=== PATIENT | male | born 1955 | race Caucasian/White ===

== ENCOUNTER 2023-01-14 19:51 | Emergency (ER) | payer MEDICARE, SELFPAY ==
[2023-01-14 19:55] VITALS: BP 140/93; PULSE 105; RESP 20; TEMP 36.7; O2SAT 98; BMI 25.8
--- NOTE | 2023-01-14 20:01 | ED.BACK1 ---
HPI - Back Pain/Injury General Chief Complaint: Back Pain/Injury Stated Complaint: BACK PAIN Time Seen by Provider: 01/14/23 19:56 Source: patient Mode of arrival: walk-in Limitations: no limitations History of Present Illness HPI Narrative: past history of kidney stones. None for 6 years. Presents complaining of pain since last week and decrease urine output. No fever, nausea, vomiting or dysuria/hematuria Pertinent past history: Reports kidney stones Related Data Allergies Allergy/AdvReac Type Severity Reaction Status Date / Time codeine Allergy Severe Verified 01/14/23 19:58 Penicillins Allergy Severe Verified 01/14/23 19:58 Review of Systems ROS Status of ROS 10 or more systems reviewed and unremarkable except as noted in history and below Exam Constitutional Vital Signs, click to edit/add: Last Vital Signs Temp 98.1 F 01/14/23 19:55 Pulse 89 01/14/23 21:41 Resp 16 01/14/23 21:41 BP 144/92 H 01/14/23 21:41 Pulse Ox 94 L 01/14/23 21:41 O2 Del Method Room Air 01/14/23 21:41 Common normals: no apparent distress, average body habitus, oriented x3, no limitations and healthy appearing Eye Common normals: EOMs intact bilaterally and conjunctivae normal Respiratory Common normals: normal respiratory effort, no retractions and no use of accessory muscles Cardio Common normals: regular rate, regular rhythm, S1 normal heart sound and S2 normal heart sound GI Common normals: Normal to inspection, nondistended, normoactive bowel sounds present, soft to palpation and non-tender Back & Pelvis Common normals: no CVA tenderness Extremity Common normals: normal to inspection and full ROM Neuro Common normals: oriented x3, CN's II-XII intact bilaterally, moves all extremities, no focal motor deficits and no sensory deficits noted Psych Appearance: grossly normal Course Vital Signs Vital signs: Vital Signs Temperature 98.1 F 01/14/23 19:55 Pulse Rate 105 H 01/14/23 19:55 Respiratory Rate 20 01/14/23 19:55 Blood Pressure 140/93 H 01/14/23 19:55 Pulse Oximetry 98 01/14/23 19:55 Oxygen Delivery Method Room Air 01/14/23 19:55 Temperature 98.1 F 01/14/23 19:55 Pulse Rate 89 01/14/23 21:41 Respiratory Rate 16 01/14/23 21:41 Blood Pressure 144/92 H 01/14/23 21:41 Pulse Oximetry 94 L 01/14/23 21:41 Oxygen Delivery Method Room Air 01/14/23 21:41 MDM - Back Pain/Injury MDM Narrative Medical decision making narrative: patient presents complaining of pain across her lower back. past history of kidney stone. Found on CT to have 6mm stone at the right UVJ. No hydronephrosis. UA neg for infection. Pain control adequate while in the department. Discharged home Advised to drink plenty of fluids and to followup with his Urologist next week Lab Data Labs: Lab Results 01/14/23 01/14/23 01/14/23 Range/Units 20:08 21:10 22:14 WBC 7.5 (4.0-11.0) 10^3/uL RBC 5.01 (4.70-6.10) 10^6/uL Hgb 15.7 (14.0-18.0) g/dL Hct 46.0 (42.0-54.0) % MCV 91.8 (80.0-94.0) fL MCH 31.3 (25.9-34.0) pg MCHC 34.1 (29.9-35.2) g/dL RDW 13.0 (11.0-15.0) % Plt Count 183 (150-450) 10^3/uL MPV 9.2 L (9.5-13.5) fL Neut % (Auto) 86.4 H (43.0-75.0) % Lymph % (Auto) 7.0 L (20.5-60.0) % Love % (Auto) 6.0 (1.7-12.0) % Eos % (Auto) 0.0 L (0.9-7.0) % Baso % (Auto) 0.3 (0.2-2.0) % Neut # (Auto) 6.5 (1.4-6.5) 10^3/uL Lymph # (Auto) 0.5 L (1.2-3.8) 10^3/uL Love # (Auto) 0.5 (0.3-0.8) 10^3/uL Eos # (Auto) 0.0 (0.0-0.7) 10^3/uL Baso # (Auto) 0.0 (0.0-0.1) 10^3/uL Abs Immat Gran (auto) 0.02 (0.00-0.03) 10^3/uL Imm/Tot Granulo (auto) 0.3 (0.0-0.5) % Sodium 137 (136-145) mmol/L Potassium 3.9 (3.5-5.1) mmol/L Chloride 102 (98-107) mmol/L Carbon Dioxide 25.9 (21.0-32.0) mmol/L Anion Gap 13.0 BUN 16.0 (7.0-18.0) mg/dL Creatinine 1.24 (0.70-1.30) mg/dL Est GFR ( Amer) >60 (>=60) Est GFR (Non-Af Amer) 58 L (>=60) BUN/Creatinine Ratio 12.9 Glucose 142 H (74-106) mg/dL Lactate 2.4 H* 0.9 (0.4-2.0) mmol/L Calcium 9.5 (8.5-10.1) mg/dL Urine Color Lt. yellow (YELLOW) Urine Clarity Clear (CLEAR) Urine pH 6.0 (5.0-9.0) Ur Specific [place] 1.010 (1.005-1.025) Urine Protein Negative (NEG/TRACE) mg/dL Urine Glucose (UA) Negative (NEGATIVE) mg/dL Urine Ketones Negative (NEGATIVE) mg/dL Urine Occult Blood Small A (NEGATIVE) Urine Nitrite Negative (NEGATIVE) Urine Bilirubin Negative (NEGATIVE) Urine Urobilinogen 0.2 (0.2-1.0) EU/dL Ur Leukocyte Esterase Negative (NEGATIVE) Urine RBC 0-2 (0-2) #/HPF Urine WBC 0-2 A (NONE SEEN) #/HPF Ur Squamous Epith Cells None seen (NONE/RARE) #/LPF Urine Crystals None seen (None Seen) #/HPF Urine Bacteria None seen (NONE SEEN) #/HPF Urine Casts None seen (NONE SEEN) #/LPF Urine Mucus None seen (NONE SEEN) Ur Culture Indicated? No Imaging Data CT scan - abdomen: Radiologist's impression: of 2 Current View [email or web address] [place] [id number] Patient Name: SEPIDEH BENITES MRN: [id number] date: 1955 Sex: M Assigned Patient Location: ER Current Patient Location: ER Accession/Order Number: [id number] Exam Date: 01/14/2023 20:16 Report Date: 01/14/2023 21:08 At the request of: TAWNYA IRBY Procedure: CT abdomen pelvis wo con EXAM: CT abdomen pelvis wo con TECHNIQUE: Axial CT images were obtained of the abdomen and pelvis without intravenous contrast. Sagittal and coronal reformatted images were also obtained. Dose reduction techniques were achieved by using automated exposure control and/or adjustment of mA and/or kV according to patient size and/or use of iterative reconstruction technique. HISTORY: kidney stone COMPARISON: 05/31/2018 FINDINGS: Lower chest: The lower lungs are clear. Liver: The liver is homogeneous with normal contours and normal size. Gallbladder: The gallbladder is unremarkable. There is no intra or extrahepatic biliary dilatation. Pancreas: The pancreas is homogeneous without evidence for mass lesion or inflammation. Spleen: The spleen is unremarkable without evidence for mass lesion. Adrenal glands: The adrenal glands are unremarkable Kidneys and bladder: Small cyst upper pole right kidney. Small nonobstructing stones of both kidneys measuring up to 3 mm on the right and 4 mm on the left. The ureters demonstrate normal caliber. 6 mm stone near or within the right ureterovesical junction. GI Tract: Stomach is unremarkable. Visualized small bowel is unremarkable without evidence for obstruction or active inflammation. The appendix is unremarkable.Severe diverticulosis of the distal colon. Reproductive: The prostate gland is enlarged. Lymph nodes: No retroperitoneal or abdominal lymphadenopathy. Vascular: The aorta is not dilated. Peritoneum: No free intraperitoneal air or fluid. No acute inflammation. Abdominal wall: Chronic depression deformity of the L2 vertebral body. Severe degenerative disc disease at L3-L4 and L4-L5. Multiple old healed rib fractures. IMPRESSION: 6 mm stone of the urinary bladder, near or within the right ureterovesical junction. No evidence for right-sided hydroureter or hydronephrosis. Additional small nonobstructing stones of the kidneys. Electronically authenticated by: GENNA DAVIES Date: 01/14/2023 21:08 Discharge Plan Discharge Chief Complaint: Back Pain/Injury Clinical Impression: Renal colic Instructions: Renal Colic (ED) Additional Instructions: follow up with your Urologist next week or with Urologist Dr Foley Referrals: Tino Rice MD [Primary Care Provider] - 1 week
[2023-01-14 20:15] LABS: Basophils Percent Auto 0.3 % (0.2-2.0); Hemoglobin 15.7 g/dL (14.0-18.0); Immature Granulocytes Abs Auto 0.02 10^3/uL (0.00-0.03); Immature Granulocytes Pct Auto 0.3 % (0.0-0.5); Lymphocytes Absolute Auto 0.5 10^3/uL (1.2-3.8); Mean Corpuscular HGB Conc 34.1 g/dL (29.9-35.2); Mean Corpuscular Hemoglobin 31.3 pg (25.9-34.0); Mean Corpuscular Volume 91.8 fL (80.0-94.0); Mean Platelet Volume 9.2 fL (9.5-13.5); Monocytes Absolute Auto 0.5 10^3/uL (0.3-0.8); Neutrophils Absolute Auto 6.5 10^3/uL (1.4-6.5); Neutrophils Percent Auto 86.4 % (43.0-75.0); Platelet Count 183 10^3/uL (150-450); Red Blood Count 5.01 10^6/uL (4.70-6.10); White Blood Count 7.5 10^3/uL (4.0-11.0)
[2023-01-14 20:25] LABS: BUN Creatinine Ratio 12.9; Calcium 9.5 mg/dL (8.5-10.1); Carbon Dioxide 25.9 mmol/L (21.0-32.0); Chloride 102 mmol/L (98-107); Estimated GFR (African America >60 (>=60); Estimated GFR (Non-African Ame 58 (>=60); Glucose 142 mg/dL (74-106); Potassium 3.9 mmol/L (3.5-5.1); Sodium 137 mmol/L (136-145)
[2023-01-14] MEDS: 0.9 % SODIUM CHLORIDE 1,000 ML 999 ML IV ×2 (20:28→21:07)
[2023-01-14 20:37] LABS: Lactate/Lactic Acid 2.4 mmol/L (0.4-2.0)
[2023-01-14] MEDS: KETOROLAC TROMETHAMINE 30 MG/ML VIAL IM (20:54)
[2023-01-14 21:20] LABS: Bilirubin Urine NEGATIVE (NEGATIVE); Blood Urine SMALL (NEGATIVE); Clarity Urine CLEAR (CLEAR); Color Urine LT. YELLOW (YELLOW); Glucose Urine UA NEGATIVE (NEGATIVE); Ketones Urine NEGATIVE (NEGATIVE); Leukocyte Esterase Urine NEGATIVE (NEGATIVE); Nitrite Urine NEGATIVE (NEGATIVE); Protein Urine NEGATIVE (NEG/TRACE); Urobilinogen Urine 0.2 EU/dL (0.2-1.0)
[2023-01-14 21:21] LABS: Urine Microscopic Indicated YES
[2023-01-14 21:28] LABS: Bacteria Urine NONE SEEN #/HPF (NONE SEEN); Cast Seen? NONE SEEN #/LPF (NONE SEEN); Crystals Seen? None Seen #/HPF (None Seen); Mucus Urine NONE SEEN (NONE SEEN); RBC Urine 0-2 #/HPF (0-2); Squamous Epithelial Cell Urine NONE SEEN #/LPF (NONE/RARE); Urine Culture Indicated NO; WBC Urine 0-2 #/HPF (NONE SEEN)
[2023-01-14] MEDS: FENTANYL CITRATE/PF 100 MCG/2 ML VIAL IV (21:34)
[2023-01-14] MEDS: ORPHENADRINE 60 MG/ 2 ML VIAL IV (21:35)
[2023-01-14 21:41] VITALS: BP 144/92; PULSE 89; RESP 16; O2SAT 94
[2023-01-14 22:36] LABS: Lactate/Lactic Acid 0.9 mmol/L (0.4-2.0)
== END 2023-01-14 23:17 | disposition home or self-care (01) ==
PROVIDERS: Emergency Provider Internal Medicine; PCP Family Medicine
DX: N23 Unspecified renal colic (principal); Z87.442 Personal history of urinary calculi
CPT/HCPCS: 36415; 74176; 80048; 81001; 83605; 85025; 96372; 96374; 96375; 99285

== ENCOUNTER 2023-12-11 09:28 | Outpatient (OUT) | payer MEDICARE, SELFPAY ==
--- NOTE | 2023-12-11 09:47 | XR_ITS ---
The [address] [address] Patient Name: SEPIDEH BENITES MRN: [id number] date: 1955 Sex: M Assigned Patient Location: LAB Current Patient Location: Accession/Order Number: [id number] Exam Date: 12/11/2023 09:53 Report Date: 12/12/2023 06:28 At the request of: KARLENE CROOK Procedure: XR hip RT 2V w/ pelvis PROCEDURE: XR hip RT 2V w/ pelvis HISTORY: Right Hip Pain M25.551 COMPARISON: None. FINDINGS: BONES:Slight narrowing of the hip joint spaces bilaterally. No significant periarticular osteophytes. 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 No fracture or dislocation. SOFT TISSUES:No visible soft tissue swelling. EFFUSION:None visible. OTHER: Negative. XR/XR hip RT 2V w/ pelvis IMPRESSION: 1. No acute bone abnormality. 2. Mild degenerative joint disease. 3. 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 Electronically authenticated by: MARIA M BALLESTEROS Date: 12/12/2023 06:28
[2023-12-11 10:20] LABS: Estimated Average Glucose 105 mg/dL; Glycohemoglobin A1C 5.3 % (4.5-6.2)
[2023-12-11 10:29] LABS: Basophils Percent Auto 0.7 % (0.2-2.0); Eosinophils Absolute Auto 0.1 10^3/uL (0.0-0.7); Eosinophils Percent Auto 1.3 % (0.9-7.0); Hematocrit 46.9 % (42.0-54.0); Hemoglobin 15.6 g/dL (14.0-18.0); Immature Granulocytes Abs Auto 0.01 10^3/uL (0.00-0.03); Immature Granulocytes Pct Auto 0.2 % (0.0-0.5); Lymphocytes Absolute Auto 1.2 10^3/uL (1.2-3.8); Lymphocytes Percent Auto 19.2 % (20.5-60.0); Mean Corpuscular HGB Conc 33.3 g/dL (29.9-35.2); Mean Corpuscular Hemoglobin 31.5 pg (25.9-34.0); Mean Corpuscular Volume 94.6 fL (80.0-94.0); Monocytes Absolute Auto 0.5 10^3/uL (0.3-0.8); Monocytes Percent Auto 7.7 % (1.7-12.0); Neutrophils Absolute Auto 4.3 10^3/uL (1.4-6.5); Neutrophils Percent Auto 70.9 % (43.0-75.0); Platelet Count 203 10^3/uL (150-450); Red Blood Count 4.96 10^6/uL (4.70-6.10); Red Cell Distribution Width 12.5 % (11.0-15.0)
[2023-12-11 10:40] LABS: Free T4 0.91 ng/dL (0.76-1.46)
[2023-12-11 10:45] LABS: Prostate Specific Antigen Scrn 1.37 ng/mL (<=4.00)
[2023-12-11 11:06] LABS: Alanine Aminotransferase 29 U/L (16-63); Albumin Globulin Ratio 1.2; Albumin Level 3.7 g/dL (3.4-5.0); Alkaline Phosphatase 94 U/L (46-116); Anion Gap 12.8; Aspartate Amino Transferase 15 U/L (15-37); BUN Creatinine Ratio 17.4; Bilirubin Total 0.7 mg/dL (0.2-1.0); Calcium 9.1 mg/dL (8.5-10.1); Carbon Dioxide 29.4 mmol/L (21.0-32.0); Chloride 103 mmol/L (98-107); Chol HDL Ratio 3.8; Cholesterol 150 mg/dL (<=200); Estimated GFR (African America >60 (>=60); Estimated GFR (Non-African Ame >60 (>=60); Globulin 3.2 g/dL; Glucose 105 mg/dL (74-106); HDL Cholesterol 40 mg/dL (40-60); LDL Cholesterol Calculated 89.6 mg/dL; Potassium 4.2 mmol/L (3.5-5.1); Sodium 141 mmol/L (136-145); Thyroid Stimulating Hormone 1.466 uIU/mL (0.358-3.740); Total Protein 6.9 g/dL (6.4-8.2); Triglycerides 102 mg/dL (<=150); VLDL CHOLESTEROL 20.4 mg/dL
== END 2023-12-11 09:29 | disposition home or self-care (01) ==
LOC: LAB 09:31
PROVIDERS: PCP Family Medicine; Visit Provider Family Medicine
DX: R07.9 Chest pain, unspecified (principal); R53.83 Other fatigue; R06.00 Dyspnea, unspecified; I10 Essential (primary) hypertension; Z12.5 Encounter for screening for malignant neoplasm of prostate; E03.9 Hypothyroidism, unspecified; E78.5 Hyperlipidemia, unspecified; R73.09 Other abnormal glucose; M25.551 Pain in right hip
CPT/HCPCS: 36415; 73502; 80053; 80061; 83036; 84439; 84443; 85025; G0103

== ENCOUNTER 2024-01-09 07:41 | Outpatient (OUT) | payer MEDICARE, SELFPAY ==
--- NOTE | 2024-01-09 08:00 | NM_ITS ---
Patient Name: SEPIDEH BENITES MR#: [id number] : 1955 Exam Date: 01/09/2024 Ordering Doctor: DR KARLENE CROOK . RADIOLOGY REPORT PROCEDURE: NM TAYA PERF SPECT REST STR COMPARISON: None. INDICATIONS: CHEST PAIN, DYSPNEA TECHNIQUE: Exam Description: Stress/Rest one day protocol gated SPECT Rest Imagin.3 mCi Tc-99m Cardiolite IV on 01/09/2024 Stress Imaging 30.7 mCi Tc-99m Cardiolite IV on 01/09/2024 Exercise Protocol: 0.4 mg Lexiscan given IV Heart Rate (bpm): Rest: 68 Max: 100 PMHR: 66 Blood Pressure: Rest: 126/82 Max: 144/80 Symptoms: Rest and peak stress ECG findings were pending and the exercise portion of the study was pending per attending physician Dr. Albert . For more details please see separate cardiac stress test report. FINDINGS: QUALITY OF STUDY: Excellent. PERFUSION DEFECT: None. LOCATION: N/A SIZE: N/A. SEVERITY: N/A. TYPE: N/A. WALL MOTION: Normal. LV SIZE: Normal. 99 mL. TID / TCD: None; 0.9 LVEF: Normal. Calculated EF 59%. SUMMARY: Myocardial perfusion imaging study is NORMAL. CONCLUSION: 1. Normal nuclear medicine myocardial perfusion scan. Dictated by: Elton Cote M.D. on 01/11/2024 at 11:45 Approved by: Elton Cote M.D. on 01/11/2024 at 11:57
--- NOTE | 2024-01-09 10:38 | PC.NURSE ---
Nursing Note Cardiac Stress Test Reviewed: Medication, allergies and patient history reviewed. Stress Test: [ ] Patient tolerated stress test well. [x ] Patient unable to tolerate walking on treadmill. Switched to Lexiscan stress test. [ x] No chest pain noted per patient [ ] Chest pain that resolved prior to leaving stress lab. [ ] No dyspnea noted. [ x] Dyspnea that resolved prior to leaving stress lab. [x ] Patient left stress lab asymptomatic and hemodynamically stable. [ ] Patient taken to the Emergency Room due to non-resolving symptoms following stress test. [ ] Patient achieved target heart rate. [ ] Patient unable to achieve target heart rate. [ ] Aminophylline administered as reversal agent to Lexiscan (Regadenoson). [ ] Nitro administered. Nursing Comments:Pt attempted TM stress test but after roughly 46 seconds was unable to walk anymore due to hip discomfort. 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 Pt was switched to Lexiscan and tolerated this well. Pt did have some SOB initially after Dahiana was injected but this resolved within 1 minute of rest. Pt was taken to cafeteria via wheelchair for breakfast prior to second set of images.
[2024-01-09] MEDS: REGADENOSON 0.4 MG/5 ML SYRINGE IV (10:46)
--- NOTE | 2024-01-09 15:32 | PM.STRESS ---
Stress Test Stress Test Allergies Allergy/AdvReac Type Severity Reaction Status Date / Time codeine Allergy Severe Verified 01/14/23 19:58 Penicillins Allergy Severe Verified 01/14/23 19:58 Requesting physician: Tino Rice Procedure: Lexiscan Cardiolite stress test General Information: Reason for Stress Test: Chest pain Cardiac History and Risk Factors: Patient chews tobacco. Resting 12 - Lead Electrocardiogram: Normal sinus rhythm at a rate of 68. Flattened T-waves in aVL. Normal axis. Stress Test: Protocol: Victorino protocol was initiated, but due to inability to ambulate after 46 seconds, the exercise component was unable to achieve target heart rate and therefore canceled.? Testing was changed to Lexiscan protocol, with injection of 0.4mg Lexiscan IV push followed by Cardiolite. Blood pressure: Initial: 126/82 , Maximum: 144/80 Rate & rhythm: Patient remained in sinus rhythm during the exercise and recovery portions of the study.? The maximum heart rate was 100, which was 66% of the maximum predicted heart rate. ST-segments & T-waves: There were no T-wave changes and no ST-segment changes when compared to the baseline EKG. Patient response/symptoms: There were no symptoms similar to the chief complaint. Interpretation: Normal Lexiscan stress test without electrocardiographical evidence of ischemia. Patient was asymptomatic regarding chief complaint. Cardiolite imaging interpretation will be reported separately. Clinical correlation required.
== END 2024-01-09 07:42 | disposition home or self-care (01) ==
LOC: NM 07:42
PROVIDERS: PCP Family Medicine; Visit Provider Family Medicine
DX: R07.9 Chest pain, unspecified (principal); R06.00 Dyspnea, unspecified; M25.551 Pain in right hip
CPT/HCPCS: 78452; 93017; A9500; J2785

== ENCOUNTER 2024-09-28 16:14 | Emergency (ER) | payer MEDICARE, SELFPAY ==
[2024-09-28] VITALS (30 sets, daily range): BP systolic 106–152; BP diastolic 69–104; PULSE 84–120; O2SAT 92–99; BMI 28.2
--- OUTSIDE RECORDS SUMMARY | 2024-09-28 16:20 | XMS_ITS | CCD ---
Author Organization [facility] Care Team Providers Care Digital Art Director Name Role Phone Karlene Rice Primary Care Provider [phone] KARLENE RICE Attending Unavailable KARLENE RICE Admitting Unavailable KARLENE RICE Attending Unavailable KARLENE RICE Admitting Unavailable KARLENE RICE Primary Care Unavailable KARLENE RICE Consulting Unavailable IVY BRITT V Consulting Unavailable Brenda ELECTRONIC PARTS SALESPERSON - SENIOR PROJECT MANAGER, Pura Primary Care Provider Felicia Maria MD Primary Care Provider Felicia Maria Primary Care Provider Felicia Maria Primary Care Provider Karlene Rice Primary Care Physician [phone] Karlene Rice MD Primary Care Provider [phone] Fermin VAUGHAN Attending Unavailable Fermin VAUGHAN Attending Unavailable Fermin VAUGHAN Attending Unavailable Felicia Maria MD Primary Care Provider FELICIA MARIA Primary Care Unavailable PORTIA HURD Referring Unavailable PORTIA HURD Attending Unavailable PORTIA HURD Referring Unavailable PORTIA HURD Attending Unavailable FELICIA MARIA Primary Care Unavailable HILLARY WILSON Referring Unavailable KARLENE RICE Primary Care Unavailable JUDITH WOO Referring Unavailable KARLENE RICE Primary Care Unavailable KARLENE RICE Primary Care Unavailable ROYCE NIX Attending Unavailable Allergies Allergy Classification Reported Allergen(s) Allergy Type Date of Onset Reaction(s) Facility (11 sources) Penicillins; Translations: [penicillins] Propensity to adverse reactions to drug 5 Hives, Swelling, Weal (disorder) [place] (11 sources) Seasonal allergy Propensity to adverse reactions to substance 5 Itching [place], [place] (4 sources) Codeine; Translations: [codeine] Drug Allergy 6 [facility] (2 sources) Penicillin Drug Allergy [facility] (3 sources) Primidone; Translations: [PRIMIDONE] Drug Allergy 0 [facility] (20 sources) Codeine; Translations: [codeine] Drug Allergy 6 Hives, GI Upset, Nausea (finding) [facility] Work Phone: (15 sources) Penicillins Drug Allergy 5 Hives, Swelling [facility] (17 sources) Primidone; Translations: [primidone] Drug Allergy 0 Unknown, Weal (disorder), Hives [facility] Work Phone: (11 sources) Seasonal allergy; Translations: [SEASONAL ALLERGIES] Allergy to substance 5 Other: See Comments [facility] (1 source) Primidone; Translations: [Mysoline] Drug Allergy [facility] Medications Current Medications Medication Drug Class(es) Dates Sig (Normalized) Sig (Original) b complex vitamins capsule (3 sources) take 1 capsule by mouth once daily b complex vitamins capsule Take 1 capsule by mouth daily 0 Active bacitracin 0.5 unt/mg topical ointment (1 source) Start: 02-28-2024 apply 1 dose topically once daily Topical, DAILY, First dose on Mon02/28/24 at 1130, Apply to left thumb . cetirizine HCl/pseudoephedrine (ALLERGY D-12 ORAL) (9 sources) cetirizine HCl/pseudoephedrin e (ALLERGY D-12 ORAL) Take by mouth. Active cetirizine HCl/p seudoephedrine (ALLERGY D-12 ORAL) Take by mouth. 0 Active Comment on above: Take by mouth. cholecalciferol, vitamin D3, (VITAMIN D3 ORAL) (9 sources) take 25 ug by mouth three times daily cholecalciferol, vitamin D3, (VITAMIN D3 ORAL) Take 25 mcg by mouth three times daily. Active take 25 ug by mouth three times daily cholecalciferol, vitamin D3, (VITAMIN D3 ORAL) Take 25 mcg by mouth three times daily. 0 Active Comment on above: Take 25 mcg by mouth three times daily. diclofenac sodium 75 mg delayed release oral tablet (2 sources) Nonsteroidal Anti-inflammatory Drug take 1 tablet by mouth twice daily diclofenac (VOLTAREN) 75 MG EC tablet Take 1 tablet by mouth 2 times daily Active docusate sodium 100 mg oral capsule (13 sources) Start: 01-05-20 take 1 capsule by mouth once daily as needed for constipation Colace 100 mg Cap 100 mg = 1 cap(s), Oral, Daily, PRN for constipation, Refills(s) 0 Start Date: 01/04/23 Status: Ordered take 1 capsule by mouth twice da lj docusate sodium (COLACE) 100 MG capsule Take 1 capsule by mouth 2 times daily Active docusate sodium (STOOL SOFTENER ORAL) Take by mouth. Active docusate sodium (STOOL SOFTENER ORAL) Take by mouth. 0 Active Comment on above: Take by mouth. 2 ml fentaNYL 0.05 mg/ml injection (2 sources) Opioid Agonist Start: 02-11-2021 fentaNYL (SUBLIMAZE) injection 25 mcg ferrous sulfate 325 mg oral tablet (2 sources) take 1 tablet by mouth once daily ferrous sulfate (IRON 325) 325 (65 Fe) MG tablet Take 1 tablet by mouth Every Day Active Folic Acid (9 sources) take 1000 ug by mouth once daily FOLIC ACID ORAL Take 1,000 mcg by mouth once daily. Active take 1000 ug by mouth once daily FOLIC ACID ORAL Take 1,000 mcg by mouth once daily. 0 Active Comment on above: Take 1,000 mcg by [facility] once daily. lisinopril 40 mg oral tablet (3 sources) Angiotensin Converting Enzyme Inhibitor take 1 tablet by mouth once daily lisinopril (PRINIVIL;ZESTRIL) 40 MG tablet Take 40 mg by mouth daily 0 Active loratadine 10 mg oral tablet (6 sources) Start: 01-04-2023 take 1 tablet by mouth once daily loratadine 10 mg Tab 10 mg = 1 tab(s), Oral, Daily, Refills(s) 0 Start Date: 01/04/23 Status: Ordered take 1 tablet by mouth once hazel y loratadine (CLARITIN) 10 MG tablet Take 10 mg by mouth daily 0 Active Magnesium (2 sources) take 1 tablet by mouth once daily magnesium 200 MG TABS tablet Take 1 tablet by mouth daily Active magnesium oxide 400 mg oral tablet (9 sources) magnesium oxide 400 mg magnesium tab Take by mouth twice daily. Active Comment on above: Take by mouth twice daily. Multiple Vitamins-Minerals (MULTIVITAMIN ADULTS 50+ PO) (5 sources) Multiple Vitamins-Minerals (MULTIVITAMIN ADULTS 50+ PO) Take by mouth Active Multiple Vitamin s-Minerals (MULTIVITAMIN ADULTS 50+ PO) Take by mouth 0 Active Multivitamin preparation (2 sources) Start: 01-04-2023 take 1 tablet by mouth once daily multivitamin 1 tab(s), Oral, Daily, Refill(s) 0 Start Date: 01/04/23 Status: Ordered Xakpgewofplfq-Qaswirrq-S utein (MULTIVITAMIN 50 PLUS) tab (5 sources) Multivitamins-Mi nerals- Lutein (MULTIVITAMIN 50 PLUS) tab Take 1 tablet by mouth once daily. Active Multivitamins-Mi nerals-Lutein (MULTIVITAMIN 50 PLUS) tab Take 1 tablet by mouth once daily. 0 Active Comment on above: Take 1 tablet by shayla th once daily. Naproxen (9 sources) Nonsteroidal Anti-inflammatory Drug Naproxen Sodium (DARRELL VE PO) Take by mouth daily Active Naproxen Sodium (ALEVE PO) Take by mouth daily 0 Active take 1 tablet by shayla th twice daily as needed for pain naproxen sodium (ALEVE) 220 MG tablet Ta ke 220 mg by mouth 2 times daily as needed for Pain 0 Active ondansetron 4 mg oral tablet (1 source) Serotonin-3 Receptor Antagonist Start: 02-11-2021 take 1 tablet by mouth every eight hours as needed for nausea ondansetron (ZOFRAN) 4 MG tablet Take 1 tablet by mouth every 8 hours as needed for Nausea or Vomiting 15 tablet 0 02/11/2021 Active sulfamethoxazole 800 mg / trimethoprim 160 mg oral tablet (1 source) Dihydrofolate Reductase Inhibitor Antibacterial, Sulfonamide Antimicrobial Start: 02-28-2024 End: 03-09-2024 take 1 tablet by mouth twice daily sulfamethoxazole -trimethoprim (BACTRIM DS) 800-160 MG per tablet Take 1 tablet by mouth 2 times daily for 10 days 20 tablet 02/28/2024 03/09/2024 Active tamsulosin hydrochloride 0.4 mg oral capsule (14 sources) alpha-Adrenergic Martha Start: 08-05-2024 take 1 capsule by mouth once daily in the evening tamsulosin (FLOMAX) 0.4 MG capsule Indications: BPH with obstruction/lowe r urinary tract symptoms , Nocturia Take 1 capsule by mouth every evening 90 capsule 3 08/05/2024 Active Start: 06-07-2022 take 0.4 mg by mouth once hazel y tamsulosin (FLOMAX) 0.4 mg Take 0.4 mg by mouth once daily. 06/07/2022 Active Comment on above: Take 0.4 mg by mouth once daily. tiZANidine 4 mg oral tablet (3 sources) Central alpha-2 Adrenergic Agonist Start: 0 take 1 tablet by mouth every eight hours as needed for pain tiZANidine (ZANAFLEX) 4 MG tablet Take 1 tablet by mouth every 8 hours as needed (Shoulder pain) 15 tablet 0 01/31/2020 Active traMADol hydrochloride 50 mg oral tablet (2 sources) Opioid Agonist Start: 1 End: 1 traMADol (ULTRAM) 50 MG tablet Indications: Acute postoperative pain Take 1 tablet by mouth every 8 hours as needed for Pain for up to 3 days. Intended supply: 3 days. Take lowest dose possible to manage pain 10 tablet 0 02/11/2021 02/14/2021 Active Vitamin B Complex oral tablet (2 sources) Start: 3 take 1 tablet by mouth once daily Vitamin B Complex oral tablet 1 tab(s), Oral, Daily, Refill(s) 0 Start Date: 01/04/23 Status: Ordered vitamin b12 0.5 mg oral tablet (11 sources) Vitamin B12 take 1 tablet by mouth once daily vitamin B-12 (CYANOCOBALAMIN) 500 MCG tablet Take 1 tablet by mouth daily Active take 1 tablet by mouth once hazel y cyanocobalamin (VITAMIN B-12) 1,000 mcg tab Take 1,000 mcg by mouth once daily. Active Comment on above: Take 1,000 mcg by [facility] once daily. Completed/Discontinued Medications Medication Drug Class(es) Dates Sig (Normalized) Sig (Original) acetaminophen 500 mg oral tablet (8 sources) Start: 04-16-2021 End: 12-13-2021 take 2 tablets by mouth every six hours as needed acetaminophen (TYLENOL EXTRA STRENGTH) 500 mg tablet Take 2 tablets by mouth every 6 hours as needed for pain. 30 tablet 0 04/16/2021 12/13/2021 Discontinued Start: 02-11-2021 End: 02-11-2021 acetaminophen (TYLENOL) tabl et 650 mg Start: 01-31-2020 acetaminophen (TYLENOL) tablet 1,000 mg Start: 01-31-2020 take 2 tablets by mo ut every eight hours as needed for pain acetaminophen (TYLENOL) 325 MG tablet Take 2 tablets by mouth every 8 hours as needed for Pain 30 tablet 0 01/31/2020 Active Comment on above: Take 2 tablets by mo arh every 6 hours as needed for pain. calcium chloride 0.0014 meq/ml / potassium chloride 0.004 meq/ml / sodium chloride 0.103 meq/ml / sodium lactate 0.028 meq/ml injectable solution (1 source) Start: 02-12-20 End: 02-12-20 lactated ringers infusion 50 ml clindamycin 18 mg/ml injection (1 source) Lincosamide Antibacterial Start: 02-12-20 End: 02-12-20 clindamycin (CLEOCIN) 900 mg in dextrose 5 % 50 mL IVPB gabapentin 300 mg oral capsule (1 source) Anti-epileptic Agent Start: 02-12-20 End: 02-12-20 gabapentin (NEURONTIN) capsule 300 mg iohexol (OMNIPAQUE 240) injection 10 mL (1 source) Start: 02-13-20 End: 02-13-20 iohexol (OMNIPAQUE 240) injection 10 mL iopamidol (ISOVUE-370) 76 % injection 18 mL (1 source) Start: 01-13-20 End: 01-13-20 iopamidol (ISOVUE-370) 76 % injection 18 mL ketorolac tromethamine 10 mg oral tablet (1 source) Nonsteroidal Anti-inflammatory Drug, Cyclooxygenase Inhibitor Start: 01-16-20 End: 02-02-20 take 1 tablet by mouth four times daily as needed ketorolac (TORADOL) 10 MG tablet TAKE 1 TABLET BY MOUTH FOUR TIMES DAILY NEEDED 0 01/15/2023 02/01/2023 Discontinued (LIST CLEANUP) 10 ml lidocaine hydrochloride 10 mg/ml injection (2 sources) Antiarrhythmic, Amide Local Anesthetic Start: 02-28-20 End: 10-09-20 24 5 mL, IntraDERmal, ONCE, 1 dose, On 02/28/24 at 1130 Start: 01-31-2020 End: 02-10-2020 lidocaine (LIDODERM) 5 % Maxime ce 1 patch onto the skin daily for 10 days 12 hours on, 12 hours off. 10 patch 0 01/31/2020 02/10/2020 Active methylPREDNISolone 125 mg injection (1 source) Corticosteroid Start: 02-01-2023 End: 02-01-2023 methylPREDNISolone sodium (PF) (SOLU-MEDROL PF) injection 125 mg 12 hr orphenadrine citrate 100 mg extended release oral tablet (2 sources) Muscle Relaxant Start: 01-15-2023 End: 02-01-2023 take 1 tablet by mouth twice daily as needed orphenadrine (NORFLEX) 100 MG extended release tablet Take 1 tablet by mouth 2 times daily as needed 0 01/15/2023 02/01/2023 Discontinued (LIST CLEANUP) Start: 01-31-2020 End: 01-31-2020 orphenadrine (NORFLEX) injec tion 60 mg Problems Active Problems Problem Classification Problem Date Documented Date Episodic/Chronic Calculus of urinary tract (17 sources) History of calculus of kidney; Translations: [Ureteric stone] Onset: 3 01-04-2023 Episodic Diverticulosis and diverticulitis (13 sources) Diverticulitis; Translations: [Diverticulitis of intestine, part unspecified, without perforation or abscess without bleeding] Onset: 9 06-07-2018 Chronic Essential hypertension (3 sources) Hypertensive disorder 01-04-2023 Chronic Hyperplasia of prostate (18 sources) Benign prostatic hyperplasia; Translations: [Benign prostatic hyperplasia without lower urinary tract symptoms] Onset: 5 06-10-2015 Chronic Neoplasms of unspecified nature or uncertain behavior (2 sources) Neoplasm of uncertain behavior of skin; Translations: [Neoplasm of uncertain behavior of skin] Onset: 3 Episodic Nonspecific chest pain (4 sources) Other chest pain; Translations: [OTHER CHEST PAIN] Onset: 0 Episodic Osteoarthritis (10 sources) Arthritis; Translations: [Unspecified osteoarthritis, unspecified site] Onset: 6 01-19-2016 Chronic Other and ill-defined cerebrovascular disease (13 sources) Intracranial aneurysm; Translations: [Cerebral aneurysm, nonruptured] Onset: 5 01-29-2015 Chronic Other and unspecified benign neoplasm (2 sources) Melanocytic nevus; Translations: [Melanocytic nevi, unspecified] Onset: 3 Episodic Other connective tissue disease (1 source) Disorder of rotator cuff; Translations: [Rotator cuff dysfunction, left] Episodic Other fractures (1 source) Fracture of one rib, right side, initial encounter for closed fracture; Translations: [FX 1 RIB RT SIDE INITIAL CLOS FX] Onset: 0 Episodic Other hereditary and degenerative nervous system conditions (20 sources) Essential tremor; Translations: [Essential tremor] Onset: 5 06-10-2015 Chronic Other hereditary and degenerative nervous system conditions (1 source) Essential tremor; Translations: [Essential tremor] Onset: 6 Chronic Other nervous system disorders (1 source) Acute postoperative pain; Translations: [Other acute postprocedural pain] Episodic Other nutritional; endocrine; and metabolic disorders (3 sources) Overweight 01-11-2023 Episodic Other nutritional; endocrine; and metabolic disorders (3 sources) Overweight in adulthood with body mass index of 25 or more but less than 30 01-11-2023 Episodic Other skin disorders (3 sources) Epidermoid cyst; Translations: [Epidermal cyst] Onset: 3 Episodic Other skin disorders (1 source) Hyperpigmentation of skin; Translations: [Other melanin hyperpigmentation] Onset: 3 Episodic Other skin disorders (1 source) Epidermoid cyst of skin 02-07-2023 Episodic Other skin disorders (1 source) Lentigo simplex 02-07-2023 Episodic Other upper respiratory disease (3 sources) Seasonal allergic rhinitis 01-04-2023 Chronic Poisoning by nonmedicinal substances (1 source) Bee sting; Translations: [Toxic effect of venom of bees, accidental (unintentional), initial encounter] 02-01-2023 Episodic Residual codes; unclassified (13 sources) Obstructive sleep apnea syndrome; Translations: [Obstructive sleep apnea (adult) (pediatric)] Onset: 1 04-12-2021 Chronic Residual codes; unclassified (1 source) Pain; Translations: [Pain] Episodic Past or Other Problems Problem Classification Problem Date Documented Da te Episodic/Chronic Abdominal hernia (19 sources) Right inguinal hernia ; Translations: [Unilateral inguinal hernia, without obstruction or gangrene, not specified as recurrent] Onset: 02-11-2021 Episodic Genitourinary symptoms and ill-defined conditions (5 sources) Nocturia; Translations: [Nocturia] Onset: 04-08-2022 04-08-2022 Episodic Open wounds of extremities (2 sources) Puncture wound of thumb of left hand; Translations: [Puncture wound without foreign body of left thumb without damage to nail, initial encounter] Onset: 02-28-2024 02-28-2024 Episodic Other injuries and conditions due to external causes (10 sources) Heat exhaustion; Translations: [Heat exhaustion, unspecified, initial encounter] Onset: 07-09-2018 07-09-2018 Episodic Screening and history of mental health and substance abuse codes (13 sources) Ex-tobacco user; Translations: [Personal history of nicotine dependence] Onset: 04-12-2021 04-12-2021 Episodic Sprains and strains (1 source) Strain of rotator cuff capsule; Translations: [Strain of tendon of left rotator cuff, initial encounter] Episodic Superficial injury; contusion (2 sources) Superficial foreign body of left thumb, initial encounter; Translations: [Superficial foreign body (splinter) of finger(s), without major open wound and without mention of infection] Onset: 02-28-2024 02-28-2024 Episodic Unclassified (8 sources) Onset: 04-29-2022 Resolved: 08-17-2022 04-29-2022 Results Test Name Value Interpretation Reference Range Facility XR ABDOMEN (KUB) (SINGLE AP VIEW)on 08-07-2024 XR ABDOMEN (KUB) (SINGLE AP VIEW) EXAMINATION: ONE SUPINE XRAY VIEW(S) OF THE ABDOMEN 08/05/2024 11:02 am COMPARISON: 08/03/2023. HISTORY: ORDERING SYSTEM PROVIDED HISTORY: Kidney stones FINDINGS: The bowel gas pattern is nonspecific and nonobstructive. No abnormally dilated loops of bowel are seen. There are punctate calcifications involving the left kidney measuring up 2 mm and not significantly changed. IMPRESSION: 1. Nonobstructive bowel gas pattern. 2. Punctate left renal calculi. Interpreted by: Jagdish Miles MD Signed by: Jagdish Miles MD 08/07/24 Final result Normal [facility] XR Abdomen Single viewon 1. Nonobstructive bowel gas pattern. 2. Punctate left renal calculi. [facility] EXAMINATION: ONE SUPINE XRAY VIEW(S) OF THE ABDOMEN 08/05/2024 11:02 am COMPARISON: 08/03/2023. HISTORY: ORDERING SYSTEM PROVIDED HISTORY: Kidney stones FINDINGS: The bowel gas pattern is nonspecific and nonobstructive. No abnormally dilated loops of bowel are seen. There are punctate calcifications involving the left kidney measuring up 2 mm and not significantly changed. [facility] Jagdish Miles MD - 08/07/2024 EXAMINATION: ONE SUPINE XRAY VIEW(S) OF THE ABDOMEN 08/05/2024 11:02 am COMPARISON: 08/03/2023. HISTORY: ORDERING SYSTEM PROVIDED HISTORY: Kidney stones FINDINGS: The bowel gas pattern is nonspecific and nonobstructive. No abnormally dilated loops of bowel are seen. There are punctate calcifications involving the left kidney measuring up 2 mm and not significantly changed. IMPRESSION: 1. Nonobstructive bowel gas pattern. 2. Punctate left renal calculi. [facility] XR Abdomen Single viewOrdere d By: Jagdish Miles on 08-07-2024 [facility]: XR Abdomen Single viewon Radiology Study observation (narrative) [facility] CNOV Office Visit (NRMDN) SEPIDEH CASEY ([id number]) 1955 M Date Time Provider Department 06/04/24 1:00 PM PORTIA HURD NRMDN During your visit today, we recorded the following information about you: Pulse Blood pressure Weight Height 87/minute 145/74 96.1 kg 1.803 m Portia Hurd, ELECTRONIC PARTS SALESPERSON.SENIOR PROJECT MANAGER 06/04/2024 1:47 PM Signed [facility] - FOLLOW UP EVALUATION Felicia Maria MD, [address] [place] [address] [place] [id number] Dear Felicia Maria MD, MD: I had the pleasure of seeing Mr. Casey for follow-up today. As you know he is a 69 year old right-handed male with a history of Essential tremor since 1974. He had bilateral VIM DBS placed in 2014 with bilateral Medtronic RC IPGs. His right IPG was replaced 04/11 with a Medtronic RC.His left chest RC was laced 12/10/2018. Subjective Previous Plan-11/28/2023 Visit: No changes to DBS today, DBS check completed and within normal limits. Follow-up in 6 months Interested in clinical research? Not currently Interval History: He has remained stable overall. He still has trouble with writing but otherwise does okay. Movement Disorders Medications Schedule - as of the start of the visit: Medications Questionnaires: In addition, the following activities of daily living that may be affected by tremors were evaluated: Speaking: Not affected Feeding: Not affected Bringing Liquids to Mouth: Not affected Hygiene: Not affected Dressing: Not affected Writing: Affected (moderate) Working: Affected (mild) Number of falls in the Last Month: 0 Mood/Behavior Depression: PHQ-9 Score: 6 usually representing mild (5-9) depression. Anxiety: JANNETH-7 Total Score: 5 usually representing mild (5-9) anxiety. Finally, the following table shows the patient's overall global physical and mental health using the PROMIS scale: PROMIS-10 Flowsheet Row Office Visit from 06/04/2024 in Neurology Office Visit from 11/28/2023 in Neurology Global Physical Health T Score 50.8 47.7 Global Mental Health T Score 50.8 53.3 0-10 Standard Pain Scale 4 1 *PROMIS-10 scoring scale: mean = 50, over 50 is above average, under 50 is below average ALLERGIES Allergen Reactions Codeine GI Upset Penicillins Hives, Swelling Seasonal Allergies Other: See Comments Sneezing, congestion, itchy, watery eyes, migraine headaches Primidone Unknown Current Outpatient Medications Medication Sig Multivitamins-Minerals -Lutein (MULTIVITAMIN 50 PLUS) tab Take 1 tablet by mouth once daily. tamsulosin (FLOMAX) 0.4 mg Take 0.4 mg by mouth once daily. magnesium oxide 400 mg magnesium tab Take by mouth twice daily. cyanocobalamin (VITAMIN B-12) 1,000 mcg tab Take 1,000 mcg by mouth once daily. FOLIC ACID ORAL Take 1,000 mcg by mouth once daily. cholecalciferol, vitamin D3, (VITAMIN D3 ORAL) Take 25 mcg by mouth three times daily. cetirizine HCl/pseudoephedrine (ALLERGY D-12 ORAL) Take by mouth. docusate sodium (STOOL SOFTENER ORAL) Take by mouth. No current facility-administered medications for this visit. Objective Vital Signs: BP 145/74 (BP Site: Left Arm, BP Position: Sitting, BP Cuff Size: Regular Adult) Pulse 87 Ht 180.3 cm (5' 11 ) Wt 96.1 kg (211 lb 13.8 oz) SpO2 98% BMI 29.55 kg/m? Orthostatic Vitals: None for this encounter No LMP for male patient. Body mass index is 29.55 kg/m?. General Physical Examination: He is alone. General: Awake, alert, interactive, no acute distress, good nutritional status, normal development, well-kept Movement Disorders Scales Performed: Hlqu-Gkanwq-Bhvkw Tremor Scale Medication OFF/ON Time of Assessment Time of Last Medication Last Medication Taken DBS_Right ON DBS_Left ON Face Tremor At Rest: 0 - None. Tongue Tremor At Rest: 0 - None. Posture Holdin - None. Voice Tremor Action and Intention: 0 - None. Head Tremor At Rest: 0 - None. Posture Holdin - None. RUE Tremor At Rest: 0 - None. Posture Holdin - None. Action and Intention: 1 - Slight. May be intermittent. LUE Tremor At Rest: 0 - None. Posture Holdin - None. Action and Intention: 1 - Slight. May be intermittent. Trunk Tremor At Rest: 0 - None. Posture Holdin - None. RLE Tremor At Rest: 0 - None. Posture Holdin - None. Action and Intention: 0 - None. LLE Tremor At Rest: 0 - None. Posture Holdin - None Action and Intention: 0 - None. Tremor Exam Subscore: 2 Handwriting 2 - Moderately abnormal. Legible, but with considerable tremor. Drawing Drawing A - Right 1 - Slightly tremulous. May cross lines occasionally. Drawing A - Left 1 - Slightly tremulous. May cross lines occasionally. Drawing B - Right 1 - Slightly tremulous. May cross lines occasionally. Drawing B - Left 1 - Slightly tremulous. May cross lines occasionally. Drawing C- Right 1 - Slightly tremulous. May (more content not included)... Normal [facility] XR FINGER LEFT (MIN 2 VIEWS) on 02-28-2024 XR FINGER LEFT (MIN 2 VIEWS) EXAMINATION: THREE XRAY VIEWS OF THE LEFT 1st FINGERS 02/28/2024 12:06 pm COMPARISON: 02/28/2024, 11:24 a.m. HISTORY: ORDERING SYSTEM PROVIDED HISTORY: nail removal TECHNOLOGIST PROVIDED HISTORY: Post nail removal nail removal Specify which digit to image->First (Thumb/Great Toe) FINDINGS: Previously noted nail has been removed from the thumb. There is no evidence of any bony injury or fractures. IMPRESSION: Interval removal of nail from the thumb. No evidence of bony injury. Interpreted by: Chavo Winters MD Signed by: Chavo Winters MD 02/28/24 Final result Normal [facility] [place] XR Finger - left 2 Viewson 1 Interval removal of nail from the thumb. No evidence of bony injury. [facility]SOL[facility] EXAMINATION: THREE XRAY VIEWS OF THE LEFT 1st FINGERS 02/28/2024 12:06 pm COMPARISON: 02/28/2024, 11:24 a.m. HISTORY: ORDERING SYSTEM PROVIDED HISTORY: nail removal TECHNOLOGIST PROVIDED HISTORY: Post nail removal nail removal Specify which digit to image->First (Thumb/Great Toe) FINDINGS: Previously noted nail has been removed from the thumb. There is no evidence of any bony injury or fractures. [facility] Chavo Winters MD - 02/28/2024 EXAMINATION: THREE XRAY VIEWS OF THE LEFT 1st FINGERS 02/28/2024 12:06 pm COMPARISON: 02/28/2024, 11:24 a.m. HISTORY: ORDERING SYSTEM PROVIDED HISTORY: nail removal TECHNOLOGIST PROVIDED HISTORY: Post nail removal nail removal Specify which digit to image->First (Thumb/Great Toe) FINDINGS: Previously noted nail has been removed from the thumb. There is no evidence of any bony injury or fractures. IMPRESSION: Interval removal of nail from the thumb. No evidence of bony injury. [facility] Radiology Study observation (narrative) [facility] XR Finger - left 2 ViewsOrde red By: Chavo Winters on 02-28-2024 [facility] [employer] [facility] [employer] Work Phone: XR HAND LEFT (MIN 3 VIEWS)on 02-28-2024 XR HAND LEFT (MIN 3 VIEWS) EXAMINATION: THREE XRAY VIEWS OF THE LEFT HAND 02/28/2024 11:29 am COMPARISON: None. HISTORY: ORDERING SYSTEM PROVIDED HISTORY: pain TECHNOLOGIST PROVIDED HISTORY: pain FINDINGS: There is a nail through the 1st digit overlapping the distal aspect of the proximal phalanx. The remaining osseous structures are unremarkable. There is diffuse degenerative joint disease. There is soft tissue swelling. IMPRESSION: Nail through the 1st digit overlapping the distal aspect of the 1st proximal phalanx. Interpreted by: Judith Duval MD Signed by: Judith Duval MD 02/28/24 Final result Normal [facility] [place] XR Hand - left 3 Viewson Nail through the 1st digit overlapping the distal aspect of the 1st proximal phalanx. [facility] RIS CONSOLID[facility] EXAMINATION: THREE XRAY VIEWS OF THE LEFT HAND 02/28/2024 11:29 am COMPARISON: None. HISTORY: ORDERING SYSTEM PROVIDED HISTORY: pain TECHNOLOGIST PROVIDED HISTORY: pain FINDINGS: There is a nail through the 1st digit overlapping the distal aspect of the proximal phalanx. The remaining osseous structures are unremarkable. There is diffuse degenerative joint disease. There is soft tissue swelling. [facility] Judith Duval MD - 02/28/2024 EXAMINATION: THREE XRAY VIEWS OF THE LEFT HAND 02/28/2024 11:29 am COMPARISON: None. HISTORY: ORDERING SYSTEM PROVIDED HISTORY: pain TECHNOLOGIST PROVIDED HISTORY: pain FINDINGS: There is a nail through the 1st digit overlapping the distal aspect of the proximal phalanx. The remaining osseous structures are unremarkable. There is diffuse degenerative joint disease. There is soft tissue swelling. IMPRESSION: Nail through the 1st digit overlapping the distal aspect of the 1st proximal phalanx. [facility] Radiology Study observation (narrative) [facility] XR Hand - left 3 ViewsOrdere d By: Judith Duval on 02-28-2024 [facility] Work Phone: MARSHALLOVon 11-28-2023 CNOV Office Visit (NRMDN) SEPIDEH CASEY ([id number]) 1955 M Date Time Provider Department 11/28/23 1:00 PM PORTIA HURD NRMDN During your visit today, we recorded the following information about you: Pulse Blood pressure Weight Height 72/minute 109/60 93.1 kg 1.803 m Portia Hurd, [employer] SALESPERSON.[facility] 12/01/2023 11:45 AM Signed [facility] - FOLLOW UP EVALUATION Felicia Maria MD, [address] [place] [address] [facility] [id number] Dear Felicia Maria MD, MD: I had the pleasure of seeing Mr. Casey for follow-up today. As you know he is a 68 year old right-handed male with a history of Essential tremor since 1974. He had bilateral VIM DBS placed in 2014 with bilateral Medtronic RC IPGs. His right IPG was replaced 04/11 with a Medtronic RC.His left chest RC was laced 12/10/2018. He is seen alone. Subjective Previous Plan-05/23/2023 Visit: No changes to DBS today Follow up in six months for device check Interested in clinical research? Not currently Interval History: His tremors are the same. He charges his batteries every day. Questionnaires: In addition, the following activities of daily living that may be affected by tremors were evaluated: Speaking: Not affected Feeding: Affected (mild) Bringing Liquids to Mouth: Not affected Hygiene: Not affected Dressing: Not affected Writing: Affected (moderate) Working: Affected (mild) Number of falls in the Last Month: none Mood/Behavior Depression: PHQ-9 Score: 10 usually representing moderate (10-14) depression. Anxiety: JANNETH-7 Total Score: 6 usually representing mild (5-9) anxiety. Finally, the following table shows the patient's overall global physical and mental health using the PROMIS scale: PROMIS-10 Flowsheet Row Office Visit from 11/28/2023 in Neurology Office Visit from 05/23/2023 in Neurology Global Physical Health T Score 47.7 47.7 Global Mental Health T Score 53.3 43.5 0-10 Standard Pain Scale 1 2 *PROMIS-10 scoring scale: mean = 50, over 50 is above average, under 50 is below average ALLERGIES Allergen Reactions Codeine GI Upset Penicillins Hives, Swelling Seasonal Allergies Other: See Comments Sneezing, congestion, itchy, watery eyes, migraine headaches Primidone Unknown Current Outpatient Medications Medication Sig Multivitamins-Minerals -Lutein (MULTIVITAMIN 50 PLUS) tab Take 1 tablet by mouth once daily. tamsulosin (FLOMAX) 0.4 mg Take 0.4 mg by mouth once daily. magnesium oxide 400 mg magnesium tab Take by mouth twice daily. cyanocobalamin (VITAMIN B-12) 1,000 mcg tab Take 1,000 mcg by mouth once daily. cholecalciferol, vitamin D3, (VITAMIN D3 ORAL) Take 25 mcg by mouth three times daily. cetirizine HCl/pseudoephedrine (ALLERGY D-12 ORAL) Take by mouth. docusate sodium (STOOL SOFTENER ORAL) Take by mouth. FOLIC ACID ORAL Take 1,000 mcg by mouth once daily. (Patient not taking: Reported on 05/18/2023) No current facility-administered medications for this visit. Objective Vital Signs: BP 109/60 (BP Site: Left Arm, BP Position: Sitting, BP Cuff Size: Regular Adult) Pulse 72 Ht 180.3 cm (5' 11 ) Wt 93.1 kg (205 lb 4 oz) SpO2 97% BMI 28.63 kg/m? Orthostatic Vitals: None for this encounter No LMP for male patient. Body mass index is 28.63 kg/m?. General Physical Examination: He is alone. General: Awake, alert, interactive, no acute distress, good nutritional status, normal development, well-kept General Neurological Examination: Neurological Exam Movement Disorders Scales Performed: Umnw-Yyxsyf-Jaiyw Tremor Scale Medication OFF/ON ON Time of Assessment Time of Last Medication Last Medication Taken DBS_Right DBS_Left Face Tremor At Rest: 0 - None. Tongue Tremor At Rest: 0 - None. Posture Holdin - None. Voice Tremor Action and Intention: 0 - None. Head Tremor At Rest: 0 - None. Posture Holdin - None. RUE Tremor At Rest: 0 - None. Posture Holdin - None. Action and Intention: 1 - Slight. May be intermittent. LUE Tremor At Rest: 0 - None. Posture Holdin - None. Action and Intention: 1 - Slight. May be intermittent. Trunk Tremor At Rest: 0 - None. Posture Holdin - None. RLE Tremor At Rest: 0 - None. Posture Holdin - None. Action and Intention: 0 - None. LLE Tremor At Rest: 0 - None. Posture Holdin - None Action and Intention: 0 - None. Tremor Exam Subscore: 2 Handwriting 0 - Normal. Drawing Drawing A - Right 1 - Slightly tremulous. May cross lines occasionally. Drawing A - Left 1 - Slightly tremulous. May cross lines occasionally. Drawing B - Right 1 - Slightly tremulous. May cross lines occasionally. Drawing B - Left 1 - Slightly tremulous. May cross lines occasionally. Drawing C- Right 1 - Slightly tremulous. May cross lines occasionally. Drawing C - Left 1 - Slightly tremulous. M (more content not included)... Normal [facility] XR Abdomen Single viewon EXAMINATION: ONE SUPINE XRAY VIEW(S) OF THE ABDOMEN 08/03/2023 8:18 am COMPARISON: 03/07/2023 HISTORY: ORDERING SYSTEM PROVIDED HISTORY: Kidney stones TECHNOLOGIST PROVIDED HISTORY: kidney stones FINDINGS The bowel gas pattern is nonobstructive.There is no evidence of pneumoperitoneum, portal venous air, or pneumatosis.There are punctate left renal calculi.Degenerative changes are seen in the spine and hip joints. IMPRESSION 1. Punctate left renal calculi. [facility] Orville Serna MD - 08/03/2023 EXAMINATION: ONE SUPINE XRAY VIEW(S) OF THE ABDOMEN 08/03/2023 8:18 am COMPARISON: 03/07/2023 HISTORY: ORDERING SYSTEM PROVIDED HISTORY: Kidney stones TECHNOLOGIST PROVIDED HISTORY: kidney stones FINDINGS The bowel gas pattern is nonobstructive.There is no evidence of pneumoperitoneum, portal venous air, or pneumatosis.There are punctate left renal calculi.Degenerative changes are seen in the spine and hip joints. IMPRESSION 1. Punctate left renal calculi. [facility] Radiology Study observation (narrative) [facility] XR Abdomen Single viewOrdere d By: Orville Todd on 08-03-2023 [facility] Ambulatory Visit Summaryon 0 02-07-2023 Ambulatory Visit Summary SEPIDEH CASEY :1955 Visit Date:02/07/2023 Ambulatory Visit Instructions Your Diagnosis Lentigo simplex Epidermal cyst Your Care Team Attending Physician - ALEXUS CRESPO, Fermin Bergeron Primary Care Physician - Ambreen CRESPO, Karlene This Is Your Medications List [Image Removed: STOP]Stop taking these medications docusate (Colace 100 mg Cap) loratadine (loratadine 10 mg Tab) multivitamin multivitamin (Vitamin B Complex oral tablet) tamsulosin (tamsulosin 0.4 mg Cap) Procedures Performed Excision of cyst (01/24/2023), Arthroscopy of knee, Cataract extraction, Colonoscopy, Nose reconstruction, Repair of right inguinal hernia, Repair of umbilical hernia, Rotator cuff repair. Medications What How Much When Comments Stop Taking docusate (Colace 100 mg Cap) 1 Capsules By Mouth Every day as needed for for constipation Stop Taking loratadine (loratadine 10 mg Tab) 1 Tablets By Mouth Every day Stop Taking multivitamin 1 Tablets By Mouth Every day Stop Taking multivitamin (Vitamin B Complex oral tablet) 1 Tablets By Mouth Every day Stop Taking tamsulosin (tamsulosin 0.4 mg Cap) 1 Capsules By Mouth Every day Allergies Mysoline (Hives) codeine (Nausea) penicillins (Hives) Problems Ongoing - Any problem that you are currently receiving treatment for. Benign prostatic hyperplasia BMI 26.0-26.9,adult Diverticulitis Epidermal cyst Essential tremor. Former smoker History of nephrolithiasis Hypertensive disorder Intracranial aneurysm Lentigo simplex Obstructive sleep apnea syndrome Overweight Right inguinal hernia Seasonal allergic rhinitis Lis [facility] General Surgery Office/Clini c Noteon 02-07-2023 General Surgery Office/Clinic Note Chief Complaint follow up in-office excisional biopsy HPI Staff 14 day post in-office excisional biopsy left shoulder lesion and mid back cyst. Denies bleeding or drainage. Sutures intact. History of Present Illness 2 weeks s/p excisional biopsy left shoulder lesion, pathology consistent with simple lentigo; and mid back cyst, pathology consistent with epidermal cyst; doing well, no pain or drainage; some itching. Review of Systems ROS - Provider Constitutional: no fever, no sweats, no weight loss. Eyes: no glasses, no blurred vision, no visual loss. ENMT: no dentures, no hoarseness, no swallowing difficulties, no hearing loss, no ear infection(s), no nose bleeds. Cardiovascular: normal blood pressure, no chest pain, regular heartbeat, no heart murmur. Respiratory: no shortness of breath, no cough, no asthma, no wheezing. Gastrointestinal: no nausea, no vomiting, no diarrhea, no constipation, no blood in stool, no change in bowel habits, no abdominal pain, no hepatitis. Genitourinary: no kidney stones, no urine infection, no dysuria. Musculoskeletal: no pain, no weakness. Skin: no changing moles, no rash, no skin lumps. Neurologic: no seizures, no epilepsy, no headache. Psychiatric: no emotional or psychiatric problem. Heme/Lymph: no bleeding problems, no anemia, no blood clots, no transfusions. Allergy/Immunologic: no swollen lymph nodes/glands, no IV drug abuse. Other: Additional ROS info: Except as noted in the above Review of Systems and in the History of Present Illness, all other systems have been reviewed and are negative or noncontributory. Physical Exam skin: incisions healing well, no erythema or drainage; no ecchymoses. Assessment/Plan 1. Lentigo simplex (L81.4: Other melanin hyperpigmentation) sutures removed; call with problems/questions. 2. Epidermal cyst (L72.0: Epidermal cyst) see # 1 Follow-up No qualifying data available Problem List/Past Medical History Ongoing Benign prostatic hyperplasia BMI 26.0-26.9,adult Diverticulitis Epidermal cyst Essential tremor. Former smoker History of nephrolithiasis Hypertensive disorder Intracranial aneurysm Lentigo simplex Obstructive sleep apnea syndrome Overweight Right inguinal hernia Seasonal allergic rhinitis Historical No qualifying data Procedure/Surgical History Excision of cyst (01/24/2023), Arthroscopy of knee, Cataract extraction, Colonoscopy, Nose reconstruction, Repair of right inguinal hernia, Repair of umbilical hernia, Rotator cuff repair. Medications No active medications Allergies Mysoline (Hives) codeine (Nausea) penicillins (Hives) Social History Alcohol - Denies Alcohol Use, 01/11/2023 Substance Abuse - Denies Substance Abuse, 01/11/2023 Tobacco Former smoker, quit more than 30 days ago Tobacco Use:. Smokeless tobacco user within last 30 days Smokeless Tobacco Use:. Cigarettes, Oral, Started age 12.0 Years. Stopped age 53 Years. Yes, 01/11/2023 Family History Heart disease: Mother. Immunizations Vaccine Date Status SARS-CoV-2 (COVID-19) mRNA BNT-162b2 vax 08/05/2020 Recorded SARS-CoV-2 (COVID-19) mRNA BNT-162b2 vax 07/12/2020 Recorded Normal [facility] Comment on above: Result Comment: Elec tronically Signed By: ALEXUS CRESPO, Fermin Bergeron\.br\Date and Time Signed: 02/07/23 14:09 EDT Pathology Noteon 02-01-2023 Pathology Note [id number] 0CD:127 Normal [facility] Ambulatory Visit Summaryon 0 01-24-2023 Ambulatory Visit Summary SEPIDEH CASEY :1955 Visit Date:01/24/2023 Ambulatory Visit Instructions Your Care Team Attending Physician - ALEXUS CRESPO, Fermin Bergeron Primary Care Physician - Karlene Rice MD This Is Your Medications List docusate (Colace 100 mg Cap) loratadine (loratadine 10 mg Tab) multivitamin multivitamin (Vitamin B Complex oral tablet) tamsulosin (tamsulosin 0.4 mg Cap) Procedures Performed Arthroscopy of knee, Cataract extraction, Colonoscopy, Nose reconstruction, Repair of right inguinal hernia, Repair of umbilical hernia, Rotator cuff repair. Medications What How Much When Instructions Unchanged docusate (Colace 100 mg Cap) 1 Capsules By Mouth Every day as needed for for constipation Unchanged loratadine (loratadine 10 mg Tab) 1 Tablets By Mouth Every day Unchanged multivitamin 1 Tablets By Mouth Every day Unchanged multivitamin (Vitamin B Complex oral tablet) 1 Tablets By Mouth Every day Unchanged tamsulosin (tamsulosin 0.4 mg Cap) 1 Capsules By Mouth Every day Allergies Mysoline (Hives) codeine (Nausea) penicillins (Hives) Problems Ongoing - Any problem that you are currently receiving treatment for. Benign prostatic hyperplasia BMI 26.0-26.9,adult Diverticulitis Essential tremor. Former smoker History of nephrolithiasis Hypertensive disorder Intracranial aneurysm Obstructive sleep apnea syndrome Overweight Right inguinal hernia Seasonal allergic rhinitis Normal [facility] General Surgery Office/Clini c Noteon 01-24-2023 General Surgery Office/Clinic Note Chief Complaint in-office excisional biopsy x 2 HPI Staff Presents for in-office excisional biopsy mid back epidermal cyst and skin lesion of left shoulder. History of Present Illness patient here for excisional biopsy of changing lesion left shoulder, and inflamed cyst mid back; no change since recent evaluation. Review of Systems ROS - Provider Constitutional: no fever, no sweats, no weight loss. Eyes: no glasses, no blurred vision, no visual loss. ENMT: no dentures, no hoarseness, no swallowing difficulties, no hearing loss, no ear infection(s), no nose bleeds. Cardiovascular: normal blood pressure, no chest pain, regular heartbeat, no heart murmur. Respiratory: no shortness of breath, no cough, no asthma, no wheezing. Gastrointestinal: no nausea, no vomiting, no diarrhea, no constipation, no blood in stool, no change in bowel habits, no abdominal pain, no hepatitis. Genitourinary: no kidney stones, no urine infection, no dysuria. Musculoskeletal: no pain, no weakness. Skin: no changing moles, no rash, no skin lumps. Neurologic: no seizures, no epilepsy, no headache. Psychiatric: no emotional or psychiatric problem. Heme/Lymph: no bleeding problems, no anemia, no blood clots, no transfusions. Allergy/Immunologic: no swollen lymph nodes/glands, no IV drug abuse. Other: Additional ROS info: Except as noted in the above Review of Systems and in the History of Present Illness, all other systems have been reviewed and are negative or noncontributory. Physical Exam skin: 1.5 cm inflamed epidermal cyst mid back; 5 mm raised pigmented lesion, irregular, left shoulder Procedure patient brought to the procedure room, placed in right lateral decubitus position, areas prepped and draped in sterile fashion; anesthetized with 1/2 % Marcaine, plain; total of 4 ml; back lesion excised in elliptical fashion down to subcutaneous fat, total length of incision 2 cm; closed with interrupted 4-0 nylon sutures; shoulder lesion excised adn closed in a similar manner, total length of incision 7 mm; tolerated well; ebl < 7 ml; sterile dressing applied. Assessment/Plan 1. Changing nevus (D22.9: Melanocytic nevi, unspecified) excised under local anesthesia, tolerated well; follow up in 14 days; call sooner if problems/questions. 2. Epidermal cyst (L72.0: Epidermal cyst) see # 1 3. Neoplasm of uncertain behavior of skin of shoulder (D48.5: Neoplasm of uncertain behavior of skin) see # 1 Follow-up No qualifying data available Problem List/Past Medical History Ongoing Benign prostatic hyperplasia BMI 26.0-26.9,adult Diverticulitis Essential tremor. Former smoker History of nephrolithiasis Hypertensive disorder Intracranial aneurysm Obstructive sleep apnea syndrome Overweight Right inguinal hernia Seasonal allergic rhinitis Historical No qualifying data Procedure/Surgical History Arthroscopy of knee, Cataract extraction, Colonoscopy, Nose reconstruction, Repair of right inguinal hernia, Repair of umbilical hernia, Rotator cuff repair. Medications Colace 100 mg Cap, 100 mg= 1 cap(s), Oral, Daily, PRN loratadine 10 mg Tab, 10 mg= 1 tab(s), Oral, Daily multivitamin, 1 tab(s), Oral, Daily tamsulosin 0.4 mg Cap, 0.4 mg= 1 cap(s), Oral, Daily Vitamin B Complex oral tablet, 1 tab(s), Oral, Daily Allergies Mysoline (Hives) codeine (Nausea) penicillins (Hives) Social History Alcohol - Denies Alcohol Use, 01/11/2023 Substance Abuse - Denies Substance Abuse, 01/11/2023 Tobacco Former smoker, quit more than 30 days ago Tobacco Use:. Smokeless tobacco user within last 30 days Smokeless Tobacco Use:. Cigarettes, Oral, Started age 12.0 Years. Stopped age 53 Years. Yes, 01/11/2023 Family History Heart disease: Mother. Immunizations Vaccine Date Status SARS-CoV-2 (COVID-19) mRNA BNT-162b2 vax 08/05/2020 Recorded SARS-CoV-2 (COVID-19) mRNA BNT-162b2 vax 07/12/2020 Recorded Normal [facility] Comment on above: Result Comment: Elec tronically Signed By: ALEXUS CRESPO, Fermin Suero\Date and Time Signed: 01/24/23 14:27 EDT Facesheeton 01-12-2023 Facesheet [id number] 0CD:127 Normal [facility] Ambulatory Visit Summaryon 0 01-11-2023 Ambulatory Visit Summary SEPIDEH CASEY :1955 Visit Date:01/11/2023 Ambulatory Visit Instructions Your Care Team Attending Physician - ALEXUS CRESPO, Fermin Bergeron Primary Care Physician - Karlene Rice MD This Is Your Medications List Contact prescribing physician if questions or concerns docusate (Colace 100 mg Cap) loratadine (loratadine 10 mg Tab) multivitamin multivitamin (Vitamin B Complex oral tablet) tamsulosin (tamsulosin 0.4 mg Cap) Procedures Performed Arthroscopy of knee, Cataract extraction, Colonoscopy, Nose reconstruction, Repair of right inguinal hernia, Repair of umbilical hernia, Rotator cuff repair. Discharge Vitals Heart Rate (Peripheral) 74 Respiratory Rate 16 Blood Pressure 120/74 Height 182.88 cm Height 72 in Weight 88.8 kg Weight 195.36 lb BMI 26.55 What to do next Scheduled Follow-Up Appointments Monday 1:40 PM EDT With: ALEXUS CRESPO, Fermin Bergeron Where: General Surgery Alexus/Brian Rob Normal [facility] Physician Referralon 023 Physician Referral [id number] 0CD:127 Normal [facility] Physician Referralon 023 Physician Referral [id number] 0CD:127 [facility] EKG 12 LeadOrdered By: Shelli Hui on 01-22-2021 Atrial Rate 71 BPM [facility] Phone: P Meraux 39 degrees [facility] Phone: P-R Interval 192 ms [facility] Phone: Q-T Interval 432 ms [facility] Phone: QRS Duration 92 ms [facility] Phone: QTc Calculation (Bazett) 469 ms [facility] Phone: R Meraux 33 degrees [facility] Phone: T Meraux 30 degrees [facility] Phone: Ventricular Rate 71 BPM [facility] Work Phone: Normal sinus rhythm Normal ECG When compared with ECG of 25-JUN-2018 07:09, No significant change was found Confirmed by Alee Rosen MD ([id number]) on 01/22/2021 7:20:39 PM [facility] Phone: Ubaldo, Mhpn Incoming E kg Results From [facility] - 01/22/2021 7:20 PM EDT Normal sinus rhythm Normal ECG When compared with ECG of 25-JUN-2018 07:09, No significant change was found Confirmed by Alee Rosen MD ([id number]) on 01/22/2021 7:20:39 PM [facility] Phone: [facility] Phone: CT ABDOMEN PELVIS WO CONTRAS T Additional Contrast? OralOrdered By: Felicia Maria on 01-12-2021 1. No acute intra-abdominal abnormality. 2. Severe diverticulosis. 3. Small fat containing right inguinal hernia. Finding is unchanged since April 2018. 4. Severe atherosclerosis. 5. Nonobstructing nephrolithiasis. [facility] Phone: EXAMINATION: [facility] OF [facility] ABDOMEN AND PELVIS WITHOUT CONTRAST 01/12/2021 5:50 pm TECHNIQUE: CT of the abdomen and pelvis was performed without the administration of intravenous contrast. Multiplanar reformatted images are provided for review. Dose modulation, iterative reconstruction, and/or weight based adjustment of the mA/kV was utilized to reduce the radiation dose to as low as reasonably achievable. COMPARISON: May 01, 2018. HISTORY: ORDERING SYSTEM PROVIDED HISTORY: Right inguinal hernia TECHNOLOGIST PROVIDED HISTORY: FINDINGS: Lower Chest: Clear lung bases. Organs: Liver, gallbladder, spleen, pancreas, and adrenal glands demonstrate no acute abnormality. The bilateral kidneys are symmetric in size, contour, and attenuation. No solid renal masses are identified on noncontrast imaging. A benign right renal cyst measures 18 mm. Nonobstructing stones are identified bilaterally measuring up to 3 mm on the left and 6 mm on the right. No ureteral calculi. GI/Bowel: The stomach, small bowel, and colon are normal in course and caliber without evidence of wall thickening or obstruction. Normal appendix. Severe diverticulosis. No evidence of acute diverticulitis. Pelvis: Normal bladder. Prostate and seminal vesicles are unremarkable. Peritoneal cavity/retroperitoneum : No free fluid or free air. No pathologic lymphadenopathy. Aorta and its branches are normal in course and caliber with severe atherosclerosis. A small fat containing right inguinal hernia is present. Finding is unchanged from the prior study. Bones/Soft Tissues: No acute or aggressive osseous lesion. Severe degenerative changes of the lumbar spine are present. Compression deformity of L2 is unchanged. [facility] Phone: Ubaldo, [facility] Incoming Radiant Results From [facility] - 01/12/2021 9:39 PM EDT EXAMINATION: CT OF THE ABDOMEN AND PELVIS WITHOUT CONTRAST 01/12/2021 5:50 pm TECHNIQUE: CT of the abdomen and pelvis was performed without the administration of intravenous contrast. Multiplanar reformatted images are provided for review. Dose modulation, iterative reconstruction, and/or weight based adjustment of the mA/kV was utilized to reduce the radiation dose to as low as reasonably achievable. COMPARISON: May 01, 2018. HISTORY: ORDERING SYSTEM PROVIDED HISTORY: Right inguinal hernia TECHNOLOGIST PROVIDED HISTORY: FINDINGS: Lower Chest: Clear lung bases. Organs: Liver, gallbladder, spleen, pancreas, and adrenal glands demonstrate no acute abnormality. The bilateral kidneys are symmetric in size, contour, and attenuation. No solid renal masses are identified on noncontrast imaging. A benign right renal cyst measures 18 mm. Nonobstructing stones are identified bilaterally measuring up to 3 mm on the left and 6 mm on the right. No ureteral calculi. GI/Bowel: The stomach, small bowel, and colon are normal in course and caliber without evidence of wall thickening or obstruction. Normal appendix. Severe diverticulosis. No evidence of acute diverticulitis. Pelvis: Normal bladder. Prostate and seminal vesicles are unremarkable. Peritoneal cavity/retroperitoneum : No free fluid or free air. No pathologic lymphadenopathy. Aorta and its branches are normal in course and caliber with severe atherosclerosis. A small fat containing right inguinal hernia is present. Finding is unchanged from the prior study. Bones/Soft Tissues: No acute or aggressive osseous lesion. Severe degenerative changes of the lumbar spine are present. Compression deformity of L2 is unchanged. IMPRESSION: 1. No acute intra-abdominal abnormality. 2. Severe diverticulosis. 3. Small fat containing right inguinal hernia. Finding is unchanged since April 2018. 4. Severe atherosclerosis. 5. Nonobstructing nephrolithiasis. [facility] Work Phone: [facility] Work Phone: XR CHEST 2 Von 04-22-2020 XR CHEST 2 V EXAMINATION: XR CHES T 2 V, XR RIBS RT NO CH 2V HISTORY: Chest pain, trauma COMPARISON: 05/04/2018 TECHNIQUE: PA and lateral chest, 6 views of the ribs FINDINGS: LUNGS: No significant pulmonary parenchymal abnormalities. Low lung volumes VASCULATURE: No increased pulmonary vasculature. PLEURA: No pneumothorax, effusion, or pleural thickening. CARDIAC: No cardiomegaly or cardiac silhouette abnormality. MEDIASTINUM: No visible mass or adenopathy. BONES: No fracture or visible bone lesion. OTHER: Bilateral electronic devices extend cranially off the field of view RIBS: Lucency through the lateral right eighth rib consistent with an acute nondisplaced fracture IMPRESSION: Acute nondisplaced fracture right lateral eighth rib Clear lungs Electronically authenticated by: IVY BRITT Date: 2020-04-22 11:38 Normal [facility] CT SHOULDER LEFT W CONTRASTo n 02-13-2020 Small full-thickness tear of the distal supraspinatus tendon. Mild partial-thickness tearing of the infraspinatus tendon at the insertion. [facility]- [place], [place] EXAMINATION: CT OF T HE LEFT SHOULDER WITH CONTRAST, 02/13/2020 9:42 am TECHNIQUE: CT of the left shoulder was performed with the administration of intravenous contrast. Multiplanar reformatted images are provided for review. Dose modulation, iterative reconstruction, and/or weight based adjustment of the mA/kV was utilized to reduce the radiation dose to as low as reasonably achievable. COMPARISON: Radiographs January 31, 2020 HISTORY ORDERING SYSTEM PROVIDED HISTORY: Strain of tendon of left rotator cuff, initial encounter FINDINGS: Limited views of the left lung demonstrate emphysematous changes. No focal consolidation. No left axillary adenopathy. No acute fracture. Moderate acromioclavicular degenerative changes. Mild glenohumeral joint space narrowing. No focal cartilage defect along the glenoid. Mild cartilage thinning along the humeral head. No definite discrete labral tear. Small full-thickness tear of the distal supraspinatus tendon measuring 16 mm. Intrasubstance tearing of the supraspinatus tendon. Mild partial-thickness tearing of the infraspinatus tendon at the insertion. Teres minor is intact. Subscapularis tendon is grossly intact. Biceps tendon is grossly intact. [facility] In[facility] Rad[facility] Results From [facility] - 02/13/2020 10:47 AM EDT EXAMINATION: CT OF THE LEFT SHOULDER WITH CONTRAST, 02/13/2020 9:42 am TECHNIQUE: CT of the left shoulder was performed with the administration of intravenous contrast. Multiplanar reformatted images are provided for review. Dose modulation, iterative reconstruction, and/or weight based adjustment of the mA/kV was utilized to reduce the radiation dose to as low as reasonably achievable. COMPARISON: Radiographs January 31, 2020 HISTORY ORDERING SYSTEM PROVIDED HISTORY: Strain of tendon of left rotator cuff, initial encounter FINDINGS: Limited views of the left lung demonstrate emphysematous changes. No focal consolidation. No left axillary adenopathy. No acute fracture. Moderate acromioclavicular degenerative changes. Mild glenohumeral joint space narrowing. No focal cartilage defect along the glenoid. Mild cartilage thinning along the humeral head. No definite discrete labral tear. Small full-thickness tear of the distal supraspinatus tendon measuring 16 mm. Intrasubstance tearing of the supraspinatus tendon. Mild partial-thickness tearing of the infraspinatus tendon at the insertion. Teres minor is intact. Subscapularis tendon is grossly intact. Biceps tendon is grossly intact. IMPRESSION: Small full-thickness tear of the distal supraspinatus tendon. Mild partial-thickness tearing of the infraspinatus tendon at the [facility]. [facility] [place] [facility] S&Ion 02-13-2020 Successful fluoroscopic-guided injection of contrast into the left glenohumeral joint for CT arthrogram to follow. [place], [place] EXAMINATION: FLUOROSCOPIC GUIDED LEFT SHOULDER ARTHROGRAM, 02/13/2020 9:47 am COMPARISON: None. HISTORY: ORDERING SYSTEM PROVIDED HISTORY: Pain FLUOROSCOPY DOSE AND TYPE OR TIME AND EXPOSURES: 1.1 minute. No exposures. PROCEDURE: COLD HEADER OPERATOR: Lele Mckeon Informed consent was obtained and universal protocol was observed. Time out was performed with confirmation of patient identity, procedure to be performed and site. A skin entry site was selected with fluoroscopy. Under standard sterile condition, local anesthesia with subcutaneous 1% lidocaine was administered. A 22 gauge spinal needle was inserted into the joint under fluoroscopic guidance. Approximately 10 cc of Omnipaque was injected. The needle was removed, spot images were obtained and a sterile bandage was placed. [place], [place] Ubaldo, [facility] Incoming Radiant Results From [facility] - 02/13/2020 10:32 AM EDT EXAMINATION: FLUOROSCOPIC GUIDED LEFT SHOULDER ARTHROGRAM, 02/13/2020 9:47 am COMPARISON: None. HISTORY: ORDERING SYSTEM PROVIDED HISTORY: Pain FLUOROSCOPY DOSE AND TYPE OR TIME AND EXPOSURES: 1.1 minute. No exposures. PROCEDURE: COLD HEADER OPERATOR: Lele Mckeon Informed consent was obtained and universal protocol was observed. Time out was performed with confirmation of patient identity, procedure to be performed and site. A skin entry site was selected with fluoroscopy. Under standard sterile condition, local anesthesia with subcutaneous 1% lidocaine was administered. A 22 gauge spinal needle was inserted into the joint under fluoroscopic guidance. Approximately 10 cc of Omnipaque was injected. The needle was removed, spot images were obtained and a sterile bandage was placed. IMPRESSION: Successful fluoroscopic-guided injection of contrast into the left glenohumeral joint for CT arthrogram to follow. [place], [place] XR SHOULDER LEFT (MIN 2 VIEW S)on 01-31-2020 No fracture, left AC joint separation or left glenohumeral dislocation. No bony impingement at the left AC joint. [place], [place] EXAMINATION: TWO XRA Y VIEWS OF THE LEFT SHOULDER 01/31/2020 10:02 pm COMPARISON: None. HISTORY: ORDERING SYSTEM PROVIDED HISTORY: L shoulder pain TECHNOLOGIST PROVIDED HISTORY: L shoulder pain FINDINGS: No fracture, left AC joint separation or left glenohumeral dislocation were noted. The left acromial humeral distance was normal. No bony impingement was noted at the left AC joint. A neuro stimulator like device is superimposed over the left hemithorax. [place], [place] [facility], [facility] Incoming Radiant Results From [facility] - 01/31/2020 11:20 PM EDT EXAMINATION: TWO XRAY VIEWS OF THE LEFT SHOULDER 01/31/2020 10:02 pm COMPARISON: None. HISTORY: ORDERING SYSTEM PROVIDED HISTORY: L shoulder pain TECHNOLOGIST PROVIDED HISTORY: L shoulder pain FINDINGS: No fracture, left AC joint separation or left glenohumeral dislocation were noted. The left acromial humeral distance was normal. No bony impingement was noted at the left AC joint. A neuro stimulator like device is superimposed over the left hemithorax. IMPRESSION: No fracture, left AC joint separation or left glenohumeral dislocation. No bony impingement at the left AC joint. [place], [place] Vital Signs Date Time Vital Sign Value Performing Clinician Facility 06-04-2024 12:45-0500 Body height 180.3 cm Portia Hurd APRN.[facility] Work Phone: [facility] 06-04-2024 12:45-0500 Body mass index (BMI) [Ratio] 29.55 kg/m2 Portia Hurd APRN.[facility] Work Phone: [facility] 06-04-2024 12:45-0500 Body weight 96.1 kg Portia Hurd APRN.[facility] Work Phone: [facility] 06-04-2024 12:45-0500 Diastolic blood pressure 74 mm[Hg] Portia Hurd APRN.SENIOR PROJECT MANAGER Work Phone: [facility] 06-04-2024 12:45-0500 Heart rate 87 /min Portia Hurd APRN.[facility] Work Phone: [facility] 06-04-2024 12:45-0500 SaO2% (BldA) [Mass fraction] 98 % Portia Hurd APRN.[facility] Work Phone: [facility] 06-04-2024 12:45-0500 Systolic blood pressure 145 mm[Hg] Portia Hurd APRN.SENIOR PROJECT MANAGER Work Phone: [facility] 02-28-2024 11:21-0400 Diastolic blood pressure 84 mm[Hg] [facility] 02-28-2024 11:21-0400 Heart rate 84 /min [facility]ix [facility] [employer] 02-28-2024 11:21-0400 Respiratory rate 16 /min Royce Nix [facility] [employer] 02-28-2024 11:21-0400 SaO2% (BldA) [Mass fraction] 97 % Royce Nix [facility] 02-28-2024 11:21-0400 Systolic blood pressure 115 mm[Hg] Royce Nix MD [facility] [employer] 02-28-2024 11:20-0400 Body temperature 98.4 [degF] Royce Nix MD [facility] 11-28-2023 12:46-0400 Body height 180.3 cm Portia Hurd APRN.SENIOR PROJECT MANAGER Work Phone: [facility] 11-28-2023 12:46-0400 Body mass index (BMI) [Ratio] 28.63 kg/m2 Portia Hurd APRN.SENIOR PROJECT MANAGER Work Phone: [facility] 11-28-2023 12:46-0400 Body weight 93.1 kg Portia Hurd APRN.SENIOR PROJECT MANAGER Work Phone: [facility] 11-28-2023 12:46-0400 Diastolic blood pressure 60 mm[Hg] Portia Hurd APRN.SENIOR PROJECT MANAGER Work Phone: [facility] 11-28-2023 12:46-0400 Heart rate 72 /min Portia Hurd APRN.SENIOR PROJECT MANAGER Work Phone: [facility] 11-28-2023 12:46-0400 SaO2% (BldA) [Mass fraction] 97 % Portia Hurd APRN.SENIOR PROJECT MANAGER Work Phone: [facility] 11-28-2023 12:46-0400 Systolic blood pressure 109 mm[Hg] Portia Hurd APRN.SENIOR PROJECT MANAGER Work Phone: [facility] 02-01-2023 17:59-0400 Diastolic blood pressure 90 mm[Hg] Christina Soto DO Work Phone: [employer] 02-01-2023 17:59-0400 Systolic blood pressure 149 mm[Hg] Christina Soto DO Work Phone: [employer] 02-01-2023 17:58-0400 Body mass index (BMI) [Ratio] 25.63 kg/m2 Christina Soto DO Work Phone: [employer] 02-01-2023 17:58-0400 Body weight 85.73 kg Christina Soto DO Work Phone: [employer] 02-01-2023 17:57-0400 Body temperature 97.59 [degF] Christina Soto DO Work Phone: [employer] 02-01-2023 17:57-0400 Heart rate 85 /min Christina Soto DO Work Phone: [employer] 02-01-2023 17:57-0400 Respiratory rate 18 /min Christina Soto DO Work Phone: [employer] 02-01-2023 17:57-0400 SaO2% (BldA) [Mass fraction] 100 % Christina Soto DO Work Phone: [employer] 01-11-2023 14:59-0400 Blood Pressure Location Fermin VAUGHAN [facility] 01-11-2023 14:59-0400 Diastolic blood pressure 74 mm[Hg] Fermin VAUGHAN [facility] [place] 01-11-2023 14:59-0400 Heart rate 74 /min Fermin VAUGHAN [facility] 01-11-2023 14:59-0400 Respiratory rate 16 /min Fermin VAUGHAN [facility] 01-11-2023 14:59-0400 Systolic blood pressure 120 mm[Hg] Fermin VAUGHAN [facility] 12-20-2022 13:51-0400 Body height 182.9 cm Portia Hurd [employer] SALESPERSON.SENIOR PROJECT MANAGER Work Phone: [facility] 12-20-2022 13:51-0400 Body weight 90.31 kg Portia Hurd [employer]LECT[employer] SALESPERSON.SENIOR PROJECT MANAGER Work Phone: [facility] 12-20-2022 13:51-0400 Diastolic blood pressure 62 mm[Hg] Portia Hurd ELECTRONIC [employer]S SALESPERSON.SENIOR PROJECT MANAGER Work Phone: [facility] 12-20-2022 13:51-0400 Heart rate 89 /min Portia Hurd [employer]LECT[employer]S SALESPERSON.SENIOR PROJECT MANAGER Work Phone: [facility] 12-20-2022 13:51-0400 SaO2% (BldA) [Mass fraction] 97 % Portia Hurd [employer] SALESPERSON.SENIOR PROJECT MANAGER Work Phone: [facility] 12-20-2022 13:51-0400 Systolic blood pressure 122 mm[Hg] Portia Hurd [employer]LECT[employer]IC [employer]S SALESPERSON.SENIOR PROJECT MANAGER Work Phone: [facility] 09-22-2022 08:47-0400 Body height 182.9 cm Adam Bhandari MD Work Phone: [facility] 09-22-2022 08:47-0400 Body weight 93.44 kg Adam Bhandari MD Work Phone: [facility] 09-22-2022 08:47-0400 Diastolic blood pressure 71 mm[Hg] Adam Bhandari MD Work Phone: [facility] 09-22-2022 08:47-0400 Heart rate 82 /min Adam Bhandari MD Work Phone: [facility] 09-22-2022 08:47-0400 SaO2% (BldA) [Mass fraction] 97 % Adam Bhandari MD Work Phone: [facility] 09-22-2022 08:47-0400 Systolic blood pressure 111 mm[Hg] Adam Bhandari MD Work Phone: [facility] 08-02-2022 10:02-0400 Body height 182.9 cm Portia Hurd ELECT[employer]IC [employer]S SALESPERSON.SENIOR PROJECT MANAGER Work Phone: [facility] 08-02-2022 10:02-0400 Body weight 96.66 kg Portia Hurd ELECT[employer]IC [employer]S SALESPERSON.SENIOR PROJECT MANAGER Work Phone: [facility] 08-02-2022 10:02-0400 Diastolic blood pressure 77 mm[Hg] Portia Hurd ELECTRONIC PARTS SALESPERSON.SENIOR PROJECT MANAGER Work Phone: [facility] 08-02-2022 10:02-0400 Heart rate 78 /min Portia Hurd ELECTRONIC PARTS SALESPERSON.SENIOR PROJECT MANAGER Work Phone: [facility] 08-02-2022 10:02-0400 SaO2% (BldA) [Mass fraction] 98 % Portia Hurd ELECT[employer]IC [employer]S SALESPERSON.SENIOR PROJECT MANAGER Work Phone: [facility] 08-02-2022 10:02-0400 Systolic blood pressure 127 mm[Hg] Portia Hurd ELECTRONIC PARTS SALESPERSON.SENIOR PROJECT MANAGER Work Phone: [facility] 06-21-2022 10:07-0500 Body height 182.9 cm Portia Hurd ELECT[employer]IC [employer]S SALESPERSON.SENIOR PROJECT MANAGER Work Phone: [facility] 06-21-2022 10:07-0500 Body weight 101.02 kg Portia Hurd ELECT[employer]IC [employer]S SALESPERSON.SENIOR PROJECT MANAGER Work Phone: [facility] 06-21-2022 10:07-0500 Diastolic blood pressure 71 mm[Hg] Portia Martinezffer ELECTRONIC PARTS SALESPERSON.SENIOR PROJECT MANAGER Work Phone: [facility] 06-21-2022 10:07-0500 Heart rate 87 /min Portia Hurd ELECT[employer]IC [employer]S SALESPERSON.SENIOR PROJECT MANAGER Work Phone: [facility] 06-21-2022 10:07-0500 SaO2% (BldA) [Mass fraction] 97 % Portia Hurd ELECTRONIC [employer]S SALESPERSON.SENIOR PROJECT MANAGER Work Phone: [facility] 06-21-2022 10:07-0500 Systolic blood pressure 115 mm[Hg] Portia Hurd ELECTRONIC [employer]S SALESPERSON.SENIOR PROJECT MANAGER Work Phone: [facility] 12-14-2021 12:52-0400 Body height 182.9 cm Portia Hurd APRN.SENIOR PROJECT MANAGER Work Phone: [facility] 12-14-2021 12:52-0400 Body weight 96.48 kg Portia Hurd [employer] SALESPERSON.SENIOR PROJECT MANAGER Work Phone: [facility] 12-14-2021 12:52-0400 Diastolic blood pressure 84 mm[Hg] Portia Hurd ELECT[employer]IC [employer]S SALESPERSON.SENIOR PROJECT MANAGER Work Phone: [facility] 12-14-2021 12:52-0400 Heart rate 74 /min Portia Hurd APRN.SENIOR PROJECT MANAGER Work Phone: [facility] 12-14-2021 12:52-0400 SaO2% (BldA) [Mass fraction] 98 % Portia Hurd APRN.SENIOR PROJECT MANAGER Work Phone: [facility] 12-14-2021 12:52-0400 Systolic blood pressure 138 mm[Hg] Portia Hurd APRN.SENIOR PROJECT MANAGER Work Phone: [facility] 02-11-2021 14:00-0400 Diastolic blood pressure 81 mm[Hg] Clau Nazemi DO Work Phone: [facility] Work Phone: 02-11-2021 14:00-0400 Heart rate 87 /min Clau Nazemi DO Work Phone: [facility] Work Phone: 02-11-2021 14:00-0400 Respiratory rate 16 /min Clau Nazemi DO Work Phone: [facility] Work Phone: 02-11-2021 14:00-0400 SaO2% (BldA) [Mass fraction] 97 % Clau Nazemi DO Work Phone: [facility] Work Phone: 02-11-2021 14:00-0400 Systolic blood pressure 131 mm[Hg] Clau Montelongomi DO Work Phone: [facility] Phone: 02-11-2021 11:33-0400 Body temperature 97.59 [degF] Clau Montelongomi DO Work Phone: [facility] Phone: 02-11-2021 07:30-0400 Body height 185.4 cm Clau Nazemi DO Work Phone: [facility] Phone: 02-11-2021 07:30-0400 Body mass index (BMI) [Ratio] 27.44 kg/m2 Clau Montelongomi DO Work Phone: [facility] Phone: 02-11-2021 07:30-0400 Body weight 94.35 kg Clau Montelongomi DO Work Phone: [facility] Phone: 01-31-2020 22:43-0400 BP Diastolic 98 mm[Hg] Mukesh [employer] , [place] 01-31-2020 22:43-0400 BP Systolic 181 mm[Hg] Mukesh [employer] , [place] 01-31-2020 22:38-0400 Body Temperature 96.91 [degF] Mukesh [employer], [place] 01-31-2020 22:38-0400 Pulse (Heart Rate) 77 /min [facility] 01-31-2020 22:38-0400 Pulse Oximetry 96 % Mukesh [employer] , [place] 01-31-2020 22:38-0400 Respiratory Rate 16 /min Mukesh [facility], [place] Encounters Encounter Date Encounter Type Care Provider Facility Start: 08-05-2024 End: 08-07-2024 ambulatory HILLARY WILSON [facility] Start: 08-05-2024 End: 08-07-2024 Subsequent hospital visit by physician Lia Espinoza Dr Room 4 [facility] Comment on above: Kidney stones Start: 06-04-2024 End: 06-04-2024 ambulatory FELICIA MARIA Facility:[facility] Start: 06-04-2024 End: 06-04-2024 Office outpatient visit 40 minutes Portia Hurd [employer] SALESPERSON.SENIOR PROJECT MANAGER Work Phone: Neurology Comment on above: Essential tremor Start: 02-28-2024 End: 02-28-2024 Emergency department patient visit Royce Nix MD Work Phone: [facility] ED Comment on above: Puncture wound of le ft thumb, initial encounter (Primary Dx); Foreign body of skin of left thumb Start: 11-28-2023 End: 11-28-2023 ambulatory PORTIA HURD Facility:[facility] Start: 11-28-2023 End: 11-28-2023 Office outpatient visit 15 minutes Portia Hurd [employer]LECTRONIC [employer] SALESPERSON.SENIOR PROJECT MANAGER Work Phone: Neurology Comment on above: Essential tremor (Pr imary Dx) Start: 08-03-2023 End: 08-05-2023 Subsequent hospital visit by physician Lia Espinoza Dr Room 2 [facility] Comment on above: Kidney stones Start: 02-07-2023 End: 02-08-2023 ambulatory Fermin R NILL Facility: [facility] Start: 02-07-2023 End: 02-07-2023 Patient encounter procedure Fermin VAUGHAN General Surgery [facility] [place] Start: 02-01-2023 End: 02-01-2023 Emergency department patient visit Christina Soto DO Work Phone: [facility] Comment on above: Bee sting reaction, accidental or unintentional, initial encounter (Primary Dx) Start: 01-24-2023 End: 01-25-2023 ambulatory Fermin R NILL Facility: [facility] Start: 01-24-2023 End: 01-24-2023 Patient encounter procedure Fermin R NILL General Surgery [facility] [place] Start: 01-11-2023 End: 01-12-2023 ambulatory Fermin VAUGHAN Facility:[facility] Start: 01-11-2023 End: 01-11-2023 Patient encounter procedure Fermin VAUGHAN General Surgery [facility] Start: 12-20-2022 End: 12-20-2022 Office outpatient visit 40 minutes Portia Hurd APRN.SENIOR PROJECT MANAGER Work Phone: Neurology Comment on above: Essential tremor (Pr imary Dx) Start: 12-20-2022 ambulatory Fermin VAUGHAN Facility:[facility] Start: 09-22-2022 End: 09-22-2022 Office outpatient visit 25 minutes Adam Bhandari MD Work Phone: Neurology Comment on above: Essential tremor (Pr imary Dx) Start: 08-02-2022 End: 08-02-2022 Patient encounter procedure Portia Hurd APRN.SENIOR PROJECT MANAGER Work Phone: Neurology Comment on above: Essential tremor Start: 08-01-2022 Telephone encounter Portia Hurd APRN.SENIOR PROJECT MANAGER Work Phone: Neurology Comment on above: Appointment Start: 06-21-2022 End: 06-21-2022 Patient encounter procedure Portia Hurd APRN.SENIOR PROJECT MANAGER Work Phone: Neurology Comment on above: Essential tremor (Pr imary Dx) Start: 12-15-2021 Telephone encounter Portia Hurd APRN.SENIOR PROJECT MANAGER Work Phone: [facility] Comment on above: Release Of Medical R ecords ([place]) Start: 12-14-2021 End: 12-14-2021 Patient encounter procedure Portia Hurd APRN.SENIOR PROJECT MANAGER Work Phone: Neurology Comment on above: Essential tremor Start: 12-02-2021 Telephone encounter Portia Hurd APRN.SENIOR PROJECT MANAGER Work Phone: [facility] Comment on above: Release Of Medical R ecords ([facility]) Start: 02-11-2021 End: 02-11-2021 Subsequent hospital visit by physician Clau Hui DO Work Phone: [facility] [place] Comment on above: Acute postoperative pain (Primary Dx) Start: 01-22-2021 End: 01-22-2021 Subsequent hospital visit by physician Felicia Maria MD Work Phone: [facility] Laboratory Start: 01-12-2021 End: 01-14-2021 Subsequent hospital visit by physician Lia Cat Scan Room [facility] CT Scan Comment on above: Right inguinal herni a; Umbilical hernia without obstruction and without gangrene Start: 04-22-2020 End: 04-23-2020 Patient encounter procedure KARLENE AMBREEN Facility:[facility] Start: 02-13-2020 End: 02-15-2020 Subsequent hospital visit by physician Lia Gen Radiologist [facility] Comment on above: Pain Strain of tendon of left rotator cuff, initial encounter Start: 01-31-2020 End: 01-31-2020 Emergency department patient visit Mukesh Marcelo Work Phone: [facility] ED Comment on above: Rotator cuff dysfunc tion, left (Primary Dx) Start: 01-04-2020 Patient encounter procedure KARLENE Mushtaq Facility:[facility] Procedures Date Procedure Procedure Detail Performing Clinician Start: 08-05-2024 Radiologic exam abdo men 1 view Hillary Wilson [employer]IC [employer] SALESPERSON - SENIOR PROJECT MANAGER Work Phone: Start: 02-28-2024 End: 02-28-2024 Radex hand minimum 3 views Natalia guerra ELECTRONIC PARTS SALESPERSON - SENIOR PROJECT MANAGER Work Phone: Start: 08-03-2023 Radiologic exam abdo men 1 view Judith Woo PA-C Work Phone: Start: 01-24-2023 Excision of cyst Michae l NILAnn Comment on above: mid back Start: 12-14-2021 Adult depression scr eening assessment Portia Hurd ELECTRONIC PARTS SALESPERSON.SENIOR PROJECT MANAGER Work Phone: Start: 05-25-2021 Adult depression scr eening assessment Portia Hurd ELECTRONIC PARTS SALESPERSON.SENIOR PROJECT MANAGER Work Phone: Start: 01-22-2021 Ecg routine ecg w/le ast 12 lds w/i&r Clau I Nasalenami DO Work Phone: Start: 01-12-2021 Ct abdomen & pelvis w/o contrast material Felicia Maria MD Work Phone: Start: 02-13-2020 Ct upper extremity w/contrast material Cal Herrera Work Phone: Start: 02-13-2020 Radex shoulder arthrography rs&i Cal Herrera Work Phone: Start: 01-31-2020 Radex shoulder compl ete minimum 2 views Mukesh A Davian Work Phone: Start: 06-13-2018 Colonoscopy Christina Iq bal DO Work Phone: Start: 08-02-2016 H/O: surgery S/P deep brain stimulator placement Portia Hurd APRN.SENIOR PROJECT MANAGER Work Phone: Arthroscopy of knee Fermin GUILLENL Colonoscopy Fermin NILL Extraction of cataract Jose De Jesus corrie GUILLENL Reconstruction of nose Jose De Jesus denton NILL Repair of musculoten dinous cuff of shoulder Fermin GUILLENL Repair of right ingu inal hernia Fermin GUILLENL Repair of umbilical hernia Natalia VAUGHAN Plan of Treatment Date Care Activity Detail Author Start: 02-27-2034 DTaP/Tdap/Td vaccine (2 - Td or Tdap) DTaP/Tdap/Td vaccine (2 - Td or Tdap) [facility] Start: 02-27-2034 DTaP/Tdap/Td vaccine (3 - Td or Tdap) DTaP/Tdap/Td vaccine (3 - Td or Tdap) [facility] Start: 02-27-2034 Urine microalbumin profile DTaP,Tdap,Td Vaccine (3 - Td or Tdap) [facility] Start: 10-13-2030 Urine microalbumin profile DTaP,Tdap,Td Vaccine (2 - Td or Tdap) [facility] Start: 2029 Respiratory Syncytia l Virus (RSV) or age 60 yrs+ (1 - 1-dose 75+ series) Respiratory Syncytial Virus (RSV) or age 60 yrs+ (1 - 1-dose 75+ series) [facility] Start: 2029 RSV Vaccine (1 - 1-d ose 75+ series) RSV Vaccine (1 - 1-dose 75+ series) [facility] Start: 06-13-2028 Screening for malign ant neoplasm of colon [facility] Start: 04-29-2027 Pneumococcal Vaccine : 50+ (3 of 3 - PCV20 or PCV21) Pneumococcal Vaccine: 50+ (3 of 3 - PCV20 or PCV21) [facility] Start: 04-29-2027 Pneumococcal Vaccine : 65+ (3 of 3 - PPSV23 or PCV20) Pneumococcal Vaccine: 65+ (3 of 3 - PPSV23 or PCV20) [facility] Start: 10-13-2025 Lipid panel [facility] Start: 08-06-2025 End: 08-06-2025 Patient encounter procedure 08/06/2025 11:30 AM EDT Office Visit [facility] [address] [place] [id number] Judith Woo, PA-C [address] [place] [address] [address] [place] [address] 1Y KUB, PVR [facility] Part [facility] Comment on above: 1Y KUB, PVR Start: 12-03-2024 End: 12-03-2024 Patient encounter procedure 12/03/2024 3:00 PM EDT Office Visit Neurology [address] [address] Portia Hurd, ELECTRONIC PARTS SALESPERSON.SENIOR PROJECT MANAGER [address] [place] [address] Neurology Start: 12-02-2024 CNR DBS ADJUSTMENT CNR DBS ADJ USTMENT Procedures Routine Essential tremor Expected: 12/02/2024 [facility] Work Phone: Comment on above: Expected: 12/02/2024 Start: 08-05-2024 End: 08-05-2024 Patient encounter procedure [facility] Part of [facility] Comment on above: 1yr KUB PVR Start: 06-04-2024 End: 06-04-2024 Patient encounter procedure 06/04/2024 1:00 PM EST Office Visit Neurology [address] [address] Portia Hurd, ELECTRONIC PARTS SALESPERSON.SENIOR PROJECT MANAGER [address] [place] [address] Neurology Start: 05-22-2024 Advance Directive Discussion Advance Directive Discussion [facility] Start: 05-22-2024 Annual Wellness Visi t (Medicare Advantage) Annual Wellness Visit (Medicare Advantage) [facility] Start: 04-12-2024 DIABETES SCREEN DIABETES SCREEN [facility] Start: 04-12-2024 Diabetes Screening Diabetes Screenin g [facility] Start: 01-21-2024 COVID-19 Vaccine ( season) COVID-19 Vaccine ( season) [facility] Start: 01-21-2024 Covid-19 Vaccine ( season) Covid-19 Vaccine ( season) [facility] Start: 01-21-2024 Influenza vaccination Influenza Vacc ine (#1) [facility] Start: 12-21-2023 Influenza vaccination Flu vaccine (# 1) [facility] Start: 05-22-2023 Advance Directive Discussion Advance Directive Discussion [facility] Start: 05-22-2023 Annual Wellness Visi t (Medicare Advantage) Annual Wellness Visit (Medicare Advantage) [facility] Start: 05-18-2023 End: 05-18-2023 Patient encounter procedure 05/18/2023 10:00 AM EST Office Visit [facility] [address] [place] [address] Hillary Wilson, ELECTRONIC PARTS SALESPERSON - SENIOR PROJECT MANAGER [address] [place] [id number] 1 year KUB prior [facility] Comment on above: 1 year KUB prior Start: 04-30-2023 Annual Wellness Visi t (AWV) Annual Wellness Visit (AWV) [facility] Start: 04-29-2023 Depression Screen Depression Screen [facility] Start: 04-29-2023 DTaP/Tdap/Td vaccine (1 - Tdap) DTaP/Tdap/Td vaccine (1 - Tdap) [facility] Comment on above: Postponed from 04/04 (Insurance / Financial) Start: 04-29-2023 Pneumococcal 50+ yea rs Vaccine (2 of 2 - PPSV23) Pneumococcal 50+ years Vaccine (2 of 2 - PPSV23) [facility] Start: 04-29-2023 Pneumococcal 65+ yea rs Vaccine (2 - PPSV23 or PCV20) Pneumococcal 65+ years Vaccine (2 - PPSV23 or PCV20) [facility] Start: 04-29-2023 Pneumococcal 65+ yea rs Vaccine (2 of 2 - PPSV23 or PCV20) Pneumococcal 65+ years Vaccine (2 of 2 - PPSV23 or PCV20) [facility] Start: 03-07-2023 End: 03-07-2023 Patient encounter procedure 03/07/2023 9:15 AM EDT Office Visit [facility] [place] [address] 6 week f/u, KUB prior (discuss procedure on left) [facility] Comment on above: 6 week f/u, KUB prio r (discuss procedure on left) Start: 01-20-2023 COVID-19 Vaccine ( season) COVID-19 Vaccine ( season) [facility] Start: 01-20-2023 Influenza vaccination [facility] Start: 12-20-2022 Influenza vaccination Flu vaccine (# 1) [facility] Start: 12-14-2022 Adult depression screening assessment DEPRESSION SCREENING [facility] Start: 05-25-2022 Adult depression screening assessment DEPRESSION SCREENING [facility] Start: 05-22-2022 ADVANCE DIRECTIVE DISCUSSION ADVANCE DIRECTIVE DISCUSSION [facility] Start: 05-22-2022 DEPRESSION ASSESSMENT DEPRESSION ASS ESSMENT [facility] Start: 01-20-2022 Influenza vaccination INFLUENZA (#1) [facility] Start: 01-01-2022 Shingles Vaccine (1 of 2) Shingles Vaccine (1 of 2) [facility] Phone: Comment on above: Postponed from 04/04 (Unavailable) Start: 08-18-2021 COVID-19 VACCINE (4 - Booster for Pfizer series) COVID-19 VACCINE (4 - Booster for Pfizer series) [facility] Start: 06-15-2021 COVID-19 VACCINE (4 - Booster for Pfizer series) COVID-19 VACCINE (4 - Booster for Pfizer series) [facility] Start: 06-15-2021 COVID-19 VACCINE (4 - Pfizer series) COVID-19 VACCINE (4 - Pfizer series) [facility] Start: 05-22-2021 ADVANCE DIRECTIVE DISCUSSION ADVANCE DIRECTIVE DISCUSSION [facility] Start: 05-22-2021 DEPRESSION ASSESSMENT DEPRESSION ASS ESSMENT [facility] Start: 05-14-2021 Pneumococcal 65+ yea rs Vaccine (1 of 1 - PPSV23) Pneumococcal 65+ years Vaccine (1 of 1 - PPSV23) [facility] Phone: Comment on above: Postponed from 04/04 (Patient Refused) Start: 04-12-2021 End: 04-12-2021 Patient encounter procedure 04/12/2021 Office Visit Internal Medicine Pura Gutierrez, ELECTRONIC PARTS SALESPERSON - SENIOR PROJECT MANAGER [address] [place] [address] Jose Cruz Rojas Start: 02-17-2021 End: 02-17-2021 Patient encounter procedure 02/17/2021 Office Visit General Surgery Clau Hui I, DO [address] [place] [phone] [facility] [employer] [facility] Part [facility] Start: 02-11-2021 End: 02-11-2021 Admission to same day surgery center 02/11/2021 Surgery IP Unit Clau Hui I, DO [address] [place] [address] HERNIA INGUINAL REPAIR LAPAROSCOPIC ROBOTIC-WITH MESH [facility] Comment on above: HERNIA INGUINAL REPA IR LAPAROSCOPIC ROBOTIC-WITH MESH Start: 02-11-2021 Subsequent hospital visit by physician 02/11/2021 Hospital Encounter IP Unit Clau Hui I, DO [address] [place] [address] [facility] [place] Start: 02-04-2021 Annual Wellness Visi t (AWV) Annual Wellness Visit (AWV) [facility] Phone: Start: 01-22-2021 DTaP/Tdap/Td vaccine (1 - Tdap) DTaP/Tdap/Td vaccine (1 - Tdap) [facility] Phone: Comment on above: Postponed from 04/04 (Not Indicated) Start: 01-20-2021 Influenza vaccination [facility] Start: 01-05-2021 COVID-19 VACCINE (3 - Booster for Pfizer series) COVID-19 VACCINE (3 - Booster for Pfizer series) [facility] Start: 09-30-2020 COVID-19 Vaccine (4 - Pfizer series) COVID-19 Vaccine (4 - Pfizer series) [facility] Start: 01-21-2020 Influenza vaccination Flu vaccine (# 1) [place] Start: 06-25-2019 Creatinine measurement Creatinine mo [place]itoring [place] Start: 06-25-2019 Potassium monitoring Potassium monit [place]ing [place] Start: 2019 Pneumococcal 65+ yea rs Vaccine (1 of 1 - PPSV23) Pneumococcal 65+ years Vaccine (1 of 1 - PPSV23) [place] Start: 2019 PNEUMOCOCCAL: 65+ (1 - PCV) PNEUMOCOCCAL: 65+ (1 - PCV) [facility] Start: 2014 Respiratory Syncytia l Virus (RSV) or age 60 yrs+ (1 - 1-dose 60+ series) Respiratory Syncytial Virus (RSV) or age 60 yrs+ (1 - 1-dose 60+ series) [facility] Start: 2014 RSV Vaccine (1 - 1-d ose 60+ series) RSV Vaccine (1 - 1-dose 60+ series) [facility] Start: 2009 PROSTATE CANCER SCREENING DISCUSSION PROSTATE CANCER SCREENING DISCUSSION [facility] Start: 2004 Influenza vaccination LUNG CANCER SC REENING [facility] Start: 2004 Screening for malign ant neoplasm of colon Colon cancer screen colonoscopy [place], [place] Start: 2004 Screening for malign ant neoplasm of lung Lung Cancer Screening [facility] Start: 2004 Shingles Vaccine (1 of 2) Shingles Vaccine (1 of 2) [facility] Start: 2004 SHINGRIX VACCINE (1 of 2) SHINGRIX VACCINE (1 of 2) [facility] Start: 1999 COLOGUARD (FIT-DNA) COLOGUARD (FIT-D NA) [facility] Start: 1999 Colonoscopy COLONOSCOPY [facility] Start: 1999 COLORECTAL CANCER SCREENING COLORECTAL CANCER SCREENING [facility] Start: [address] COLONOGRAPHY [facility] Start: 1999 FECAL OCCULT BLOOD FECAL OCCULT BLOO D [facility] Start: 1999 Screening for malign ant neoplasm of colon [facility] Start: 1999 SIGMOIDOSCOPY SIGMOIDOSCOPY [facility] Start: 1994 Diabetes screen Diabetes screen [facility] [employer] Phone: Start: 1994 Lipid panel Lipid screen [place], [place] Start: 1989 Diabetes screen Diabetes screen [facility] Start: 1989 Lipid panel Lipid Screening [facility] Start: 1989 LIPID SCREEN LIPID SCREEN [facility] Start: 1973 DTaP/Tdap/Td vaccine (1 - Tdap) DTaP/Tdap/Td vaccine (1 - Tdap) [facility] Start: 1973 Urine microalbumin profile DTAP,TDAP,TD (1 - Tdap) [facility] Start: 1972 Anxiety Screening Anxiety Screening [facility] Start: 1972 Depression Screening Depression Scre ening [facility] Start: 1972 HEPATITIS C SCREENING HEPATITIS C SC [facility] Start: 1972 Hepatitis C screening B ON [facility] Start: 1969 HIV screening HIV screen [facility] [place] Start: 1966 Depression Screen Depression Screen [facility] Start: 1954 ABDOMINAL AORTIC ANEURYSM SCREENING ABDOMINAL AORTIC ANEURYSM SCREENING [facility] Start: 1954 Abdominal aortic aneurysm screening Abdominal Aortic Aneurysm Screening [facility] Start: 1954 Hepatitis C screening Hepatitis C [facility] [place] Oxygen therapy [[facility] Data Set] Initiate Oxygen Therapy Protocol Respiratory Care Routine Daily until discontinued starting 02/11/2021 [facility] Phone: Comment on above: Daily until disconti nued starting 02/11/2021 Phase I & II - meter ed glucose Phase I & II - metered glucose Point of Care Testing Routine As Needed until discontinued starting 02/11/2021 [facility] Phone: Comment on above: As Needed until disc ontinued starting 02/11/2021 Surgical Pathology Surgical Path ology Lab Routine Release Upon Ordering for 1 Occurrences starting 02/11/2021 [facility] Phone: Comment on above: Release Upon Orderin g for 1 Occurrences starting 02/11/2021 [facility] Immunizations Immunization Date Immunization Notes Care Provider Zeb gant 02-28-2024 tetanus toxoid, redu tico diphtheria toxoid, and acellular pertussis vaccine, adsorbed Royce Nix MD Work Phone: [facility] 12-09-2022 pneumococcal conjuga te vaccine, 13 valent Christina Guillermobal DO Work Phone: [facility] 08-05-2020 COVID-19, Pfizer, PF , 30mcg/0.3mL Mth Room [facility] 07-14-2020 COVID-19 vaccine, ag e 12+ yr (PFIZER-BIONTECH - PURPLE TOP) Portia Hurd ELECTRONIC PARTS SALESPERSON.SENIOR PROJECT MANAGER Work Phone: [facility] 07-12-2020 COVID-19, Pfizer, PF , 30mcg/0.3mL Mth Room General Surgery [place] 03-14-2017 influenza virus vaccine, unspecified formulation Portia Hurd ELECTRONIC PARTS SALESPERSON.SENIOR PROJECT MANAGER Work Phone: [facility] Payers Date Payer Category Payer Unknown ANTHEM BLUE [facility] S AND BLUE [facility] ANTHEM MEDIBLUE ACCESS [id number] 2021-Present [phone] [address] [place] [address] PPO [id number] 2021 Unknown [id number] 2021 Medicare [id number] 2021 Medicare AETNA MEDICARE A ETNA MEDICARE PPO [id number] 2021-Present [phone] [address] [place] [address] PPO [id number] 2020 Unknown VACCN [place] CC[place] OPT [place] [id number] 2020-Present [address] [place] [id number] 2020 Medicare AETNA MEDICARE A ETNA MEDICARE-ADVANTAGE PPO [id number] 2020-Present [address] [place] [address] Medicare [id number] 2019 Medicare MEDICARE MEDICAR E PART A [id number] 2019-Present [phone] [place] [address] [id number] 2009 Private Health Insurance [facility] CCN OPTUM [id number] 2009-Present [phone] [address] [place] [address] PPO [id number] 2009 Private Health Insurance [facility] CCN OPTUM [id number] 2009-Present [phone] [address] [place] [address] PPO [id number] 1959 Self-pay [id number] 1959 Unknown [id number] 1954 Unknown [id number] 1954 Unknown [id number] 1954 Unknown [id number] 1954 Unknown [id number] 1954 Unknown [id number] 1954 Unknown [id number] 1954 Unknown [id number] 1954 Unknown [id number] Social History Date Type Detail Facility Start: 01-31-2020 End: 06-21-2023 Tobacco smoking status NHIS Former smoker [facility] Start: 01-31-2020 End: 06-21-2023 Tobacco use and exposure Current user [facility] [place] History of tobacco use Chews Tobacco [facility] [place] Start: 01-31-2020 End: 02-28-2024 Alcohol intake Current non-drinker of alcohol (finding) [place], [place] Start: 1955 Sex Assigned At Not on file M [place], [place] Start: 12-04-2021 End: 12-14-2021 Exposure to SARS-CoV-2 (event) Not sure [facility] [place] Start: 01-19-1966 End: 05-22-2014 History of tobacco use Current smoker [facility] [employer] Start: 01-01-2021 End: 06-15-2023 Cigarettes smoked current (pack per day) - Reported [facility] Start: 10-07-2020 History SDOH Financial 5 [facility] Phone: Start: 10-07-2020 History SDOH Food Worry 1 [facility] Phone: Start: 10-07-2020 Alcohol Comment drank from age 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 [facility] Start: [birth year]-19-1965 End: 05-22-2014 History of tobacco use Cigarette Smoker [facility] Work Phone: Start: 12-20-2022 End: 06-15-2023 Tobacco use panel [facility] Adult Depression Screening Assessment 0 [facility] (I/We) worried byronpretty er (my/our) food would run out before (I/we) got money to buy more. Never true BON eGood How often to you hav e a drink containing alcohol? Never Bon NMRKT Start: 07-01-2012 Sex Male (finding) [facility] [employer] Medical Equipment Procedure Code Equipment Code Equipment Origin al Text Equipment Identifier Dates Mesh Chadwick L [id number] R Inguinal Wht Polypr [id number] Start: 02-11-2021 Stretch-Coil Dbs Extension 60 - [id number] Start: 02-04-2015 Extension Dbs 3.8-1.3mm 1.5mm Standard 60cm Neurostimulator Quadripolar - [id number] Start: 06-17-2015 Kit Adapter 2x4 Pocket New Replacement Neurostimulator Sterile - [id number] Start: 12-10-2018 Comment on above: Description: [id number] Lead Nrstm 40cm Actv Dbs - [id number] Start: 01-28-2015 Comment on above: Description: Stimloc Alfredo Hole cover Lot#[id number]; Exp Kit Activa Dbs S timloc Straight Cylinder Tungsten 40cm 1.5mm - [id number] Start: 06-09-2015 Comment on above: Description: Medtron ic Stimloc Alfredo Hole Cover: Lot#[id number] Exp 02-24-2018 Neurostimulator Activa Rc 10.5-V 2-250hz 2.2inx2.2in .4in Implantable 2 - [id number] Start: 12-10-2018 Ipg Activa Sc Db s Coil Extn - [id number] Start: 02-04-2015 Neurostimulator Activa Sc 0-10.5v 2-250hz 0-25.5ma 2.4inx2.2in .4in - [id number] Start: 06-17-2015 Neurostimulator Activa Rc 10.5-V 2-250hz 2.2inx2.2in .4in Implantable 2 - [id number] Start: 04-16-2021 Kit Restore Neurostimulator Closed Extension Boot Octapolar In Line Plug - [id number] Start: 04-16-2021 Stent Uret 6fr L 28cm Hydr+ Pgtl Tapr Tip Grad Bldr Mrk Lo - [id number] Start: 01-19-2023 Stent Uret 6fr L 28cm Hydr+ Pgtl Tapr Tip Grad Bldr Mrk Lo - [id number] Start: 06-15-2023 Comment on above: Description: String remains intact and secured to penis with steri strips and mastisol Functional Status Date Assessment Result Facility 01-11-2023 Functional Status N/A General [facility] Clinical Notes 02-11-2021 to 06-04-2024 Patient InstructionsPortia Hurd APRN.PATRICK - 06/04/2024 12:16 PM Portia Todd APRN.SENIOR PROJECT MANAGER - 06/04/2024 12:16 PM Portia Todd APRN.PATRICK - 06/04/2024 12:16 PM ESTAttachments Note Date & Type Note Facility 06-04-2024 Instructions Portia Hurd APRN.SENIOR PROJECT MANAGER - 06/04/2024 1:29 PM EST No changes today for tremor, you are continuing to do well on these settings. I did increase your left arm a little bit. Look into the EZ OUT door handle assist for your card door. Or just google, door handle assistance device documented in this encounter [facility] 06-04-2024 Note HNO ID: [id number] Author: PORTIA HURD APRN.PATRICK Service: ? Author Type: Nurse Practitioner Type: Procedures Filed: 06/04/2024 13:47 Note Text: DBS PROGRAMMING PROCEDURE NOTE: DBS Surgery information: DBS Surgery Information Target: Bilateral Vim for: Essential tremor Test Puller: [employer] IPG: Activa RC IPG Laterality: bilateral # of Leads/IP Left IPG #1 Location: Chest Date: 02/04/15 Neurosurgeon: Wu Hernandez M.D. Left IPG#1 Lead #1: Left Vim Lead Neurosurgeon: Wu Hernandez M.D. [id number] Date: 01/28/15 Intraoperative YESSY: Yes Intraoperative mapping neurophysiologist: Other Right IPG#1 Location: Chest Date: 06/17/15 Neurosurgeon: Wu Hernandez M.D. Right IPG#1 Lead #1: Right Vim Lead [id number] Date: 06/09/15 Intraoperative YESSY: Yes Intraoperative mapping neurophysiologist: Other DBS Battery and Impedance: Electrode Impedance Check: Right Electrode Impedance check did not show open or short circuit. Left Electrode Impedance check did not show open or short circuit. Right Chest Left Chest Battery (V) 100% 100% Initial/Final Settings: Beg/Fi L/R Pr# Site Tot Amp Pt Range Cat An Pw Fq Initial/Final Current Fractionation Details: Beg/Fi L/R Pr# Site Current Fractionation An Initial/Final Clinical Observation Summary: Beg/Fi L/R Pr# Site Benefits Side Effects Initial/Final Impedance: Beg/Fi L/R Pr# Site TI Portia Hurd, JANELL.SENIOR PROJECT MANAGER Todays Programming: No changes Imaging was reviewed on brainlab. Lead is lateral with 1 and 2 in VIM at the anterior edge. ) is below and 3 is above. I had him draw a spiral, he had mild-moderate impairment. I turned off it was worse, but moderate. More obviously, with DBS off he had more kinetic tremor. I turned it back on. I turned on to prior settings from prior to 08/21/2017 at 1-C+, 2.3 V, 90 micS, 130 Hz. Kinetic tremor seemed increased, and he had a harder time with spiral drawing but better than off. I then turned to bipolar settings used on 08/21/2017. He had some kinetic tremor but handwriting was better. He liked these settings. I added a group without turning on and tested with 125 Hz to see the change. This was similar. On program 2, I added contact 1 back and increased to 1.7V so he was on. Program 1: 2-3+, 3.8 V, 90 micS, 125 Hz. Program 2: 1-C+, 1.7 V, 90 micS, 125 Hz. I increased program 2 to 2.3 V, he was shakier. I tried voltages on program 2 between 1.0V and 1.7V on program 2. 1.5 V seemed the best. Program 1: 2-3+, 3.8 V, 90 micS, 125 Hz. Program 2: 1-C+, 1.2 V, 90 micS, 125 Hz. [facility] 06-04-2024 Procedure note Images from the original note were not included. DBS PROGRAMMING PROCEDURE NOTE: DBS Surgery information: DBS Surgery Information Target: Bilateral Vim for: Essential tremor Test Puller: [employer] IPG: Activa RC IPG Laterality: bilateral # of Leads/IP Left IPG #1 Location: Chest Date: 02/04/15 Neurosurgeon: Wu Hernandez M.D. Left IPG#1 Lead #1: Left Vim Lead Neurosurgeon: Wu Hernandez M.D. [id number] Date: 01/28/15 Intraoperative YESSY: Yes Intraoperative mapping neurophysiologist: Other Right IPG#1 Location: Chest Date: 06/17/15 Neurosurgeon: Wu Hernandez M.D. Right IPG#1 Lead #1: Right Vim Lead [id number] Date: 06/09/15 Intraoperative YESSY: Yes Intraoperative mapping neurophysiologist: Other DBS Battery and Impedance: Electrode Impedance Check: Right Electrode Impedance check did not show open or short circuit. Left Electrode Impedance check did not show open or short circuit. Right Chest Left Chest Battery (V) 100% 100% Initial/Final Settings: Beg/Fi L/R Pr# Site Tot Amp Pt Range Cat An Pw Fq Initial/Final Current Fractionation Details: Beg/Fi L/R Pr# Site Current Fractionation An Initial/Final Clinical Observation Summary: Beg/Fi L/R Pr# Site Benefits Side Effects Initial/Final Impedance: Beg/Fi L/R Pr# Site TI Portia Hurd APRN.SENIOR PROJECT MANAGER Todays Programming: No changes Imaging was reviewed on brainlab. Lead is lateral with 1 and 2 in VIM at the anterior edge. ) is below and 3 is above. I had him draw a spiral, he had mild-moderate impairment. I turned off it was worse, but moderate. More obviously, with DBS off he had more kinetic tremor. I turned it back on. I turned on to prior settings from prior to 08/21/2017 at 1-C+, 2.3 V, 90 micS, 130 Hz. Kinetic tremor seemed increased, and he had a harder time with spiral drawing but better than off. I then turned to bipolar settings used on 08/21/2017. He had some kinetic tremor but handwriting was better. He liked these settings. I added a group without turning on and tested with 125 Hz to see the change. This was similar. On program 2, I added contact 1 back and increased to 1.7V so he was on. Program 1: 2-3+, 3.8 V, 90 micS, 125 Hz. Program 2: 1-C+, 1.7 V, 90 micS, 125 Hz. I increased program 2 to 2.3 V, he was shakier. I tried voltages on program 2 between 1.0V and 1.7V on program 2. 1.5 V seemed the best. Program 1: 2-3+, 3.8 V, 90 micS, 125 Hz. Program 2: 1-C+, 1.2 V, 90 micS, 125 Hz. [facility] 06-04-2024 History of Presen t illness Narrative [facility] - FOLLOW UP EVALUATION Felicia Maria MD, [address] [place] [address] [place] [id number] Dear Felicia Maria MD, MD: I had the pleasure of seeing Mr. Casey for follow-up today. As you know he is a 69 year old right-handed male with a history of Essential tremor since 1974. He had bilateral VIM DBS placed in 2014 with bilateral Medtronic RC IPGs. His right IPG was replaced 04/11 with a Medtronic RC.His left chest RC was laced 12/10/2018. Subjective Previous Plan-11/28/2023 Visit: No changes to DBS today, DBS check completed and within normal limits. Follow-up in 6 months Interested in clinical research? Not currently Interval History: He has remained stable overall. He still has trouble with writing but otherwise does okay. Movement Disorders Medications Schedule - as of the start of the visit: Medications Questionnaires: In addition, the following activities of daily living that may be affected by tremors were evaluated: Speaking: Not affected Feeding: Not affected Bringing Liquids to Mouth: Not affected Hygiene: Not affected Dressing: Not affected Writing: Affected (moderate) Working: Affected (mild) Number of falls in the Last Month: 0 Mood/Behavior Depression: PHQ-9 Score: 6 usually representing mild (5-9) depression. Anxiety: JANNETH-7 Total Score: 5 usually representing mild (5-9) anxiety. Finally, the following table shows the patient's overall global physical and mental health using the PROMIS scale: PROMIS-10 Flowsheet Row Office Visit from 06/04/2024 in Neurology Office Visit from 11/28/2023 in Neurology Global Physical Health T Score 50.8 47.7 Global Mental Health T Score 50.8 53.3 0-10 Standard Pain Scale 4 1 *PROMIS-10 scoring scale: mean = 50, over 50 is above average, under 50 is below average ALLERGIES Allergen Reactions Codeine GI Upset Penicillins Hives, Swelling Seasonal Allergies Other: See Comments Sneezing, congestion, itchy, watery eyes, migraine headaches Primidone Unknown Current Outpatient Medications Medication Sig Pwrvvpudrkbmz-Yrleervb-Pzrdal (MULTIVITAMIN 50 PLUS) tab Take 1 tablet by mouth once daily. tamsulosin (FLOMAX) 0.4 mg Take 0.4 mg by mouth once daily. magnesium oxide 400 mg magnesium tab Take by mouth twice daily. cyanocobalamin (VITAMIN B-12) 1,000 mcg tab Take 1,000 mcg by mouth once daily. FOLIC ACID ORAL Take 1,000 mcg by mouth once daily. cholecalciferol, vitamin D3, (VITAMIN D3 ORAL) Take 25 mcg by mouth three times daily. cetirizine HCl/pseudoephedrine (ALLERGY D-12 ORAL) Take by mouth. docusate sodium (STOOL SOFTENER ORAL) Take by mouth. No current facility-administered medications for this visit. Objective Vital Signs: BP 145/74 (BP Site: Left Arm, BP Position: Sitting, BP Cuff Size: Regular Adult) Pulse 87 Ht 180.3 cm (5' 11 ) Wt 96.1 kg (211 lb 13.8 oz) SpO2 98% BMI 29.55 kg/m Orthostatic Vitals: None for this encounter No LMP for male patient. Body mass index is 29.55 kg/m . General Physical Examination: He is alone. General: Awake, alert, interactive, no acute distress, good nutritional status, normal development, well-kept Movement Disorders Scales Performed: Pnuj-Ukcpoj-Rgaws Tremor Scale Medication OFF/ON Time of Assessment Time of Last Medication Last Medication Taken DBS_Right ON DBS_Left ON Face Tremor At Rest: 0 - None. Tongue Tremor At Rest: 0 - None. Posture Holdin - None. Voice Tremor Action and Intention: 0 - None. Head Tremor At Rest: 0 - None. Posture Holdin - None. RUE Tremor At Rest: 0 - None. Posture Holdin - None. Action and Intention: 1 - Slight. May be intermittent. LUE Tremor At Rest: 0 - None. Posture Holdin - None. Action and Intention: 1 - Slight. May be intermittent. Trunk Tremor At Rest: 0 - None. Posture Holdin - None. RLE Tremor At Rest: 0 - None. Posture Holdin - None. Action and Intention: 0 - None. LLE Tremor At Rest: 0 - None. Posture Holdin - None Action and Intention: 0 - None. Tremor Exam Subscore: 2 Handwriting 2 - Moderately abnormal. Legible, but with considerable tremor. Drawing Drawing A - Right 1 - Slightly tremulous. May cross lines occasionally. Drawing A - Left 1 - Slightly tremulous. May cross lines occasionally. Drawing B - Right 1 - Slightly tremulous. May cross lines occasionally. Drawing B - Left 1 - Slightly tremulous. May cross lines occasionally. Drawing C- Right 1 - Slightly tremulous. May cross lines occasionally. Drawing C - Left 1 - Slightly tremulous. May cross lines occasionally. Handwriting Subscore: 8 Assessment and Plan: Assessment Mr. Casey is a right-handed 69 year old year old male with Essential tremor status post bilateral VIM Medtronic DBS placed in 2014. He continues to do well with his current settings. The main thing he has trouble with is handwriting. He did notice his left hand shaking a little more lately so we turned it up slightly. Otherwise he will follow up for a device check in six months. The following are the current problems noted and addressed during this visit: Essential tremor Plan 06/04/2024 Visit: Follow up in six months Status of Neuropsych Appointment Post-DBS Implantation Last DBS surgery date: Left IPG 1- Lead 1: 01/28/2015 Date of Postop Neuropsych Appointment: No Neuropsych appointment on file following DBS surgery. Please place a CONSULT TO NEUROPSYCH order. Interested in clinical research? Not currently DBS CHECK Thank you for allowing me to be part of the clinical care of this patient! I look forward to continued participation in the patient s care with you. Please do not hesitate to call with any questions. Sincerely, Portia Hurd APRN.PATRICK documented in this encounter [facility] 06-04-2024 Note HNO ID: [id number] Author: PORTIA HURD APRN.CNP Service: ? Author Type: Nurse Practitioner Type: Progress Notes Filed: 06/04/2024 13:47 Note Text: [facility] - FOLLOW UP EVALUATION Felicia Maria MD, [address] [place] [address] [place] [id number] Dear Felicia Maria MD, MD: I had the pleasure of seeing Mr. Casey for follow-up today. As you know he is a 69 year old right-handed male with a history of Essential tremor since 1974. He had bilateral VIM DBS placed in 2014 with bilateral Medtronic RC IPGs. His right IPG was replaced 04/11 with a Medtronic RC.His left chest RC was laced 12/10/2018. Subjective Previous Plan-11/28/2023 Visit: No changes to DBS today, DBS check completed and within normal limits. Follow-up in 6 months Interested in clinical research? Not currently Interval History: He has remained stable overall. He still has trouble with writing but otherwise does okay. Movement Disorders Medications Schedule - as of the start of the visit: Medications Questionnaires: In addition, the following activities of daily living that may be affected by tremors were evaluated: Speaking: Not affected Feeding: Not affected Bringing Liquids to Mouth: Not affected Hygiene: Not affected Dressing: Not affected Writing: Affected (moderate) Working: Affected (mild) Number of falls in the Last Month: 0 Mood/Behavior Depression: PHQ-9 Score: 6 usually representing mild (5-9) depression. Anxiety: JANNETH-7 Total Score: 5 usually representing mild (5-9) anxiety. Finally, the following table shows the patient's overall global physical and mental health using the PROMIS scale: PROMIS-10 Flowsheet Row Office Visit from 06/04/2024 in Neurology Office Visit from 11/28/2023 in Neurology Global Physical Health T Score 50.8 47.7 Global Mental Health T Score 50.8 53.3 0-10 Standard Pain Scale 4 1 *PROMIS-10 scoring scale: mean = 50, over 50 is above average, under 50 is below average ALLERGIES Allergen Reactions Codeine GI Upset Penicillins Hives, Swelling Seasonal Allergies Other: See Comments Sneezing, congestion, itchy, watery eyes, migraine headaches Primidone Unknown Current Outpatient Medications Medication Sig Zekfmjdevxmou-Dzggziow-Vidbdq (MULTIVITAMIN 50 PLUS) tab Take 1 tablet by mouth once daily. tamsulosin (FLOMAX) 0.4 mg Take 0.4 mg by mouth once daily. magnesium oxide 400 mg magnesium tab Take by mouth twice daily. cyanocobalamin (VITAMIN B-12) 1,000 mcg tab Take 1,000 mcg by mouth once daily. FOLIC ACID ORAL Take 1,000 mcg by mouth once daily. cholecalciferol, vitamin D3, (VITAMIN D3 ORAL) Take 25 mcg by mouth three times daily. cetirizine HCl/pseudoephedrine (ALLERGY D-12 ORAL) Take by mouth. docusate sodium (STOOL SOFTENER ORAL) Take by mouth. No current facility-administered medications for this visit. Objective Vital Signs: BP 145/74 (BP Site: Left Arm, BP Position: Sitting, BP Cuff Size: Regular Adult) Pulse 87 Ht 180.3 cm (5' 11 ) Wt 96.1 kg (211 lb 13.8 oz) SpO2 98% BMI 29.55 kg/m? Orthostatic Vitals: None for this encounter No LMP for male patient. Body mass index is 29.55 kg/m?. General Physical Examination: He is alone. General: Awake, alert, interactive, no acute distress, good nutritional status, normal development, well-kept Movement Disorders Scales Performed: Rqiy-Xtgizv-Pwnqm Tremor Scale Medication OFF/ON Time of Assessment Time of Last Medication Last Medication Taken DBS_Right ON DBS_Left ON Face Tremor At Rest: 0 - None. Tongue Tremor At Rest: 0 - None. Posture Holdin - None. Voice Tremor Action and Intention: 0 - None. Head Tremor At Rest: 0 - None. Posture Holdin - None. RUE Tremor At Rest: 0 - None. Posture Holdin - None. Action and Intention: 1 - Slight. May be intermittent. LUE Tremor At Rest: 0 - None. Posture Holdin - None. Action and Intention: 1 - Slight. May be intermittent. Trunk Tremor At Rest: 0 - None. Posture Holdin - None. RLE Tremor At Rest: 0 - None. Posture Holdin - None. Action and Intention: 0 - None. LLE Tremor At Rest: 0 - None. Posture Holdin - None Action and Intention: 0 - None. Tremor Exam Subscore: 2 Handwriting 2 - Moderately abnormal. Legible, but with considerable tremor. Drawing Drawing A - Right 1 - Slightly tremulous. May cross lines occasionally. Drawing A - Left 1 - Slightly tremulous. May cross lines occasionally. Drawing B - Right 1 - Slightly tremulous. May cross lines occasionally. Drawing B - Left 1 - Slightly tremulous. May cross lines occasionally. Drawing C- Right 1 - Slightly tremulous. May cross lines occasionally. Drawing C - Left 1 - Slightly tremulous. May cross lines occasionally. Handwriting Subscore: 8 Assessment and Plan: Assessment Mr. Casey is a right-handed 69 year old year old male with Essential tremor status post bilatera (more content not included)... [facility] 06-04-2024 Procedure note Images from the original note were not included. DBS PROGRAMMING PROCEDURE NOTE: DBS Surgery information: DBS Surgery Information Target: Bilateral Vim for: Essential tremor Test Puller: [employer] IPG: Activa RC IPG Laterality: bilateral # of Leads/IP Left IPG #1 Location: Chest Date: 02/04/15 Neurosurgeon: Wu Hernandez M.D. Left IPG#1 Lead #1: Left Vim Lead Neurosurgeon: Wu Hernandez M.D. [id number] Date: 01/28/15 Intraoperative YESSY: Yes Intraoperative mapping neurophysiologist: Other Right IPG#1 Location: Chest Date: 06/17/15 Neurosurgeon: Wu Hernandez M.D. Right IPG#1 Lead #1: Right Vim Lead [id number] Date: 06/09/15 Intraoperative YESSY: Yes Intraoperative mapping neurophysiologist: Other DBS Battery and Impedance: Electrode Impedance Check: Right Electrode Impedance check did not show open or short circuit. Left Electrode Impedance check did not show open or short circuit. Right Chest Left Chest Battery (V) 100% 100% Initial/Final Settings: Beg/Fi L/R Pr# Site Tot Amp Pt Range Cat An Pw Fq Initial/Final Current Fractionation Details: Beg/Fi L/R Pr# Site Current Fractionation An Initial/Final Clinical Observation Summary: Beg/Fi L/R Pr# Site Benefits Side Effects Initial/Final Impedance: Beg/Fi L/R Pr# Site TI Portia Hurd APRN.SENIOR PROJECT MANAGER Todays Programming: No changes Imaging was reviewed on brainlab. Lead is lateral with 1 and 2 in VIM at the anterior edge. ) is below and 3 is above. I had him draw a spiral, he had mild-moderate impairment. I turned off it was worse, but moderate. More obviously, with DBS off he had more kinetic tremor. I turned it back on. I turned on to prior settings from prior to 08/21/2017 at 1-C+, 2.3 V, 90 micS, 130 Hz. Kinetic tremor seemed increased, and he had a harder time with spiral drawing but better than off. I then turned to bipolar settings used on 08/21/2017. He had some kinetic tremor but handwriting was better. He liked these settings. I added a group without turning on and tested with 125 Hz to see the change. This was similar. On program 2, I added contact 1 back and increased to 1.7V so he was on. Program 1: 2-3+, 3.8 V, 90 micS, 125 Hz. Program 2: 1-C+, 1.7 V, 90 micS, 125 Hz. I increased program 2 to 2.3 V, he was shakier. I tried voltages on program 2 between 1.0V and 1.7V on program 2. 1.5 V seemed the best. Program 1: 2-3+, 3.8 V, 90 micS, 125 Hz. Program 2: 1-C+, 1.2 V, 90 micS, 125 Hz. documented in this encounter [facility] 02-28-2024 Hospital Discharg e Natalia Samuels APRN - PATRICK - 02/28/2024 11:58 AM EDT Wash area 3 times daily with soap and water. Dry well. Apply antibiotic ointment and bandage continue for 7 to 10 days or until wound Bactrim DS 1 by mouth twice daily for 10 days. If rash develops discontinue this medication take lvtm-juz-cnrgdok loratadine and let Dr. Kim know regarding reaction. Tylenol ibuprofen as needed for comfort. Do not submerge hand in water for 7 days. The following attachments cannot be sent through Care Everywhere.Puncture Wounds (Malawian)documented in this encounter [facility] 11-28-2023 Note HNO ID: [id number] Author: PORTIA HURD APRN.PATRICK Service: ? Author Type: Nurse Practitioner Type: Procedures Filed: 12/01/2023 11:45 Note Text: DBS PROGRAMMING PROCEDURE NOTE: DBS Surgery information: DBS Surgery Information Target: Bilateral Vim for: Essential tremor Test Puller: [employer] IPG: Activa RC IPG Laterality: bilateral # of Leads/IP Left IPG #1 Location: Chest Date: 02/04/15 Neurosurgeon: Wu Hernandez M.D. Left IPG#1 Lead #1: Left Vim Lead Neurosurgeon: Wu Hernandez M.D. [id number] Date: 01/28/15 Intraoperative YESSY: Yes Intraoperative mapping neurophysiologist: Other Right IPG#1 Location: Chest Date: 06/17/15 Neurosurgeon: Wu Hernandez M.D. Right IPG#1 Lead #1: Right Vim Lead [id number] Date: 06/09/15 Intraoperative YESSY: Yes Intraoperative mapping neurophysiologist: Other DBS Battery and Impedance: Electrode Impedance Check: Right Electrode Impedance check did not show open or short circuit. Left Electrode Impedance check did not show open or short circuit. Right Chest Left Chest Battery (V) 75% 100% Initial/Final Settings: Beg/Fi L/R Pr# Site Tot Amp Pt Range Cat An Pw Fq Begin Begin Final Final L R L R B B B B VIM VIM VIM VIM 4.6 4.0 4.6 4.0 3.5-5.4 2.5-4.2 3.5-5.4 2.5-4.2 0,1 2 0,1 2 2 3 2 3 110 70 110 70 200 130 200 130 Initial/Final Current Fractionation Details: Beg/Fi L/R Pr# Site Current Fractionation An Begin Begin Final Final L R L R B B B B VIM VIM VIM VIM 2 3 2 3 Initial/Final Clinical Observation Summary: Beg/Fi L/R Pr# Site Benefits Side Effects Begin Begin Final Final L R L R B B B B VIM VIM VIM VIM Initial/Final Impedance: Beg/Fi L/R Pr# Site TI Begin Begin Final Final L R L R B B B B VIM VIM VIM VIM [phone] Portia Hurd, [employer] SALESPERSON.SENIOR PROJECT MANAGER Todays Programming: No changes Imaging was reviewed on brainlab. Lead is lateral with 1 and 2 in VIM at the anterior edge. ) is below and 3 is above. I had him draw a spiral, he had mild-moderate impairment. I turned off it was worse, but moderate. More obviously, with DBS off he had more kinetic tremor. I turned it back on. I turned on to prior settings from prior to 08/21/2017 at 1-C+, 2.3 V, 90 micS, 130 Hz. Kinetic tremor seemed increased, and he had a harder time with spiral drawing but better than off. I then turned to bipolar settings used on 08/21/2017. He had some kinetic tremor but handwriting was better. He liked these settings. I added a group without turning on and tested with 125 Hz to see the change. This was similar. On program 2, I added contact 1 back and increased to 1.7V so he was on. Program 1: 2-3+, 3.8 V, 90 micS, 125 Hz. Program 2: 1-C+, 1.7 V, 90 micS, 125 Hz. I increased program 2 to 2.3 V, he was shakier. I tried voltages on program 2 between 1.0V and 1.7V on program 2. 1.5 V seemed the best. Program 1: 2-3+, 3.8 V, 90 micS, 125 Hz. Program 2: 1-C+, 1.2 V, 90 micS, 125 Hz. [facility] 11-28-2023 Procedure note Images from the original note were not included. DBS PROGRAMMING PROCEDURE NOTE: DBS Surgery information: DBS Surgery Information Target: Bilateral Vim for: Essential tremor Test Puller: [employer] IPG: Activa RC IPG Laterality: bilateral # of Leads/IP Left IPG #1 Location: Chest Date: 02/04/15 Neurosurgeon: Wu Hernandez M.D. Left IPG#1 Lead #1: Left Vim Lead Neurosurgeon: Wu Hernandez M.D. [id number] Date: 01/28/15 Intraoperative YESSY: Yes Intraoperative mapping neurophysiologist: Other Right IPG#1 Location: Chest Date: 06/17/15 Neurosurgeon: Wu Hernandez M.D. Right IPG#1 Lead #1: Right Vim Lead [id number] Date: 06/09/15 Intraoperative YESSY: Yes Intraoperative mapping neurophysiologist: Other DBS Battery and Impedance: Electrode Impedance Check: Right Electrode Impedance check did not show open or short circuit. Left Electrode Impedance check did not show open or short circuit. Right Chest Left Chest Battery (V) 75% 100% Initial/Final Settings: Beg/Fi L/R Pr# Site Tot Amp Pt Range Cat An Pw Fq Begin Begin Final Final L R L R B B B B VIM VIM VIM VIM 4.6 4.0 4.6 4.0 3.5-5.4 2.5-4.2 3.5-5.4 2.5-4.2 0,1 2 0,1 2 2 3 2 3 110 70 110 70 200 130 200 130 Initial/Final Current Fractionation Details: Beg/Fi L/R Pr# Site Current Fractionation An Begin Begin Final Final L R L R B B B B VIM VIM VIM VIM 2 3 2 3 Initial/Final Clinical Observation Summary: Beg/Fi L/R Pr# Site Benefits Side Effects Begin Begin Final Final L R L R B B B B VIM VIM VIM VIM Initial/Final Impedance: Beg/Fi L/R Pr# Site TI Begin Begin Final Final L R L R B B B B VIM VIM VIM VIM [phone] Portia Hurd, [employer] SALESPERSON.SENIOR PROJECT MANAGER Todays Programming: No changes Imaging was reviewed on brainlab. Lead is lateral with 1 and 2 in VIM at the anterior edge. ) is below and 3 is above. I had him draw a spiral, he had mild-moderate impairment. I turned off it was worse, but moderate. More obviously, with DBS off he had more kinetic tremor. I turned it back on. I turned on to prior settings from prior to 08/21/2017 at 1-C+, 2.3 V, 90 micS, 130 Hz. Kinetic tremor seemed increased, and he had a harder time with spiral drawing but better than off. I then turned to bipolar settings used on 08/21/2017. He had some kinetic tremor but handwriting was better. He liked these settings. I added a group without turning on and tested with 125 Hz to see the change. This was similar. On program 2, I added contact 1 back and increased to 1.7V so he was on. Program 1: 2-3+, 3.8 V, 90 micS, 125 Hz. Program 2: 1-C+, 1.7 V, 90 micS, 125 Hz. I increased program 2 to 2.3 V, he was shakier. I tried voltages on program 2 between 1.0V and 1.7V on program 2. 1.5 V seemed the best. Program 1: 2-3+, 3.8 V, 90 micS, 125 Hz. Program 2: 1-C+, 1.2 V, 90 micS, 125 Hz. [facility] 11-28-2023 Note HNO ID: [id number] Author: PORTIA HURD APRN.SENIOR PROJECT MANAGER Service: ? Author Type: Nurse Practitioner Type: Progress Notes Filed: 12/01/2023 11:45 Note Text: [facility] - FOLLOW UP EVALUATION Felicia Maria MD, [place] [phone] Dear Felicia Maria MD, : I had the pleasure of seeing Mr. Casey for follow-up today. As you know he is a 68 year old right-handed male with a history of Essential tremor since 1974. He had bilateral VIM DBS placed in 2014 with bilateral Medtronic RC IPGs. His right IPG was replaced 04/11 with a Medtronic RC.His left chest RC was laced 12/10/2018. He is seen alone. Subjective Previous Plan-05/23/2023 Visit: No changes to DBS today Follow up in six months for device check Interested in clinical research? Not currently Interval History: His tremors are the same. He charges his batteries every day. Questionnaires: In addition, the following activities of daily living that may be affected by tremors were evaluated: Speaking: Not affected Feeding: Affected (mild) Bringing Liquids to Mouth: Not affected Hygiene: Not affected Dressing: Not affected Writing: Affected (moderate) Working: Affected (mild) Number of falls in the Last Month: none Mood/Behavior Depression: PHQ-9 Score: 10 usually representing moderate (10-14) depression. Anxiety: JANNETH-7 Total Score: 6 usually representing mild (5-9) anxiety. Finally, the following table shows the patient's overall global physical and mental health using the PROMIS scale: PROMIS-10 Flowsheet Row Office Visit from 11/28/2023 in Neurology Office Visit from 05/23/2023 in Neurology Global Physical Health T Score 47.7 47.7 Global Mental Health T Score 53.3 43.5 0-10 Standard Pain Scale 1 2 *PROMIS-10 scoring scale: mean = 50, over 50 is above average, under 50 is below average ALLERGIES Allergen Reactions Codeine GI Upset Penicillins Hives, Swelling Seasonal Allergies Other: See Comments Sneezing, congestion, itchy, watery eyes, migraine headaches Primidone Unknown Current Outpatient Medications Medication Sig Irqdtkfweintd-Zkyesfxi-Dzhbmo (MULTIVITAMIN 50 PLUS) tab Take 1 tablet by mouth once daily. tamsulosin (FLOMAX) 0.4 mg Take 0.4 mg by mouth once daily. magnesium oxide 400 mg magnesium tab Take by mouth twice daily. cyanocobalamin (VITAMIN B-12) 1,000 mcg tab Take 1,000 mcg by mouth once daily. cholecalciferol, vitamin D3, (VITAMIN D3 ORAL) Take 25 mcg by mouth three times daily. cetirizine HCl/pseudoephedrine (ALLERGY D-12 ORAL) Take by mouth. docusate sodium (STOOL SOFTENER ORAL) Take by mouth. FOLIC ACID ORAL Take 1,000 mcg by mouth once daily. (Patient not taking: Reported on 05/18/2023) No current facility-administered medications for this visit. Objective Vital Signs: BP 109/60 (BP Site: Left Arm, BP Position: Sitting, BP Cuff Size: Regular Adult) Pulse 72 Ht 180.3 cm (5' 11 ) Wt 93.1 kg (205 lb 4 oz) SpO2 97% BMI 28.63 kg/m? Orthostatic Vitals: None for this encounter No LMP for male patient. Body mass index is 28.63 kg/m?. General Physical Examination: He is alone. General: Awake, alert, interactive, no acute distress, good nutritional status, normal development, well-kept General Neurological Examination: Neurological Exam Movement Disorders Scales Performed: Klam-Ugpdoo-Yhyqf Tremor Scale Medication OFF/ON ON Time of Assessment Time of Last Medication Last Medication Taken DBS_Right DBS_Left Face Tremor At Rest: 0 - None. Tongue Tremor At Rest: 0 - None. Posture Holdin - None. Voice Tremor Action and Intention: 0 - None. Head Tremor At Rest: 0 - None. Posture Holdin - None. RUE Tremor At Rest: 0 - None. Posture Holdin - None. Action and Intention: 1 - Slight. May be intermittent. LUE Tremor At Rest: 0 - None. Posture Holdin - None. Action and Intention: 1 - Slight. May be intermittent. Trunk Tremor At Rest: 0 - None. Posture Holdin - None. RLE Tremor At Rest: 0 - None. Posture Holdin - None. Action and Intention: 0 - None. LLE Tremor At Rest: 0 - None. Posture Holdin - None Action and Intention: 0 - None. Tremor Exam Subscore: 2 Handwriting 0 - Normal. Drawing Drawing A - Right 1 - Slightly tremulous. May cross lines occasionally. Drawing A - Left 1 - Slightly tremulous. May cross lines occasionally. Drawing B - Right 1 - Slightly tremulous. May cross lines occasionally. Drawing B - Left 1 - Slightly tremulous. May cross lines occasionally. Drawing C- Right 1 - Slightly tremulous. May cross lines occasionally. Drawing C - Left 1 - Slightly tremulous. May cross lines occasionally. Handwriting Subscore: 6 Assessment and Plan: Assessment Mr. Casey is a right-handed 68 year old year old male with Essential tremor status post bilateral VIM Medtronic DBS placed in 2014. His tremors have remained stable (more content not included)... [facility] 11-28-2023 History of Presen t illness Narrative [facility] - FOLLOW UP EVALUATION Felicia Maria MD, [address] [address] Dear Felicia Maria MD, MD: I had the pleasure of seeing Mr. Caesy for follow-up today. As you know he is a 68 year old right-handed male with a history of Essential tremor since 1974. He had bilateral VIM DBS placed in 2014 with bilateral Medtronic RC IPGs. His right IPG was replaced 04/11 with a Medtronic RC.His left chest RC was laced 12/10/2018. He is seen alone. Subjective Previous Plan-05/23/2023 Visit: No changes to DBS today Follow up in six months for device check Interested in clinical research? Not currently Interval History: His tremors are the same. He charges his batteries every day. Questionnaires: In addition, the following activities of daily living that may be affected by tremors were evaluated: Speaking: Not affected Feeding: Affected (mild) Bringing Liquids to Mouth: Not affected Hygiene: Not affected Dressing: Not affected Writing: Affected (moderate) Working: Affected (mild) Number of falls in the Last Month: none Mood/Behavior Depression: PHQ-9 Score: 10 usually representing moderate (10-14) depression. Anxiety: JANNETH-7 Total Score: 6 usually representing mild (5-9) anxiety. Finally, the following table shows the patient's overall global physical and mental health using the PROMIS scale: PROMIS-10 Flowsheet Row Office Visit from 11/28/2023 in Neurology Office Visit from 05/23/2023 in Neurology Global Physical Health T Score 47.7 47.7 Global Mental Health T Score 53.3 43.5 0-10 Standard Pain Scale 1 2 *PROMIS-10 scoring scale: mean = 50, over 50 is above average, under 50 is below average ALLERGIES Allergen Reactions Codeine GI Upset Penicillins Hives, Swelling Seasonal Allergies Other: See Comments Sneezing, congestion, itchy, watery eyes, migraine headaches Primidone Unknown Current Outpatient Medications Medication Sig Ghufajktknnlv-Eysbysri-Gxcmcp (MULTIVITAMIN 50 PLUS) tab Take 1 tablet by mouth once daily. tamsulosin (FLOMAX) 0.4 mg Take 0.4 mg by mouth once daily. magnesium oxide 400 mg magnesium tab Take by mouth twice daily. cyanocobalamin (VITAMIN B-12) 1,000 mcg tab Take 1,000 mcg by mouth once daily. cholecalciferol, vitamin D3, (VITAMIN D3 ORAL) Take 25 mcg by mouth three times daily. cetirizine HCl/pseudoephedrine (ALLERGY D-12 ORAL) Take by mouth. docusate sodium (STOOL SOFTENER ORAL) Take by mouth. FOLIC ACID ORAL Take 1,000 mcg by mouth once daily. (Patient not taking: Reported on 05/18/2023) No current facility-administered medications for this visit. Objective Vital Signs: BP 109/60 (BP Site: Left Arm, BP Position: Sitting, BP Cuff Size: Regular Adult) Pulse 72 Ht 180.3 cm (5' 11 ) Wt 93.1 kg (205 lb 4 oz) SpO2 97% BMI 28.63 kg/m Orthostatic Vitals: None for this encounter No LMP for male patient. Body mass index is 28.63 kg/m . General Physical Examination: He is alone. General: Awake, alert, interactive, no acute distress, good nutritional status, normal development, well-kept General Neurological Examination: Neurological Exam Movement Disorders Scales Performed: Ntxl-Xzplgz-Thtmv Tremor Scale Medication OFF/ON ON Time of Assessment Time of Last Medication Last Medication Taken DBS_Right DBS_Left Face Tremor At Rest: 0 - None. Tongue Tremor At Rest: 0 - None. Posture Holdin - None. Voice Tremor Action and Intention: 0 - None. Head Tremor At Rest: 0 - None. Posture Holdin - None. RUE Tremor At Rest: 0 - None. Posture Holdin - None. Action and Intention: 1 - Slight. May be intermittent. LUE Tremor At Rest: 0 - None. Posture Holdin - None. Action and Intention: 1 - Slight. May be intermittent. Trunk Tremor At Rest: 0 - None. Posture Holdin - None. RLE Tremor At Rest: 0 - None. Posture Holdin - None. Action and Intention: 0 - None. LLE Tremor At Rest: 0 - None. Posture Holdin - None Action and Intention: 0 - None. Tremor Exam Subscore: 2 Handwriting 0 - Normal. Drawing Drawing A - Right 1 - Slightly tremulous. May cross lines occasionally. Drawing A - Left 1 - Slightly tremulous. May cross lines occasionally. Drawing B - Right 1 - Slightly tremulous. May cross lines occasionally. Drawing B - Left 1 - Slightly tremulous. May cross lines occasionally. Drawing C- Right 1 - Slightly tremulous. May cross lines occasionally. Drawing C - Left 1 - Slightly tremulous. May cross lines occasionally. Handwriting Subscore: 6 Assessment and Plan: Assessment Mr. Casey is a right-handed 68 year old year old male with Essential tremor status post bilateral VIM Medtronic DBS placed in 2014. His tremors have remained stable since his last visit. He still has range to increase at home if needed. He is satisfied with current tremor control. He will follow-up in 6 months to check his device. The following are the current problems noted and addressed during this visit: Essential tremor (primary encounter diagnosis) Plan 11/28/2023 Visit: No changes to DBS today, DBS check completed and within normal limits. Follow-up in 6 months Interested in clinical research? Not currently Updated Movement Disorders Medication Schedule: Medications Return at or around: 05/30/24 DBS CHECK Thank you for allowing me to be part of the clinical care of this patient! I look forward to continued participation in the patient s care with you. Please do not hesitate to call with any questions. Sincerely, Portia Hurd APRN.SENIOR PROJECT MANAGER documented in this encounter [facility] 11-28-2023 Procedure note Images from the original note were not included. DBS PROGRAMMING PROCEDURE NOTE: DBS Surgery information: DBS Surgery Information Target: Bilateral Vim for: Essential tremor Test Puller: Medtronic IPG: Activa RC IPG Laterality: bilateral # of Leads/IP Left IPG #1 Location: Chest Date: 02/04/15 Neurosurgeon: Wu Hernandez M.D. Left IPG#1 Lead #1: Left Vim Lead Neurosurgeon: Wu Hernandez M.D. [id number] Date: 01/28/15 Intraoperative YESSY: Yes Intraoperative mapping neurophysiologist: Other Right IPG#1 Location: Chest Date: 06/17/15 Neurosurgeon: Wu Hernandez M.D. Right IPG#1 Lead #1: Right Vim Lead [id number] Date: 06/09/15 Intraoperative YESSY: Yes Intraoperative mapping neurophysiologist: Other DBS Battery and Impedance: Electrode Impedance Check: Right Electrode Impedance check did not show open or short circuit. Left Electrode Impedance check did not show open or short circuit. Right Chest Left Chest Battery (V) 75% 100% Initial/Final Settings: Beg/Fi L/R Pr# Site Tot Amp Pt Range Cat An Pw Fq Begin Begin Final Final L R L R B B B B VIM VIM VIM VIM 4.6 4.0 4.6 4.0 3.5-5.4 2.5-4.2 3.5-5.4 2.5-4.2 0,1 2 0,1 2 2 3 2 3 110 70 110 70 200 130 200 130 Initial/Final Current Fractionation Details: Beg/Fi L/R Pr# Site Current Fractionation An Begin Begin Final Final L R L R B B B B VIM VIM VIM VIM 2 3 2 3 Initial/Final Clinical Observation Summary: Beg/Fi L/R Pr# Site Benefits Side Effects Begin Begin Final Final L R L R B B B B VIM VIM VIM VIM Initial/Final Impedance: Beg/Fi L/R Pr# Site TI Begin Begin Final Final L R L R B B B B VIM VIM VIM VIM [phone] Portia Hurd, [employer] SALESP[employer].SENIOR PROJECT MANAGER Todays Programming: No changes Imaging was reviewed on [email or web address]. Lead is lateral with 1 and 2 in VIM at the anterior edge. ) is below and 3 is above. I had him draw a spiral, he had mild-moderate impairment. I turned off it was worse, but moderate. More obviously, with DBS off he had more kinetic tremor. I turned it back on. I turned on to prior settings from prior to 08/21/2017 at 1-C+, 2.3 V, 90 micS, 130 Hz. Kinetic tremor seemed increased, and he had a harder time with spiral drawing but better than off. I then turned to bipolar settings used on 08/21/2017. He had some kinetic tremor but handwriting was better. He liked these settings. I added a group without turning on and tested with 125 Hz to see the change. This was similar. On program 2, I added contact 1 back and increased to 1.7V so he was on. Program 1: 2-3+, 3.8 V, 90 micS, 125 Hz. Program 2: 1-C+, 1.7 V, 90 micS, 125 Hz. I increased program 2 to 2.3 V, he was shakier. I tried voltages on program 2 between 1.0V and 1.7V on program 2. 1.5 V seemed the best. Program 1: 2-3+, 3.8 V, 90 micS, 125 Hz. Program 2: 1-C+, 1.2 V, 90 micS, 125 Hz. documented in this encounter [facility] 02-01-2023 Hospital Discharg e instructions Christina Soto DO - 02/01/2023 6:54 PM EDT Recommend warm compresses and or ice pack to help with the swelling of the left arm. If you develop any difficulty breathing or if the swelling or the redness gets worse return to the emergency department. The following attachments cannot be sent through Care Everywhere.Insect Stings and Bites (Malawian)documented in this encounter [facility] 01-11-2023 Note Chief Complaint consultation for nevus and sebaceous cyst HPI Staff 67 year old male presents on consultation from Dr. Rice for left shoulder nevus and sebaceous cyst. Reports 2 year history of pigmented lesion that is darken and enlarging. Reports 10 year history of sebaceous cyst thoracic back. Occasional redness and swelling. Never been on ATB for this in the past. Occasionally he will express thick, white material. History of Present Illness 67 yo male with h/o htn, EMILAINA, essential tremor, bph, referred for nevus and sebaceous cyst; long h/o cyst on mid back; intermittent swells and drains; no previous I & D; nevus on left shoulder irregular; lots of sun exposure; no personal or fmhx of skin cancer; no asa or NSAID use; former smoker; chews tobacco. Review of Systems PHQ Score Initial Depression Screen Score: 0 ROS - Provider Constitutional: no fever, no sweats, no weight loss. Eyes: no glasses, no blurred vision, no visual loss. ENMT: no dentures, no hoarseness, no swallowing difficulties, no hearing loss, no ear infection(s), no nose bleeds. Cardiovascular: normal blood pressure, no chest pain, regular heartbeat, no heart murmur. Respiratory: no shortness of breath, no cough, no asthma, no wheezing. Gastrointestinal: no nausea, no vomiting, no diarrhea, no constipation, no blood in stool, no change in bowel habits, no abdominal pain, no hepatitis. Genitourinary: no kidney stones, no urine infection, no dysuria. Musculoskeletal: no pain, no weakness. Skin: yes changing moles, no rash, yes skin lumps. Neurologic: no seizures, no epilepsy, no headache. Psychiatric: no emotional or psychiatric problem. Heme/Lymph: no bleeding problems, no anemia, no blood clots, no transfusions. Allergy/Immunologic: no swollen lymph nodes/glands, no IV drug abuse. Other: Additional ROS info: Except as noted in the above Review of Systems and in the History of Present Illness, all other systems have been reviewed and are negative or noncontributory. Physical Exam Vitals & Measurements HR: 74(Peripheral) RR: 16 BP: 120/74 HT: 72 in HT: 182.88 cm WT: 88.8 kg WT: 195.36 lb BMI: 26.55 HEENT: normal conjunctiva, sclera clear, no scleral icterus, EOM intact, PERRLA, oral mucosa moist without lesions. Neck: trachea midline, no mass, symmetric, no thyromegaly or nodules, no adenopathy Respiratory: lungs CTA, respirations non labored. Cardiovascular: regular rate and rhythm, no murmur, no pedal edema or varicosities. Lymphatic: no cervical adenopathy, no supraclavicular adenopathy. Musculoskeletal: normal gait, digits and nails without infection, nodes, cyanosis, clubbing. Skin: no rashes, no lesions, no ulcers, mid back with 1.5 cm epidermal cyst with central pore. left shoulder with 5 mm irregular, irregularly pigmented lesion Psychiatric/Neuro: oriented to time, place, person, judgement normal, affect appropriate for age, insight intact, no focal deficits. Tests: , review of old records completed, Discussed surgical options, risks, and possible complications with patient. Assessment/Plan 1. Changing nevus (D22.9: Melanocytic nevi, unspecified) plan excisional biopsy under local anesthesia in the office, informed consent obtained. 2. Neoplasm of uncertain behavior of skin of shoulder (D48.5: Neoplasm of uncertain behavior of skin) see # 1 3. Epidermal cyst (L72.0: Epidermal cyst) plan excisional biopsy under local anesthesia in the office for definitive diagnosis and treatment; informed consent obtained. Follow-up No qualifying data available Problem List/Past Medical History Ongoing Benign prostatic hyperplasia BMI 26.0-26.9,adult Diverticulitis Essential tremor. Former smoker History of nephrolithiasis Hypertensive disorder Intracranial aneurysm Obstructive sleep apnea syndrome Overweight Right inguinal hernia Seasonal allergic rhinitis Historical No qualifying data Procedure/Surgical History Arthroscopy of knee, Cataract extraction, Colonoscopy, Nose reconstruction, Repair of right inguinal hernia, Repair of umbilical hernia, Rotator cuff repair. Medications Colace 100 mg Cap, 100 mg= 1 cap(s), Oral, Daily, PRN loratadine 10 mg Tab, 10 mg= 1 tab(s), Oral, Daily multivitamin, 1 tab(s), Oral, Daily tamsulosin 0.4 mg Cap, 0.4 mg= 1 cap(s), Oral, Daily Vitamin B Complex oral tablet, 1 tab(s), Oral, Daily Allergies Mysoline (Hives) codeine (Nausea) penicillins (Hives) Social History Alcohol - Denies Alcohol Use, 01/11/2023 Substance Abuse - Denies Substance Abuse, 01/11/2023 Tobacco Former smoker, quit more than 30 days ago Tobacco Use:. Smokeless tobacco user within last 30 days Smokeless Tobacco Use:. Cigarettes, Oral, Started age 12.0 Years. Stopped age 53 Years. Yes, 01/11/2023 Family History Heart disease: Mother. Immunizations Vaccine Date Status SARS-CoV-2 (COVID-19) mRNA BNT-162b2 vax 08/05/2020 Recorded SARS-CoV-2 (COVID-19) mRNA BNT-162b2 vax 07/12/2020 (more content not included)... [facility] Comment on above: Result Comment: Elec tronically Signed By: ALEXUS CRESPO, Fermin Suero\Date and Time Signed: 01/11/23 15:47 EDT 12-20-2022 History of Presen t illness Narrative [facility] [place] [id number] Dear Felicia Maria: I had the pleasure of seeing Mr. Casey for follow-up today. As you know he is a 67 year old right-handed male with a history of Essential tremor since 1974. He had bilateral VIM DBS placed in 2014 with bilateral Medtronic RC IPGs. His right IPG was replaced 04/11 with a Medtronic RC.His left chest RC was laced 12/10/2018. He is seen alone. Subjective Previous Plan-09/22/2022 Visit: essential tremor - I changed you settings on group A as follows: Program 1: 2-3+, 3.8 V, 90 micS, 125 Hz. Program 2: 1-C+, 1.5 V, 90 micS, 125 Hz. Your backup settings that you came in on are on group B. If you have problems on A, you can go back to B. Interval History: He tried Dr. Bhandari's settings for four days. He felt it didn't work well. He went back to his prior settings and stayed there. He found that when his IPG was lower charged at 50% he felt he could write easier. Questionnaires: In addition, the following activities of daily living that may be affected by tremors were evaluated: Speaking: Not affected Feeding: Affected (moderate) Bringing Liquids to Mouth: Affected (mild) Hygiene: Not affected Dressing: Not affected Writing: Affected (moderate) Working: Affected (mild) Number of falls in the Last Month: none Mood/Behavior Depression: PHQ-9 Score: 4 usually representing no significant (0-4) depression. Anxiety: JANNETH-7 Total Score: 7 usually representing mild (5-9) anxiety. Finally, the following table shows the patient's overall global physical and mental health using the PROMIS scale: PROMIS-10 Flowsheet Row Office Visit from 12/20/2022 in Neurology Office Visit from 09/22/2022 in Neurology Global Physical Health T Score 57.7 54.1 Global Mental Health T Score -- 50.8 0-10 Standard Pain Scale 4 4 *PROMIS-10 scoring scale: mean = 50, over 50 is above average, under 50 is below average ALLERGIES Allergen Reactions Codeine GI Upset Penicillins Hives, Swelling Seasonal Allergies Other: See Comments Sneezing, congestion, itchy, watery eyes, migraine headaches Primidone Unknown Current Outpatient Medications Medication Sig Fjqgtaociimbi-Iafmbucq-Xbwayj (MULTIVITAMIN 50 PLUS) tab Take 1 tablet by mouth once daily. tamsulosin (FLOMAX) 0.4 mg Take 0.4 mg by mouth once daily. magnesium oxide 400 mg magnesium tab Take by mouth twice daily. cyanocobalamin (VITAMIN B-12) 1,000 mcg tab Take 1,000 mcg by mouth once daily. FOLIC ACID ORAL Take 1,000 mcg by mouth once daily. cholecalciferol, vitamin D3, (VITAMIN D3 ORAL) Take 25 mcg by mouth three times daily. cetirizine HCl/pseudoephedrine (ALLERGY D-12 ORAL) Take by mouth. docusate sodium (STOOL SOFTENER ORAL) Take by mouth. No current facility-administered medications for this visit. Objective Vital Signs: BP 122/62 (BP Site: Left Arm, BP Position: Sitting, BP Cuff Size: Regular Adult) Pulse 89 Ht 182.9 cm (6') Wt 90.3 kg (199 lb 1.6 oz) SpO2 97% BMI 27.00 kg/m Orthostatic Vitals: None for this encounter Weight: 90.3 kg (199 lb 1.6 oz) Height: 182.9 cm (6') No LMP for male patient. Body mass index is 27 kg/m . General Physical Examination: He is alone. General: Awake, alert, interactive, no acute distress, good nutritional status, normal development, well-kept Movement Disorders Scales Performed: Fanz-Vtrlyy-Rsyrs Tremor Scale Face Tremor At Rest: 0 - None. Tongue Tremor At Rest: 0 - None. Posture Holdin - None. Voice Tremor Action and Intention: 0 - None. Head Tremor At Rest: 0 - None. Posture Holdin - None. Action and Intention: RUE Tremor At Rest: 0 - None. Posture Holdin - None. Action and Intention: 1 - Slight. May be intermittent. LUE Tremor At Rest: 0 - None. Posture Holdin - None. Action and Intention: 1 - Slight. May be intermittent. Trunk Tremor At Rest: 0 - None. Posture Holdin - None. RLE Tremor At Rest: 0 - None. Posture Holdin - None. Action and Intention: 0 - None. LLE Tremor At Rest: 0 - None. Posture Holdin - None Action and Intention: 0 - None. Handwriting 1 - Mildly abnormal. Slightly untidy, tremulous. Drawing Drawing A - Right 1 - Slightly tremulous. May cross lines occasionally. Drawing A - Left 1 - Slightly tremulous. May cross lines occasionally. Drawing B - Right 2 - Moderately tremulous or crosses lines frequently. Drawing B - Left 2 - Moderately tremulous or crosses lines frequently. Drawing C- Right 1 - Slightly tremulous. May cross lines occasionally. Drawing C - Left 0 - Normal. Assessment and Plan: Assessment Mr. Casey is a right-handed 67 year old year old male with Essential tremor status post bilateral VIM Medtronic DBS placed in 2014. He saw Dr. Bhandari most recently who gave him a program that was a combination of prior settings that had worked at different points in the past. He tried these but felt worse on them so he went back to his prior group which he has stayed on. He appears better controlled than usually, so he does not wish to make changes. These are likely his best settings as he has been programmed extensively. He will follow up in six months for a device check. The following are the current problems noted and addressed during this visit: Essential tremor (primary encounter diagnosis) Plan 12/20/2022 Visit: No Changes to DBS today Follow up in 6 months Interested in clinical research? Not currently Updated Movement Disorders Medication Schedule: Medications Return at or around: 06/22/23 Thank you for allowing me to be part of the clinical care of this patient! I look forward to continued participation in the patient s care with you. Please do not hesitate to call with any questions. Sincerely, Portia Hurd APRN.SENIOR PROJECT MANAGER documented in this encounter [facility] 12-20-2022 Procedure note Images from the original note were not included. DBS Analysis/programming: INITIAL SETTINGS: Group B: Left VIM DBS: 0-1-,2+ 4.6 V (3.5-5.0) 110 uS 200 Hz Therapeutic Impedance: 638/7.6Ma Left chest RC implanted on December 10, 2018-DEE date November 2032 Battery 75% System impedances were checked and are within normal ranges. Right VIM DBS: 2 - 3+ 4.0 (2.5-4.2)V 70 uS 130 Hz Therapeutic Impedance: 1370 ohms Current: 3.0 mA Right chest RC Implanted March 2021 Battery 75% System impedances were checked and are within normal ranges. Todays Programming: Imaging was reviewed on [email or web address]. Lead is lateral with 1 and 2 in VIM at the anterior edge. ) is below and 3 is above. I had him draw a spiral, he had mild-moderate impairment. I turned off it was worse, but moderate. More obviously, with DBS off he had more kinetic tremor. I turned it back on. I turned on to prior settings from prior to 08/21/2017 at 1-C+, 2.3 V, 90 micS, 130 Hz. Kinetic tremor seemed increased, and he had a harder time with spiral drawing but better than off. I then turned to bipolar settings used on 08/21/2017. He had some kinetic tremor but handwriting was better. He liked these settings. I added a group without turning on and tested with 125 Hz to see the change. This was similar. On program 2, I added contact 1 back and increased to 1.7V so he was on. Program 1: 2-3+, 3.8 V, 90 micS, 125 Hz. Program 2: 1-C+, 1.7 V, 90 micS, 125 Hz. I increased program 2 to 2.3 V, he was shakier. I tried voltages on program 2 between 1.0V and 1.7V on program 2. 1.5 V seemed the best. Final settings: Program 1: 2-3+, 3.8 V, 90 micS, 125 Hz. Program 2: 1-C+, 1.2 V, 90 micS, 125 Hz. Programming time: 45 min documented in this encounter [facility] 09-22-2022 Instructions Adam Bhandari MD - 09/22/2022 10:29 AM EDT It was a pleasure to see you today. We addressed the following diagnoses: Essential tremor (primary encounter diagnosis) My recommendations are as follows: 09/22/2022 Visit: essential tremor - I changed you settings on group A as follows: Program 1: 2-3+, 3.8 V, 90 micS, 125 Hz. Program 2: 1-C+, 1.5 V, 90 micS, 125 Hz. Your backup settings that you came in on are on group B. If you have problems on A, you can go back to B. Return in about 2 months (around 11/29/2022). If there are any concerns before your next visit, please call or you can send a message through [employer]. You can also now schedule and select appointments through [employer]. Adam Bhandari MD documented in this encounter [facility] [facility] 09-22-2022 History of Presen t illness Narrative Images from the original note were not included. [facility] - NEW PATIENT EVALUATION Referring Provider: Portia Hurd [address] [facility] [id number] Primary Care Provider: Felicia Maria MD [address] [place] [address] [place] [id number] Dear Portia Hurd: Thank you for referring Mr. Casey to our clinic today. As you know he is a 67 year old right-handed male who is seen in consultation for evaluation of Essential tremor since 1974. He had bilateral VIM DBS placed in 2014 with bilateral Medtronic RC IPGs. His right IPG was replaced 04/11 with a Medtronic RC.His left chest RC was laced 12/10/2018. Subjective HISTORY OF PRESENT ILLNESS: He has been having trouble with getting control with the right hand for fine tasks and writings. He relates his problems to being turned up in 2018 when he had a different provider and had some diplopia. Prior to that I believe he was on 2.3 V 90 130 1-C+, then to Volts:3.8, PW:90, Rate:180, Cathode: 2 Anode:3. Movement Disorders Medications Schedule - as of the start of the visit: Medications None Questionnaires In addition, the following activities of daily living that may be affected by tremors were evaluated: Speaking: Not affected Feeding: Affected (moderate) Bringing Liquids to Mouth: Affected (mild) Hygiene: Not affected Dressing: Not affected Writing: Affected (marked) Working: Affected (moderate) Number of falls in the Last Month: 0 Mood/Behavior Depression: PHQ-9 Score: 7 usually representing mild (5-9) depression. Anxiety: JANNETH-7 Total Score: 11 usually representing moderate (10-14) anxiety. Finally, the following table shows the patient's overall global physical and mental health using the PROMIS scale: PROMIS-10 Flowsheet Row Office Visit from 09/22/2022 in Neurology Office Visit from 06/21/2022 in Neurology Global Physical Health T Score 54.1 54.1 Global Mental Health T Score 50.8 56 0-10 Standard Pain Scale 4 4 *PROMIS-10 scoring scale: mean = 50, over 50 is above average, under 50 is below average ALLERGIES Allergen Reactions Codeine GI Upset Penicillins Hives, Swelling Seasonal Allergies Other: See Comments Sneezing, congestion, itchy, watery eyes, migraine headaches Primidone Unknown Current Outpatient Medications Medication Sig Qawfoqbzuntzn-Akoejgpx-Iyvbts (MULTIVITAMIN 50 PLUS) tab Take 1 tablet by mouth once daily. tamsulosin (FLOMAX) 0.4 mg Take 0.4 mg by mouth once daily. docusate sodium (STOOL SOFTENER ORAL) Take by mouth. magnesium oxide 400 mg magnesium tab Take by mouth twice daily. (Patient not taking: Reported on 08/02/2022) cyanocobalamin (VITAMIN B-12) 1,000 mcg tab Take 1,000 mcg by mouth once daily. (Patient not taking: Reported on 08/02/2022) FOLIC ACID ORAL Take 1,000 mcg by mouth once daily. (Patient not taking: No sig reported) cholecalciferol, vitamin D3, (VITAMIN D3 ORAL) Take 25 mcg by mouth three times daily. (Patient not taking: No sig reported) cetirizine HCl/pseudoephedrine (ALLERGY D-12 ORAL) Take by mouth. (Patient not taking: No sig reported) No current facility-administered medications for this visit. Past Medical and Surgical History: has a past medical history of Cataract, Diverticulitis, Essential tremor, Former tobacco use (04/12/2021), Intracranial aneurysm, Obstructive sleep apnea, EMILIANA (obstructive sleep apnea) (04/12/2021), and Renal calculi. He has no past medical history of Atrial fibrillation ([facility]), Cancer ([facility]), Chronic obstructive pulmonary disease (COPD) ([facility]), Chronic renal insufficiency, Congestive heart failure ([facility]), Coronary artery disease, Depression, Diabetes ([facility]), Epilepsy ([facility]), Hypertension, Hypothyroidism, Steroid long-term use, Stroke (HCC), or Substance abuse (HCC). has a past surgical history that includes rotator cuff repair (2015); knee arthroscopy (Left); rhinoplasty; past surgical history of; cataract extraction hx; twist drill, alfredo hole, craniotomy,; and past surgical history of (02/11/2021). 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 Drug use: No Family History: family history includes Cancer in his father and mother; Coronary Artery Disease in his mother; Diabetes in his maternal aunt, maternal aunt, and mother; None in his brother; Other in an other family member; Stroke in his brother; Thyroid in his sister. Objective Vital Signs: BP 111/71 (BP Site: Left Arm, BP Position: Sitting, BP Cuff Size: Regular Adult) Pulse 82 Ht 182.9 cm (6') Wt 93.4 kg (206 lb) SpO2 97% BMI 27.94 kg/m Orthostatic Vitals: None for this encounter No LMP for male patient. Body mass index is 27.94 kg/m . Assessment and Plan: Assessment Mr. Casey is a right-handed 67 year old year old male with Essential tremor status post bilateral VIM Medtronic DBS placed in 2014. The following are the current problems noted and addressed during this visit: Essential tremor (primary encounter diagnosis) Plan 09/22/2022 Visit: essential tremor - I changed you settings on group A as follows: Program 1: 2-3+, 3.8 V, 90 micS, 125 Hz. Program 2: 1-C+, 1.5 V, 90 micS, 125 Hz. Your backup settings that you came in on are on group B. If you have problems on A, you can go back to B. Medical Decision Making: Problems: Moderate: 1+ chronic illnesses with change Risk: Moderate: Moderate risk from testing/treatment Medical Decision Making Level: 4 - Moderate Thank you for allowing me to be part of the clinical care of this patient! I look forward to continued participation in the patient s care with you. Please do not hesitate to call with any questions. Sincerely, Adam Bhandari MD documented in this encounter [facility] 09-22-2022 Procedure note Images from the original note were not included. DBS Analysis/programming: INITIAL SETTINGS: Group A: Left VIM DBS: 0-1-,2+ 4.6 V (3.5-5.0) 110 uS 200 Hz Therapeutic Impedance: 638/7.6Ma Left chest RC implanted on December 10, 2018-DEE date November 2032 Battery 100% System impedances were checked and are within normal ranges. Right VIM DBS: 2 - 3+ 3.8 (2.5-4.1)V 70 uS 130 Hz Therapeutic Impedance: 1531 ohms Current: 2.3 mA Right chest RC Implanted March 2021 Battery 100% System impedances were checked and are within normal ranges. Todays Programming: Imaging was reviewed on [email or web address]. Lead is lateral with 1 and 2 in VIM at the anterior edge. ) is below and 3 is above. I had him draw a spiral, he had mild-moderate impairment. I turned off it was worse, but moderate. More obviously, with DBS off he had more kinetic tremor. I turned it back on. I turned on to prior settings from prior to 08/21/2017 at 1-C+, 2.3 V, 90 micS, 130 Hz. Kinetic tremor seemed increased, and he had a harder time with spiral drawing but better than off. I then turned to bipolar settings used on 08/21/2017. He had some kinetic tremor but handwriting was better. He liked these settings. I added a group without turning on and tested with 125 Hz to see the change. This was similar. On program 2, I added contact 1 back and increased to 1.7V so he was on. Program 1: 2-3+, 3.8 V, 90 micS, 125 Hz. Program 2: 1-C+, 1.7 V, 90 micS, 125 Hz. I increased program 2 to 2.3 V, he was shakier. I tried voltages on program 2 between 1.0V and 1.7V on program 2. 1.5 V seemed the best. Final settings: Program 1: 2-3+, 3.8 V, 90 micS, 125 Hz. Program 2: 1-C+, 1.2 V, 90 micS, 125 Hz. Programming time: 45 min documented in this encounter [facility] 08-02-2022 Instructions Portia Hurd APRN.PATRICK - 08/02/2022 11:26 AM EDT Schedule a new patient appointment with Dr. Bhandari. You are on your best settings from our testing today. You have a small range you can try and work with if needed. documented in this encounter [facility] 08-02-2022 Procedure note DBS Analysis/programming: INITIAL and FINAL SETTINGS: Old Group Left VIM DBS: 0- 1 - 2+ 4.3 V (3.5-5.0) 110 uS 180 Hz Therapeutic Impedance: 638/7.6Ma Left chest RC implanted on December 10, 2018-DEE date November 2032 Battery 100% System impedances were checked and are within normal ranges. Right VIM DBS: 2 - 3+ 3.8 (2.5-4.1)V 70 uS 130 Hz Therapeutic Impedance: 1531 ohms Current: 2.3 mA Right chest RC Implanted March 2021 Battery 100% System impedances were checked and are within normal ranges. Todays Programming: Tested old settings that have worked: 4.4V, PW 90, rate 180, 1-2-3+ Did not work today, could not write his name. Left VIM DBS: 0- 1 - 2+ 4.3 V (3.7-5.3) 110 uS 180 Hz Therapeutic Impedance: 734/5.4Ma -Better than what he has had the last six weeks, but not perfect. He can write easier and use his phone better. Gave a range up to 5.8. (however it ended up this was actually what he was on when he arrived today) Left VIM DBS: 1 - 2+ 6.5 V 120 uS 200 Hz Therapeutic Impedance: 806 ohms Current: 8.0 mA Did not work documented in this encounter [facility] 08-02-2022 History of Presen t illness Narrative [facility] - FOLLOW UP EVALUATION Felicia Maria MD [address] [place] [address] [place] [address] Dear Felicia Maria MD: I had the pleasure of seeing Mr. Casey for follow-up today. As you know he is a 67 year old right-handed male with a history of Essential tremor since 1974. Bilateral VIM DBS placed in 2014, RIPG replaced 04/11 medtronic RC Subjective Previous Plan-06/21/2022 Visit: You are on a new group C today. You have a range inside this group that you can use to optimize your settings. If you get to the top of the range and your tremor returns, try switching back to you old group which is Group B in your controller. You can switch between these groups as needed to help control your tremor. 2. Follow up November 29 at 3pm Interval History: His last settings did not work well at all. He feels he has been back to shaking and couldn't get control on either program after our last visit. He is struggling the most with writing and he is frustrated. Questionnaires: In addition, the following activities of daily living that may be affected by tremors were evaluated: Speaking: Not affected Feeding: Affected (moderate) Bringing Liquids to Mouth: Affected (moderate) Hygiene: Not affected Dressing: Not affected Writing: Affected (severe) Working: Affected (moderate) Number of falls in the Last Month: none Mood/Behavior Depression: PHQ-9 Score: 11 usually representing moderate (10-14) depression. Anxiety: JANNETH-7 Total Score: 13 usually representing moderate (10-14) anxiety. Finally, the following table shows the patient's overall global physical and mental health using the PROMIS scale: PROMIS-10 Flowsheet Row Office Visit from 06/21/2022 in Neurology Office Visit from 12/14/2021 in Neurology Global Physical Health T Score 54.1 50.8 Global Mental Health T Score 56 53.3 0-10 Standard Pain Scale 4 4 *PROMIS-10 scoring scale: mean = 50, over 50 is above average, under 50 is below average ALLERGIES Allergen Reactions Codeine GI Upset Penicillins Hives, Swelling Seasonal Allergies Other: See Comments Sneezing, congestion, itchy, watery eyes, migraine headaches Primidone Unknown Current Outpatient Medications Medication Sig Rpxrsespaazfl-Bvcthegc-Xmbanb (MULTIVITAMIN 50 PLUS) tab Take 1 tablet by mouth once daily. tamsulosin (FLOMAX) 0.4 mg Take 0.4 mg by mouth once daily. docusate sodium (STOOL SOFTENER ORAL) Take by mouth. magnesium oxide 400 mg magnesium tab Take by mouth twice daily. (Patient not taking: Reported on 08/02/2022) cyanocobalamin (VITAMIN B-12) 1,000 mcg tab Take 1,000 mcg by mouth once daily. (Patient not taking: Reported on 08/02/2022) FOLIC ACID ORAL Take 1,000 mcg by mouth once daily. (Patient not taking: No sig reported) cholecalciferol, vitamin D3, (VITAMIN D3 ORAL) Take 25 mcg by mouth three times daily. (Patient not taking: No sig reported) cetirizine HCl/pseudoephedrine (ALLERGY D-12 ORAL) Take by mouth. (Patient not taking: No sig reported) No current facility-administered medications for this visit. Objective Vital Signs: BP 127/77 (BP Site: Left Arm, BP Position: Sitting, BP Cuff Size: Regular Adult) Pulse 78 Ht 182.9 cm (6') Wt 96.7 kg (213 lb 1.6 oz) SpO2 98% BMI 28.90 kg/m Orthostatic Vitals: None for this encounter Weight: 96.7 kg (213 lb 1.6 oz) Height: 182.9 cm (6') No LMP for male patient. Body mass index is 28.9 kg/m . General Physical Examination: He is alone. General: Awake, alert, interactive, no acute distress, good nutritional status, normal development, well-kept Movement Disorders Scales Performed: Lwwl-Ajfnwx-Umfyp Tremor Scale Face Tremor At Rest: 0 - None. Tongue Tremor At Rest: 0 - None. Posture Holdin - None. Voice Tremor Action and Intention: 0 - None. Head Tremor At Rest: 0 - None. Posture Holdin - None. Action and Intention: RUE Tremor At Rest: 0 - None. Posture Holdin - None. Action and Intention: 1 - Slight. May be intermittent. LUE Tremor At Rest: 0 - None. Posture Holdin - None. Action and Intention: 1 - Slight. May be intermittent. Trunk Tremor At Rest: 0 - None. Posture Holdin - None. RLE Tremor At Rest: 0 - None. Posture Holdin - None. Action and Intention: 0 - None. LLE Tremor At Rest: 0 - None. Posture Holdin - None Action and Intention: 0 - None. Handwriting 2 - Moderately abnormal. Legible, but with considerable tremor. Drawing Drawing A - Right 1 - Slightly tremulous. May cross lines occasionally. Drawing A - Left Drawing B - Right 3 - Accomplishes the task with great difficulty. Many errors. Drawing B - Left Drawing C- Right 2 - Moderately tremulous or crosses lines frequently. Drawing C - Left Assessment and Plan: Assessment Mr. Casey is a right-handed 67 year old year old male with Essential tremor status post bilateral VIM Medtronic DBS placed in 2014. He scheduled a sooner follow-up after his last appointment because he felt that his settings did not last more than a couple days. On exam the only tremor notable is when he tries to write. He has become very focused on this, and I am unsure if we are going to be able to capture his handwriting tremor. I tried many different settings over the last 6 months to a year, and he reports that they never last more than a week or so. He had many different settings with Kelly over the years, and it appears he had similar complaints at that time. Often times we are limited by side effects, and we cannot improve his tremor because of this. I tried 3 different groups that have worked very well for him over the years, with only modest results today and one of the groups. He ended up leaving on very similar settings that he came in on today, however in comparison to other settings he felt the most comfortable on this group. I have other older groups stored in his DBS if needed. I would like him to see Dr. Bhandari, to see if his expectations are appropriate for what we can do for him at this point. The following are the current problems noted and addressed during this visit: Essential tremor Plan 08/02/2022 Visit: Schedule a new patient appointment with Dr. Bhandari. You are on your best settings from our testing today. You have a small range you can try and work with if needed. Interested in clinical research? Not currently Updated Movement Disorders Medication Schedule: Medications Level of service : 52735 + 3 units 22860 ( > 55 min, [id number] for each 15 min > 40). Time spent 90 min on the day of service, which included preparing to see the patient, vqyz-[id number] patient care, completing clinical documentation, obtaining and/or reviewing separately obtained history, performing a medically appropriate examination, counseling and educating the patient/family/caregiver, independently interpreting results (not separately reported), and communicating results to the patient/family/caregiver. DBS time 50 minutes. Thank you for allowing me to be part of the clinical care of this patient! I look forward to continued participation in the patient s care with you. Please do not hesitate to call with any questions. Sincerely, Portia Hurd APRN.PATRICK documented in this encounter [facility] 08-01-2022 Miscellaneous Notes LM for pt to callback regarding pre-check in. Please transfer to Nadia Mckeon documented in this encounter [facility] 06-21-2022 Instructions Portia Hurd APRN.CNP - 06/21/2022 10:40 AM EST You are on a new group C today. You have a range inside this group that you can use to optimize your settings. If you get to the top of the range and your tremor returns, try switching back to you old group which is Group B in your controller. You can switch between these groups as needed to help control your tremor. 2. Follow up November 29 at 3pm documented in this encounter [facility] 06-21-2022 Procedure note DBS Analysis/programming: INITIAL and FINAL SETTINGS: Old Group Left VIM DBS: 0- 1 - 2+ 4.9 V (3.5-4.9) 110 uS 180 Hz Therapeutic Impedance: 638/7.6Ma Left chest RC implanted on December 10, 2018-DEE date November 2032 Battery 100% System impedances were checked and are within normal ranges. FINAL ACTIVE New Group: C LVIM: 0+1-2-3+ 4.2V 100 uS 200 Hz Right VIM DBS: 2 - 3+ 3.8 (2.5-4.1)V 70 uS 130 Hz Therapeutic Impedance: 1531 ohms Current: 2.3 mA Right chest RC Implanted March 2021 Battery 100% System impedances were checked and are within normal ranges. Tried guarded cathode on 1, not strong enough, included 1 and 2 guarded and worked well. Provided range. Educated him to switch between groups if needed. documented in this encounter [facility] 06-21-2022 History of Presen t illness Narrative [facility] - FOLLOW UP EVALUATION Felicia Maria MD [address] [place] [address] [facility] [id number] Dear Felicia Maria MD: I had the pleasure of seeing Mr. Casey for follow-up today. As you know he is a 67 year old right-handed male with a history of Essential tremor since 1974. Bilateral VIM DBS placed in 2014, RIPG replaced 04/11 medtronic RC Subjective Previous Plan-12/14/2021 Visit: No changes to settings today Follow up in 6-12 months for device check Interval History: His tremors started worsening at the end of March, he is up as high as he can go. Movement Disorders Medications Schedule - as of the start of the visit: Medications Questionnaires: In addition, the following activities of daily living that may be affected by tremors were evaluated: Speaking: Affected (mild occasionally) Feeding: Not affected Bringing Liquids to Mouth: Not affected Hygiene: Not affected Dressing: Not affected Writing: Affected (mild) Working: Affected (mild) Number of falls in the Last Month: 0 Mood/Behavior Depression: PHQ-9 Score: 3 usually representing no significant (0-4) depression. Anxiety: JANNETH-7 Total Score: 1 usually representing no significant (0-4) anxiety. Finally, the following table shows the patient's overall global physical and mental health using the PROMIS scale: PROMIS-10 Flowsheet Row Office Visit from 06/21/2022 in Neurology Office Visit from 12/14/2021 in Neurology Global Physical Health T Score 54.1 50.8 Global Mental Health T Score 56 53.3 0-10 Standard Pain Scale 4 4 *PROMIS-10 scoring scale: mean = 50, over 50 is above average, under 50 is below average ALLERGIES Allergen Reactions Codeine GI Upset Penicillins Hives, Swelling Seasonal Allergies Other: See Comments Sneezing, congestion, itchy, watery eyes, migraine headaches Primidone Unknown Current Outpatient Medications Medication Sig tamsulosin (FLOMAX) 0.4 mg Take 0.4 mg by mouth once daily. magnesium oxide 400 mg magnesium tab Take by mouth twice daily. cyanocobalamin (VITAMIN B-12) 1,000 mcg tab Take 1,000 mcg by mouth once daily. docusate sodium (STOOL SOFTENER ORAL) Take by mouth. FOLIC ACID ORAL Take 1,000 mcg by mouth once daily. (Patient not taking: Reported on 06/21/2022) cholecalciferol, vitamin D3, (VITAMIN D3 ORAL) Take 25 mcg by mouth three times daily. (Patient not taking: Reported on 06/21/2022) cetirizine HCl/pseudoephedrine (ALLERGY D-12 ORAL) Take by mouth. (Patient not taking: Reported on 06/21/2022) No current facility-administered medications for this visit. Objective Vital Signs: BP 115/71 (BP Site: Left Arm, BP Position: Sitting, BP Cuff Size: Regular Adult) Pulse 87 Ht 182.9 cm (6') Wt 101 kg (222 lb 11.2 oz) SpO2 97% BMI 30.20 kg/m Orthostatic Vitals: None for this encounter No LMP for male patient. Body mass index is 30.2 kg/m . General Physical Examination: He is alone. General: Awake, alert, interactive, no acute distress, good nutritional status, normal development, well-kept Movement Disorders Scales Performed: Vmyh-Evgvni-Ccvns Tremor Scale Face Tremor At Rest: 0 - None. Tongue Tremor At Rest: 0 - None. Posture Holdin - None. Voice Tremor Action and Intention: 0 - None. Head Tremor At Rest: 0 - None. Posture Holdin - None. Action and Intention: RUE Tremor At Rest: 0 - None. Posture Holdin - None. Action and Intention: 1 - Slight. May be intermittent. LUE Tremor At Rest: 0 - None. Posture Holdin - Slight. May be intermittent. Action and Intention: 1 - Slight. May be intermittent. Trunk Tremor At Rest: 0 - None. Posture Holdin - None. RLE Tremor At Rest: 0 - None. Posture Holdin - None. Action and Intention: 0 - None. LLE Tremor At Rest: 0 - None. Posture Holdin - None Action and Intention: 0 - None. Handwriting 1 - Mildly abnormal. Slightly untidy, tremulous. Drawing Drawing A - Right 1 - Slightly tremulous. May cross lines occasionally. Drawing A - Left 0 - Normal. Drawing B - Right 1 - Slightly tremulous. May cross lines occasionally. Drawing B - Left 1 - Slightly tremulous. May cross lines occasionally. Drawing C- Right 1 - Slightly tremulous. May cross lines occasionally. Drawing C - Left 0 - Normal. Assessment and Plan: Assessment Mr. Casey is a right-handed 67 year old year old male with Essential tremor status post bilateral VIM Medtronic DBS placed in 2014. He feels like his tremors have been worse again and he is at the top of his range again. I made some changes to his settings and was able to improve his right hand by doing double cathode guarded cathode. I provided arrange for this for at home. His left hand was reasonably well controlled so I did not make any changes. The following are the current problems noted and addressed during this visit: Essential tremor (primary encounter diagnosis) Plan 06/21/2022 Visit: You are on a new group C today. You have a range inside this group that you can use to optimize your settings. If you get to the top of the range and your tremor returns, try switching back to you old group which is Group B in your controller. You can switch between these groups as needed to help control your tremor. 2. Follow up November 29 at 3pm Updated Movement Disorders Medication Schedule: Medications Return at or around: 12/19/22 Level of service : 78987 (40-54 min). Time spent 40 min on the day of service, which included preparing to see the patient, [id number] patient care, completing clinical documentation, obtaining and/or reviewing separately obtained history, performing a medically appropriate examination, and counseling and educating the patient/family/caregiver. DBS time 30 minutes Thank you for allowing me to be part of the clinical care of this patient! I look forward to continued participation in the patient s care with you. Please do not hesitate to call with any questions. Sincerely, Portia Hurd APRN.CNP documented in this encounter [facility] 12-16-2021 Miscellaneous Notes Done! thanks [facility]'s [facility] notes. Once closed please route back to me to fax. SC (f) [phone] Electronically signed by Martita Jacobs [facility] [place] 12/15/2021 2:58 PM EDT documented in this encounter [facility] 12-14-2021 Instructions Portia Hurd APRN.CNP - 12/14/2021 1:45 PM EDT 1. You are leaving on the same settings you came in on but now have a range on both sides. You can go up and down on both sides. 2. Follow up in six months for a device check. documented in this encounter [facility] 12-14-2021 Procedure note DBS Analysis/programmin mins INITIAL and FINAL SETTINGS: Left VIM DBS: 0- 1 - 2+ 4.3 V (3.5-4.9) 110 uS 180 Hz Therapeutic Impedance: 783/5.5Ma Left chest RC implanted on December 10, 2018-DEE date November 2032 Battery 100% System impedances were checked and are within normal ranges. Right VIM DBS: 2 - 3+ 3.4 (2.5-4.0)V 70 uS 130 Hz Therapeutic Impedance: 1531 ohms Current: 2.3 mA Right chest RC Implanted March 2021 Battery 100% System impedances were checked and are within normal ranges. Tried interleaved settings today and he did not respond well in terms of his handwriting. Lowest two contacts on monopolar settings caused nausea. documented in this encounter [facility] 12-14-2021 History of Presen t illness Narrative [facility] - FOLLOW UP EVALUATION Felicia Maria MD [address] [place] [address] [place] [id number] I had the pleasure of seeing Mr. Casey for follow up today. He is a 66 year old right-handed male with a history of Essential tremor since 1974. Bilateral VIM DBS placed in 2014, RIPG replaced 04/11 medtronic RC He is seen alone. Subjective Previous Plan-05/25/2021 Visit: Your New group is Group A, your Old group is Group B. You are leaving on Group A, if this is not working well after a few days and you want to change groups, you can change back to Group B. Interval History: He had to go back to his old settings after our last visit. He has been exercising at the the last 8 months and doing well. His tremors are 'stable'. He notices his writing is worse when his battery gets low. He does fine with eating, drinking and working with tools if he concentrates. In addition, the following activities of daily living that may be affected by tremors were evaluated: Speaking: Not affected Feeding: Affected (mild) Bringing Liquids to Mouth: Not affected Hygiene: Not affected Dressing: Affected (mild) Writing: Affected (mild) Working: Not affected Depression: PQH-9 = 4 usually representing no significant (0-4) depression. Anxiety: JANNETH-7 = 3 usually representing no significant (0-4) anxiety. Finally, the following table shows the patient's overall global physical and mental health using the PROMIS scale: PROMIS-10 Office Visit from 12/14/2021 in Neurology Office Visit from 05/25/2021 in Neurology Global Physical Health T Score 50.8 47.7 Global Mental Health T Score 53.3 50.8 0-10 Standard Pain Scale 4 4 *PROMIS-10 scoring scale: mean = 50, over 50 is above average, under 50 is below average Movement Disorders Medications Schedule - as of the start of the visit: ALLERGIES Allergen Reactions Codeine GI Upset Penicillins Hives, Swelling Seasonal Allergies Other: See Comments Sneezing, congestion, itchy, watery eyes, migraine headaches Primidone Unknown Current Outpatient Medications Medication Sig magnesium oxide 400 mg magnesium tab Take by mouth twice daily. cyanocobalamin (VITAMIN B-12) 1,000 mcg tab Take 1,000 mcg by mouth once daily. FOLIC ACID ORAL Take 1,000 mcg by mouth once daily. cholecalciferol, vitamin D3, (VITAMIN D3 ORAL) Take 25 mcg by mouth three times daily. cetirizine HCl/pseudoephedrine (ALLERGY D-12 ORAL) Take by mouth. docusate sodium (STOOL SOFTENER ORAL) Take by mouth. No current facility-administered medications for this visit. Objective Vital Signs: BP 138/84 (BP Site: Left Arm, BP Position: Sitting, BP Cuff Size: Large Adult) Pulse 74 Ht 182.9 cm (6') Wt 96.5 kg (212 lb 11.2 oz) SpO2 98% BMI 28.85 kg/m General Physical Examination: He is alone. General: Awake, alert, interactive, no acute distress, good nutritional status, normal development, well-kept Movement Disorders Scales Performed: Klkf-Pnyxah-Zbwao Tremor Scale Face Tremor At Rest: 0 - None. Tongue Tremor At Rest: 0 - None. Posture Holdin - None. Voice Tremor Action and Intention: 0 - None. Head Tremor At Rest: 0 - None. Posture Holdin - None. Action and Intention: RUE Tremor At Rest: 0 - None. Posture Holdin - None. Action and Intention: 0 - None. LUE Tremor At Rest: 0 - None. Posture Holdin - None. Action and Intention: 0 - None. Trunk Tremor At Rest: 0 - None. Posture Holdin - None. RLE Tremor At Rest: 0 - None. Posture Holdin - None. Action and Intention: 0 - None. LLE Tremor At Rest: 0 - None. Posture Holdin - None Action and Intention: 0 - None. Handwriting 0 - Normal. Drawing Drawing A - Right 1 - Slightly tremulous. May cross lines occasionally. Drawing A - Left 1 - Slightly tremulous. May cross lines occasionally. Drawing B - Right 1 - Slightly tremulous. May cross lines occasionally. Drawing B - Left 1 - Slightly tremulous. May cross lines occasionally. Drawing C- Right 1 - Slightly tremulous. May cross lines occasionally. Drawing C - Left 1 - Slightly tremulous. May cross lines occasionally. Assessment and Plan: Assessment Mr. Casey is a right-handed 66 year old male with Essential Tremor. We tried some new settings for his right hand today to help with his handwriting, but he did not tolerate them at all. We went back to the settings he came in on and they were much better. I provided him a small range on these settings and he was pleased. He will return in 6-12 months as needed for device check. The following are the current problems noted and addressed during this visit: Essential tremor Plan 12/14/2021 Visit: No changes to settings today Follow up in 6-12 months for device check Medical Decision Making: Problems: Moderate: 1+ chronic illnesses with change Data: Assessment requiring an independent historian(s) Risk: Moderate: Moderate risk from testing/treatment Medical Decision Making Level: 4 - Moderate DBS time: 30 mins Thank you for allowing me to be part of the clinical care of this patient! I look forward to continued participation in the patient s care with you. Please do not hesitate to call with any questions. Sincerely, Portia Hurd APRN.SENIOR PROJECT MANAGER documented in this encounter [facility] 12-02-2021 Miscellaneous Notes [facility] faxed record request for 2021 records. Faxed to (f) [phone] Request available to view in scanned documents. Electronically signed by Martita Jacobs [facility] [place]02/[place]21 4:11 PM EDTdocumented in this encounter [facility] 02-11-2021 History of Presen t illness Narrative 1430 Pt ambulated with one person assist, slightly unsteady, still unable to void, ambulated back to recliner, tolerated well. 1440 Bladder scan complete and showed 202ml. Dr. Hui ok to discharge, pt and s/o verbalize understanding of need to come to ED by 10pm if still unable to void or if urge to void becomes unbearable. Discharge instructions given to patient and friend with understanding voiced. Questions answered. Patient instructed on the pre-operative, intra-operative, and post-operative process. Patient instructed on NPO status. Medication instructions and Pre operative instruction sheet reviewed over the phone. CHG skin prep instructions reviewed with the patient. documented in this encounter [facility] Phone: 02-11-2021 Hospital Discharg e instructions Jeffery Harris RN - 02/11/2021 POST-OPERATIVE INSTRUCTIONS FOR ROBOTIC INGUINAL HERNIA REPAIR ? Call the office to schedule your post-operative appointment with Dr. Hui 1-2 weeks following your procedure. If you have the skin glue over your incisions, the glue will peel off in a couple of weeks. Do not pick at the glue, it can get itchy at times. ? A small amount of swelling and bruising and puffiness of the groin and scrotum in men is to be expected. Call the office if you experience fevers over 101 or difficulty urinating. ? You must not go more than 6-7 hours without urinating ? Ok to remove the scrotal support tomorrow morning. ? You may shower after 24 hours after arriving home. Wash incisions gently, and pat them dry. Do not rub your incisions. Expect hardness and lumpiness around incisions ? General guidelines for activity: o Avoid strenuous activity or lifting anything heavier than 10 pounds for at least 3 weeks. o Weeks 4-6 no lifting over 20 pounds o Slower paced walking is encouraged. Ok to climb stairs o No prolonged standing or walking for more than 30-40 minutes for the first 2 weeks, sit and rest a bit in between o Do what is comfortable: stop and rest when you feel tired. ? Do NOT drive for one week and while taking your narcotic pain medicine. ? Watch for signs of infection: o Fever over 101 o Excessive warmth or redness around your incisions. ? Take your pain medication as prescribed to relieve discomfort. ? Ice pack to areas of pain helps ? Take tylenol or motrin for minor pain ? Take the stool softener over the counter colace to prevent constipation. Take Miralax or Magnesium Citrate or Milk of Magnesia if needing stronger laxative- take laxative if no bowel movement 2-3 days after surgery SAME DAY SURGERY DISCHARGE INSTRUCTIONS 1. Do not drive or operate hazardous machinery for 24 hours. 2. Do not make important personal or business decisions for 24 hours. 3. Do not drink alcoholic beverages for 24 hours. 4. Do not smoke tobacco products for 24 hours. 5. Eat light foods (Jell-O, soups, etc....) and drink plenty of fluids (water, Sprite, etc...) up to 8 glasses per day, as you can tolerate. 6. If your bandages become soaked with bright red blood, place another dressing pad over your bandages. (DO NOT remove original bandage.) Call your surgeon for further instructions. A small amount of bright red blood is to be expected. 7. Limit your activities for 24 hours. Do not engage in heavy work until your surgeon gives you permission. 8. Report the following signs or any questions regarding your physical condition to your surgeon immediately: Excessive swelling of, or around the wound area. Redness. Temperature of 100 degrees (F) or above. Excessive pain. 9. Call your surgeon for any questions regarding your surgery. documented in this encounter [facility]: Evaluation + Plan note Future Appointments Appointment Date:01/24/2023 01:40:00 PM Scheduled Provider:Fermin VAUGHAN MD Location:[facility] Appointment Type: Procedure 30 General Surgery [place] Evaluation + Plan note Future Appointments Appointment Date:02/07/2023 02:00:00 PM Scheduled Provider:Fermin VAUGHAN MD Location:[facility] Appointment Type: Established 15 General Surgery [place] Evaluation note Diagnosis Right inguinal hernia Inguinal hernia without mention of obstruction or gangrene, unilateral or unspecified, (not specified as recurrent) Umbilical hernia without obstruction and without gangrene documented in this encounter [facility]: evaluation note* Diagnosis Right inguinal hernia- Primary Inguinal hernia without mention of obstruction or gangrene, unilateral or unspecified, (not specified as recurrent) Acute postoperative pain Other acute postoperative pain Umbilical hernia without obstruction and without gangrene documented in this encounter [facility]: evaluation note* Diagnosis Essential tremor Essential and other specified forms of tremor documented in this encounter [facility] note* Diagnosis Essential tremor- Primary Essential and other specified forms of tremor documented in this encounter [facility] note* Diagnosis Essential tremor Essential and other specified forms of tremor documented in this encounter [facility] note* Diagnosis Essential tremor- Primary Essential and other specified forms of tremor documented in this encounter [facility] note* Diagnosis Essential tremor- Primary Essential and other specified forms of tremor documented in this encounter [facility] note* Diagnosis Bee sting reaction, accidental or unintentional, initial encounter- Primary documented in this encounter [facility] [place] [facility] note* Diagnosis Kidney stones Calculus of kidney documented in this encounter [facility] [place] [facility] note* Diagnosis Essential tremor- Primary Essential and other specified forms of tremor documented in this encounter [facility] note* Diagnosis Renal calculus- Primary Calculus of kidney Puncture wound of left thumb, initial encounter- Primary Foreign body of skin of left thumb documented in this encounter [facility] note* Diagnosis Pre-op evaluation- Primary Preoperative examination, unspecified Essential tremor Essential and other specified forms of tremor EMILIANA (obstructive sleep apnea) Obstructive sleep apnea (adult) (pediatric) S/P deep brain stimulator placement Other postprocedural status Former tobacco use Personal history of tobacco use, presenting hazards to health Intracranial aneurysm Cerebral aneurysm, nonruptured Essential tremor Essential and other specified forms of tremor documented in this encounter [facility] note* Diagnosis Renal calculus- Primary Calculus of kidney Kidney stones Calculus of kidney documented in this encounter [facility] Narrative No data available for this section [facility] Discharge instructions No data available for this section [facility] note No data available for this section General Surgery [facility] Discharge Instructions * Instructions* Mukesh Marcelo MD - 01/31/2020 Please take all medications as prescribed. If you have received narcotic medications (pain killers) while in the Emergency Room you are NOT todrive yourself home today, you need to find a ride, take the bus or call a cab. Please do not drive, operate machinery or engage in any activities that requrie concentration and where safety could be an issue while taking narcotic medications (pain killers). Please follow up with your primary care physician by calling today, or as soon as possible, for thefirst available appointment. If you do not have a primary care physician, please contact a physician or clinic listed below today to establish care. Please return to the emergency department IMMEDIATELY if you develop uncontrolled fevers, uncontrolled vomiting, change in symptoms, worsening of symptoms, or ANY other concerns. 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 ACP-Advance Directive ACP-Power of Front Counter Clerk Documents on File Type Date Recorded Patient Mucking Machine Operator Expl anation ACP-Advance Directive ACP-Power of Front Counter Clerk Documents on File Type Date Recorded Patient Mucking Machine Operator Expl anation Advance Directive(s) 03/23/2021 5:46 PM Advance Directive(s) 12/03/2018 12:53 PM Documents on File Type Date Recorded Patient Mucking Machine Operator Expl anation Advance Directive(s) 03/23/2021 5:46 PM Advance Directive(s) 12/03/2018 12:53 PM Latest Code Status on File Code Status Date Activated Date Inactivated Comments Full Code 01/19/2023 6:16 AM 01/19/2023 12:54 PM Latest Code Status on File Code Status Date Activated Date Inactivated Comments Full Code 06/15/2023 8:30 AM 06/15/2023 1:12 PM Code Status History Code Status Date Activated Date Inactivated Comments Full Code 06/06/2023 6:23 AM 06/06/2023 2:42 PM Full Code 01/19/2023 6:16 AM 01/19/2023 12:54 PM Date Activated Date Inactivated Comments 06/15/2023 8:30 AM 06/15/2023 1:12 PM Date Activated Date Inactivated Comments 06/06/2023 6:23 AM 06/06/2023 2:42 PM Date Activated Date Inactivated Comments 01/19/2023 6:16 AM 01/19/2023 12:54 PM Reason for Referral Status Reason Specialty Diagnoses / Procedures Referred By Contact Referred To Contact Pending Review Radiology Diagnoses Pain Procedures FL SHOULDER ARTHROGRAM LEFT S&I Cal Herrera MD [address] [place] [address] Status Reason Specialty Diagnoses / Procedures Referre d By Contact Referred To Contact Closed Radiology Diagnoses Right inguinal hernia Umbilical hernia without obstruction and without gangrene Procedures CT ABDOMEN PELVIS WO CONTRAST Additional Contrast? Oral Felicia Maria MD [address] [place] [address] Specialty Diagnoses / Procedures Referred By Contac t Referred To Contact Diagnoses Essential tremor Procedures PROVIDER ORDERED FOLLOW UP OFFICE/OUTPATIENT NEW HIGH MDM 60-74 MINUTES Portia Hurd, ELECTRONIC PARTS SALESPERSON.SENIOR PROJECT MANAGER [address] [place] [address] Referral ID Status Reason Start Date Expiration Date Visits Requested Visits Authorized [id number] Pending Review PCP Requested Referral 12/14/2021 12/14/2022 1 1 Specialty Diagnoses / Procedures Referred By Contac t Referred To Contact Diagnoses Essential tremor Procedures PROVIDER ORDERED FOLLOW UP OFFICE/OUTPATIENT NEW HIGH MDM 60-74 MINUTES Portia Hurd, ELECTRONIC PARTS SALESPERSON.SENIOR PROJECT MANAGER [address] [place] [address] Referral ID Status Reason Start Date Expiration Date Visits Requested Visits Authorized [id number] Pending Review PCP Requested Referral 12/19/2022 06/21/2023 1 1 Referral ID Status Reason Start Date Expiration Date Visits Requested Visits Authorized [id number] Pending Review PCP Requested Referral 06/22/2023 12/20/2023 1 1 Specialty Diagnoses / Procedures Referred By Contac t Referred To Contact Diagnoses Essential tremor Procedures PROVIDER ORDERED FOLLOW UP OFFICE/OUTPATIENT NEW HIGH MDM 60 MINUTES Portia Hurd, ELECTRONIC PARTS SALESPERSON.SENIOR PROJECT MANAGER [address] [place] [address] Referral ID Status Reason Start Date Expiration Date Visits Requested Visits Authorized [id number] Authorized PCP Requested Referral 05/30/2024 11/27/2024 1 1 Summary Purpose Family History No Family History Records FoundNo Family History Records FoundNo Family History Records FoundNo Family History Records Found Additional Source Comments Reason for Visit (unrecogniz ed section and content) Reason Comments Essential tremor Specialty Diagnoses / Procedures Referred By Contac t Referred To Contact Diagnoses Essential tremor Procedures PROVIDER ORDERED FOLLOW UP OFFICE/OUTPATIENT [facility] MDM 60-74 MINUTES Portia Hurd, ELECTRONIC PARTS SALESPERSON.SENIOR PROJECT MANAGER [address] [place] [address] Referral ID Status Reason Start Date Expiration Date V isits Requested Visits Authorized [id number] Closed PCP Requested Referral 11/21/2023 05/22/2024 1 1 Reason Comments Shoulder Pain took a swing at a dog and had pain in lert shoulder Status Reason Specialty Diagnoses / Procedures Referre d By Contact Referred To Contact Closed Radiology Diagnoses Strain of muscle(s) and tendon(s) of the rotator cuff of left shoulder, initial encounter Procedures HC INJ PROC SHOULDER ARTHRO Cal Herrera MD [address] [place] [id number] [facility] [address] [place] [address] Status Reason Specialty Diagnoses / Procedures Referre d By Contact Referred To Contact Closed Radiology Diagnoses Strain of muscle(s) and tendon(s) of the rotator cuff of left shoulder, initial encounter Procedures HC CT SHOULDER RIGHT W CONTRAST Cal Herrera MD [address] [place] [id number] Scan [address] [place] [address] Status Reason Specialty Diagnoses / Procedures Referre d By Contact Referred To Contact Closed Radiology Diagnoses Right inguinal hernia Umbilical hernia without obstruction and without gangrene Procedures CT ABDOMEN PELVIS WO CONTRAST Additional Contrast? Oral Felicia Maria MD [address] [place] [address] Status Reason Specialty Diagnoses / Procedures Referre d By Contact Referred To Contact Diagnoses Bilateral inguinal hernia, without obstruction or gangrene, not specified as recurrent Umbilical hernia without obstruction or gangrene BILATERAL UMBILICAL HERNIA AND UMBILICAL HERNIA Procedures [facility] LAP,INGUINAL HERNIA REPR,INITIAL REPAIR UMBILICAL [place],5+Y/O,REDUC HERNIA INGUINAL REPAIR LAPAROSCOPIC ROBOTIC-WITH MESH HERNIA UMBILICAL REPAIR-OPEN Clau Hui I, DO [address] [facility] [address] [place] [address] [facility] Reason Comments Release Of Medical Records [place] - Leonie bergeron Reason Comments Release Of Medical Records [place] Reason Comments Appointment Reason Comments Essential tremor Specialty Diagnoses / Procedures Referred By Contact Referred To Contact NEUROLOGICAL RELIGIOUS Diagnoses Essential tremor Procedures PROVIDER ORDERED FOLLOW UP OFFICE/OUTPATIENT NEW HIGH MDM 60-74 MINUTES Portia Hurd, ELECTRONIC PARTS SALESPERSON.SENIOR PROJECT MANAGER [address] [place] [address] [facility] [address] [place] [address] Referral ID Status Reason Start Date Expiration Date V isits Requested Visits Authorized [id number] Closed PCP Requested Referral 05/02/2022 12/18/2022 1 1 Reason Comments New Patient Evaluation Essential tremor Specialty Diagnoses / Procedures Referred By Contact Referred To Contact Neurology / NEUROLOGICAL RELIGIOUS Diagnoses Counseling, unspecified Dr. Bhandari new patient visit next available. per Portia Hurd APRN.SENIOR PROJECT MANAGER Procedures OFFICE/OUTPATIENT NEW MDM 15-29 MINUTES OFFICE/OUTPATIENT NEW HIGH MDM 60-74 MINUTES [facility] Portia Hurd, ELECTRONIC PARTS SALESPERSON.SENIOR PROJECT MANAGER [address] [place] [address] Adam Bhandari MD [address] [place] [address] Referral ID Status Reason Start Date Expiration Date V isits Requested Visits Authorized [id number] Authorized 05/02/2022 12/18/2022 99 99 Specialty Diagnoses / Procedures Referred By Contact Referred To Contact NEUROLOGICAL RELIGIOUS Diagnoses Essential tremor Procedures PROVIDER ORDERED FOLLOW UP OFFICE/OUTPATIENT [facility] 60-74 MINUTES Portia Hurd, ELECTRONIC PARTS SALESPERSON.SENIOR PROJECT MANAGER [address] [place] [address] [facility] [address] [address] Referral ID Status Reason Start Date Expiration Date V isits Requested Visits Authorized [id number] Closed PCP Requested Referral Patient Cleared - Admin/Electric Operator /Director advise to proceed or did not respond 12/19/2022 06/21/2023 1 1 Reason Comments Insect Bite Pt reports gets bloo d poisoning from bee stings. Stung today 1 1/2 hrs ago. Airway maintained, 98% ra. Reason Comments Foreign Body in Skin Nail went through b oard while using nail gun. Had 2 nails to left hand. 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 Tetanus not up to date. Specialty Diagnoses / Procedures Referred By Contac t Referred To Contact Diagnoses Essential tremor Procedures PROVIDER ORDERED FOLLOW UP OFFICE/OUTPATIENT [facility] MDM 60 MINUTES Portia Hurd, ELECTRONIC PARTS SALESPERSON.SENIOR PROJECT MANAGER [address] [place] [address] Referral ID Status Reason Start Date Expiration Date V isits Requested Visits Authorized [id number] Closed PCP Requested Referral 05/30/2024 11/27/2024 1 1 (unrecognized sect ion and content) No Status Records FoundNo Status Records FoundNo Status Records FoundNo Status Records Found INFORMATION SOURCE (unrecogn ized section and content) DATE CREATED AUTHOR 04/26/2020 [facility] DATE CREATED AUTHOR AUTHOR'S ORGANIZ ATION 02/08/2023 [facility] DATE CREATED AUTHOR AUTHOR'S ORGANIZ ATION 06/07/2024 [facility] DATE CREATED AUTHOR AUTHOR'S ORGANIZ ATION 08/09/2024 Maria De Jesus [facility] Ordered Prescriptions (unrec ognized section and content) Prescription Sig Dispensed Refills Start Date End Da te ondansetron (ZOFRAN) 4 MG tablet Take 1 tablet by mouth every 8 hours as needed for Nausea or Vomiting 15 tablet 0 02/11/2021 traMADol (ULTRAM) 50 MG tabletIndications:Acute postoperative pain Take 1 tablet by mouth every 8 hours as needed for Pain for up to 3 days. Intended supply: 3 days. Take lowest dose possible to manage pain 10 tablet 0 02/11/2021 02/14/2021 Prescription Sig Dispensed Refills Start Date End Da te sulfamethoxazole-trimetho prim (BACTRIM DS) 800-160 MG per tablet Take 1 tablet by mouth 2 times daily for 10 days 20 tablet 02/28/2024 03/09/2024 Scheduled Active and Recently Administ ered Medications (unrecognized section and content) Medication Order 02/09/2021 02/10/2021 02/11/2021 acetaminophen (TYLENOL) tablet 650 mg (COMPLETED) 650 mg, Oral, ONCE, On [place] 02/11/21 at 0730, For 1 dose, Maximum dose of acetaminophen is 4000 mg from all sources in 24 hours., Pre-op (day of surgery) 0754 (Given - Provid er: Sabrina Urban RN) clindamycin (CLEOCIN) 900 mg in dextrose 5 % 50 mL IVPB (COMPLETED) 900 mg, IntraVENous, ONCE, 1 dose, On [place] 02/11/21 at 0730, Pre-op (day of surgery) 0920 (New Bag - Prov ider: Nadia Gonzales RN)1020 (Due: Stopped - Provider: Nadia Gonzales RN) gabapentin (NEURONTIN) capsule 300 mg (COMPLETED) 300 mg, Oral, ONCE, On [place] 02/11/21 at 0730, For 1 dose, Pre-op (day of surgery) 0754 (Given - Provid er: Sabrina Urban RN) lactated ringers infusion (COMPLETED) IntraVENous, at 100 mL/hr, ONCE, On [place] 02/11/21 at 0730, For 1 dose, Pre-op (day of surgery) 0754 (New Bag - Prov ider: Sabrina Urban RN)1445 (Stopped - Provider: Cecy Waters RN) traMADol (ULTRAM) tablet 50 mg 50 mg, Oral, ONCE, On [place] 02/11/21 at 1315, For 1 dose, PHASE II, PACU only 1315 (Due) PRN Medication Order 02/09/2021 02/10/2021 02/11/2021 fentaNYL (SUBLIMAZE) injection 25 mcg 25 mcg, IntraVENous, EVERY 5 MIN PRN, Pain Moderate (4-6), Starting on [place] 02/11/21 at 1226, For 4 doses, Phase I - Initial therapy for moderate pain., PACU only fentaNYL (SUBLIMAZE) injection 25 mcg 25 mcg, IntraVENous, EVERY 5 MIN PRN, Pain Moderate (4-6), Starting on [place] 02/11/21 at 1245, For 4 doses, Phase I - Initial therapy for moderate pain., PACU only traMADol (ULTRAM) tablet 50 mg (COMPLETED) 50 mg, Oral, ONCE PRN, Pain Moderate (4-6), Starting on [place] 02/11/21 at 1235, For 1 dose, PHASE II, PACU only 1316 (Given - Provid er: Jeffery Harris RN) Scheduled Medication Order 01/30/2023 01/31/2023 02/01/2023 methylPREDNISolone sodium (PF) (SOLU-MEDROL PF) injection 125 mg (COMPLETED) 125 mg, IntraMUSCular, ONCE, On Mon02/01/23 at 1900, For 1 dose 1904 (Given - Provid er: Kylee Dinero RN) Scheduled Medication Order 02/26/2024 02/27/2024 02/28/2024 bacitracin zinc ointment Topical, DAILY, First dose on Mon02/28/24 at 1130, Apply to left thumb . 1157 (Given - Provid er: Juani Blunt RN - Comment: administered by kallie PLUMMER) lidocaine PF 1 % injection 5 mL (COMPLETED) 5 mL, IntraDERmal, ONCE, 1 dose, On Mon02/28/24 at 1130 1158 (Given - Provid er: Juani Blunt RN - Comment: administered by Kallie PLUMMER) Source Comments (unrecognize d section and content) In the event this informatio n is protected by the Federal Confidentiality of Alcohol and Drug Abuse Patient Records regulations: The Federal rules restrict any use of the information to criminally investigate or prosecute any alcohol or drug abuse patient.[facility] the event this information is protected by the Federal Confidentiality of Alcohol and Drug Abuse Patient Records regulations: The Federal rules restrict any use of the information to criminally investigate or prosecute any alcohol or drug abuse patient.[facility] the event this information is protected by the Federal Confidentiality of Alcohol and Drug Abuse Patient Records regulations: The Federal rules restrict any use of the information to criminally investigate or prosecute any alcohol or drug abuse patient.[facility] the event this information is protected by the Federal Confidentiality of Alcohol and Drug Abuse Patient Records regulations: The Federal rules restrict any use of the information to criminally investigate or prosecute any alcohol or drug abuse patient.[facility] the event this information is protected by the Federal Confidentiality of Alcohol and Drug Abuse Patient Records regulations: The Federal rules restrict any use of the information to criminally investigate or prosecute any alcohol or drug abuse patient.[facility] the event this information is protected by the Federal Confidentiality of Alcohol and Drug Abuse Patient Records regulations: The Federal rules restrict any use of the information to criminally investigate or prosecute any alcohol or drug abuse patient.[facility] the event this information is protected by the Federal Confidentiality of Alcohol and Drug Abuse Patient Records regulations: The Federal rules restrict any use of the information to criminally investigate or prosecute any alcohol or drug abuse patient.[facility] the event this information is protected by the Federal Confidentiality of Alcohol and Drug Abuse Patient Records regulations: The Federal rules restrict any use of the information to criminally investigate or prosecute any alcohol or drug abuse patient.[facility] the event this information is protected by the Federal Confidentiality of Alcohol and Drug Abuse Patient Records regulations: The Federal rules restrict any use of the information to criminally investigate or prosecute any alcohol or drug abuse patient.[facility] the event this information is protected by the Federal Confidentiality of Alcohol and Drug Abuse Patient Records regulations: The Federal rules restrict any use of the information to criminally investigate or prosecute any alcohol or drug abuse patient.[facility] Care Teams (unrecognized sec tion and content) Digital Art Director Relationship Specialty Start Date End Date Felicia Maria [address] [place] [address] PCP - General Internal Medicine 03/23/21 Digital Art Director Relationship Specialty Start Date End Date Felicia Maria [address] [place] [address] PCP - General Internal Medicine 03/23/21 Digital Art Director Relationship Specialty Start Date End Date Felicia Maria [address] [place] [address] PCP - General Internal Medicine 03/23/21 Digital Art Director Relationship Specialty Start Date End Date Felicia Maria [address] [place] [address] PCP - General Internal Medicine 03/23/21 Digital Art Director Relationship Specialty Start Date End Date Felicia Maria [address] [place] [address] PCP - General Internal Medicine 03/23/21 Digital Art Director Relationship Specialty Start Date End Date Felicia Maria [address] [place] [address] PCP - General Internal Medicine 03/23/21 Digital Art Director Relationship Specialty Start Date End Date Felicia Maria [address] [place] [address] PCP - General Internal Medicine 03/23/21 Digital Art Director Relationship Specialty Start Date End Date Karlene Rice MD [address] [place] [address] PCP - General Family Medicine 01/16/23 Digital Art Director Relationship Specialty Start Date End Date Karlene Rice MD [address] [place] [address] PCP - General Family Medicine 01/16/23 Digital Art Director Relationship Specialty Start Date End Date Felicia Maria MD [address] [place] [address] [place] [phone] PCP - General Internal Medicine 03/23/21 Digital Art Director Relationship Specialty Start Date End Date Karlene Rice MD [address] [place] [address] PCP - General Family Medicine 01/16/23 Digital Art Director Relationship Specialty Start Date End Date Felicia Maria MD [address] [place] [id number] PCP - General Internal Medicine 03/23/21 Digital Art Director Relationship Specialty [place] [address] [place], [place] [id number] PCP - General Family Medicine 01/16/23 Digital Art Director Relationship Specialty [place] [address] [place] [id number] PCP - General Family Medicine 01/16/23 FOR RECORDS PERTAINING TO PATIENTS WHO ARE OR HAVE BEEN ENROLLED IN A CHEMICAL DEPENDENCY/SUBSTANCEABUSE PROGRAM, SOME INFORMATION MAY BE OMITTED. This clinical summary was aggregated from multiple sources. Caution should be exercised in using it in the provision of clinical care. This summary normalizes information from multiple sources, and as a consequence, information in this document may materially change the coding, format and clinical context of patient data. In addition, data may be omitted in some cases. CLINICAL DECISIONS SHOULD BE BASED ON THE PRIMARY CLINICAL RECORDS. [facility]. provides no warranty or guarantee of the accuracy or completeness of information in this document.
--- NOTE | 2024-09-28 16:26 | ECG_ITS ---
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 Measurements Intervals [place] Rate: 117 P: 42 RI: 150 QRS: 109 QRSD: 94 T: 31 QT: 330 QTc: 400 Interpretive Statements 1120 Sinus tachycardia 7100 Abnormal right axis deviation 0102 ARTIFACT PRESENT 9140 abnormal rhythm ECG No previous ECG available for comparison Electronically Signed On 09-29-2024 12:43:51 EDT by FCO HERNANDEZ M.D.
[2024-09-28 16:27] LABS: Glucometer 125 mg/dL (74-106)
[2024-09-28 16:42] LABS: Basophils Absolute Auto 0.1 10^3/uL (0.0-0.1); Basophils Percent Auto 0.8 % (0.2-2.0); Eosinophils Absolute Auto 0.2 10^3/uL (0.0-0.7); Eosinophils Percent Auto 1.9 % (0.9-7.0); Hematocrit 47.8 % (42.0-54.0); Hemoglobin 16.7 g/dL (14.0-18.0); Immature Granulocytes Abs Auto 0.03 10^3/uL (0.00-0.03); Immature Granulocytes Pct Auto 0.3 % (0.0-0.5); Lymphocytes Percent Auto 22.7 % (20.5-60.0); Mean Corpuscular HGB Conc 34.9 g/dL (29.9-35.2); Mean Corpuscular Hemoglobin 31.6 pg (25.9-34.0); Mean Corpuscular Volume 90.4 fL (80.0-94.0); Mean Platelet Volume 9.6 fL (9.5-13.5); Monocytes Absolute Auto 0.8 10^3/uL (0.3-0.8); Monocytes Percent Auto 9.1 % (1.7-12.0); Neutrophils Absolute Auto 5.7 10^3/uL (1.4-6.5); Neutrophils Percent Auto 65.2 % (43.0-75.0); Platelet Count 242 10^3/uL (150-450); Red Blood Count 5.29 10^6/uL (4.70-6.10); Red Cell Distribution Width 12.3 % (11.0-15.0); White Blood Count 8.8 10^3/uL (4.0-11.0)
--- NOTE | 2024-09-28 16:51 | ED.GENADUL1 ---
HPI HPI - General Adult General Chief complaint: Shortness of Breath/Dyspnea Stated complaint: Shortness of Breath Time Seen by Provider: 09/28/24 16:25 Source: patient Mode of arrival: Wheelchair Limitations: no limitations History of Present Illness HPI narrative: 69-year-old male presents to the emergency department for chest pain and difficulty breathing. His main complaint is difficulty breathing. This started within the last hour while he was working outside. He had been trying to get a weed [employer] to run. He was nauseous as well and vomited including here in the emergency department. No trauma. She reports no cardiac history and he has never had a heart catheterization. Symptoms have been continuous. Related Data Home Medications ?Medication ?Instructions ?Recorded ?Confirmed diclofenac sodium 75 mg 75 mg PO Q12H PRN pain 09/28/24 09/28/24 tablet,delayed release loratadine-pseudoephedrine ER 10 1 tab PO DAILY 09/28/24 09/28/24 mg-240 mg tablet,extended [id number] (Claritin-D 24 Hour) tamsulosin 0.4 mg capsule 0.4 mg PO Q24H 09/28/24 09/28/24 Allergies Allergy/AdvReac Type Severity Reaction Status Date / Time codeine Allergy Severe Unknown Verified 09/28/24 16:26 Penicillins Allergy Severe Unknown Verified 09/28/24 16:26 Review of Systems ROS Narrative A ten point review of systems is negative except as noted above. Exam Narrative Exam Narrative: Nurses note and vital signs reviewed and patient is not hypoxic. General: The patient appears uncomfortable. He is speaking in full sentences. Skin: Warm, dry, no pallor noted. There is no rash noted. Head: Normocephalic, atraumatic Eye: Normal conjunctiva, no drainage Ears, Nose, Mouth, and Throat: oral mucosa is moist. Nares patent. Cardiovascular: Regular Rate and Rhythm, tachycardic Respiratory: Breath sounds are equal bilaterally. No rales or rhonchi present. Back: non-tender GI: Soft and nontender Musculoskeletal: The patient has no evidence of calf tenderness, no pitting edema, symmetrical pulses noted bilaterally Neurological: A&O, normal speech Psychiatric: Cooperative, appears anxious Constitutional Vital Signs, click to edit/add: Last Vital Signs Pulse 102 H 09/28/24 17:20 Resp 16 09/28/24 17:20 BP 113/69 09/28/24 17:16 Pulse Ox 96 09/28/24 17:20 O2 Del Method Room Air 09/28/24 16:45 O2 Flow Rate 2 09/28/24 16:45 Course Vital Signs Vital signs: Vital Signs Pulse Rate 120 H 09/28/24 16:26 Respiratory Rate 28 H 09/28/24 16:26 Blood Pressure 142/104 H 09/28/24 16:26 Pulse Oximetry 97 09/28/24 16:26 Oxygen Delivery Method Room Air 09/28/24 16:26 Pulse Rate 102 H 09/28/24 17:20 Respiratory Rate 16 09/28/24 17:20 Blood Pressure 113/69 09/28/24 17:16 Pulse Oximetry 96 09/28/24 17:20 Oxygen Delivery Method Room Air 09/28/24 16:45 Oxygen Delivery Flow Rate 2 09/28/24 16:45 Medical Decision Making MDM Narrative Medical decision making narrative: Initial troponin is negative with repeat pending. CTA is pending at the time of this dictation and the patient is signed out to Dr. Leslie at change of shift. Differential Diagnosis Differential Diagnosis: Myocardial infarction, PE, pneumonia, pneumothorax Lab Data Lab results reviewed: Yes I reviewed the patient's lab results Labs: Lab Results 09/28/24 09/28/24 09/28/24 Range/Units 16:26 16:35 17:00 WBC 8.8 (4.0-11.0) 10^3/uL RBC 5.29 (4.70-6.10) 10^6/uL Hgb 16.7 (14.0-18.0) g/dL Hct 47.8 (42.0-54.0) % MCV 90.4 (80.0-94.0) fL MCH 31.6 (25.9-34.0) pg MCHC 34.9 (29.9-35.2) g/dL RDW 12.3 (11.0-15.0) % Plt Count 242 (150-450) 10^3/uL MPV 9.6 (9.5-13.5) fL Neut % (Auto) 65.2 (43.0-75.0) % Lymph % (Auto) 22.7 (20.5-60.0) % [place] % (Auto) 9.1 (1.7-12.0) % Eos % (Auto) 1.9 (0.9-7.0) % Baso % (Auto) 0.8 (0.2-2.0) % Neut # (Auto) 5.7 (1.4-6.5) 10^3/uL Lymph # (Auto) 2.0 (1.2-3.8) 10^3/uL [place] # (Auto) 0.8 (0.3-0.8) 10^3/uL Eos # (Auto) 0.2 (0.0-0.7) 10^3/uL Baso # (Auto) 0.1 (0.0-0.1) 10^3/uL Abs Immat Gran (auto) 0.03 (0.00-0.03) 10^3/uL Imm/Tot Granulo (auto) 0.3 (0.0-0.5) % PT 10.3 (9.0-11.6) sec INR 0.97 APTT 25.5 (22.3-36.2) sec Sodium 135 L (136-145) mmol/L Potassium 3.6 (3.5-5.1) mmol/L Chloride 100 (98-107) mmol/L Carbon Dioxide 23.4 (21.0-32.0) mmol/L Anion Gap 15.2 BUN 17.0 (7.0-18.0) mg/dL Creatinine 1.25 (0.70-1.30) mg/dL Est GFR ( Amer) >60 (>=60 mL/min/1.73m^2) Est GFR (Non-Af Amer) 57 L (>=60 mL/min/1.73m^2) BUN/Creatinine Ratio 13.6 Glucose 156 H (74-106) mg/dL Calcium 10.1 (8.5-10.1) mg/dL Troponin I High Sens 5.0 (4.0-76.1) pg/mL POC Glucose 125 H (74-106) mg/dL ECG Data Attestation: I personally reviewed and interpreted this ECG as follows: (EKG on my interpretation shows normal sinus rhythm without acute change and artifact from a brain stimulator that is implanted in his chest wall.) Discharge Plan Discharge Patient Disposition: Still a Patient
[2024-09-28 16:59] LABS: Anion Gap 15.2; BUN Creatinine Ratio 13.6; Calcium 10.1 mg/dL (8.5-10.1); Carbon Dioxide 23.4 mmol/L (21.0-32.0); Chloride 100 mmol/L (98-107); Estimated GFR (African America >60 (>=60 mL/min/1.73m^2); Estimated GFR (Non-African Ame 57 (>=60 mL/min/1.73m^2); Glucose 156 mg/dL (74-106); Potassium 3.6 mmol/L (3.5-5.1); Sodium 135 mmol/L (136-145)
[2024-09-28] MEDS: ONDANSETRON PF 4 MG/2 ML VIAL IV (17:03)
[2024-09-28 17:27] LABS: INR 0.97; Partial Thromboplastin Time 25.5 sec (22.3-36.2); Prothrombin Time 10.3 sec (9.0-11.6)
[2024-09-28 19:01] LABS: Troponin I High Sensitivity 6.4 pg/mL (4.0-76.1)
== END 2024-09-28 20:12 | disposition home or self-care (01) ==
PROVIDERS: Emergency Medicine; Emergency Provider Internal Medicine; PCP Family Medicine
DX: E86.0 Dehydration (principal); R55 Syncope and collapse; R07.9 Chest pain, unspecified; R06.02 Shortness of breath
CPT/HCPCS: 36415; 71045; 71275; 80048; 84484; 85025; 85610; 85730; 93005; 96374; 99285; J2405; Q9967

== ENCOUNTER 2024-10-02 06:21 | Outpatient (OUT) | payer MEDICARE, SELFPAY ==
--- OUTSIDE RECORDS SUMMARY | 2024-10-02 06:24 | XMS_ITS | CCD ---
Author Organization [facility] Care Team Providers Care Braiding Machine Operator Name Role Phone Karlene Rice Primary Care Provider KARLENE RICE Attending Unavailable KARLENE RICE Admitting Unavailable KARLENE RICE Attending Unavailable KARLENE RICE Admitting Unavailable KARLENE RICE Primary Care Unavailable KARLENE RICE Consulting Unavailable IVY BRITT V Consulting Unavailable Brenda ROBOTICS TECHNOLOGIST - SENIOR AUDIT MANAGER, Pura Primary Care Provider Felicia Maria MD Primary Care Provider Felicia Maria Primary Care Provider Felicia Maria Primary Care Provider Karlene Rice Primary Care Physician Karlene Rice MD Primary Care Provider [phone] Fermin VAUGHAN Attending Unavailable Fermin VAUGHAN Attending Unavailable Fermin VAUGHAN Attending Unavailable Felicia Maria MD Primary Care Provider [phone] FELICIA MARIA Primary Care Unavailable PORTIA HURD [...] to drug 5 Hives, Swelling, Weal (disorder) [place], [place] (11 sources) Seasonal allergy Propensity to adverse reactions to substance 5 Itching [place], [place] (4 sources) Codeine; Translations: [codeine] Drug Allergy 6 [facility] Repository (2 sources) Penicillin Drug Allergy [facility] (3 sources) Primidone; Translations: [PRIMIDONE] Drug Allergy 0 [facility] Rep[facility] (20 sources) Codeine; Translations: [codeine] Drug Allergy 6 Hives, GI Upset, Nausea (finding) [facility] Work Phone: (15 sources) Penicillins Drug Allergy 5 Hives, Swelling [facility] (17 sources) Primidone; Translations: [primidone] Drug Allergy 0 Unknown, Weal (disorder), Hives [facility] Work Phone: (11 sources) Seasonal allergy; Translations: [SEASONAL ALLERGIES] Allergy to substance 5 Other: See Comments [facility] (1 source) Primidone; Translations: [Mysoline] Drug Allergy [facility] Repository Medications Current Medications Medication Drug Class(es) [...] Comment on above: Take 1,000 mcg by [facility] once daily. lisinopril 40 mg oral [...] Refill(s) 0 Start Date: 01/04/23 Status: Ordered Ecvzbyqmflqyv-Falsrxkt-A utein (MULTIVITAMIN 50 PLUS) tab (5 sources) [...] Comment on above: Take 1,000 mcg by [facility] once daily. Completed/Discontinued Medications Medication Drug [...] on above: Take 2 tablets by mo pah every 6 hours as needed for pain. [...] Jagdish Miles MD 08/07/24 Final result Normal [facility] XR Abdomen Single viewon 1. Nonobstructive bowel gas pattern. 2. Punctate left renal calculi. [facility] EXAMINATION: ONE SUPINE XRAY VIEW(S) OF THE ABDOMEN 08/05/2024 11:02 am COMPARISON: 08/03/2023. HISTORY: ORDERING SYSTEM PROVIDED HISTORY: Kidney stones FINDINGS: The bowel gas pattern is nonspecific and nonobstructive. No abnormally dilated loops of bowel are seen. There are punctate calcifications involving the left kidney measuring up 2 mm and not significantly changed. [facility] Jagdish Miles MD - 08/07/2024 EXAMINATION: [...] pattern. 2. Punctate left renal calculi. Max i[facility] XR Abdomen Single viewOrdere d By: Jagdish Miles on 08-07-2024 [facility] Work Phone: XR Abdomen Single viewon Radiology Study observation (narrative) [facility] 06-04-2024 CNOV Office Visit (NRMDN) SEPIDEH CASEY ([id number]) 1955 M Date Time Provider Department 06/04/24 1:00 PM PORTIA HURD NRMDN During your visit today, we recorded the following information about you: Pulse Blood pressure Weight Height 87/minute 145/74 96.1 kg 1.803 m Portia Hurd, ROBOTICS TECHNOLOGIST.SENIOR AUDIT MANAGER 06/04/2024 1:47 PM Signed [facility] - FOLLOW UP EVALUATION Felicia Maria MD, [address] [place] [address] [place] [id number] Dear Felicia Maria MD, MD: I had [...] normal development, well-kept Movement Disorders Scales Performed: Jfne-Snoitn-Zqjgh Tremor Scale Medication OFF/ON Time of Assessment [...] tremulous. May (more content not included)... Normal [facility] XR FINGER LEFT (MIN 2 VIEWS) [...] Chavo Winters MD 02/28/24 Final result Normal [facility] XR Finger - left 2 Viewson 1 Interval removal of nail from the thumb. No evidence of bony injury. [facility] EXAMINATION: THREE XRAY VIEWS OF THE LEFT 1st FINGERS 02/28/2024 12:06 pm COMPARISON: 02/28/2024, 11:24 a.m. HISTORY: ORDERING SYSTEM PROVIDED HISTORY: nail removal TECHNOLOGIST PROVIDED HISTORY: Post nail removal nail removal Specify which digit to image->First (Thumb/Great Toe) FINDINGS: Previously noted nail has been removed from the thumb. There is no evidence of any bony injury or fractures. [facility] Chavo Winters MD - 02/28/2024 [...] the thumb. No evidence of bony injury. [facility] Radiology Study observation (narrative) [facility] XR Finger - left 2 ViewsOrde red By: Chavo Winters on 02-28-2024 [facility] Work Phone: XR HAND LEFT (MIN 3 [...] Judith Duval MD 02/28/24 Final result Normal [facility] XR Hand - left 3 Viewson Nail through the 1st digit overlapping the distal aspect of the 1st proximal phalanx. [facility] EXAMINATION: THREE XRAY VIEWS OF THE LEFT HAND 02/28/2024 11:29 am COMPARISON: None. HISTORY: ORDERING SYSTEM PROVIDED HISTORY: pain TECHNOLOGIST PROVIDED HISTORY: pain FINDINGS: There is a nail through the 1st digit overlapping the distal aspect of the proximal phalanx. The remaining osseous structures are unremarkable. There is diffuse degenerative joint disease. There is soft tissue swelling. [facility] Judtih Duval MD - 02/28/2024 EXAMINATION: THREE XRAY [...] distal aspect of the 1st proximal phalanx. [facility] Radiology Study observation (narrative) [facility] XR Hand - left 3 ViewsOrdere d By: Judith Duval on 02-28-2024 [facility] Work Phone: MARSHALLOVon 11-28-2023 CNOV Office Visit (NRMDN) SEPIDEH CASEY ([id number]) 1955 M Date Time Provider Department 11/28/23 1:00 PM PORTIA HURD NRMDN During your visit today, we recorded the following information about you: Pulse Blood pressure Weight Height 72/minute 109/60 93.1 kg 1.803 m Portia Hurd, ROBOTICS TECHNOLOGIST.[facility] 12/01/2023 11:45 AM Signed [facility] - FOLLOW UP EVALUATION Felicia Maria MD, [address] [place] [address] [address] [facility] [phone] Dear Felicia Maria MD, MD: I had [...] Examination: Neurological Exam Movement Disorders Scales Performed: Pjwl-Hbqhco-Fdktx Tremor Scale Medication OFF/ON ON Time of [...] tremulous. M (more content not included)... Normal [facility] XR Abdomen Single viewon EXAMINATION: ONE [...] joints. IMPRESSION 1. Punctate left renal calculi. [facility] Radiology Study observation (narrative) [facility] XR Abdomen Single viewOrdere d By: Orville Todd on 08-03-2023 [facility] Ambulatory Visit Summaryon 0 02-07-2023 Ambulatory Visit Summary SEPIDEH CASEY :1955 Visit Date:02/07/2023 Ambulatory Visit Instructions Your Diagnosis Lentigo simplex Epidermal cyst Your Care Team Attending Physician - ALEXUS CRESPO, Fermin Bergerno Primary Care Physician - Ambreen CRESPO, Karlene [...] Right inguinal hernia Seasonal allergic rhinitis Lis [facility] General Surgery Office/Clini c Noteon 02-07-2023 General [...] (COVID-19) mRNA BNT-162b2 vax 07/12/2020 Recorded Normal [facility] Comment on above: Result Comment: Elec tronically Signed By: ALEXUS CRESPO, Fermin Bergeron\.br\Date and Time Signed: 02/07/23 14:09 EDT Pathology Noteon 02-01-2023 Pathology Note [id number] 0CD:127 Normal [facility] Ambulatory Visit Summaryon 0 01-24-2023 Ambulatory Visit [...] inguinal hernia Seasonal allergic rhinitis Normal Jose [facility] General Surgery Office/Clini c Noteon 01-24-2023 General [...] mRNA BNT-162b2 vax 07/12/2020 Recorded Normal Garcia [facility] Comment on above: Result Comment: Elec tronically Signed By: ALEXUS CRESPO, Fermin Suero\Date and Time Signed: 01/24/23 14:27 EDT Facesheeton 01-12-2023 Facesheet [id number] 0CD:127 Normal [facility] Ambulatory Visit Summaryon 0 01-11-2023 Ambulatory Visit [...] Bergeron Where: General Surgery Alexus/Brian Rob Normal [facility] Physician Referralon 023 Physician Referral [id number] 0CD:127 Normal [facility] Physician Referralon 023 Physician Referral [id number] 0CD:[address] [facility] EKG 12 LeadOrdered By: Shelli Hui on 01-22-2021 Atrial Rate 71 BPM [facility] Phone: P Cameron 39 degrees [facility] Phone: P-R Interval 192 ms [facility] Phone: Q-T Interval 432 ms [facility] Phone: QRS Duration 92 ms [facility] Phone: QTc Calculation (Bazett) 469 ms [facility] Phone: R Cameron 33 degrees [facility] Phone: T Cameron 30 degrees [facility] Phone: Ventricular Rate 71 BPM [facility] Work Phone: Normal sinus rhythm Normal ECG When compared with ECG of 25-JUN-2018 07:09, No significant change was found Confirmed by Alee Rosen MD ([id number]) on 01/22/2021 7:20:39 PM [facility] Phone: Ubaldo, [facility] Incoming E kg Results From [facility] - 01/22/2021 7:20 PM EDT Normal sinus rhythm Normal ECG When compared with ECG of 25-JUN-2018 07:09, No significant change was found Confirmed by Alee Rosen MD ([id number]) on 01/22/2021 7:20:39 PM [facility] Phone: [facility] Phone: CT ABDOMEN PELVIS WO CONTRAS T Additional Contrast? OralOrdered By: Felicia Maria on 01-12-2021 1. No acute intra-abdominal abnormality. 2. Severe diverticulosis. 3. Small fat containing right inguinal hernia. Finding is unchanged since April 2018. 4. Severe atherosclerosis. 5. Nonobstructing nephrolithiasis. [facility] Phone: EXAMINATION: CT OF [facility] ABDOMEN AND PELVIS WITHOUT CONTRAST 01/12/2021 5:50 [...] present. Compression deformity of L2 is unchanged. [facility] Phone: [facility], [facility] Incoming Radiant Results From [facility] - 01/12/2021 9:39 PM EDT EXAMINATION: CT [...] 2018. 4. Severe atherosclerosis. 5. Nonobstructing nephrolithiasis. [facility] Work Phone: [facility] Work Phone: XR CHEST 2 Von 04-22-2020 [...] IVY BRITT Date: 2020-04-22 11:38 Normal [facility] CT SHOULDER LEFT W CONTRASTo n 02-13-2020 Small full-thickness tear of the distal supraspinatus tendon. Mild partial-thickness tearing of the infraspinatus tendon at the insertion. [facility]- [place], [place] EXAMINATION: CT OF T HE [...] grossly intact. Biceps tendon is grossly intact. [facility] Incoming Radiant Results From [facility] - 02/13/2020 10:47 AM EDT EXAMINATION: CT [...] of the infraspinatus tendon at the insertion. [facility] [place] [facility] ARTHRO[facility] LEFT S&Ion 02-13-2020 Successful fluoroscopic-guided injection of contrast into the left glenohumeral joint for CT arthrogram to follow. [place], [place] EXAMINATION: FLUOROSCOPIC GUIDED LEFT SHOULDER ARTHROGRAM, 02/13/2020 9:47 am COMPARISON: None. HISTORY: ORDERING SYSTEM PROVIDED HISTORY: Pain FLUOROSCOPY DOSE AND TYPE OR TIME AND EXPOSURES: 1.1 minute. No exposures. PROCEDURE: SURGICAL INSTRUMENT MAKER: Lele Mckeon Informed consent was obtained and [...] obtained and a sterile bandage was placed. [place], [place] [facility], [facility] Incoming Radiant Results From [facility] - 02/13/2020 10:32 AM EDT EXAMINATION: FLUOROSCOPIC GUIDED LEFT SHOULDER ARTHROGRAM, 02/13/2020 9:47 am COMPARISON: None. HISTORY: ORDERING SYSTEM PROVIDED HISTORY: Pain FLUOROSCOPY DOSE AND TYPE OR TIME AND EXPOSURES: 1.1 minute. No exposures. PROCEDURE: SURGICAL INSTRUMENT MAKER: Lele Mckeon Informed consent was obtained and [...] glenohumeral joint for CT arthrogram to follow. [place] XR SHOULDER LEFT (MIN 2 VIEW S)on 01-31-2020 No fracture, left AC joint separation or left glenohumeral dislocation. No bony impingement at the left AC joint. [place] EXAMINATION: TWO XRA Y VIEWS OF [...] device is superimposed over the left hemithorax. [place] [facility], [facility] Incoming Radiant Results From [facility] - 01/31/2020 11:20 PM EDT EXAMINATION: TWO [...] bony impingement at the left AC joint. [place], [place] Vital Signs Date Time Vital Sign Value Performing Clinician Facility 06-04-2024 12:45-0500 Body height 180.3 cm Portia Hurd APRN.[facility] Work Phone: [facility] 06-04-2024 12:45-0500 Body mass index (BMI) [Ratio] 29.55 kg/m2 Portia Hurd APRN.[facility] Work Phone: [facility] 06-04-2024 12:45-0500 Body weight 96.1 kg Portia Hurd APRN.[facility] Work Phone: [facility] 06-04-2024 12:45-0500 Diastolic blood pressure 74 mm[Hg] Portia Hurd APRN.SENIOR AUDIT MANAGER Work Phone: [facility] 06-04-2024 12:45-0500 Heart rate 87 /min Portia Hurd APRN.[facility] Work Phone: [facility] 06-04-2024 12:45-0500 SaO2% (BldA) [Mass fraction] 98 % Portia Hurd APRN.[facility] Work Phone: [facility] 06-04-2024 12:45-0500 Systolic blood pressure 145 mm[Hg] Portia Hurd APRN.SENIOR AUDIT MANAGER Work Phone: [facility] 02-28-2024 11:21-0400 Diastolic blood pressure 84 mm[Hg] Roy[facility]ix MD [facility] 02-28-2024 11:21-0400 Heart rate 84 /min Royce Nix MD [email or web address] 02-28-2024 11:21-0400 Respiratory rate 16 /min Royce Nix MD [email or web address] 02-28-2024 11:21-0400 SaO2% (BldA) [Mass fraction] 97 % Royce Nix MD [email or web address] 02-28-2024 11:21-0400 Systolic blood pressure 115 mm[Hg] Royce Nix MD [email or web address] 02-28-2024 11:20-0400 Body temperature 98.4 [degF] Royce Nix MD [email or web address] 11-28-2023 12:46-0400 Body height 180.3 cm Portia Hurd APRN.SENIOR AUDIT MANAGER Work Phone: [facility] 11-28-2023 12:46-0400 Body mass index (BMI) [Ratio] 28.63 kg/m2 Portia Hurd APRN.SENIOR AUDIT MANAGER Work Phone: [facility] 11-28-2023 12:46-0400 Body weight 93.1 kg Portia Hurd APRN.SENIOR AUDIT MANAGER Work Phone: [facility] 11-28-2023 12:46-0400 Diastolic blood pressure 60 mm[Hg] Portia Hurd APRN.SENIOR AUDIT MANAGER Work Phone: [facility] 11-28-2023 12:46-0400 Heart rate 72 /min Portia Hurd APRN.SENIOR AUDIT MANAGER Work Phone: [facility] 11-28-2023 12:46-0400 SaO2% (BldA) [Mass fraction] 97 % Portia Hurd APRN.SENIOR AUDIT MANAGER Work Phone: [facility] 11-28-2023 12:46-0400 Systolic blood pressure 109 mm[Hg] Portia Hurd APRN.SENIOR AUDIT MANAGER Work Phone: [facility] 02-01-2023 17:59-0400 Diastolic blood pressure 90 mm[Hg] Christina Soto DO Work Phone: [facility] 02-01-2023 17:59-0400 Systolic blood pressure 149 mm[Hg] Christina Soto DO Work Phone: [facility] 02-01-2023 17:58-0400 Body mass index (BMI) [Ratio] 25.63 kg/m2 Christina Soto DO Work Phone: [facility] 02-01-2023 17:58-0400 Body weight 85.73 kg Christina Soto DO Work Phone: [facility] 02-01-2023 17:57-0400 Body temperature 97.59 [degF] Christina Soto DO Work Phone: [facility] 02-01-2023 17:57-0400 Heart rate 85 /min Christina Soto DO Work Phone: [facility] 02-01-2023 17:57-0400 Respiratory rate 18 /min Christina Soto DO Work Phone: [facility] 02-01-2023 17:57-0400 SaO2% (BldA) [Mass fraction] 100 % Christina Soto DO Work Phone: [facility] 01-11-2023 14:59-0400 Blood Pressure Location Fermin VAUGHAN [facility] 01-11-2023 14:59-0400 Diastolic blood pressure 74 mm[Hg] Fermin VAUGHAN [facility] 01-11-2023 14:59-0400 Heart rate 74 /min Fermin VAUGHAN [facility] 01-11-2023 14:59-0400 Respiratory rate 16 /min Fermin VAUGHAN [facility] 01-11-2023 14:59-0400 Systolic blood pressure 120 mm[Hg] Fermin VAUGHAN [facility] 12-20-2022 13:51-0400 Body height 182.9 cm Portia Hurd ROBOTICS TECHNOLOGIST.SENIOR AUDIT MANAGER Work Phone: [facility] 12-20-2022 13:51-0400 Body weight 90.31 kg Portia Hurd ROBOTICS TECHNOLOGIST.SENIOR AUDIT MANAGER Work Phone: [facility] 12-20-2022 13:51-0400 Diastolic blood pressure 62 mm[Hg] Portia Hurd ROBOTICS TECHNOLOGIST.SENIOR AUDIT MANAGER Work Phone: [facility] 12-20-2022 13:51-0400 Heart rate 89 /min Portia Hurd ROBOTICS TECHNOLOGIST.SENIOR AUDIT MANAGER Work Phone: [facility] 12-20-2022 13:51-0400 SaO2% (BldA) [Mass fraction] 97 % Portia Hurd ROBOTICS TECHNOLOGIST.SENIOR AUDIT MANAGER Work Phone: [facility] 12-20-2022 13:51-0400 Systolic blood pressure 122 mm[Hg] Portia Hurd ROBOTICS TECHNOLOGIST.SENIOR AUDIT MANAGER Work Phone: [facility] 09-22-2022 08:47-0400 Body height 182.9 cm Adam Bhandari MD Work Phone: [facility] 09-22-2022 08:47-0400 Body weight 93.44 kg Adam Bhandari MD Work Phone: [facility] 09-22-2022 08:47-0400 Diastolic blood pressure 71 mm[Hg] Adam Bhandari MD Work Phone: [facility] 09-22-2022 08:47-0400 Heart rate 82 /min Adam Bhandari MD Work Phone: [facility] 09-22-2022 08:47-0400 SaO2% (BldA) [Mass fraction] 97 % Adam Bhandari MD Work Phone: [facility] 09-22-2022 08:47-0400 Systolic blood pressure 111 mm[Hg] Adam Bhandari MD Work Phone: [facility] 08-02-2022 10:02-0400 Body height 182.9 cm Portia Hurd ROBOTICS TECHNOLOGIST.SENIOR AUDIT MANAGER Work Phone: [facility] 08-02-2022 10:02-0400 Body weight 96.66 kg Portia Hurd ROBOTICS TECHNOLOGIST.SENIOR AUDIT MANAGER Work Phone: [facility] 08-02-2022 10:02-0400 Diastolic blood pressure 77 mm[Hg] Portia Hurd ROBOTICS TECHNOLOGIST.SENIOR AUDIT MANAGER Work Phone: [facility] 08-02-2022 10:02-0400 Heart rate 78 /min Portia Hurd ROBOTICS TECHNOLOGIST.SENIOR AUDIT MANAGER Work Phone: [facility] 08-02-2022 10:02-0400 SaO2% (BldA) [Mass fraction] 98 % Portia Hurd ROBOTICS TECHNOLOGIST.SENIOR AUDIT MANAGER Work Phone: [facility] 08-02-2022 10:02-0400 Systolic blood pressure 127 mm[Hg] Portia Hurd ROBOTICS TECHNOLOGIST.SENIOR AUDIT MANAGER Work Phone: [facility] 06-21-2022 10:07-0500 Body height 182.9 cm Portia Hurd ROBOTICS TECHNOLOGIST.SENIOR AUDIT MANAGER Work Phone: [facility] 06-21-2022 10:07-0500 Body weight 101.02 kg Portia Hurd ROBOTICS TECHNOLOGIST.SENIOR AUDIT MANAGER Work Phone: [facility] 06-21-2022 10:07-0500 Diastolic blood pressure 71 mm[Hg] Portia Martinezffer ROBOTICS TECHNOLOGIST.SENIOR AUDIT MANAGER Work Phone: [facility] 06-21-2022 10:07-0500 Heart rate 87 /min Portia Hurd ROBOTICS TECHNOLOGIST.SENIOR AUDIT MANAGER Work Phone: [facility] 06-21-2022 10:07-0500 SaO2% (BldA) [Mass fraction] 97 % Portia Hurd ROBOTICS TECHNOLOGIST.SENIOR AUDIT MANAGER Work Phone: [facility] 06-21-2022 10:07-0500 Systolic blood pressure 115 mm[Hg] Portia Hurd ROBOTICS TECHNOLOGIST.SENIOR AUDIT MANAGER Work Phone: [facility] 12-14-2021 12:52-0400 Body height 182.9 cm Portia Hurd APRN.SENIOR AUDIT MANAGER Work Phone: [facility] 12-14-2021 12:52-0400 Body weight 96.48 kg Portia Hurd ROBOTICS TECHNOLOGIST.SENIOR AUDIT MANAGER Work Phone: [facility] 12-14-2021 12:52-0400 Diastolic blood pressure 84 mm[Hg] Portia Hurd ROBOTICS TECHNOLOGIST.SENIOR AUDIT MANAGER Work Phone: [facility] 12-14-2021 12:52-0400 Heart rate 74 /min Portia Hurd APRN.SENIOR AUDIT MANAGER Work Phone: [facility] 12-14-2021 12:52-0400 SaO2% (BldA) [Mass fraction] 98 % Portia Hurd APRN.SENIOR AUDIT MANAGER Work Phone: [facility] 12-14-2021 12:52-0400 Systolic blood pressure 138 mm[Hg] Portia Hurd APRN.SENIOR AUDIT MANAGER Work Phone: [facility] 02-11-2021 14:00-0400 Diastolic blood pressure 81 mm[Hg] Clau Nazemi DO Work Phone: [facility] Work Phone: 02-11-2021 14:00-0400 Heart rate 87 /min Clau Nazemi DO Work Phone: [facility] Work Phone: 02-11-2021 14:00-0400 Respiratory rate 16 /min Clau Nazemi DO Work Phone: [facility] Work Phone: 02-11-2021 14:00-0400 SaO2% (BldA) [Mass fraction] 97 % Clau Nazemi DO Work Phone: [facility] Work Phone: 02-11-2021 14:00-0400 Systolic blood pressure 131 mm[Hg] Clau Montelongomi DO Work Phone: [facility] Phone: 02-11-2021 11:33-0400 Body temperature 97.59 [degF] Clau Montelongomi DO Work Phone: [facility] Phone: 02-11-2021 07:30-0400 Body height 185.4 cm Clau Nazemi DO Work Phone: [facility] Phone: 02-11-2021 07:30-0400 Body mass index (BMI) [Ratio] 27.44 kg/m2 Clau Montelongomi DO Work Phone: [facility] Phone: 02-11-2021 07:30-0400 Body weight 94.35 kg Clau Montelongomi DO Work Phone: [facility] Phone: 01-31-2020 22:43-0400 BP Diastolic 98 mm[Hg] Mukesh [email or web address] , [place] 01-31-2020 22:43-0400 BP Systolic 181 mm[Hg] Mukesh [email or web address] , [place] 01-31-2020 22:38-0400 Body Temperature 96.91 [degF] Mukesh [employer], [place] 01-31-2020 22:38-0400 Pulse (Heart Rate) 77 /min [employer], [place] 01-31-2020 22:38-0400 Pulse Oximetry 96 % Mukesh [email or web address] , [place] 01-31-2020 22:38-0400 Respiratory Rate 16 /min Mukesh [employer], [place] Encounters Encounter Date Encounter Type Care Provider Facility Start: 08-05-2024 End: 08-07-2024 ambulatory HILLARY WILSON [facility] Start: 08-05-2024 End: 08-07-2024 Subsequent hospital visit by physician Lia Espinoza Dr Room 4 [facility] Radiology Comment on above: Kidney stones Start: 06-04-2024 End: 06-04-2024 ambulatory FELICIA MARIA Facility:[facility] Start: 06-04-2024 End: 06-04-2024 Office outpatient visit 40 minutes Portia Hurd ROBOTICS TECHNOLOGIST.SENIOR AUDIT MANAGER Work Phone: Neurology Comment on above: Essential tremor Start: 02-28-2024 End: 02-28-2024 Emergency department patient visit Royce Nix MD Work Phone: [facility] Comment on above: Puncture wound of le ft thumb, initial encounter (Primary Dx); Foreign body of skin of left thumb Start: 11-28-2023 End: 11-28-2023 ambulatory PORTIA HURD Facility:[facility] Start: 11-28-2023 End: 11-28-2023 Office outpatient visit 15 minutes Portia Hurd ROBOTICS TECHNOLOGIST.SENIOR AUDIT MANAGER Work Phone: Neurology Comment on above: Essential tremor (Pr imary Dx) Start: 08-03-2023 End: 08-05-2023 Subsequent hospital visit by physician Lia Espinoza Dr Room 2 [facility] Radiology Comment on above: Kidney stones Start: 02-07-2023 End: 02-08-2023 ambulatory Fermin R NILL Facility: [facility] Start: 02-07-2023 End: 02-07-2023 Patient encounter procedure Fermin VAUGHAN General Surgery Nill/Said [facility] Start: 02-01-2023 End: 02-01-2023 Emergency department patient visit Christina Soto DO Work Phone: [facility] Comment on above: Bee sting reaction, accidental or unintentional, initial encounter (Primary Dx) Start: 01-24-2023 End: 01-25-2023 ambulatory Fermin R NILL Facility: [facility] Start: 01-24-2023 End: 01-24-2023 Patient encounter procedure Fermin R NILL General Surgery Nill/Said Dustin Start: 01-11-2023 End: 01-12-2023 ambulatory Fermin VAUGHAN Facility:[facility] Start: 01-11-2023 End: 01-11-2023 Patient encounter procedure Fermin VAUGHAN General Surgery Nill/Brian Rob Start: 12-20-2022 End: 12-20-2022 Office outpatient visit 40 minutes Portia Hurd APRN.SENIOR AUDIT MANAGER Work Phone: Neurology Comment on above: Essential tremor (Pr imary Dx) Start: 12-20-2022 ambulatory Fermin VAUGHAN Facility:[facility] Start: 09-22-2022 End: 09-22-2022 Office outpatient visit 25 minutes Adam Bhandari MD Work Phone: Neurology Comment on above: Essential tremor (Pr imary Dx) Start: 08-02-2022 End: 08-02-2022 Patient encounter procedure Portia Hurd APRN.SENIOR AUDIT MANAGER Work Phone: Neurology Comment on above: Essential tremor Start: 08-01-2022 Telephone encounter Portia Hurd APRN.SENIOR AUDIT MANAGER Work Phone: Neurology Comment on above: Appointment Start: 06-21-2022 End: 06-21-2022 Patient encounter procedure Portia Hurd APRN.SENIOR AUDIT MANAGER Work Phone: Neurology Comment on above: Essential tremor (Pr imary Dx) Start: 12-15-2021 Telephone encounter Portia Hurd APRN.SENIOR AUDIT MANAGER Work Phone: Neurological Jew Comment on above: Release Of Medical R ecords (PR) Start: 12-14-2021 End: 12-14-2021 Patient encounter procedure Portia Hurd APRN.SENIOR AUDIT MANAGER Work Phone: Neurology Comment on above: Essential tremor Start: 12-02-2021 Telephone encounter Portia Hurd APRN.SENIOR AUDIT MANAGER Work Phone: Neurological Jew Comment on above: Release Of Medical R ecords ([facility]) Start: 02-11-2021 End: 02-11-2021 Subsequent hospital visit by physician Clau Hui DO Work Phone: [facility] OR Comment on above: Acute postoperative pain (Primary Dx) Start: 01-22-2021 End: 01-22-2021 Subsequent hospital visit by physician Felicia Maria MD Work Phone: [facility] Laboratory Start: 01-12-2021 End: 01-14-2021 Subsequent hospital visit by physician Lia Cat Scan Room [facility] CT Scan Comment on above: Right inguinal herni a; Umbilical hernia without obstruction and without gangrene Start: 04-22-2020 End: 04-23-2020 Patient encounter procedure KARLENE AMBREEN Facility:H1 Start: 02-13-2020 End: 02-15-2020 Subsequent hospital visit by physician Lia Gen Radiologist [facility] Radiology Comment on above: Pain Strain of tendon of left rotator cuff, initial encounter Start: 01-31-2020 End: 01-31-2020 Emergency department patient visit Mukesh Marcelo Work Phone: [facility] Comment on above: Rotator cuff dysfunc tion, left (Primary Dx) Start: 01-04-2020 Patient encounter procedure KARLENE Mushtaq Facility:H1 Procedures Date Procedure Procedure Detail Performing Clinician Start: 08-05-2024 Radiologic exam abdo men 1 view Hillary Wilson ROBOTICS TECHNOLOGIST - SENIOR AUDIT MANAGER Work Phone: Start: 02-28-2024 End: 02-28-2024 Radex hand minimum 3 views Natalia guerra ROBOTICS TECHNOLOGIST - SENIOR AUDIT MANAGER Work Phone: Start: 08-03-2023 Radiologic exam abdo men 1 view Judith Woo PA-C Work Phone: Start: 01-24-2023 Excision of cyst Michae l NILAnn Comment on above: mid back Start: 12-14-2021 Adult depression scr eening assessment Portia Hurd ROBOTICS TECHNOLOGIST.SENIOR AUDIT MANAGER Work Phone: Start: 05-25-2021 Adult depression scr eening assessment Portia Hurd ROBOTICS TECHNOLOGIST.SENIOR AUDIT MANAGER Work Phone: Start: 01-22-2021 Ecg routine [...] deep brain stimulator placement Portia Hurd APRN.SENIOR AUDIT MANAGER Work Phone: Arthroscopy of knee Fermin [...] DTaP/Tdap/Td vaccine (2 - Td or Tdap) [facility] Start: 02-27-2034 DTaP/Tdap/Td vaccine (3 - Td or Tdap) DTaP/Tdap/Td vaccine (3 - Td or Tdap) [facility] Start: 02-27-2034 Urine microalbumin profile DTaP,Tdap,Td Vaccine (3 - Td or Tdap) [facility] Start: 10-13-2030 Urine microalbumin profile DTaP,Tdap,Td Vaccine (2 - Td or Tdap) [facility] Start: 2029 Respiratory Syncytia l Virus (RSV) or age 60 yrs+ (1 - 1-dose 75+ series) Respiratory Syncytial Virus (RSV) or age 60 yrs+ (1 - 1-dose 75+ series) [facility] Start: 2029 RSV Vaccine (1 - 1-d ose 75+ series) RSV Vaccine (1 - 1-dose 75+ series) [facility] Start: 06-13-2028 Screening for malign ant neoplasm of colon [facility] Start: 04-29-2027 Pneumococcal Vaccine : 50+ (3 of 3 - PCV20 or PCV21) Pneumococcal Vaccine: 50+ (3 of 3 - PCV20 or PCV21) [facility] Start: 04-29-2027 Pneumococcal Vaccine : 65+ (3 of 3 - PPSV23 or PCV20) Pneumococcal Vaccine: 65+ (3 of 3 - PPSV23 or PCV20) [facility] Start: 10-13-2025 Lipid panel [facility] Start: 08-06-2025 End: 08-06-2025 Patient encounter procedure 08/06/2025 11:30 AM EDT Office Visit [facility] UROLOGY Part [address] [place] [id number] Judith Woo, PA-C [address] [place] [address] [address] [place] [address] 1Y KUB, PVR [facility]OLOG[facility] Part [facility] Comment on above: 1Y KUB, PVR Start: 12-03-2024 End: 12-03-2024 Patient encounter procedure 12/03/2024 3:00 PM EDT Office Visit Neurology [address] [address] Portia Hurd, ROBOTICS TECHNOLOGIST.SENIOR AUDIT MANAGER [address] [place] [address] Neurology Start: 12-02-2024 CNR DBS ADJUSTMENT CNR DBS ADJ USTMENT Procedures Routine Essential tremor Expected: 12/02/2024 [facility] Work Phone: Comment on above: Expected: 12/02/2024 Start: 08-05-2024 End: 08-05-2024 Patient encounter procedure [facility] Part of [facility] Comment on above: 1yr KUB PVR Start: 06-04-2024 End: 06-04-2024 Patient encounter procedure 06/04/2024 1:00 PM EST Office Visit Neurology [address] [address] Portia Hurd, ROBOTICS TECHNOLOGIST.SENIOR AUDIT MANAGER [address] [place] [address] Neurology Start: 05-22-2024 Advance Directive Discussion Advance Directive Discussion [facility] Start: 05-22-2024 Annual Wellness Visi t (Medicare Advantage) Annual Wellness Visit (Medicare Advantage) [facility] Start: 04-12-2024 DIABETES SCREEN DIABETES SCREEN [facility] Start: 04-12-2024 Diabetes Screening Diabetes Screenin g [facility] Start: 01-21-2024 COVID-19 Vaccine ( season) COVID-19 Vaccine ( season) [facility] Start: 01-21-2024 Covid-19 Vaccine ( season) Covid-19 Vaccine ( season) [facility] Start: 01-21-2024 Influenza vaccination Influenza Vacc ine (#1) [facility] Start: 12-21-2023 Influenza vaccination Flu vaccine (# 1) [facility] Start: 05-22-2023 Advance Directive Discussion Advance Directive Discussion [facility] Start: 05-22-2023 Annual Wellness Visi t (Medicare Advantage) Annual Wellness Visit (Medicare Advantage) [facility] Start: 05-18-2023 End: 05-18-2023 Patient encounter procedure 05/18/2023 10:00 AM EST Office Visit [facility] [address] [place] [address] Hillary Wilson, ROBOTICS TECHNOLOGIST - SENIOR AUDIT MANAGER [address] [place] [id number] 1 year KUB prior [facility] Comment on above: 1 year KUB prior Start: 04-30-2023 Annual Wellness Visi t (AWV) Annual Wellness Visit (AWV) [facility] Start: 04-29-2023 Depression Screen Depression Screen [facility] Start: 04-29-2023 DTaP/Tdap/Td vaccine (1 - Tdap) DTaP/Tdap/Td vaccine (1 - Tdap) [facility] Comment on above: Postponed from 04/04 (Insurance / Financial) Start: 04-29-2023 Pneumococcal 50+ yea rs Vaccine (2 of 2 - PPSV23) Pneumococcal 50+ years Vaccine (2 of 2 - PPSV23) [facility] Start: 04-29-2023 Pneumococcal 65+ yea rs Vaccine (2 - PPSV23 or PCV20) Pneumococcal 65+ years Vaccine (2 - PPSV23 or PCV20) [facility] Start: 04-29-2023 Pneumococcal 65+ yea rs Vaccine (2 of 2 - PPSV23 or PCV20) Pneumococcal 65+ years Vaccine (2 of 2 - PPSV23 or PCV20) [facility] Start: 03-07-2023 End: 03-07-2023 Patient encounter procedure 03/07/2023 9:15 AM EDT Office Visit [facility] [address] [place] [address] 6 week f/u, KUB prior (discuss procedure on left) [facility] Comment on above: 6 week f/u, KUB prio r (discuss procedure on left) Start: 01-20-2023 COVID-19 Vaccine ( season) COVID-19 Vaccine ( season) [facility] Start: 01-20-2023 [facility] Start: 12-20-2022 Influenza vaccination Flu vaccine (# 1) [facility] Start: 12-14-2022 Adult depression screening assessment DEPRESSION SCREENING [facility] Start: 05-25-2022 Adult depression screening assessment DEPRESSION SCREENING [facility] Start: 05-22-2022 ADVANCE DIRECTIVE DISCUSSION ADVANCE DIRECTIVE DISCUSSION [facility] Start: 05-22-2022 DEPRESSION ASSESSMENT DEPRESSION ASS ESSMENT [facility] Start: 01-20-2022 Influenza vaccination INFLUENZA (#1) [facility] Start: 01-01-2022 Shingles Vaccine (1 of 2) Shingles Vaccine (1 of 2) [facility] Phone: Comment on above: Postponed from 04/04 (Unavailable) Start: 08-18-2021 COVID-19 VACCINE (4 - Booster for Pfizer series) COVID-19 VACCINE (4 - Booster for Pfizer series) [facility] Start: 06-15-2021 COVID-19 VACCINE (4 - Booster for Pfizer series) COVID-19 VACCINE (4 - Booster for Pfizer series) [facility] Start: 06-15-2021 COVID-19 VACCINE (4 - Pfizer series) COVID-19 VACCINE (4 - Pfizer series) [facility] Start: 05-22-2021 ADVANCE DIRECTIVE DISCUSSION ADVANCE DIRECTIVE DISCUSSION [facility] Start: 05-22-2021 DEPRESSION ASSESSMENT DEPRESSION ASS ESSMENT [facility] Start: 05-14-2021 Pneumococcal 65+ yea rs Vaccine (1 of 1 - PPSV23) Pneumococcal 65+ years Vaccine (1 of 1 - PPSV23) [facility] Phone: Comment on above: Postponed from 04/04 (Patient Refused) Start: 04-12-2021 End: 04-12-2021 Patient encounter procedure 04/12/2021 Office Visit Internal Medicine Pura Gutierrez, ROBOTICS TECHNOLOGIST - SENIOR AUDIT MANAGER [address] [place] [address] Jose Cruz Rojas Start: 02-17-2021 End: 02-17-2021 Patient encounter procedure 02/17/2021 Office Visit General Surgery Clau Hui I, DO [address] [place] [id number] [facility] [employer] [facility] Part of [facility] Start: 02-11-2021 End: 02-11-2021 Admission to same day surgery center 02/11/2021 Surgery IP Unit Clau Hui I, DO [address] [place] [address] HERNIA INGUINAL REPAIR LAPAROSCOPIC ROBOTIC-WITH MESH [facility] Comment on above: HERNIA INGUINAL REPA IR LAPAROSCOPIC ROBOTIC-WITH MESH Start: 02-11-2021 Subsequent hospital visit by physician 02/11/2021 Hospital Encounter IP Unit Clau Hui I, DO [address] [place] [address] [facility] Start: 02-04-2021 Annual Wellness Visi t (AWV) Annual Wellness Visit (AWV) [employer] Phone: Start: 01-22-2021 DTaP/Tdap/Td vaccine (1 - Tdap) DTaP/Tdap/Td vaccine (1 - Tdap) [facility] Phone: Comment on above: Postponed from 04/04 (Not Indicated) Start: 01-20-2021 Influenza vaccination Flu vaccine (# 1) [facility] Phone: Start: 01-05-2021 COVID-19 VACCINE (3 - Booster for Pfizer series) COVID-19 VACCINE (3 - Booster for Pfizer series) [facility] Start: 09-30-2020 COVID-19 Vaccine (4 - Pfizer series) COVID-19 Vaccine (4 - Pfizer series) [facility] Start: 01-21-2020 Influenza vaccination Flu vaccine (# 1) [place], [place] Start: 06-25-2019 Creatinine measurement Creatinine mo nitoring [place] Start: 06-25-2019 Potassium monitoring Potassium monit oring [place] Start: 2019 Pneumococcal 65+ yea rs Vaccine (1 of 1 - PPSV23) Pneumococcal 65+ years Vaccine (1 of 1 - PPSV23) [place] Start: 2019 PNEUMOCOCCAL: 65+ (1 - PCV) PNEUMOCOCCAL: 65+ (1 - PCV) [facility] Start: 2014 Respiratory Syncytia l Virus (RSV) or age 60 yrs+ (1 - 1-dose 60+ series) Respiratory Syncytial Virus (RSV) or age 60 yrs+ (1 - 1-dose 60+ series) [facility] Start: 2014 RSV Vaccine (1 - 1-d ose 60+ series) RSV Vaccine (1 - 1-dose 60+ series) [facility] Start: 2009 PROSTATE CANCER SCREENING DISCUSSION PROSTATE CANCER SCREENING DISCUSSION [facility] Start: 2004 Influenza vaccination LUNG CANCER SC REENING [facility] Start: 2004 Screening for malign ant neoplasm of colon Colon cancer screen colonoscopy [place], [place] Start: 2004 Screening for malign ant neoplasm of lung Lung Cancer Screening [facility] Start: 2004 Shingles Vaccine (1 of 2) Shingles Vaccine (1 of 2) [facility] Start: 2004 SHINGRIX VACCINE (1 of 2) SHINGRIX VACCINE (1 of 2) [facility] Start: 1999 COLOGUARD (FIT-DNA) COLOGUARD (FIT-D NA) [facility] Start: 1999 Colonoscopy COLONOSCOPY [facility] Start: 1999 COLORECTAL CANCER SCREENING COLORECTAL CANCER SCREENING [facility] Start: [address] COLONOGRAPHY [facility] Start: 1999 FECAL OCCULT BLOOD FECAL OCCULT BLOO D [facility] Start: 1999 Screening for malign ant neoplasm of colon [facility] Start: 1999 SIGMOIDOSCOPY SIGMOIDOSCOPY [facility] Start: 1994 Diabetes screen Diabetes screen [facility] [employer] Phone: Start: 1994 Lipid panel Lipid screen [place], [place] Start: 1989 Diabetes screen Diabetes screen [facility] Start: 1989 Lipid panel Lipid Screening [facility] Start: 1989 LIPID SCREEN LIPID SCREEN [facility] Start: 1973 DTaP/Tdap/Td vaccine (1 - Tdap) DTaP/Tdap/Td vaccine (1 - Tdap) [facility] Start: 1973 Urine microalbumin profile DTAP,TDAP,TD (1 - Tdap) [facility] Start: 1972 Anxiety Screening Anxiety Screening [facility] Start: 1972 Depression Screening Depression Scre ening [facility] Start: 1972 HEPATITIS C SCREENING HEPATITIS C [place] Start: 1972 Hepatitis C screening [facility] Start: 1969 HIV screening HIV screen [facility], [place] Start: 1966 Depression Screen Depression Screen [facility] Start: 1954 ABDOMINAL AORTIC ANEURYSM SCREENING ABDOMINAL AORTIC ANEURYSM SCREENING [facility] Start: 1954 Abdominal aortic aneurysm screening Abdominal Aortic Aneurysm Screening [facility] Start: 1954 Hepatitis C screening Hepatitis C [facility], [place] Oxygen therapy [[facility] Data Set] Initiate Oxygen Therapy Protocol Respiratory Care Routine Daily until discontinued starting 02/11/2021 [facility] Phone: Comment on above: Daily until disconti nued starting 02/11/2021 Phase I & II - meter ed glucose Phase I & II - metered glucose Point of Care Testing Routine As Needed until discontinued starting 02/11/2021 [facility] Phone: Comment on above: As Needed until disc ontinued starting 02/11/2021 Surgical Pathology Surgical Path ology Lab Routine Release Upon Ordering for 1 Occurrences starting 02/11/2021 [facility] Phone: Comment on above: Release Upon Orderin g for 1 Occurrences starting 02/11/2021 [facility] Immunizations Immunization Date Immunization Notes Care Provider Zeb gant 02-28-2024 tetanus toxoid, redu tico diphtheria toxoid, and acellular pertussis vaccine, adsorbed Royce Nix MD Work Phone: [facility] 12-09-2022 pneumococcal conjuga te vaccine, 13 valent Christina Guillermobal DO Work Phone: [facility] 08-05-2020 COVID-19, Pfizer, PF , 30mcg/0.3mL Mth Room [facility] 07-14-2020 COVID-19 vaccine, ag e 12+ yr (PFIZER-BIONTECH - PURPLE TOP) Portia Hurd ROBOTICS TECHNOLOGIST.SENIOR AUDIT MANAGER Work Phone: [facility] 07-12-2020 COVID-19, Pfizer, PF , 30mcg/0.3mL Mth Room General Surgery Dustin 03-14-2017 influenza virus vaccine, unspecified formulation Portia Hurd ROBOTICS TECHNOLOGIST.SENIOR AUDIT MANAGER Work Phone: [facility] Payers Date Payer Category Payer Unknown ANTHEM BLUE [facility] S AND BLUE [facility] ANTHEM MEDIBLUE ACCESS [id number] 2021-Present [phone] [address] [place] [address] PPO [id number] 2021 Unknown [id number] 2021 Medicare [id number] 2021 Medicare AETNA MEDICARE A ETNA MEDICARE PPO [id number] 2021-Present [phone] [address] [place] [address] PPO [id number] 2020 Unknown VACCN [place] CC[place] [id number] 2020-Present [address] [place] [address] [id number] 2020 Medicare AETNA MEDICARE A ETNA MEDICARE-ADVANTAGE PPO [id number] 2020-Present [address] [place] [address] Medicare [id number] 2019 Medicare MEDICARE MEDICAR E PART A [id number] 2019-Present [phone] [place] [address] [id number] 2009 Private Health Insurance [facility] CCN OPTUM [id number] 2009-Present [phone] [address] [place] [address] PPO [id number] 2009 Private Health Insurance [facility] CCN OPTUM [id number] 2009-Present [phone] [address] [place] [address] PPO [id number] 1959 Self-pay [id number] 1959 Unknown [id number] 1954 Unknown [id number] 1954 Unknown [id number] 1954 Unknown [id number] 1954 Unknown [id number] 1954 Unknown [id number] 1954 Unknown [id number] 1954 Unknown [id number] 1954 Unknown [id number] Social History Date Type Detail Facility Start: 01-31-2020 End: 06-21-2023 Tobacco smoking status NHIS Former smoker [facility] Start: 01-31-2020 End: 06-21-2023 Tobacco use and exposure Current user [facility] [place] History of tobacco use Chews Tobacco [facility] [employer] [place] Start: 01-31-2020 End: 02-28-2024 Alcohol intake Current non-drinker of alcohol (finding) [place], [place] Start: 1955 Sex Assigned At Not on file M [place], [place] Start: 12-04-2021 End: 12-14-2021 Exposure to SARS-CoV-2 (event) Not sure [facility] [place] Start: [birth year]-19[birth year]1965 End: 05-22-2014 History of tobacco use Current smoker [facility] [employer] Start: 01-01-2021 End: 06-15-2023 Cigarettes smoked current (pack per day) - Reported [facility] Start: 10-07-2020 History SDOH Financial 5 [facility] Phone: Start: 10-07-2020 History SDOH Food Worry 1 [employer] Phone: Start: 10-07-2020 Alcohol Comment drank from age s [age], recovered alcoholic [facility]: Start: 05-25-2015 History SDOH Alcohol Comment 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 [facility] Start: 01-19-1965 End: 05-22-2014 History of tobacco use Cigarette Smoker [facility] Work Phone: Start: 12-20-2022 End: 06-15-2023 Tobacco use panel [facility] Adult Depression Screening Assessment 0 [facility] (I/We) worried byronpretty er (my/our) food would run out before (I/we) got money to buy more. Never true [employer] How often to you hav e a drink containing alcohol? Never [facility] [employer] Start: 07-01-2012 Sex Male (finding) [facility] [employer] Medical Equipment Procedure Code Equipment Code Equipment Origin al Text Equipment Identifier Dates Mesh Chadwick L [id number] R Inguinal Wht Polypr [id number] Start: 02-11-2021 Stretch-Coil Dbs Extension 60 - [id number] Start: 02-04-2015 Extension Dbs 3.8-1.3mm 1.5mm Standard 60cm Neurostimulator Quadripolar - [id number] Start: 06-17-2015 Kit Adapter 2x4 Pocket New Replacement Neurostimulator Sterile - [id number] Start: 12-10-2018 Comment on above: Description: [id number] Lead Nrstm 40cm Actv Dbs - [id number] Start: 01-28-2015 Comment on above: Description: Stimloc Alfredo Hole cover Lot#[id number]; Exp Kit Activa Dbs S timloc Straight Cylinder Tungsten 40cm 1.5mm - [id number] Start: 06-09-2015 Comment on above: Description: Medtron ic Stimloc Alfredo Hole Cover: Lot#[id number] Exp 02-24-2018 Neurostimulator Activa Rc 10.5-V 2-250hz 2.2inx2.2in .4in Implantable 2 - [id number] Start: 12-10-2018 Ipg Activa Sc Db s Coil Extn - [id number] Start: 02-04-2015 Neurostimulator Activa Sc 0-10.5v 2-250hz 0-25.5ma 2.4inx2.2in .4in - [id number] Start: 06-17-2015 Neurostimulator Activa Rc 10.5-V 2-250hz 2.2inx2.2in .4in Implantable 2 - [id number] Start: 04-16-2021 Kit Restore Neurostimulator Closed Extension Boot Octapolar In Line Plug - [id number] Start: 04-16-2021 Stent Uret 6fr L 28cm Hydr+ Pgtl Tapr Tip Grad Bldr Mrk Lo - [id number] Start: 01-19-2023 Stent Uret 6fr L 28cm Hydr+ Pgtl Tapr Tip Grad Bldr Mrk Lo - [id number] Start: 06-15-2023 Comment on above: Description: String remains intact and secured to penis with steri strips and mastisol Functional Status Date Assessment Result Facility 01-11-2023 Functional Status N/A General [facility]ia Rob Clinical Notes 02-11-2021 to 06-04-2024 Patient InstructionsPortia Hurd APRN.PATRICK - 06/04/2024 12:16 PM Portia Todd APRN.SENIOR AUDIT MANAGER - 06/04/2024 12:16 PM Portia Todd APRN.PATRICK - 06/04/2024 12:16 PM ESTAttachments Note Date & Type Note Facility 06-04-2024 Instructions Portia Hurd APRN.SENIOR AUDIT MANAGER - 06/04/2024 1:29 PM EST No changes today for tremor, you are continuing to do well on these settings. I did increase your left arm a little bit. Look into the EZ OUT door handle assist for your card door. Or just google, door handle assistance device documented in this encounter [facility] 06-04-2024 Note HNO ID: [id number] Author: PORTIA HURD APRN.PATRICK Service: ? Author Type: Nurse Practitioner Type: Procedures Filed: 06/04/2024 13:47 Note Text: DBS PROGRAMMING PROCEDURE NOTE: DBS Surgery information: DBS Surgery Information Target: Bilateral Vim for: Essential tremor Concrete Journeyman: [employer] IPG: Activa RC IPG Laterality: bilateral # [...] L/R Pr# Site TI Portia Hurd, JANELL.SENIOR AUDIT MANAGER Todays Programming: No changes Imaging was [...] 1-C+, 1.2 V, 90 micS, 125 Hz. [facility] 06-04-2024 Procedure note Images from the original note were not included. DBS PROGRAMMING PROCEDURE NOTE: DBS Surgery information: DBS Surgery Information Target: Bilateral Vim for: Essential tremor Concrete Journeyman: [employer] IPG: Activa RC IPG Laterality: bilateral # [...] L/R Pr# Site TI Portia Hurd APRN.SENIOR AUDIT MANAGER Todays Programming: No changes Imaging was [...] 1-C+, 1.2 V, 90 micS, 125 Hz. [facility] 06-04-2024 History of Presen t illness Narrative [facility] - FOLLOW UP EVALUATION Felicia Maria MD, [address] [place] [address] [place] [address] Dear Felicia Maria MD, MD: I had [...] Primidone Unknown Current Outpatient Medications Medication Sig Ovshjejtslhck-Gcozrdse-Hiljty (MULTIVITAMIN 50 PLUS) tab Take 1 tablet [...] normal development, well-kept Movement Disorders Scales Performed: Lmvk-Gfnwce-Ttnhs Tremor Scale Medication OFF/ON Time of Assessment [...] Portia Hurd APRN.PATRICK documented in this encounter [facility] 06-04-2024 Note HNO ID: [id number] Author: PORTIA HURD APRN.CNP Service: ? Author Type: Nurse Practitioner Type: Progress Notes Filed: 06/04/2024 13:47 Note Text: [facility] - FOLLOW UP EVALUATION Felicia Maria MD, [address] [place] [address] [place] [address] Dear Felicia Maria MD, MD: I had [...] Primidone Unknown Current Outpatient Medications Medication Sig Bgqtvjjrgbwcp-Aexftcvu-Xxtkym (MULTIVITAMIN 50 PLUS) tab Take 1 tablet [...] normal development, well-kept Movement Disorders Scales Performed: Kzpm-Qtsvaz-Qntkw Tremor Scale Medication OFF/ON Time of Assessment [...] status post bilatera (more content not included)... [facility] 06-04-2024 Procedure note Images from the original note were not included. DBS PROGRAMMING PROCEDURE NOTE: DBS Surgery information: DBS Surgery Information Target: Bilateral Vim for: Essential tremor Concrete Journeyman: [employer] IPG: Activa RC IPG Laterality: bilateral # [...] L/R Pr# Site TI Portia Hurd APRN.SENIOR AUDIT MANAGER Todays Programming: No changes Imaging was [...] micS, 125 Hz. documented in this encounter [facility] 02-28-2024 Hospital Discharg e Natalia Samuels APRN - PATRICK - 02/28/2024 11:58 AM EDT Wash area 3 times daily with soap and water. Dry well. Apply antibiotic ointment and bandage continue for 7 to 10 days or until wound Bactrim DS 1 by mouth twice daily for 10 days. If rash develops discontinue this medication take zipl-rum-znjshyl loratadine and let Dr. Kim know regarding reaction. Tylenol ibuprofen as needed for comfort. Do not submerge hand in water for 7 days. The following attachments cannot be sent through Care Everywhere.Puncture Wounds ([place]ape Verdean)documented in this encounter [facility] 11-28-2023 Note HNO ID: [id number] Author: PORTIA HURD APRN.PATRICK Service: ? Author Type: Nurse Practitioner Type: Procedures Filed: 12/01/2023 11:45 Note Text: DBS PROGRAMMING PROCEDURE NOTE: DBS Surgery information: DBS Surgery Information Target: Bilateral Vim for: Essential tremor Concrete Journeyman: [employer] IPG: Activa RC IPG Laterality: bilateral # [...] B B VIM VIM VIM VIM 745 [phone] Portia Hudr, ROBOTICS TECHNOLOGIST.SENIOR AUDIT MANAGER Todays Programming: No changes Imaging was [...] 1-C+, 1.2 V, 90 micS, 125 Hz. [facility] 11-28-2023 Procedure note Images from the original note were not included. DBS PROGRAMMING PROCEDURE NOTE: DBS Surgery information: DBS Surgery Information Target: Bilateral Vim for: Essential tremor Concrete Journeyman: [employer] IPG: Activa RC IPG Laterality: bilateral # [...] B B VIM VIM VIM VIM 745 [phone] Portia Hurd, ROBOTICS TECHNOLOGIST.SENIOR AUDIT MANAGER Todays Programming: No changes Imaging was [...] 1-C+, 1.2 V, 90 micS, 125 Hz. [facility] 11-28-2023 Note HNO ID: [id number] Author: PORTIA HURD APRN.SENIOR AUDIT MANAGER Service: ? Author Type: Nurse Practitioner Type: Progress Notes Filed: 12/01/2023 11:45 Note Text: [facility] - FOLLOW UP EVALUATION Felicia Maria MD, [place] [address] Dear Felicia Maria MD, : I had [...] Primidone Unknown Current Outpatient Medications Medication Sig Thpkmcwfhwmmj-Qnmhkdyd-Mowigo (MULTIVITAMIN 50 PLUS) tab Take 1 tablet [...] Examination: Neurological Exam Movement Disorders Scales Performed: Izkt-Zzxuwr-Dgkfz Tremor Scale Medication OFF/ON ON Time of [...] have remained stable (more content not included)... [facility] 11-28-2023 History of Presen t illness Narrative [facility] - FOLLOW UP EVALUATION Felicia Maria MD, [address] [address] Dear Felicia Maria MD, MD: I had [...] Primidone Unknown Current Outpatient Medications Medication Sig Xctvdgpfhfxnr-Skavjire-Tglnfp (MULTIVITAMIN 50 PLUS) tab Take 1 tablet [...] Examination: Neurological Exam Movement Disorders Scales Performed: Zutj-Veebwc-Dzqud Tremor Scale Medication OFF/ON ON Time of [...] with any questions. Sincerely, Portia Hurd APRN.SENIOR AUDIT MANAGER documented in this encounter [facility] 11-28-2023 Procedure note Images from the original note were not included. DBS PROGRAMMING PROCEDURE NOTE: DBS Surgery information: DBS Surgery Information Target: Bilateral Vim for: Essential tremor Concrete Journeyman: [employer] IPG: Activa RC IPG Laterality: bilateral [...] B B VIM VIM VIM VIM 745 [phone] Portia Hurd, ROBOTICS TECHNOLOGIST.SENIOR AUDIT MANAGER Todays Programming: No changes Imaging was reviewed on brainVinobo. Lead is lateral with 1 and 2 [...] micS, 125 Hz. documented in this encounter [facility] 02-01-2023 Hospital Discharg e instructions Christina Soto DO - 02/01/2023 6:54 PM EDT Recommend warm compresses and or ice pack to help with the swelling of the left arm. If you develop any difficulty breathing or if the swelling or the redness gets worse return to the emergency department. The following attachments cannot be sent through Care Everywhere.Insect Stings and Bites ([place] Ver[place]an)documented in this encounter [facility] 01-11-2023 Note Chief Complaint consultation for [...] Illness 67 yo male with h/o htn, EMILIANA, essential tremor, bph, referred for nevus and [...] BNT-162b2 vax 07/12/2020 (more content not included)... [facility] Comment on above: Result Comment: Elec tronically Signed By: ALEXUS CRESPO, Fermin Suero\Date and Time Signed: 01/11/23 15:47 EDT 12-20-2022 History of Presen t illness Narrative [facility] [place] [address] Dear Felicia Maria: I had the pleasure [...] Primidone Unknown Current Outpatient Medications Medication Sig Xmltzkkezfetm-Wpszxmtf-Zbkqwn (MULTIVITAMIN 50 PLUS) tab Take 1 tablet [...] normal development, well-kept Movement Disorders Scales Performed: Atki-Pmygdm-Vnbzz Tremor Scale Face Tremor At Rest: 0 [...] with any questions. Sincerely, Portia Hurd APRN.SENIOR AUDIT MANAGER documented in this encounter [facility] 12-20-2022 Procedure note Images from the [...] ranges. Todays Programming: Imaging was reviewed on brainVinobo. Lead is lateral with 1 and 2 [...] time: 45 min documented in this encounter [facility] 09-22-2022 Instructions Adam Bhandari MD - [...] or you can send a message through [employer]. You can also now schedule and select appointments through [employer]. Adam Bhandari MD documented in this encounter [facility] 09-22-2022 History of Presen t illness Narrative Images from the original note were not included. [facility] - NEW PATIENT EVALUATION Referring Provider: Portia Hurd [address] [facility] [address] Primary Care Provider: Felicia Maria MD [address] [place] [address] [place] [address] Dear Portia Hurd: Thank you for referring [...] Primidone Unknown Current Outpatient Medications Medication Sig Tslaartzqcpoc-Xahiofxy-Jlwaqi (MULTIVITAMIN 50 PLUS) tab Take 1 tablet [...] no past medical history of Atrial fibrillation ([facility]), Cancer ([facility]), Chronic obstructive pulmonary disease (COPD) ([facility]), Chronic renal insufficiency, Congestive heart failure ([facility]), Coronary artery disease, Depression, Diabetes ([facility]), Epilepsy ([facility]), Hypertension, Hypothyroidism, Steroid long-term use, Stroke [...] Adam Bhandari MD documented in this encounter [facility] 09-22-2022 Procedure note Images from the [...] ranges. Todays Programming: Imaging was reviewed on brainVinobo. Lead is lateral with 1 and 2 [...] time: 45 min documented in this encounter [facility] 08-02-2022 Instructions Portia Hurd APRN.PATRICK - 08/02/2022 11:26 AM EDT Schedule a new patient appointment with Dr. Bhandari. You are on your best settings from our testing today. You have a small range you can try and work with if needed. documented in this encounter [facility] 08-02-2022 Procedure note DBS Analysis/programming: INITIAL [...] Did not work documented in this encounter [facility] 08-02-2022 History of Presen t illness Narrative [facility] - FOLLOW UP EVALUATION Felicia Maria MD [address] [place] [address] [place] [address] Dear Felicia Maria MD: I had the [...] Primidone Unknown Current Outpatient Medications Medication Sig Xmdvcfbpgawzh-Ypguhnyl-Gmdbau (MULTIVITAMIN 50 PLUS) tab Take 1 tablet [...] normal development, well-kept Movement Disorders Scales Performed: Hktt-Sjeabe-Vtyan Tremor Scale Face Tremor At Rest: 0 [...] Medication Schedule: Medications Level of service : 99123 + 3 units 25476 ( > 55 min, [id number] for each 15 min > 40). Time spent 90 min on the day of service, which included preparing to see the patient, mhhg-td-dhnu patient care, completing clinical documentation, obtaining and/or [...] Portia Hurd APRN.PATRICK documented in this encounter [facility] 08-01-2022 Miscellaneous Notes LM for pt to callback regarding pre-check in. Please transfer to Nadia Mckeon documented in this encounter [facility] 06-21-2022 Instructions Porita Hurd APRN.CNP - 06/21/2022 10:40 AM EST [...] 29 at 3pm documented in this encounter [facility] 06-21-2022 Procedure note DBS Analysis/programming: INITIAL [...] groups if needed. documented in this encounter [facility] 06-21-2022 History of Presen t illness Narrative [facility] - FOLLOW UP EVALUATION Felicia Maria MD [address] [place] [address] [facility] [address] Dear Felicia Maria MD: I had the [...] normal development, well-kept Movement Disorders Scales Performed: Mhsr-Xyvmzt-Kxdml Tremor Scale Face Tremor At Rest: 0 [...] or around: 12/19/22 Level of service : 63358 (40-54 min). Time spent 40 min on the day of service, which included preparing to see the patient, somz-kr-extp patient care, completing clinical documentation, obtaining and/or [...] Portia Hurd APRN.CNP documented in this encounter [facility] 12-16-2021 Miscellaneous Notes Done! thanks [facility]. Once closed please route back to me to fax. PR (f) [phone] documented in this encounter [facility] 12-14-2021 Instructions Portia Hurd APRN.CNP - 12/14/2021 1:45 PM EDT 1. You are leaving on the same settings you came in on but now have a range on both sides. You can go up and down on both sides. 2. Follow up in six months for a device check. documented in this encounter [facility] 12-14-2021 Procedure note DBS Analysis/programmin mins [...] settings caused nausea. documented in this encounter [facility] 12-14-2021 History of Presen t illness Narrative [facility] - FOLLOW UP EVALUATION Felicia Maria MD [address] [place] [address] [place] [address] I had the pleasure of seeing Mr. [...] normal development, well-kept Movement Disorders Scales Performed: Wdzu-Amshck-Tfbpl Tremor Scale Face Tremor At Rest: 0 [...] with any questions. Sincerely, Portia Hurd APRN.SENIOR AUDIT MANAGER documented in this encounter [facility] 12-02-2021 Miscellaneous Notes [facility] faxed record request for 2021 records. Faxed to (f) [phone] Request available to view in scanned documents. documented in this encounter [facility] 02-11-2021 History of Presen t illness [...] with the patient. documented in this encounter [employer] [facility]: 02-11-2021 Hospital Discharg e instructions Jeffery [...] regarding your surgery. documented in this encounter [employer]: Evaluation + Plan note Future Appointments Appointment Date:01/24/2023 01:40:00 PM Scheduled Provider:Fermin VAUGHAN MD Location:[facility] Appointment Type: Procedure 30 General Surgery Dustin Evaluation + Plan note Future Appointments Appointment Date:02/07/2023 02:00:00 PM Scheduled Provider:Fermin VAUGHAN MD Location:[facility] Appointment Type: Established 15 General Surgery Darron Evaluation note Diagnosis Right inguinal hernia Inguinal hernia without mention of obstruction or gangrene, unilateral or unspecified, (not specified as recurrent) Umbilical hernia without obstruction and without gangrene documented in this encounter [facility]: evaluation note* Diagnosis Right inguinal hernia- Primary Inguinal hernia without mention of obstruction or gangrene, unilateral or unspecified, (not specified as recurrent) Acute postoperative pain Other acute postoperative pain Umbilical hernia without obstruction and without gangrene documented in this encounter [employer]: evaluation note* Diagnosis Essential tremor Essential and other specified forms of tremor documented in this encounter [facility] note* Diagnosis Essential tremor- Primary Essential and other specified forms of tremor documented in this encounter [facility] note* Diagnosis Essential tremor Essential and other specified forms of tremor documented in this encounter [facility] note* Diagnosis Essential tremor- Primary Essential and other specified forms of tremor documented in this encounter [facility] note* Diagnosis Essential tremor- Primary Essential and other specified forms of tremor documented in this encounter [facility] note* Diagnosis Bee sting reaction, accidental or unintentional, initial encounter- Primary documented in this encounter [facility] note* Diagnosis Kidney stones Calculus of kidney documented in this encounter [facility] [employer] [facility] note* Diagnosis Essential tremor- Primary Essential and other specified forms of tremor documented in this encounter [facility] note* Diagnosis Renal calculus- Primary Calculus of kidney Puncture wound of left thumb, initial encounter- Primary Foreign body of skin of left thumb documented in this encounter [facility] note* Diagnosis Pre-op evaluation- Primary Preoperative examination, [...] forms of tremor documented in this encounter [facility] note* Diagnosis Renal calculus- Primary Calculus of kidney Kidney stones Calculus of kidney documented in this encounter [facility] course Narrative No data available for this section General Surgery [email or web address] Discharge instructions No data available for this section General Surgery [email or web address] Progress note No data available for this [...] FoundDocuments on File Type Date Recorded Patient Alarm Operator Expl anation ACP-Advance Directive ACP-Power of Bindery Helper Documents on File Type Date Recorded Patient Alarm Operator Expl anation ACP-Advance Directive ACP-Power of Bindery Helper Documents on File Type Date Recorded Patient Alarm Operator Expl anation Advance Directive(s) 03/23/2021 5:46 PM Advance Directive(s) 12/03/2018 12:53 PM Documents on File Type Date Recorded Patient Alarm Operator Expl anation Advance Directive(s) 03/23/2021 5:46 [...] Herrera MD [address] [place] [address] Status Reason Specialty Diagnoses / Procedures Referre d By Contact Referred To Contact Closed Radiology Diagnoses Right inguinal hernia Umbilical hernia without obstruction and without gangrene Procedures CT ABDOMEN PELVIS WO CONTRAST Additional Contrast? Oral Felicia Maria MD [address] [place] [address] Specialty Diagnoses / Procedures Referred By Contac t Referred To Contact Diagnoses Essential tremor Procedures PROVIDER ORDERED FOLLOW UP OFFICE/OUTPATIENT NEW HIGH MDM 60-74 MINUTES Portia Hurd, ROBOTICS TECHNOLOGIST.SENIOR AUDIT MANAGER [address] [place] [address] Referral ID Status Reason Start Date Expiration Date Visits Requested Visits Authorized [id number] Pending Review PCP Requested Referral 12/14/2021 12/14/2022 1 1 Specialty Diagnoses / Procedures Referred By Contac t Referred To Contact Diagnoses Essential tremor Procedures PROVIDER ORDERED FOLLOW UP OFFICE/OUTPATIENT NEW HIGH MDM 60-74 MINUTES Portia Hurd, ROBOTICS TECHNOLOGIST.SENIOR AUDIT MANAGER [address] [place] [address] Referral ID Status Reason Start Date Expiration Date Visits Requested Visits Authorized [id number] Pending Review PCP Requested Referral 12/19/2022 06/21/2023 1 1 Referral ID Status Reason Start Date Expiration Date Visits Requested Visits Authorized [id number] Pending Review PCP Requested Referral 06/22/2023 12/20/2023 1 1 Specialty Diagnoses / Procedures Referred By Contac t Referred To Contact Diagnoses Essential tremor Procedures PROVIDER ORDERED FOLLOW UP OFFICE/OUTPATIENT NEW HIGH MDM 60 MINUTES Portia Hurd, ROBOTICS TECHNOLOGIST.SENIOR AUDIT MANAGER [address] [place] [address] Referral ID Status Reason Start Date Expiration Date Visits Requested Visits Authorized [id number] Authorized PCP Requested Referral 05/30/2024 11/27/2024 1 [...] Procedures PROVIDER ORDERED FOLLOW UP OFFICE/OUTPATIENT NEW [facility] MDM 60-74 MINUTES Portia Hurd, ROBOTICS TECHNOLOGIST.SENIOR AUDIT MANAGER [address] [place] [address] Referral ID Status Reason Start Date Expiration Date V isits Requested Visits Authorized [id number] Closed PCP Requested Referral 11/21/2023 05/22/2024 1 [...] Herrera MD [address] [place] [id number] [facility] [address] [place] [address] Status Reason Specialty Diagnoses / Procedures Referre d By Contact Referred To Contact Closed Radiology Diagnoses Strain of muscle(s) and tendon(s) of the rotator cuff of left shoulder, initial encounter Procedures HC CT SHOULDER RIGHT W CONTRAST Cal Herrera MD [address] [place] [id number] Scan [address] [place] [address] Status Reason Specialty Diagnoses / Procedures Referre d By Contact Referred To Contact Closed Radiology Diagnoses Right inguinal hernia Umbilical hernia without obstruction and without gangrene Procedures CT ABDOMEN PELVIS WO CONTRAST Additional Contrast? Oral Felicia Maria MD [address] [place] [address] Status Reason Specialty Diagnoses / Procedures Referre d By Contact Referred To Contact Diagnoses Bilateral inguinal hernia, without obstruction or gangrene, not specified as recurrent Umbilical hernia without obstruction or gangrene BILATERAL UMBILICAL HERNIA AND UMBILICAL HERNIA Procedures NC LAP,INGUINAL HERNIA REPR,INITIAL REPAIR UMBILICAL [place],5+Y/O,REDUC HERNIA INGUINAL REPAIR LAPAROSCOPIC ROBOTIC-WITH MESH HERNIA UMBILICAL REPAIR-OPEN Clau Hui I, DO [address] [facility] [address] [place] [address] [facility] Reason Comments Release [facility] Reason Comments [facility] Of Medical [facility] Reason Comments Appointment Reason Comments Essential tremor Specialty Diagnoses / Procedures Referred By Contact Referred To Contact NEUROLOGICAL CHURCH Diagnoses Essential tremor Procedures PROVIDER ORDERED FOLLOW UP OFFICE/OUTPATIENT NEW HIGH MDM 60-74 MINUTES Portia Hurd, ROBOTICS TECHNOLOGIST.SENIOR AUDIT MANAGER [address] [place] [address] [facility] [address] [place] [address] Referral ID Status Reason Start Date Expiration Date V isits Requested Visits Authorized [id number] Closed PCP Requested Referral 05/02/2022 12/18/2022 1 1 Reason Comments New Patient Evaluation Essential tremor Specialty Diagnoses / Procedures Referred By Contact Referred To Contact Neurology / NEUROLOGICAL CHURCH Diagnoses Counseling, unspecified Dr. Bhandari new patient visit next available. per Portia Hurd APRN.SENIOR AUDIT MANAGER Procedures OFFICE/OUTPATIENT NEW MDM 15-29 MINUTES OFFICE/OUTPATIENT NEW HIGH MDM 60-[address] [facility] Portia Hurd, ROBOTICS TECHNOLOGIST.SENIOR AUDIT MANAGER [address] [place] [address] Adam Bhandari MD [address] [place] [address] Referral ID Status Reason Start Date Expiration Date V isits Requested Visits Authorized [id number] Authorized 05/02/2022 12/18/2022 99 99 Specialty Diagnoses / Procedures Referred By Contact Referred To Contact NEUROLOGICAL CHURCH Diagnoses Essential tremor Procedures PROVIDER ORDERED FOLLOW UP OFFICE/OUTPATIENT NEW [facility] 60-74 MINUTES Portia Hurd, ROBOTICS TECHNOLOGIST.SENIOR AUDIT MANAGER [address] [place] [address] [facility] [employer] [address] [address] Referral ID Status Reason Start Date Expiration Date V isits Requested Visits Authorized [id number] Closed PCP Requested Referral Patient Cleared - Admin/Dynamics Ax Consultant /Director advise to proceed or did not respond 12/19/2022 06/21/2023 1 1 Reason Comments Insect Bite Pt reports gets bloo d poisoning from bee stings. Stung today 1 1/2 hrs ago. Airway maintained, 98% ra. Reason Comments Foreign Body in Skin Nail went through b oard while using nail gun. Had 2 nails to left hand. 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 Tetanus not up to date. Specialty Diagnoses / Procedures Referred By Contac t Referred To Contact Diagnoses Essential tremor Procedures PROVIDER ORDERED FOLLOW UP OFFICE/OUTPATIENT NEW [facility] MDM 60 MINUTES Portia Hurd, ROBOTICS TECHNOLOGIST.SENIOR AUDIT MANAGER [address] [place] [address] Referral ID Status Reason Start Date Expiration Date V isits Requested Visits Authorized [id number] Closed PCP Requested Referral 05/30/2024 11/27/2024 1 1 (unrecognized sect ion and content) No Status Records FoundNo Status Records FoundNo Status Records FoundNo Status Records Found INFORMATION SOURCE (unrecogn ized section and content) DATE CREATED AUTHOR 04/26/2020 [facility] DATE CREATED AUTHOR AUTHOR'S ORGANIZ ATION [facility]/08/2023 [facility] DATE CREATED AUTHOR AUTHOR'S ORGANIZ ATION 06/07/2024 [facility] DATE CREATED AUTHOR AUTHOR'S ORGANIZ ATION [...] or prosecute any alcohol or drug abuse patient.[facility] the event this information is protected by the Federal Confidentiality of Alcohol and Drug Abuse Patient Records regulations: The Federal rules restrict any use of the information to criminally investigate or prosecute any alcohol or drug abuse patient.[facility] the event this information is protected by the Federal Confidentiality of Alcohol and Drug Abuse Patient Records regulations: The Federal rules restrict any use of the information to criminally investigate or prosecute any alcohol or drug abuse patient.[facility] the event this information is protected by the Federal Confidentiality of Alcohol and Drug Abuse Patient Records regulations: The Federal rules restrict any use of the information to criminally investigate or prosecute any alcohol or drug abuse patient.[facility] the event this information is protected by the Federal Confidentiality of Alcohol and Drug Abuse Patient Records regulations: The Federal rules restrict any use of the information to criminally investigate or prosecute any alcohol or drug abuse patient.[facility] Hospital[facility] the event this information is protected by the Federal Confidentiality of Alcohol and Drug Abuse Patient Records regulations: The Federal rules restrict any use of the information to criminally investigate or prosecute any alcohol or drug abuse patient.[facility] HospitalIn the event this information is protected by the Federal Confidentiality of Alcohol and Drug Abuse Patient Records regulations: The Federal rules restrict any use of the information to criminally investigate or prosecute any alcohol or drug abuse patient.[facility] HospitalIn the event this information is protected by the Federal Confidentiality of Alcohol and Drug Abuse Patient Records regulations: The Federal rules restrict any use of the information to criminally investigate or prosecute any alcohol or drug abuse patient.[facility] HospitalIn the event this information is protected by the Federal Confidentiality of Alcohol and Drug Abuse Patient Records regulations: The Federal rules restrict any use of the information to criminally investigate or prosecute any alcohol or drug abuse patient.[facility] HospitalIn the event this information is protected by the Federal Confidentiality of Alcohol and Drug Abuse Patient Records regulations: The Federal rules restrict any use of the information to criminally investigate or prosecute any alcohol or drug abuse patient.[facility] Care Teams (unrecognized sec tion and content) Braiding Machine Operator Relationship Specialty Start Date End Date Felicia Maria [address] [place] [address] PCP - General Internal Medicine 03/23/21 Braiding Machine Operator Relationship Specialty Start Date End Date Felicia Maria [address] [place] [address] PCP - General Internal Medicine 03/23/21 Braiding Machine Operator Relationship Specialty Start Date End Date Felicia Maria [address] [place] [address] PCP - General Internal Medicine 03/23/21 Braiding Machine Operator Relationship Specialty Start Date End Date Felicia Maria [address] [place] [address] PCP - General Internal Medicine 03/23/21 Braiding Machine Operator Relationship Specialty Start Date End Date Felicia Maria [address] [place] [address] PCP - General Internal Medicine 03/23/21 Braiding Machine Operator Relationship Specialty Start Date End Date Felicia Maria [address] [place] [address] PCP - General Internal Medicine 03/23/21 Braiding Machine Operator Relationship Specialty Start Date End Date Felicia Maria [address] [place] [address] PCP - General Internal Medicine 03/23/21 Braiding Machine Operator Relationship Specialty Start Date End Date Karlene Rice MD [address] [place] [address] PCP - General Family Medicine 01/16/23 Braiding Machine Operator Relationship Specialty Start Date End Date Karlene Rice MD [address] [place] [address] PCP - General Family Medicine 01/16/23 Braiding Machine Operator Relationship Specialty Start Date End Date Felicia Maria MD [address] [place] [address] [place] [address] PCP - General Internal Medicine 03/23/21 Braiding Machine Operator Relationship Specialty Start Date End Date Karlene Rice MD [address] [place] [address] PCP - General Family Medicine 01/16/23 Braiding Machine Operator Relationship Specialty Start Date End Date Felicia Maria MD [address] [place] [address] PCP - General Internal Medicine 03/23/21 Braiding Machine Operator Relationship Specialty [place] [address] [place], [place] [id number] PCP - General Family Medicine 01/16/23 Braiding Machine Operator Relationship Specialty [place] [address] [place] [address] PCP - General Family Medicine 01/16/23 FOR [...] BE BASED ON THE PRIMARY CLINICAL RECORDS. [employer] [facility]. provides no warranty or guarantee of the accuracy or completeness of information in this document.
[2024-10-02 06:59] LABS: Basophils Absolute Auto 0.1 10^3/uL (0.0-0.1); Basophils Percent Auto 0.8 % (0.2-2.0); Eosinophils Absolute Auto 0.2 10^3/uL (0.0-0.7); Hematocrit 45.2 % (42.0-54.0); Hemoglobin 15.8 g/dL (14.0-18.0); Immature Granulocytes Abs Auto 0.02 10^3/uL (0.00-0.03); Immature Granulocytes Pct Auto 0.3 % (0.0-0.5); Lymphocytes Absolute Auto 1.3 10^3/uL (1.2-3.8); Lymphocytes Percent Auto 21.4 % (20.5-60.0); Mean Corpuscular Volume 91.5 fL (80.0-94.0); Mean Platelet Volume 9.3 fL (9.5-13.5); Monocytes Absolute Auto 0.5 10^3/uL (0.3-0.8); Monocytes Percent Auto 8.5 % (1.7-12.0); Platelet Count 181 10^3/uL (150-450); Red Blood Count 4.94 10^6/uL (4.70-6.10); Red Cell Distribution Width 12.5 % (11.0-15.0)
[2024-10-02 07:45] LABS: Estimated Average Glucose 114 mg/dL; Glycohemoglobin A1C 5.6 % (4.5-6.2)
[2024-10-02 07:59] LABS: Alanine Aminotransferase 35 U/L (16-63); Albumin Globulin Ratio 1.2; Albumin Level 3.5 g/dL (3.4-5.0); Alkaline Phosphatase 95 U/L (46-116); Aspartate Amino Transferase 23 U/L (15-37); BUN Creatinine Ratio 18.1; Bilirubin Total 0.8 mg/dL (0.2-1.0); Calcium 9.1 mg/dL (8.5-10.1); Carbon Dioxide 26.5 mmol/L (21.0-32.0); Chloride 105 mmol/L (98-107); Chol HDL Ratio 4.6; Cholesterol 178 mg/dL (<=200); Estimated GFR (African America >60 (>=60 mL/min/1.73m^2); Estimated GFR (Non-African Ame >60 (>=60 mL/min/1.73m^2); Free T3 3.17 pg/mL (2.18-3.98); Glucose 110 mg/dL (74-106); HDL Cholesterol 39 mg/dL (40-60); Potassium 3.5 mmol/L (3.5-5.1); Sodium 142 mmol/L (136-145); Thyroid Stimulating Hormone 3.385 uIU/mL (0.358-3.740); Total Protein 6.5 g/dL (6.4-8.2); Triglycerides 130 mg/dL (<=150)
== END 2024-10-02 06:22 | disposition home or self-care (01) ==
LOC: LAB 06:21
PROVIDERS: PCP Family Medicine; Visit Provider Family Medicine
DX: R53.83 Other fatigue (principal); R06.00 Dyspnea, unspecified; G47.30 Sleep apnea, unspecified; E78.5 Hyperlipidemia, unspecified; R73.09 Other abnormal glucose
CPT/HCPCS: 36415; 80053; 80061; 83036; 84436; 84443; 84481; 85025

== ENCOUNTER 2024-10-29 19:47 | Outpatient (OUT) | payer MEDICARE, SELFPAY | END 2024-10-29 19:48 | disposition home or self-care (01) | LOC: SLEEP 19:47 | PROVIDERS: PCP Family Medicine; Visit Provider Family Medicine | DX: G47.33 Obstructive sleep apnea (adult) (pediatric) (principal) | CPT/HCPCS: 95810 ==

== ENCOUNTER 2024-11-27 19:35 | Outpatient (OUT) | payer MEDICARE, SELFPAY ==
--- OUTSIDE RECORDS SUMMARY | 2023-12-21 09:00 | XMS_ITS ---
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 Role Phone Tino Rice Primary Care Provider [facility] [phone] REASON FOR VISIT RIGHT HIP PAIN Encounters Encounter Location Date Provider Diagnosis [facility] [address] [place] [address] 12/21/2023 Lele Mcintosh Plan Of Treatment No Information Progress Notes * SEPIDEH BENITES DDOB:1955 (69 yo M)Acc No.[id number]:12/21/2023 Patient: Aravind COSTA SEPIDEH Squires Provider: Juan Ramon Mcintosh MD :1955 A ge:68 Y S ex:Male Date:12/21/2023 Address:[address] [place] [address] [place], [id number] Pcp:Tino Rice Subjective: * Chief Complaints: * 1 . RIGHT HIP PAIN. * Medical History: Objective: * Vitals: Assessment: Plan: * Treatment: * Procedure Codes: 7 3502 X-RAY EXAM HIP UNI 2-3 VIEWS Forms: * Images: * Electronic signature of Yamila Mcintosh MD on 11/27/2024 at 01:27 PM EDT Sign off status: Pending * Provider: Juan Ramon Mcintosh MD Date: 12/21/2023 Generated for Mahesh blackman/Keerthi/eTransmitting on: 0 11/27/2024 01:27 PM EDT
--- OUTSIDE RECORDS SUMMARY | 2024-10-02 15:12 | XMS_ITS ---
Author Organization [facility] in [place] Address [address] [place] [address] Care Team Providers Care Oncology Specialist Name Role Phone Richmond Rice Primary Care Provider REASON FOR VISIT review labs Encounters Encounter Location Date Provider Diagnosis [facility] [address] [place] [address] 10/02/2024 Richmond Rice Plan Of Treatment No Information Progress Notes * Devin BENITES DDOB:1955 (69 yo M)Acc No.[id number]:10/02/2024 Patient: Aravind IGOR Devin Squires :1955 A ge:69 Y S ex:Male Address:[address] [place] [id number] * true * Date: Generated for Mahesh blackman/Keerthi/eTransmitting on: 0 11/27/2024 01:27 PM EDT
--- OUTSIDE RECORDS SUMMARY | 2024-11-18 10:34 | XMS_ITS ---
Author Organization [facility] in [place] Address [address] [place] [address] Care Team Providers Care Hot Metal Mixer Operator Helper Name Role Phone Richmond Rice Primary Care Provider REASON FOR VISIT resend titration order Encounters Encounter Location Date Provider Diagnosis [facility] [address] [place] [address] 11/18/2024 Richmond Rice Plan Of Treatment No Information Progress Notes * Devin BENITES DDOB:1955 (69 yo M)Acc No.[id number]:11/18/2024 Patient: Aravind IGOR Devin Squires :1955 A ge:69 Y S ex:Male Address:[address] [place] [address] * true * Date: Generated for Mahesh blackman/Keerthi/eTransmitting on: 0 11/27/2024 01:27 PM EDT
--- OUTSIDE RECORDS SUMMARY | 2024-11-18 10:45 | XMS_ITS ---
Author Organization [facility] in [place] Address [address] [place] [address] Care Team Providers Care Parts Advisor Name Role Phone Krystal Richmond Primary Care Provider [phone] Allergies Allergen (clinical drug ingredient) Drug/Non Drug Allergy documented on EMR Reaction Allergy Type Onset Date Status amoxicillin Amoxicillin hives Drug Allergy Act zeus codeine Codeine Sulfate hives Drug Allergy A ctive primidone Mysoline hives Drug Allergy Active REASON FOR VISIT breathing issues when trying to sleep- feels himself stopping breathing, CSA signed for Gabapentin Medications Medication SIG (Take, Route, Frequency, Duration) Notes Start Date End Date Status Tamsulosin HCl 0.4 MG 1 capsule Orally O nce a day Active Gabapentin 300 MG 1 capsule Orally qhs for 30 days 09/30/2024 Active Diclofenac Sodium 75 MG 1 tablet as need ed Orally Twice a day for 30 days 12/11/2023 Active Claritin-D 24 Hour 10-240 MG 1 tablet Orally Once a day A ctive Advair HFA 115-21 MCG/ACT 2 puffs Inhalation Twice a day for 30 days THIS WAS NOT WRITTEN ABDELRAHMAN Active Social History Tobacco Use: Social History Observation Description Date Details (start date - stop date) Former Smoker 05/22/1966 - 01/19/2009 Tobacco Use/Smoking Question Answer Notes Patient is a former smoker When did you start smoking? 05/22/1966 When did you stop smoking? 01/19/2009 How long has it been since you last smoked? > 10 years Problems Problem Type SNOMED Code ICD Code Onset Dates Problem Status W/U Status Risk Notes Problem Chronic obstructive pulmonary disease, unspecified (J44.9) Active confirmed Vital Signs Weight 211.4 lbs 11/18/2024 Height 72 in 11/18/2024 Blood pressure systolic 128 mm Hg 11/19/19 25 Blood pressure diastolic 84 mm Hg 025 Heart Rate 100 /min 11/18/2024 BMI 28.67 kg/m2 11/18/2024 Oximetry 93 % 11/18/2024 Procedures Procedure Date Ordered Date Performed Result Body Sit e Sleep study - Diagnostic Polysonogram 11/18/2024 N/A Sleep Study: Retitration BIPAP/CPAP 11/18/2024 N/A Encounters Encounter Location Date Provider Diagnosis [facility] [address] [place] [address] 11/18/2024 Richmond Rice Chronic obstructive pulmonary disease, unspecified J44.9 ; Sleep apnea G47.30 and History of falling Z91.81 Assessments Encounter Date Diagnosis (ICD Code) Assessment Notes Treatment Notes Treatment Clinical Notes Section Notes 11/18/2024 Chronic obstructive pulmonary disease, unspecified (ICD-10 - J44.9) stabel - no longer smoking - uses in halers 11/18/2024 Sleep apnea (ICD-10 - G47.30) needs sleep studya - pause breatibg - snoring - daytime fatigue 11/18/2024 History of falling (ICD-10 - Z91.81) Plan Of Treatment Medication Medication Name Sig Start Date Stop Date Notes Trelegy Ellipta 100-62.5-25 MCG/ACT 1 puff Inhalation Once a day 09/30/2024 Treatment Notes Assessment Notes Chronic obstructive pulmonar y disease, unspecified stabel - no longer smoking - uses in halers Sleep apnea needs sleep studya - pause breatibg - snoring - daytime fatigue Pending Test Test Name Order Date Sleep study - Diagnostic Polysonogram Sleep Study: Retitration BIPAP/CPAP 10/22 Progress Notes * Devin CASEY DDOB:1955 (69 yo M)Acc No.[id number]:11/18/2024 Progress Note Patient: Devin HATCH Provider: Shaw Rice ([facility])MD :1955 A ge:69 Y S ex:Male Date:11/18/2024 Address:[address] [place] [address] [id number] Check In:02:10 PM ESTCheck O ut:02:41 PM EST Subjective: * Chief Complaints: * B reathing issues when trying to sleep- feels himself stopping breathingCSA signed for Gabapentin * HPI: G eneral: breathign issuea at hs - feels like stops breathing wakes up gasping told snroing - some daytime fatigue failed sleep study int eh past - 20 years ago -. * ROS: E ENT: hearing changes d enies. v isual changes d enies.?non-healing mouth sores d enies. s wollen glands or neck lumps d enies. h oarseness d enies. s ore throat d enies. d ifficulty swallowing d enies. n ose bleeds d enies. n ijeoma congestion d enies. e ar ache d enies. e ar discharge?denies. r inging in ears d enies. l ight sensitivity d enies. e ye pain d enies. b lurring d enies. e ye irritation d enies. d ouble vision d enies.?vision loss d enies. G eneral/Constitutional: Sweats: D enies. F atigue d enies. S leep problems d enies. A norexia d enies. M alaise d enies. W eight loss d enies.?Fatigue or Weakness d enies. F ever or Chills d enies. C ardiovascular: Shortness of Breath w/lying flat d enies. L ightheadedness/dizziness d enies. C hest tightness/ heavy pressure d enies. S welling of legs, ankles, or feet d enies. W aking up with shortness of breath d enies. C hest pain denies. P alpitations d enies. W eight gain d enies. R espiratory: Chronic or frequent cough d enies. C oughing up blood?denies. D ifficulty breathing d enies. P roductive cough d enies. S noring?denies. S hortness of breath that awakens from sleep (PND) d enies. C hest pain d enies. S putum production d enies. W heezing d enies. M usculoskeletal: Joint pain d enies. J oint Fluid d enies. B ack pain d enies. K nee pain d enies. N peace pain d enies. J oint Stiffness d enies. M uscle cramps d enies. W eakness of muscles d enies. A rthritis d enies. M uscle aches d enies. P ain in shoulder(s) d enies. S wollen joints d enies. * Active Problem List J30.2 Seasonal allergic re action Modified On:11/23/2022 Status:confirmed K40.90 Unilateral inguinal hernia, without obstruction or gangrene, not specified as recurrent Modified On:01/20/2023 Status:confirmed N40.1 Benign prostatic hyp erplasia with lower urinary tract symptoms Modified On:01/20/2023 Status:confirmed N20.0 Calculus of kidney Modified On:06/05/2023U Status:confirmed K42.9 Umbilical hernia wit hout obstruction or gangrene Modified On:06/15/2023U Status:confirmed M25.551 Right hip pain Modified On:12/11/2023U Status:confirmed R07.9 Chest pain Modified On:12/11/2023U Status:confirmed R53.83 Fatigue Modified On:12/11/2023U Status:confirmed R06.00 Dyspnea Modified On:12/11/2023U Status:confirmed B35.4 Tinea corporis Modified On:04/29/2024U Status:confirmed L30.9 Eczema Modified On:05/27/2024U Status:confirmed Z91.81 History of falling Modified On:09/30/2024U Status:confirmed G47.30 Sleep apnea Modified On:09/30/2024U Status:confirmed J44.9 Chronic obstructive pulmonary disease, unspecified Modified On:11/18/2024 Status:confirmed * Medical History: * Surgical History: l eft knee scope 1997right rotator cuff 2015inguinal hernia 2020 * Hospitalization/Major Diagno stic Procedure: D enies Past Hospitalization * Family History: F ather: , cancer, diagnosed with Other malignant neoplasm of unspecified site. M other: , diagnosed with Unspecified heart disease. B rother(s): alive. S ister(s): alive. S on(s): alive. D ariedeandre(s): alive. 2 brother(s) , 1 sister(s) - healthy. 1 son(s) , 1 daughter(s) - healthy. . * Social History: T obacco Use: T obacco Use/Smoking P atient is a f ormer smoker W hen did you start smoking? 0 05/22/1966 W hen did you stop smoking? 0 01/19/2009 H ow long has it been since you last smoked??> 10 years * Medications: T akingAdvair HFA(Fluticasone-Salmeterol) 115-21 MCG/ACT Aerosol 2 puffs Inhalation Twice a day THIS WAS NOT WRITTEN DAWClaritin-D 24 Hour(Loratadine- Pseudoephedrine ER) 10-240 MG Tablet Extended Release 24 Hour 1 tablet Orally Once a day Diclofenac Sodium 75 MG Tablet Delayed Release 1 tablet as needed Orally Twice a day Gabapentin 300 MG Capsule 1 capsule Orally qhs Tamsulosin HCl 0.4 MG Capsule 1 capsule Orally Once a day Trelegy Ellipta(Fvquacnkdfq-Nmhyvsiey-Qvmlou) 100-62.5-25 MCG/ACT Aerosol Powder Breath Activated 1 puff Inhalation Once a day Medication List reviewed and reconciled with the patientTaking Advair HFA(Fluticasone-Salmeterol) 115-21 MCG/ACT Aerosol 2 puffs Inhalation Twice a day THIS WAS NOT WRITTEN Caitlyn Claritin-D 24 Hour(Loratadine-Pseudoephedrine ER) 10-240 MG Tablet Extended Release 24 Hour 1 tablet Orally Once a day Taking Diclofenac Sodium 75 MG Tablet Delayed Release 1 tablet as needed Orally Twice a day Taking Gabapentin 300 MG Capsule 1 capsule Orally qhs Taking Tamsulosin HCl 0.4 MG Capsule 1 capsule Orally Once a day Taking Trelegy Ellipta(Mgatsqznkkx-Bhuneviyr-Pcoook) 100-62.5-25 MCG/ACT Aerosol Powder Breath Activated 1 puff Inhalation Once a day Medication List reviewed and reconciled with the patient * Allergies: C odeine Sulfate: hives - AllergyAmoxicillin: hives - Side EffectsMysoline: hives - Allergyno[Allergies Verified] Objective: * Vitals: W t:211.4lbs, Ht: 72 in, BP:128/84mm Hg, HR:100/min, BMI:28.67Index, Oxygen sat %:93%, Ht-cm: 182.88 cm, Wt-k.89 kg. * Examination: P hysical Exam: GENERAL: w ell developed, well nourished, in no acute distress. HEAD: n ormocephalic/atraumatic. EYES: p upils equal, round and reactive to light, conjunctivae and sclerae normal. EARS: n o deformity or lesion of external ear, canals and TM appear normal bilaterally, TM's intact, not inflamed with normal light reflex, hearing grossly normal to conversational speech. NOSE: n o deformity, discharge, inflammation, or lesions.? MOUTH: m ucous membranes moist, normal oropharynx and posterior pharynx without lesions or exudates, tongue normal, dentition normal. NECK: n peace supple, no masses or palpable cervical nodes, trachea midline, thyroid without nodules, masses, tenderness, or enlargement. CHEST: n o chest wall deformity, no chest wall tenderness.? LUNGS: n ormal respiratory effort and clear to auscultation, no wheezes, rales, or rhonchi, good air exchange. CARDIO: r egular rate and rhythm, normal S1 and S2, nor murmur, rub, or gallop. PULSES: n ormal capillary refill. ABDOMEN: s oft, non-distended, non-tender, no masses. MUSCULOSKELETAL: n o deformity or scoliosis noted, normal range of motion, joints normal, no erythema, edema, effusion, or ecchymosis. EXTREMITY: n o clubbing, cyanosis, edema, or deformity with normal ROM in both upper and lower bilateral extremities. NEUROLOGIC: g rossly normal. SKIN: n o rashes, ulcerations, or suspicious lesions. LYMPH NODES: n o cervical adenopathy, nodes normal. MENTAL STATUS: a lert and oriented x3, normal mood and affect. Assessment: * Assessment: 1. C hronic obstructive pulmonary disease, unspecified - J44.9 (Primary) 2 .?Sleep apnea - G47.30 3 . H istory of falling - Z91.81 Plan: * Treatment: 2. S leep apnea P rocedure: Sleep study - Diagnostic Polysonogram P rocedure: Sleep Study: Retitration BIPAP/CPAP Notes: needs sleep studya - pause breatibg - snoring - daytime fatigue 3. H istory of falling Stop Trelegy Ellipta Aerosol Powder Breath Activated, 100-62.5-25 MCG/ACT, 1 puff, Inhalation, Once a day. * Procedure Codes: * Preventive Medicine: Screenings/Counseling: B ID ACTION PLAN Above Normal BMI Follow-up D ietary management education, guidance, and counseling * * Sign off status: Completed Visit Status: C HK (Check Out) true * Provider: Shaw Rice ([facility])MD Date: 0 11/18/2024 Generated for Printi ng/Faxing/eTransmitting on: 0 11/27/2024 01:27 PM EDT History and Physical Notes * HPI (History of Present Illness) Category Sub-Category Detail Notes Category Not es General breathign issuea at hs - feels like stops breathing wakes up gasping told snroing - some daytime fatigue failed sleep study int eh past - 20 years ago - Examination Category Sub-Category Detail Notes Category Not es Physical Exam GENERAL: well developed, well nourished, in no acute distress HEAD: normocephalic/atraum atic EYES: pupils equal, round and reactive to light, conjunctivae and sclerae normal EARS: no deformity or lesi on of external ear, canals and TM appear normal bilaterally, TM's intact, not inflamed with normal light reflex, hearing grossly normal to conversational speech NOSE: no deformity, discha rge, inflammation, or lesions MOUTH: mucous membranes james st, normal oropharynx and posterior pharynx without lesions or exudates, tongue normal, dentition normal NECK: neck supple, no mass es or palpable cervical nodes, trachea midline, thyroid without nodules, masses, tenderness, or enlargement CHEST: no chest wall deform ity, no chest wall tenderness LUNGS: normal respiratory e ffort and clear to auscultation, no wheezes, rales, or rhonchi, good air exchange CARDIO: regular rate and rhy thm, normal S1 and S2, nor murmur, rub, or gallop PULSES: normal capillary ref ill ABDOMEN: soft, non-distended, non-tender, no masses RECTAL: MUSCULOSKELETAL: no deformity or scol iosis noted, normal range of motion, joints normal, no erythema, edema, effusion, or ecchymosis EXTREMITY: no clubbing, cyanosi s, edema, or deformity with normal ROM in both upper and lower bilateral extremities NEUROLOGIC: grossly normal SKIN: no rashes, ulceratio ns, or suspicious lesions LYMPH NODES: no cervical adenopat hy, nodes normal MENTAL STATUS: alert and oriented x 3, normal mood and affect
--- OUTSIDE RECORDS SUMMARY | 2024-11-27 19:37 | XMS_ITS | Patient Health Record ---
Author Organization [facility] in [place] Address [address] [place] [address] Care Team Providers Care Psychological Tests Sales Agent Name Role Phone Felix[place] cook Primary Care Provider [phone] Allergies Allergen (clinical drug ingredient) Drug/Non Drug Allergy documented on EMR Reaction Allergy Type Onset Date Status amoxicillin Amoxicillin hives Drug Allergy Act zeus codeine Codeine Sulfate hives Drug Allergy A ctive primidone Mysoline hives Drug Allergy Active Results Component Value Reference Range Notes FREE T4 Reviewed date:12/11/2023 08:53:45 PM Interpretation: Performing Lab: Notes/Report: [facility] , Free T4 0.91 0.76-1.46 ng/dL Performing Lab: see note ML - [facility] PSA SCREENING Reviewed date:12/11/2023 08:53:45 PM Interpretation: Performing Lab: Notes/Report: [facility] , Prostate Specific Antigen Scrn 1.37 <=4.00 ng/mL Performing Lab: see note ML - [facility] TSH Reviewed date:12/11/2023 08:53:45 PM Interpretation: Performing Lab: Notes/Report: [facility] , Thyroid Stimulating Hormone 1.466 0.358-3.740 uIU/mL Performing Lab: see note ML - [facility] NM fabrizio perf SPECT rest str Reviewed date:01/11/2024 08:35:43 PM Interpretation: Performing Lab: Notes/Report: Source Facility: [facility]-[address] [place] [address] [place] [address] Nuclear Medicine Report Signed Patient: BENITESDEVIN Squires MR#: [id number] : 1955 Acct:[id number] Age/Sex: 68 / M ADM Date: 01/09/24 Loc: NM Attending Dr: Karlene Crook M.D. Ordering Physician: Karlene Crook M.D. Date of Service: 01/09/24 Procedure(s): NM fabrizio perf SPECT rest str Accession Number(s): [id number] cc: Karlene Crook M.D. Patient Name: DEVIN BENITES MR#: [id number] : 1955 Exam Date: 01/09/2024 Ordering Doctor: DR KARLENE CROOK . RADIOLOGY REPORT PROCEDURE: NM FABRIZIO PERF SPECT REST STR COMPARISON: None. INDICATIONS: CHEST PAIN, DYSPNEA TECHNIQUE: Exam Description: Stress/Rest one day protocol gated SPECT Rest Imagin.3 mCi Tc-99m Cardiolite IV on 01/09/2024 Stress Imaging 30.7 mCi Tc-99m Cardiolite IV on 01/09/2024 Exercise Protocol: 0.4 mg Lexiscan given IV Heart Rate (bpm): Rest: 68 Max: 100 PMHR: 66 Blood Pressure: Rest: 126/82 Max: 144/80 Symptoms: Rest and peak stress ECG findings were pending and the exercise portion of the study was pending per attending physician Dr. Albert . For more details please see separate cardiac stress test report. FINDINGS: QUALITY OF STUDY: Excellent. PERFUSION DEFECT: None. LOCATION: N/A SIZE: N/A. SEVERITY: N/A. TYPE: N/A. WALL MOTION: Normal. LV SIZE: Normal. 99 mL. TID / TCD: None; 0.9 LVEF: Normal. Calculated EF 59%. SUMMARY: Myocardial perfusion imaging study is NORMAL. CONCLUSION: 1. Normal nuclear medicine myocardial perfusion scan. Dictated by: Elton Cote M.D. on 01/11/2024 at 11:45 Approved by: Elton Cote M.D. on 01/11/2024 at 11:57 Dictated By: Elton Cote M.D. Signed By: 01/11/24 1158 DD/ 1157 TD/TT: Bsw: [place] [address] Nuclear Medicine Report Signed Patient: DEVIN BENITES MR#: [id number] : 1955 Acct:[id number] Age/Sex: 68 / M ADM Date: 01/09/24 Loc: NM Attending Dr: Mendoza Crook M.D. Ordering Physician: Karlene Crook M.D. Date of Service: 01/09/24 Procedure(s): NM fabrizio perf SPECT rest str Accession Number(s): [id number] cc: Karlene Crook M.D. Patient Name: DEVIN BENITES MR#: [id number] : 1955 Exam Date: 01/09/2024 Ordering Doctor: DR KARLENE CROOK . RADIOLOGY REPORT PROCEDURE: NM FABRIZIO PE RF SPECT REST STR COMPARISON: None. INDICATIONS: CHEST P AIN, DYSPNEA TECHNIQUE: Exam Description: Stress/Rest one day protocol gated SPECT Rest Imagin.3 m Ci Tc-99m Cardiolite IV on 01/09/2024 Stress Imaging 30.7 mCi Tc-99m Cardiolite IV on 01/09/2024 Exercise Protocol: 0 .4 mg Lexiscan given IV Heart Rate (bpm): Re st: 68 Max: 100 PMHR: 66 Blood Pressure: Rest : 126/82 Max: 144/80 Symptoms: Rest and peak stress ECG findings were pending and the exercise portion of the study was pending pe r attending physician Dr. Albert . For more details please see separate cardiac stress test report. FINDINGS: QUALITY OF STUDY: Excellent. PERFUSION DEFECT: None. LOCATION: N/A SIZE: N/A. SEVERITY: N/A. TYPE: N/A. WALL MOTION: Normal. LV SIZE: Normal. 99 mL. TID / TCD: None; 0.9 LVEF: Normal. Calcul ated EF 59%. SUMMARY: Myocardial perfusion imaging study is NORMAL. CONCLUSION: 1. Normal nuclear medicine myocardial perfusion scan. Dictated by: Elton Cote M.D. on 01/11/2024 at 11:45 Approved by: Elton Cote M.D. on 01/11/2024 at 11:57 Dictated By: Elton Cote M.D. Signed By: 01/11/24 1158 DD/ 1157 TD/TT: Bsw: FREE T3 Reviewed date:10/02/2024 07:13:11 PM Interpretation: Performing Lab: Notes/Report: [facility] , Free T3 3.17 2.18-3.98 pg/mL Performing Lab: see note ML - [facility] GLYCOHEMOGLOBIN A1C Reviewed date:10/02/2024 07:13:11 PM Interpretation: Performing Lab: Notes/Report: [facility] , Glycohemoglobin A1C 5.6 4.5-6.2 % > 7.0 ACTION SUGGESTED ADA RECOMMENDED LIMIT 4.0 - 6.0 ADA THERAPEUTIC TARGET < 7.0 Estimated Average Glucose 114 Performing Lab: see note ML - [facility] LIPID PROFILE Reviewed date:10/02/2024 07:13:11 PM Interpretation: Performing Lab: Notes/Report: [facility] , Triglycerides 130 <=150 mg/dL Cholesterol 178 <=200 mg/dL HDL Cholesterol 39 40-60 mg/dL <40 mg/dl - HIGH CARDIOVASCULAR RISK > or =60 mg/dl - LOW CARDIOVASCULAR RISK LDL Cholesterol Calculated 113.0 >190 mg/dl VERY HIGH <100 mg/dl OPTIMAL 160-189 mg/dl HIGH 130-159 mg/dl BORDERLINE HIGH 100-129 mg/dl NEAR OR ABOVE OPTIMAL VLDL CHOLESTEROL 26.0 Chol HDL Ratio 4.6 7.1 - 11.0 MODERATE RISK 4.4 - 7.1 AVERAGE RISK 3.3 - 4.4 LOW RISK >11.0 HIGH RISK Performing Lab: see note ML - [facility] PROF 14(COMP METB) Reviewed date:10/02/2024 07:13:11 PM Interpretation: Performing Lab: Notes/Report: [facility] , Sodium 142 136-145 mmol/L Potassium 3.5 3.5-5.1 mmol/L Chloride 105 98-107 mmol/L Carbon Dioxide 26.5 21.0-32.0 mmol/L Anion Gap 14.0 Glucose 110 74-106 mg/dL Blood Urea Nitrogen 17.0 7.0-18.0 mg/dL Creatinine 0.94 0.70-1.30 mg/dL Estimated GFR ( Michelle >60 >=60 mL/min/1.73m 2 Estimated GFR (Non- Ekaterina >60 >=60 mL/min/1.73m 2 BUN Creatinine Ratio 18.1 Calcium 9.1 8.5-10.1 mg/dL Bilirubin Total 0.8 0.2-1.0 mg/dL Aspartate Amino Transferase 23 15-37 U/L Alanine Aminotransferase 35 16-63 U/L Alkaline Phosphatase 95 46-116 U/L Total Protein 6.5 6.4-8.2 g/dL Albumin Level 3.5 3.4-5.0 g/dL Globulin 3.0 Albumin Globulin Ratio 1.2 Performing Lab: see note ML - [facility] T4 Reviewed date:10/02/2024 07:13:11 PM Interpretation: Performing Lab: Notes/Report: [facility] , T4 Thyroxine 5.80 4.50-12.10 ug/dL Performing Lab: see note ML - [facility] TSH Reviewed date:10/02/2024 07:13:11 PM Interpretation: Performing Lab: Notes/Report: [facility] , Thyroid Stimulating Hormone 3.385 0.358-3.740 uIU/mL Performing Lab: see note ML - [facility] LB CBC AUTO DIFF Reviewed date:10/02/2024 07:13:11 PM Interpretation: Performing Lab: Notes/Report: [facility] , White Blood Count 6.0 4.0-11.0 10 3/uL Red Blood Count 4.94 4.70-6.10 10 6/uL Hemoglobin 15.8 14.0-18.0 g/dL Hematocrit 45.2 42.0-54.0 % Mean Corpuscular Volume 91.5 80.0-94.0 fL Mean Corpuscular Hemoglobin 32.0 25.9-34.0 pg Mean Corpuscular HGB Conc 35.0 29.9-35.2 g/dL Red Cell Distribution Width 12.5 11.0-15.0 % Platelet Count 181 150-450 10 3/uL Mean Platelet Volume 9.3 9.5-13.5 fL Neutrophils Percent Auto 66.0 43.0-75.0 % Lymphocytes Percent Auto 21.4 20.5-60.0 % Monocytes Percent Auto 8.5 1.7-12.0 % Eosinophils Percent Auto 3.0 0.9-7.0 % Basophils Percent Auto 0.8 0.2-2.0 % Immature Granulocytes Pct Auto 0.3 0.0-0.5 % Neutrophils Absolute Auto 4.0 1.4-6.5 10 3/uL Lymphocytes Absolute Auto 1.3 1.2-3.8 10 3/uL Monocytes Absolute Auto 0.5 0.3-0.8 10 3/uL Eosinophils Absolute Auto 0.2 0.0-0.7 10 3/uL Basophils Absolute Auto 0.1 0.0-0.1 10 3/uL Immature Granulocytes Abs Auto 0.02 0.00-0.03 10 3/uL Performing Lab: see note - [facility] Troponin I High Sensitivity Reviewed date:09/29/2024 06:00:19 PM Interpretation: Performing Lab: Notes/Report: [facility] , Troponin I High Sensitivity 6.4 4.0-76.1 pg/mL NOTE: HIGH-SENSITIVITY TROPONIN ASSAY IS NOT INTENDED TO BE PERCENTILE OF cTnI DISTRIBUTION IN A REFERENCE POPULATION, WITH OTHER DIAGNOSTIC AND CLINICAL INFORMATION. HAS BEEN CONFIRMED THE DECISION THRESHOLD FOR ME CUT-OFF POINTS HAVE BEEN ESTABLISHED BASED ON THE FOURTH DIAGNOSIS. UNIVERSAL DEFINITION OF MYOCARDIAL INFARCTION. THE UPPER REFERENCE LIMIT (URL) OF TROPONIN, DEFINED THE 99TH 99TH PERCENTILE = 76.2 PG/ML USED IN ISOLATION BUT SHOULD BE INTERPRETED IN CONJUNCTION Performing Lab: see note - [facility] ECG 12 lead Reviewed date:09/29/2024 06:00:19 PM Interpretation: Performing Lab: Notes/Report: Source Facility: [facility]-[address] [place] [address] [place] [address] Electrocardiograph Report Signed Patient: DEVIN BENITES MR#: [id number] : 1955 Acct:[id number] Age/Sex: 69 / M ADM Date: 09/28/24 Loc: ER Attending Dr: Ordering Physician: Eddie Melo M.D. Date of Service: 09/28/24 Procedure(s): ECG 12 lead Accession Number(s): [id number] cc: [facility] Test Date: 2024-09-28 Pat Name: DEVIN BENITES Department: Room: - Gender: Male Marriage Counselor: : 1955 Requested By: 1030 Order Number: [id number] Reading MD: FCO HERNANDEZ M.D. Measurements Intervals [place] Rate: 117 P: 42 [place]: 150 QRS: 109 QRSD: 94 T: 31 QT: 330 QTc: 400 Interpretive Statements 1120 Sinus tachycardia 7100 Abnormal right axis deviation 0102 ARTIFACT PRESENT 9140 abnormal rhythm ECG No previous ECG available for comparison Electronically Signed On 09-29-2024 12:43:51 EDT by FCO HERNANDEZ M.D. Dictated By: FCO HERNANDEZ Signed By: 09/29/24 124 DD/ 163 TD/TT: Bsw: [place] [address] Electrocardiograph Report Signed Patient: DEVIN BENITES MR#: [id number] : 1955 Acct:[id number] Age/Sex: 69 / M ADM Date: 09/28/24 Loc: ER Attending Dr: Ordering Physician: Eddie Melo M.D. Date of Service: 09/28/24 Procedure(s): ECG 12 lead Accession Number(s): [id number] cc: [facility] Test Date: 2024-09-28 Pat Name: DEVIN ADAME X Department: 65 Room: - Gender: Male Marriage Counselor: : 1955 [facility] By: 1030 Order Number: [id number] Reading MD: FCO HERNANDEZ M.D. Measurements Intervals [place] Rate: 117 P: 42 AZ: 150 QRS: 109 QRSD: 94 T: 31 QT: 330 QTc: 400 Interpretive Statements 1120 Sinus tachycardia 7100 Abnormal right axis deviation 0102 ARTIFACT PRESENT 9140 abnormal rhy thm ECG No previous ECG avai lable for comparison Electronically Aubrie d On 09-29-2024 12:43:51 EDT by FCO HERNANDEZ M.D. Dictated By: FCO HERNANDEZ Signed By: 09/29/24 1244 DD/ 1632 TD/TT: Bsw: Troponin I High Sensitivity Reviewed date:09/29/2024 06:00:19 PM Interpretation: Performing Lab: Notes/Report: [facility] , Troponin I High Sensitivity 5.0 4.0-76.1 pg/mL REFERENCE LIMIT (URL) OF TROPONIN, DEFINED THE 99TH 99TH PERCENTILE = 76.2 PG/ML UNIVERSAL DEFINITION OF MYOCARDIAL INFARCTION. THE UPPER NOTE: HIGH-SENSITIVITY TROPONIN ASSAY IS NOT INTENDED TO BE USED IN ISOLATION BUT SHOULD BE INTERPRETED IN CONJUNCTION CUT-OFF POINTS HAVE BEEN ESTABLISHED BASED ON THE FOURTH DIAGNOSIS. PERCENTILE OF cTnI DISTRIBUTION IN A REFERENCE POPULATION, HAS BEEN CONFIRMED THE DECISION THRESHOLD FOR ME WITH OTHER DIAGNOSTIC AND CLINICAL INFORMATION. Performing Lab: see note ML - [facility] Prothrombin Time INR Reviewed date:09/29/2024 06:00:19 PM Interpretation: Performing Lab: Notes/Report: [facility] , Prothrombin Time 10.3 9.0-11.6 sec INR 0.97 DESIRED INR: 2.5-3.5 RECURRENT THROMBOSIS 2.0-3.0 CONDITIONS NOT LISTED BELOW 2.5-3.5 FOR PROSTHETIC HEART VALVE REPLACEMENT Performing Lab: see note ML - [facility] PTT Reviewed date:09/29/2024 06:00:19 PM Interpretation: Performing Lab: Notes/Report: [facility] , Partial Thromboplastin Time 25.5 22.3-36.2 sec Performing Lab: see note ML - [facility] PROF CHEM 8 (BAS METB) Reviewed date:09/29/2024 06:00:19 PM Interpretation: Performing Lab: Notes/Report: [facility] , Sodium 135 136-145 mmol/L Potassium 3.6 3.5-5.1 mmol/L Chloride 100 98-107 mmol/L Carbon Dioxide 23.4 21.0-32.0 mmol/L Anion Gap 15.2 Glucose 156 74-106 mg/dL Blood Urea Nitrogen 17.0 7.0-18.0 mg/dL Creatinine 1.25 0.70-1.30 mg/dL Estimated GFR ( Michelle >60 >=60 mL/min/1.73m 2 Estimated GFR (Non- Ekaterina 57 >=60 mL/min/1.73m 2 BUN Creatinine Ratio 13.6 Calcium 10.1 8.5-10.1 mg/dL Performing Lab: see note ML - [facility] CBC AUTO DIFF Reviewed date:09/29/2024 06:00:19 PM Interpretation: Performing Lab: Notes/Report: [facility] , White Blood Count 8.8 4.0-11.0 10 3/uL Red Blood Count 5.29 4.70-6.10 10 6/uL Hemoglobin 16.7 14.0-18.0 g/dL Hematocrit 47.8 42.0-54.0 % Mean Corpuscular Volume 90.4 80.0-94.0 fL Mean Corpuscular Hemoglobin 31.6 25.9-34.0 pg Mean Corpuscular HGB Conc 34.9 29.9-35.2 g/dL Red Cell Distribution Width 12.3 11.0-15.0 % Platelet Count 242 150-450 10 3/uL Mean Platelet Volume 9.6 9.5-13.5 fL Neutrophils Percent Auto 65.2 43.0-75.0 % Lymphocytes Percent Auto 22.7 20.5-60.0 % Monocytes Percent Auto 9.1 1.7-12.0 % Eosinophils Percent Auto 1.9 0.9-7.0 % Basophils Percent Auto 0.8 0.2-2.0 % Immature Granulocytes Pct Auto 0.3 0.0-0.5 % Neutrophils Absolute Auto 5.7 1.4-6.5 10 3/uL Lymphocytes Absolute Auto 2.0 1.2-3.8 10 3/uL Monocytes Absolute Auto 0.8 0.3-0.8 10 3/uL Eosinophils Absolute Auto 0.2 0.0-0.7 10 3/uL Basophils Absolute Auto 0.1 0.0-0.1 10 3/uL Immature Granulocytes Abs Auto 0.03 0.00-0.03 10 3/uL Performing Lab: see note ML - [facility] XR hip RT 2V w/ pelvis Reviewed date:12/12/2023 07:09:18 AM Interpretation: Performing Lab: Notes/Report: Source Facility: [facility]-[address] [place] [address] [place] [address] XRay Report Signed Patient: DEVIN BENITES MR#: [id number] : 1955 Acct:[id number] Age/Sex: 68 / M ADM Date: 12/11/23 Loc: LAB Attending Dr: Karlene Crook M.D. Ordering Physician: Karlene Crook M.D. Date of Service: 12/11/23 Procedure(s): XR hip RT 2V w/ pelvis Accession Number(s): [id number] cc: Karlene Crook M.D. [place] [id number] Patient Name: DEVIN BENITES MRN: [id number] date: 1955 Sex: M Assigned Patient Location: LAB Current Patient Location: Accession/Order Number: [id number] Exam Date: 12/11/2023 09:53 Report Date: 12/12/2023 06:28 At the request of: KARLENE CROOK Procedure: XR hip RT 2V w/ pelvis PROCEDURE: XR hip RT 2V w/ pelvis HISTORY: Right Hip Pain M25.551 COMPARISON: None. FINDINGS: BONES:Slight narrowing of the hip joint spaces bilaterally. No significant periarticular osteophytes. 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 No fracture or dislocation. SOFT TISSUES:No visible soft tissue swelling. EFFUSION:None visible. OTHER: Negative. XR/XR hip RT 2V w/ pelvis IMPRESSION: 1. No acute bone abnormality. 2. Mild degenerative joint disease. 3. 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 Electronically authenticated by: ELTON COTE Date: 12/12/2023 06:28 Dictated By: Elton Cote M.D. Signed By: 12/12/2331 DD/ 7 TD/TT: Bsw: [place] [address] XRay Report Signed Patient: DEVIN BENITES MR#: [id number] : 1955 Acct:[id number] Age/Sex: 68 / M ADM Date: 12/11/23 Loc: LAB Attending Dr: Mendoza Crook M.D. Ordering Physician: Karlene Crook M.D. Date of Service: 12/11/23 Procedure(s): XR hip RT 2V w/ pelvis Accession Number(s): [id number] cc: Karlene Crook M.D. The [place] [id number] Patient Name: DEVIN BENITES MRN: [id number] date: 1955 Sex: M Assigned Patient Location: LAB Current Patient Location: Accession/Order Numb er: [id number] Exam Date: 12/11/2023 09:53 Report Date: 12/12/2023 06:28 At the request of: KARLENE CROOK Procedure: XR hip RT 2V w/ pelvis PROCEDURE: XR hip RT 2V w/ pelvis HISTORY: Right Hip P ain M25.551 COMPARISON: None. FINDINGS: BONES:Slight narrowi ng of the hip joint spaces bilaterally. No significant periarticular osteophytes. 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 No fracture o r dislocation. SOFT TISSUES:No visi ble soft tissue swelling. EFFUSION:None visible. OTHER: Negative. X R/XR hip RT 2V w/ pelvis IMPRESSION: 1. No acute bone abnormality. 2. Mild degenerative joint disease. 3. 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 Electronically authenticated by: ELTON COTE Date: 12/12/2023 06:28 Dictated By: Elton Cote M.D. Signed By: 12/12/2331 DD/ 7 TD/TT: Bsw: PROF [place](COMP METB) Reviewed date:12/11/2023 08:53:45 PM Interpretation: Performing Lab: Notes/Report: [facility] , Sodium 141 136-145 mmol/L Potassium 4.2 3.5-5.1 mmol/L Chloride 103 98-107 mmol/L Carbon Dioxide 29.4 21.0-32.0 mmol/L Anion Gap 12.8 Glucose 105 74-106 mg/dL Blood Urea Nitrogen 15.0 7.0-18.0 mg/dL Creatinine 0.86 0.70-1.30 mg/dL Estimated GFR ( Michelle >60 >=60 Estimated GFR (Non- Ekaterina >60 >=60 BUN Creatinine Ratio 17.4 Calcium 9.1 8.5-10.1 mg/dL Bilirubin Total 0.7 0.2-1.0 mg/dL Aspartate Amino Transferase 15 15-37 U/L Alanine Aminotransferase 29 16-63 U/L Alkaline Phosphatase 94 46-116 U/L Total Protein 6.9 6.4-8.2 g/dL Albumin Level 3.7 3.4-5.0 g/dL Globulin 3.2 Albumin Globulin Ratio 1.2 Performing Lab: see note ML - [facility] LB LIPID PROFILE Reviewed date:12/11/2023 08:53:45 PM Interpretation: Performing Lab: Notes/Report: [facility] , Triglycerides 102 <=150 mg/dL Cholesterol 150 <=200 mg/dL HDL Cholesterol 40 40-60 mg/dL > or =60 mg/dl - LOW CARDIOVASCULAR RISK <40 mg/dl - HIGH CARDIOVASCULAR RISK LDL Cholesterol Calculated 89.6 100-129 mg/dl NEAR OR ABOVE OPTIMAL >190 mg/dl VERY HIGH 160-189 mg/dl HIGH <100 mg/dl OPTIMAL 130-159 mg/dl BORDERLINE HIGH VLDL CHOLESTEROL 20.4 Chol HDL Ratio 3.8 3.3 - 4.4 LOW RISK >11.0 HIGH RISK 4.4 - 7.1 AVERAGE RISK 7.1 - 11.0 MODERATE RISK Performing Lab: see note ML - [facility] LB GLYCOHEMOGLOBIN A1C Reviewed date:12/11/2023 08:53:45 PM Interpretation: Performing Lab: Notes/Report: [facility] , Glycohemoglobin A1C 5.3 4.5-6.2 % > 7.0 ADA RECOMMENDED LIMIT 4.0 - 6.0 ACTION SUGGESTED ADA THERAPEUTIC TARGET < 7.0 Estimated Average Glucose 105 Performing Lab: see note ML - [facility] LB CBC AUTO DIFF Reviewed date:12/11/2023 08:53:45 PM Interpretation: Performing Lab: Notes/Report: [facility] , White Blood Count 6.0 4.0-11.0 10 3/uL Red Blood Count 4.96 4.70-6.10 10 6/uL Hemoglobin 15.6 14.0-18.0 g/dL Hematocrit 46.9 42.0-54.0 % Mean Corpuscular Volume 94.6 80.0-94.0 fL Mean Corpuscular Hemoglobin 31.5 25.9-34.0 pg Mean Corpuscular HGB Conc 33.3 29.9-35.2 g/dL Red Cell Distribution Width 12.5 11.0-15.0 % Platelet Count 203 150-450 10 3/uL Mean Platelet Volume 10.0 9.5-13.5 fL Neutrophils Percent Auto 70.9 43.0-75.0 % Lymphocytes Percent Auto 19.2 20.5-60.0 % Monocytes Percent Auto 7.7 1.7-12.0 % Eosinophils Percent Auto 1.3 0.9-7.0 % Basophils Percent Auto 0.7 0.2-2.0 % Immature Granulocytes Pct Auto 0.2 0.0-0.5 % Neutrophils Absolute Auto 4.3 1.4-6.5 10 3/uL Lymphocytes Absolute Auto 1.2 1.2-3.8 10 3/uL Monocytes Absolute Auto 0.5 0.3-0.8 10 3/uL Eosinophils Absolute Auto 0.1 0.0-0.7 10 3/uL Basophils Absolute Auto 0.0 0.0-0.1 10 3/uL Immature Granulocytes Abs Auto 0.01 0.00-0.03 10 3/uL Performing Lab: see note ML - [facility] Reason For Referral Diagnosis 1 Right hip pain (M25. 551) Referral Organization [facility] Medicine Referring Provider First Name [place] Referring Provider Last Name Krystal Referring Provider Speciality [facility] icine Referred Provider Lele Mcintosh Referred Provider Specialty Orthopedic S urgery Referral Priority Routine Medications Medication SIG (Take, Route, Frequency, Duration) [...] Status Risk Notes Problem Chronic obstructive pulmonary disease (36670198) Chronic obstructive pulmonary disease, unspecified (J44.9) Active confirmed Problem Tinea corporis (52996225) Tinea corporis (B35.4) Active confirmed Problem 487180158 Unilateral inguinal hernia, without obstruction or gangrene, not specified as recurrent (K40.90) Active confirmed Problem 481178565 Umbilical hernia without obstruction or gangrene (K42.9) Active confirmed Problem 47206256 Calculus of kidney (N20.0) Active confirmed Problem History of fall (012690743) History of falling (Z91.81) Active confirmed Problem Chest pain (55859557) Chest pain (R07.9) Active confirmed Problem Fatigue (71732831) Fatigue (R53.83) Active confirmed Problem Dyspnea (978757606) Dyspnea (R06.00) Active confirmed Problem Sleep apnea (65565984) Sleep apnea (G47.30) Active confirmed Problem Eczema (32280263) Eczema (L30.9) Active confirmed Problem Arthralgia of the pelvic region and thigh (799912326) Right hip pain (M25.551) Active confirmed Problem Seasonal allergic rhinitis (077698282) Seasonal allergic reaction (J30.2) Active confirmed Problem 306735746 Benign prostatic hyperplasia with lower urinary tract symptoms (N40.1) Active confirmed Vital Signs Heart Rate 100 /min 11/18/2024 Oximetry 93 % 11/18/2024 Blood pressure diastolic 84 mm Hg 11/18/2024 Height 72 in 11/18/2024 Blood pressure systolic 128 mm Hg 11/18/2024 Weight 211.4 lbs 11/18/2024 BMI 28.67 kg/m2 11/18/2024 Procedures Procedure Date Ordered Date Performed Result Body Sit e Sleep study - Diagnostic Polysonogram 09/30/2024 N/A Sleep study - Diagnostic Polysonogram 11/18/2024 N/A Sleep Study: Retitration BIPAP/CPAP 11/18/2024 N/A Encounters Encounter Location Date Provider Diagnosis [facility] [address] [place] [address] 12/11/[address] [place] [address] [facility] [address] [place] [address] 12/12/[address] [place] [address] [facility] [address] [facility] [place] [address] 01/11/[address] [place] [address] [facility] [address] [facility] [place] [address] 09/29/[address] [place] [address] [facility] [address] [facility] [place] [address] 10/01/2024 [place] [facility] [address] [facility] [place] [address] 10/02/[address] [place] [address] [facility] [address] [facility] [place] [address] 10/02/[address] [place] [address] [facility] [address] [facility] [place] [address] 11/18/2024 [place] [facility] [address] [facility] [place] [address] 09/30/2024 [place] Dyspnea R06.00 ; Xin st pain R07.9 ; Fatigue R53.83 ; Sleep apnea G47.30 ; Tinea corporis B35.4 and History of falling Z91.81 [facility] [address] [facility] [place] [address] 04/29/2024 [place] Tinea corporis B35.4 [place] [address] [facility] [place] [address] 05/27/2024 [place] Eczema L30.9 [place] [address] [facility] [place] [address] 11/18/2024 [place] Chronic obstructive pulmonary disease, unspecified J44.9 ; Sleep apnea G47.30 and History of falling Z91.81 [facility] [address] [facility] [place] [address] 12/11/2023 [place] Right hip pain M25.5 51 ; Chest pain R07.9 ; Fatigue R53.83 and Dyspnea R06.00 Assessments Encounter Date Diagnosis (ICD Code) Assessment Notes Treatment Notes Treatment Clinical Notes Section Notes 12/11/2023 Right hip pain (ICD-10 - M25.551) Nees xray an referral to Dr Mcintosh 12/11/2023 Chest pain (ICD-10 - R07.9) Prgressive - GALE - episode Cp - need stress cardiolyte 04/29/2024 Tinea corporis (ICD-10 - B35.4) 05/27/2024 Eczema (ICD-10 - L30.9) 09/30/2024 Dyspnea (ICD-10 - R06.00) 09/30/2024 Chest pain (ICD-10 - R07.9) had sress test - passed that 11/18/2024 Chronic obstructive pulmonary disease, unspecified (ICD-10 - J44.9) stabel - no longer smoking - uses in halers 11/18/2024 Sleep apnea (ICD-10 - G47.30) needs sleep studya - pause breatibg - snoring - daytime fatigue 11/18/2024 History of falling (ICD-10 - Z91.81) 09/30/2024 Fatigue (ICD-10 - R53.83) 12/11/2023 Fatigue (ICD-10 - R53.83) Needs lba 12/11/2023 Dyspnea (ICD-10 - R06.00) Stresst ests as above 09/30/2024 Sleep apnea (ICD-10 - G47.30) needs repat study - failed in the past 09/30/2024 Tinea corporis (ICD-10 - B35.4) 09/30/2024 History of falling (ICD-10 - Z91.81) Plan Of Treatment Pending Test Test Name Order Date HEMOGLOBIN A1C (GLYCO) 09/30/2024 LIPID PANEL (CHOL/TRIG/HDL/LDL) 10/01/19 25 Sleep study - Diagnostic Polysonogram Sleep study - Diagnostic Polysonogram Sleep Study: Retitration BIPAP/CPAP 10/22 PSA, TOTAL 12/11/2023 Treadmill Stress Test with Nuclear Imagi ng 12/11/2023 THYROID PROFILE WITH TSH 12/11/2023 THYROID PANEL (T4/TSH/FREE T3) 5 XR HIP RT 2 3V W PELVIS 12/11/2023 CMP (COMP MET ESCOBAR) w/eGFR CKD-EPI 2024 CBC WITH DIFF 09/30/2024 Insurance Providers Payer Name Payer Address Payer Phone Subscriber Number Group Number Insured Name Patient Relationship to Insured Coverage Start Date Coverage End Date [employer] ADV PLAN [address] [place] [phone] [id number] [id number]in Benites Self - patient is the insured Medications Administered Medication Instructions Date of Administration Dosage Notes Kenalog-40 11/23/2022 80 mg Medical (General) History Medical History History ICD Code Chest discomfort R07.89 Difficulty attaining erection N52.9 Hematuria, microscopic R31.29 Apnea, sleep G47.30 Arthritis M19.90 Acute insomnia G47.00 Accelerated essential hypertension I10 Diverticulitis K57.92 Kidney stone N20.0 Surgical History Surgery Date(Month/Year) inguinal hernia 2020 right rotator cuff 2015 left knee scope 1998
--- OUTSIDE RECORDS SUMMARY | 2024-11-27 19:37 | XMS_ITS | Clinical Summary ---
[facility] Address [address] [place] [address] Care Team Providers Care Salesperson Men'S Hats Name Role Phone Tino Rice MD Primary Care Provider [phone] Allergies Active Allergy Reactions Criticality Noted Date Comments Codeine Hives Medium 10/07/2020 Environmental/Seasonal Itching Medium 10/22/2014 Sneezing, congestion, itchy, watery eyes, migraine headaches Penicillins Hives,Swelling High 10/22/2014 Primidone Hives 08/03/2023 Medications Naproxen Sodium (ALEVE PO) Take by mouth daily Active Multiple Vitamins-Minera ls (MULTIVITAMIN ADULTS 50+ PO) Take by mouth Active ferrous sulfate (IRON 325) 325 (65 Fe) MG tablet Take 1 tablet by mouth Every Day Active tamsulosin (FLOMAX) 0.4 MG capsuleIndicati ons:BPH with obstruction/low er urinary tract symptoms,Noctur ia Take 1 capsule by mouth every evening 90 capsule 3 08/05/2024 Active diclofenac (VOLTAREN) 75 MG EC tablet Take 1 tablet by mouth 2 times daily Active vitamin B-12 (CYANOCOBALAMIN ) 500 MCG tablet Take 1 tablet by mouth daily Active magnesium 200 MG TABS tablet Take 1 tablet by mouth daily Active docusate sodium (COLACE) 100 MG capsule Take 1 capsule by mouth 2 times daily Active Active Problems Problem Noted Date Diagnosed Date Renal calculus 06/05/2023 Assessment & Plan (06/05/2023 7:56 AM EST): Ureteral calculus 01/18/2023 Nocturia 04/08/2022 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 Right inguinal hernia 02/11/2021 Umbilical hernia without obstruction and without gangrene 02/11/2021 Immunizations Immunization Administration Dates Next Due COVID-19, PFIZER PURPLE top, DILUTE for use, (age 12 y+), 30mcg/0.3mL 08/05/2020,07/14/2020,07/12/2020 Pneumococcal, PCV-13, PREVNA R 13, (age 6w+), IM, 0.5mL 04/29/2022 TDaP, ADACEL (age 10y-64y), BOOSTRIX (age 10y+), IM, 0.5mL 02/28/2024 Family History Medical History Relation Name Comments Diabetes Mother Relation Name Status Comments Mother Social History Tobacco Use Types Packs/Day Years Used Date Smoking Tobacco: Former Cigarettes 0.3 48 1 967 - 2015 Smokeless Tobacco: Current Chew Tobacco Cessation:Ready to Q uit: Not Asked; Counseling Given: Not Answered Alcohol Use Standard Drinks/Week Comments No 0 (1 standard drink = 0.6 oz pure alcohol) drank from ages [age], recovered alcoholic AUDIT-C Answer Date Recorded Q1: How often do you have a drink containing alcohol? Never 02/28/2024 Q2: How many drinks containi ng alcohol do you have on a typical day when you are drinking? Patient does not drink Q3: How often do you have si x or more drinks on one occasion? Never 02/28/2024 Overall Financial Resource Strain (CARDIA) Answe r Date Recorded How hard is it for you to pa y for the very basics like food, housing, medical care, and heating? Not hard at all 04/29/2022 PHQ-2 Answer Date Recorded PHQ-9 Total Score 0 04/29/2022 Exercise Vital Sign Answer Date Recorde d On average, how many days pe r week do you engage in moderate to strenuous exercise (like a brisk walk)? 3 days 04/29/2022 On average, how many minutes do you engage in exercise at this level? 90 min 04/29/2022 Hunger Vital Sign Answer Date Recorded Within the past 12 months, y ou worried that your food would run out before you got the money to buy more. Never true 04/29/20 22 Within the past 12 months, t he food you bought just didn't last and you didn't have money to get more. Never true 04/29/2022 Food Insecurity Answer Date Recorded Within the past 12 months, y ou worried that your food would run out before you got the money to buy more. 1 04/29/2022 Within the past 12 months, t he food you bought just didn't last and you didn't have money to get more. 1 04/29/2022 Interpersonal Safety Domain Source: IP Abuse Scr eening Answer Date Recorded Read-Only, Retired: Physical Abuse Denies 06/15/2023 Read-Only, Retired: Verbal Abuse Denies 06/15/2023 Read-Only, Retired: Emotional abuse Denies 06/15/2023 Read-Only, Retired: Financial Abuse Denies 06/15/2023 Read-Only, Retired: Sexual abuse Denies 06/15/2023 Sex and Gender Information Value Date Recorded Sex Assigned at Not on file Legal Sex Male 8:45 PM EST Gender Identity Not on file Sexual Orientation Not on file Last Filed Vital Signs Vital Sign Reading Time Taken Comments Blood Pressure 128/68 08/05/2024 11:16 AM EDT Pulse 84 02/28/2024 11:21 AM EDT Temperature 36.1 C (96.9 F) 08/05/2024 11:16 AM EDT Respiratory Rate 16 02/28/2024 11:21 AM EDT Oxygen Saturation 97% 02/28/2024 11:21 AM EDT Inhaled Oxygen Concentration - - Weight 96.6 kg (213 lb) 08/05/2024 11:16 AM EDT Height 181.6 cm (5' 11.5 ) 06/15/2023 8:37 AM ES T Body Mass Index 29.29 06/15/2023 8:37 AM EST Plan of Treatment Upcoming Encounters Date Type Department Care Team (Late st Contact Info) Description 08/06/2025 11:30 AM EDT Office Visit [facility] Part of [address] [place] [address] Loc Woo PA-C [address] [place] [address] [address] [place] [address] 1Y KUB, PVR Health Maintenance Due Date Last Done Comments Depression Screen 1966 Hepatitis C screen 1972 FIT/FOBT: Average risk 1999 Fecal-DNA (Cologuard): Average risk 1999 Sigmoidoscopy/CT colonography 1999 Shingles vaccine (1 of 2) 2004 Pneumococcal 50+ years Vaccine (2 of 2 - PPSV23) 04/29/2023 04/29/2022 COVID-19 Vaccine ( - season) 2024 04/20/2021, 08/05/2020, 07/14/2020, Additional history exists Annual Wellness Visit (Medicare Advantage) 05/22/2024 04/29/2022, 04/26/2021 Flu vaccine (#1) 12/20/2024 Lipids 10/13/2025 10/13/2020 Colonoscopy 06/13/2028 06/13/2018 Colorectal Cancer Screen 06/13/2028 Respiratory Syncytial Virus (RSV) or age 60 yrs+ (1 - 1-dose 75+ series) 2029 DTaP/Tdap/Td vaccine (3 - Td or Tdap) 02/27/2034 02/28/2024, 10/13/2020 GFR test (Diabetes, CKD 3-4, OR last GFR 15-59) Discontinued 10/13/2020, 06/25/2018, 05/01/2018, Additional history exists AAA screen Completed 01/14/2023, 12/21, 05/01/2018, Additional history exists Hepatitis A vaccine Aged Out No longe r eligible based on patient's age to complete this topic Hepatitis B vaccine Aged Out No longe r eligible based on patient's age to complete this topic Hib vaccine Aged Out No longer eligi ble based on patient's age to complete this topic Meningococcal (ACWY) vaccine Aged Out No longer eligible based on patient's age to complete this topic Meningococcal B vaccine Aged Out No l onger eligible based on patient's age to complete this topic Polio vaccine Aged Out No longer elig ible based on patient's age to complete this topic Medical Devices Implanted Type Area Hotel Sales Manager Device Identifier Shelf Expiration Date Model / Serial / Lot Mesh Chadwick Juarez [id number] Inguinal Wht Polypr Mfil Implanted:Qty : 1 on 02/11/2021 by Clau Hui DO at [facility] Left: Inguinal BARD DAVOL-WD 08/16/2025 [id number] / / [id number] Stent Uret 6fr L28cm Hydr+ Pgtl Tapr Tip Grad Bldr Mrk Lo - [id number] Implanted:Qty : 1 on 01/19/2023 by Frandy Parra MD at [facility] Right: Ureter [employer]-WD 08/07/2025 [id number] / / [id number] Stent Uret 6fr L28cm Hydr+ Pgtl Tapr Tip Grad Bldr Mrk Lo - [id number] Implanted:Qty : 1 on 06/15/2023 by Frandy Parra MD at [facility] Left: Ureter [employer]-WD 12/01/2025 [id number] / / [id number] Description:String remains i ntact and secured to penis with steri strips and mastisol Procedures Procedure Name Priority Date/Time Associated Diagnosis Comments CT ABDOMEN PELVIS WO CONTRAST Routine 01/14/2023 BASIC METABOLIC PANEL Routine 10/13/2020 Lipid screening Diabetes mellitus screening LIPID PANEL Routine 10/13/2020 Lipid screening COLONOSCOPY Routine 06/13/2018 from Last 3 Months or Most Recently Relevant to Health Maintenance Results * CT ABDOMEN PELVIS WO CONTRAST (01/14/2023) Anatomical Region Laterality Modality Abdomen, Pelvis, Hip Computed To mography us Historical Provider MD SANDOVAL CT ORDERABLES Final R esult * (ABNORMAL) Lipid Panel (10/13/2020) Cholesterol, Total 175 mg/dL HDL 31(A) 35 - 70 mg/dL LDL Calculated 115 0 - 160 mg/dL Triglycerides 144 mg/dL Chol/HDL Ratio VLDL Cholesterol non HDL BLOOD SPECIMEN / Unknown 10/13/2020 Pura Gutierrez INTERPRETER - RADIOTELEGRAPH OPERATOR SERVICER CHEMISTRY ORDERABLES F inal Result * Basic Metabolic Panel (10/13/2020) Sodium 140 mmol/L Chloride 105 mmol/L Potassium 4.2 mmol/L BUN 9 mg/dL Creatinine 0.88 Glucose 108 mg/dL CO2 25.0 mmol/L Calcium 9.7 mg/dL Est, Glom Filt Rate <60 BLOOD SPECIMEN / Unknown 10/13/2020 Pura Gutierrez INTERPRETER - RADIOTELEGRAPH OPERATOR SERVICER CHEMISTRY ORDERABLES F inal Result * HM COLONOSCOPY (06/13/2018) Historical Provider HEALTH MAINTENANCE Final Result from Last 3 Months or Most Recently Relevant to Health Maintenance Insurance Advance Directives * Full Code (Latest Code Status on File) Date Activated Date Inactivated Comments 06/15/2023 8:30 AM 06/15/2023 1:12 PM * Full Code Date Activated Date Inactivated Comments 06/06/2023 6:23 AM 06/06/2023 2:42 PM * Full Code Date Activated Date Inactivated Comments 01/19/2023 6:16 AM 01/19/2023 12:54 PM Care Teams Salesperson Men'S Hats Relationship Specialty Start Date End Date Tino Rice MD [address] [id number] PCP - General Family Medicine 01/16/23
--- OUTSIDE RECORDS SUMMARY | 2024-11-27 19:37 | XMS_ITS | Patient Health Record ---
Author Organization [facility] Address [address] [place] [address] Care Team Providers Care Beam Dyer Name Role Phone Tino Rice Primary Care Provider Lele Sanchez Unavailable [phone] Reason For Referral Diagnosis 1 Right hip pain (M25. 551) Referred Organization [facility] Referred Provider Lele Mcintosh Referred Address [address] [place],[address], Referral Priority Routine Plan Of Treatment No Information Insurance Providers Payer Name Payer Address Payer Phone Subscriber Number Group Number Insured Name Patient Relationship to Insured Coverage Start Date Coverage End Date Medicare [place] [address] [place] [address] [phone] [id number] [id number] Self - patient is the insured
--- OUTSIDE RECORDS SUMMARY | 2024-11-27 19:37 | XMS_ITS | Encounter Summary ---
Author Organization [facility] Address [address] [place], [place] [address] Care Team Providers Care Lead Embedded Software Engineer Name Role Phone Tino Rice MD Primary Care Provider [phone] Neel Monsivais MD Primary Care Provider [phone] Source Comments In the event this information is protected by the Federal Confidentiality of Alcohol and Drug AbusePatient Records regulations: The Federal rules restrict any use of the information to criminally investigate or prosecute any alcohol or drug abuse patient.[facility] Encounter Details Date Type Department Care Team (Late st Contact Info) Description 08/16/2019 Patient Msg Neurology [address] [id number] Shanon Dooley, MOWING MACHINE OPERATOR.HSPT TUTOR [address] [place], [place] [phone] RE: Appointment Request Social History Tobacco Use Types Packs/Day Years Used Date Smoking Tobacco: Former Cigarettes 1.5 44 0 01/19/1966 - 01/19/2010 Smokeless Tobacco: Current Chew Alcohol Use Standard Drinks/Week Comments No 0 (1 standard drink = 0.6 oz pure alcohol) 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 PHQ-2 Answer Date Recorded PHQ-2 Score 2 08/01/2019 Sex and Gender Information Value Date Recorded Sex Assigned at Not on file Legal Sex Male 9:56 AM EST Gender Identity Not on file Sexual Orientation Not on file documented as of this encounter Functional Status * Are you deaf or do you have serious difficulty hearing? Answer Date of Assessment Author No 06/10/2015 9:36 AM Carter Infante RN * Are you blind or do you have serious difficulty seeing, even when wearing glasses? Answer Date of Assessment Author No 06/10/2015 9:36 AM Carter Infante RN * Do you have serious difficulty walking or climbing stairs? Answer Date of Assessment Author No 06/10/2015 9:36 AM Carter Infante RN * Do you have difficulty dressing or bathing? Answer Date of Assessment Author No 06/10/2015 9:36 AM Carter Infante RN * Because of a physical, mental, or emotional condition, do you have difficulty doing errands alone such as visiting a doctor's office or shopping? Answer Date of Assessment Author No 06/10/2015 9:36 AM Carter Infante RN documented as of this encounter Mental Status * Because of a physical, mental, or emotional condition, do you have serious difficulty concentrating, remembering, or making decisions? Answer Entry Date Author No 06/10/2015 9:36 AM Carter Infante RN documented in this encounter Plan of Treatment Not on file documented as of this encounter Visit Diagnoses Not on filedocumented in this encounter Care Teams Lead Embedded Software Engineer Relationship Specialty Start Date End Date Tino Rice MD PCP - General 01/15/15 03/22/21 Neel Monsivais MD [address] [place] [address] [place] [address] PCP - General Internal Medicine 03/23/21 documented as of this encounter
--- OUTSIDE RECORDS SUMMARY | 2024-11-27 19:37 | XMS_ITS | Encounter Summary ---
Author Organization [facility] Address [address] [place], [place] [id number] Care Team Providers Care Casino Worker Name Role Phone Fermin Santo MD Primary Care Provide r Tino Rice MD Primary Care Provider [phone] Neel Monsivais MD Primary Care Provider [phone] Source Comments In the event this information is protected by the Federal Confidentiality of Alcohol and Drug AbusePatient Records regulations: The Federal rules restrict any use of the information to criminally investigate or prosecute any alcohol or drug abuse patient.[facility] Encounter Details Date Type Department Care Team (Latest Contact Info) Description 11/28/2002 Prob Sum Review Provider, Sabina Social History Tobacco Use Types Packs/Day Years Used Date Smoking Tobacco: Never Assessed Sex and Gender Information Value Date Recorded Sex Assigned at Not on file Legal Sex Male 9:56 AM EST Gender Identity Not on file Sexual Orientation Not on file documented as of this encounter Plan of Treatment Not on file documented as of this encounter Visit Diagnoses Not on filedocumented in this encounter Care Teams Casino Worker Relationship Specialty Start Date End Date Fermin Santo MD [address] [facility] [address] [place] [address] PCP - General Orthopedics 08/11/14 01/14/15 Tino Rice MD [address] [facility] [address] [place] [address] PCP - General 01/15/15 03/22/21 Neel Monsivais MD [address] [place] [address] [place] [address] PCP - General Internal Medicine 03/23/21 documented as of this encounter
--- OUTSIDE RECORDS SUMMARY | 2024-11-27 19:37 | XMS_ITS | Encounter Summary ---
Author Organization [facility] Address [address] [place] [address] Care Team Providers Care Websphere Administrator Name Role Phone Tino Rice MD Primary Care Provider [phone] Neel Monsivais MD Primary Care Provider [phone] Source Comments In the event this information is protected by the Federal Confidentiality of Alcohol and Drug AbusePatient Records regulations: The Federal rules restrict any use of the information to criminally investigate or prosecute any alcohol or drug abuse patient.[facility] Encounter Details Date Type Department Care Team (Late st Contact Info) Description 01/24/2017 Get Medical Advice Vascular Medicine [address] [facility] [address] [place] [address] [place] [address] RE: Test Result Question Social History Tobacco Use Types Packs/Day Years Used Date Smoking Tobacco: Former Cigarettes 1.5 44 0 01/19/1966 - 01/19/2010 Smokeless Tobacco: Current Chew Alcohol Use Standard Drinks/Week Comments No 0 (1 standard drink = 0.6 oz pure alcohol) 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 Sex and Gender Information Value Date Recorded Sex Assigned at Not on file Legal Sex Male 9:56 AM EST Gender Identity Not on file Sexual Orientation Not on file documented as of this encounter Functional Status * Are you deaf or do you have serious difficulty hearing? Answer Date of Assessment Author No 06/10/2015 9:36 AM Lisa Infante RN * Are you blind or [...] on filedocumented in this encounter Care Teams Websphere Administrator Relationship Specialty Start Date End Date Tino Rice MD PCP - General 01/15/15 03/22/21 Neel Monsivais MD [address] [place] [address] [place] [address] PCP - General Internal Medicine 03/23/21 documented as of this encounter
--- OUTSIDE RECORDS SUMMARY | 2024-11-27 19:37 | XMS_ITS | Encounter Summary ---
Author Organization [facility] Address [address] [place] [address] Care Team Providers Care Security Sergeant Name Role Phone Neel Monsivais MD Primary Care Provider [phone] Source Comments In the event this information is protected by the Federal Confidentiality of Alcohol and Drug AbusePatient Records regulations: The Federal rules restrict any use of the information to criminally investigate or prosecute any alcohol or drug abuse patient.[facility] Encounter Details Date Type Department Care Team (Late st Contact Info) Description 06/23/2022 Get Medical Advice Neurology [address] [address] Shannon Harper, TILE DITCHER.CONTINUOUS IMPROVEMENT COACH [address] [place] [address] Monitor Social History Tobacco Use Types Packs/Day Years Used Date Smoking Tobacco: Former Cigarettes 1.5 44 0 01/19/1965 - 01/19/2009 Smokeless Tobacco: Current Chew Alcohol Use Standard Drinks/Week Comments No 0 (1 standard drink = 0.6 oz pure alcohol) 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 PHQ-2 Answer Date Recorded PHQ-2 score 0 06/21/2022 Area Deprivation Index Answer Date Ran rded National Score (1-100), lower number is lower ri sk 71 06/17/2022 State Score (1-10), lower number is lower risk N ot on file 06/17/2022 Data from: https://www.neighborhoodatlas.medicine.[facility]/. Last address used for calculation [address] 06/17/2022 Sex and Gender Information Value Date Recorded [...] on filedocumented in this encounter Care Teams Security Sergeant Relationship Specialty Start Date End Date Neel Monsivais MD [address] [place] [address] [place] [id number] PCP - General Internal Medicine 03/23/21 documented as of this encounter
--- OUTSIDE RECORDS SUMMARY | 2024-11-27 19:38 | XMS_ITS | Clinical Summary ---
Author Organization [facility] Address [address] [place], [place] [id number] Care Team Providers Care Polymerization Oven Tender Name Role Phone Neel Monsivais MD Primary Care Provider [phone] Allergies Active Allergy Reactions Criticality Noted Date Comments Codeine GI Upset 06/09/2015 Penicillins Hives,Swelling 10/22/2014 Primidone Unknown Low 12/13/2019 Seasonal Allergies Other: See Comments 10/23/19 15 Sneezing, congestion, itchy, watery eyes, migraine headaches Medications * This document contains information received from the source organization and may not represent a complete record from that organization. magnesium oxide 400 mg magnesium tab Take by mouth twice daily. Active cyanocobalamin (VITAMIN B-12) 1,000 mcg tab Take 1,000 mcg by mouth once daily. Active FOLIC ACID ORAL Take 1,000 mcg by mouth once daily. Active cholecalciferol, vitamin D3, (VITAMIN D3 ORAL) Take 25 mcg by mouth three times daily. Active cetirizine HCl/pseudoephedr ine (ALLERGY D-12 ORAL) Take by mouth. Active docusate sodium (STOOL SOFTENER ORAL) Take by mouth. Active tamsulosin (FLOMAX) 0.4 mg Take 0.4 mg by mouth once daily. 06/07/2022 Active Multivitamins-Mi nerals-Lutein (MULTIVITAMIN 50 PLUS) tab Take 1 tablet by mouth once daily. Active Active Problems Problem Noted Date Diagnosed Date EMILIANA (obstructive sleep apnea) 04/12/2021 Assessment & Plan (04/12/2021 12:55 PM EST): Does not use CPAP. Former tobacco use 04/12/2021 Assessment & Plan (04/12/2021 12:58 PM EST): Quit in 2008. 66+ pack year history. Heat exhaustion 07/09/2018 Diverticulitis 06/07/2018 S/P deep brain stimulator placement 08/02/2016 Assessment & Plan (04/12/2021 12:55 PM EST): Essential tremor s/p deep brain stimulator placement. Arthritis 01/19/2016 BPH (benign prostatic hyperplasia) 02/26/2015 Intracranial aneurysm 12/25/2014 Assessment & Plan (04/12/2021 1:08 PM EST): Per Epic, most recent imaging 2016. Essential tremor 10/22/2014 Immunizations Immunization Administration Dates Next Due COVID-19 original vaccine, a ge 12+ yr, monovalent (EverCloud - PURPLE TOP) 08/05/2020,07/14/2020 Family History Medical History Relation Comments None Brother 1 Stroke Brother 2 Low Potassium Cancer Father lung cancer Diabetes Maternal Aunt 1 Diabetes Maternal Aunt 2 Cancer Mother uterine Coronary Artery Disease Mother in her 7 0s Diabetes Mother Other Other no family histor y of tremor Thyroid Sister Alzheimer's Disease No Family History Anesthesia Problems No Family History Aneurysm No Family History Auto-Immune Disorder No Family History Bipolar disorder No Family History Blood Disease No Family History DVT No Family History Dementia No Family History Essential Tremor No Family History Factor 5 Leiden No Family History Heart disease No Family History Hyperlipidemia No Family History Hypertension No Family History Multiple Sclerosis No Family History Parkinson s Disease No Family History Schizophrenia No Family History Systemic Lupus Erythematosus No Family History Relation Status Comments Brother 1 Brother 2 Father Maternal Aunt 1 Alive Maternal Aunt 2 Alive Mother Other Sister Social History Tobacco Use Types Packs/Day Years Used Date Smoking Tobacco: Former Cigarettes 1.5 44 0 01/19/1965 - 01/19/2009 Smokeless Tobacco: Current Chew Tobacco Cessation:Ready to Q uit: Not Asked; Counseling Given: Not Answered Alcohol Use Standard Drinks/Week Comments No 0 (1 standard drink = 0.6 oz pure alcohol) 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 PHQ-2 Answer Date Recorded PHQ-2 score 1 06/04/2024 Area Deprivation Index Answer Date Ran rded National Score (1-100), lower number is lower ri sk 78 09/22/2022 State Score (1-10), lower number is lower risk 7 09/22/2022 Data from: https://www.neighborhoodatlas.[facility]/. Last address used for calculation [address] 09/22/2022 Sex and Gender Information Value Date Recorded Sex Assigned at Not on file Legal Sex Male 9:56 AM EST Gender Identity Not on file Sexual Orientation Not on file Last Filed Vital Signs Vital Sign Reading Time Taken Comments Blood Pressure 145/74 06/04/2024 12:45 PM EST Pulse 87 06/04/2024 12:45 PM EST Temperature 36.2 C (97.2 F) 04/16/2021 10:35 AM EST Respiratory Rate 16 04/16/2021 10:3 5 AM EST Oxygen Saturation 98% 06/04/2024 12: 45 PM EST Inhaled Oxygen Concentration - - Weight 96.1 kg (211 lb 13.8 oz) 025 12:45 PM EST Height 180.3 cm (5' 11 ) 06/04/2024 12: 45 PM EST Body Mass Index 29.55 06/04/2024 12:45 PM EST Plan of Treatment Health Maintenance Due Date Last Done Comments Abdominal Aortic Aneurysm Screening 1954 Anxiety Screening 1972 Depression Screening 1972 Hepatitis C Screening [address] Colonography 1999 Cologuard (FIT-DNA) 1999 Colonoscopy 1999 Colorectal Cancer Screening 1999 Fecal Occult Blood 1999 Sigmoidoscopy 1999 Shingrix Vaccine (1 of 2) 2004 Covid-19 Vaccine (2023-2 5 season) 2024 04/20/2021, 08/05/2020, 07/14/2020, Additional history exists Diabetes Screening 04/12/2024 04/12/2021, 0 12/03/2018, 06/25/2018, Additional history exists Advance Directive Discussion 05/22/2024 Medicare Advantage Annual We llness Visit 05/22/2024 Influenza Vaccine (#1) 2025 03/14/2017 Pneumococcal Vaccine: 50+ (3 of 3 - PCV20 or PCV21) 04/29/2027 04/29/2022, 03/30/2014 RSV Vaccine (1 - 1-dose 75+ series) 2029 DTaP,Tdap,Td Vaccine (3 - Td or Tdap) 02/27/2034 02/28/2024, 10/13/2020 Medical Devices Implanted Type Area Management Information Systems Director Device Identifier Shelf Expiration Date Model / Serial / Lot Stretch-Coil Dbs Extension 60 - [id number] Implanted:Qty: 1 on 02/04/2015 at [facility] Implant [employer] 12/17/2018 [id number] / [id number] 2V / Extension Dbs 3.8-1.3mm 1.5mm Standard 60cm Neurostimulator Quadripolar - [id number] Implanted:Qty: 1 on 06/17/2015 at [facility] Implant Right: Head - Cranial [employer] 05/13/2019 [id number] / [id number] 2V / Kit Adapter 2x4 Pocket New Replacement Neurostimulator Sterile - [id number] Implanted:Qty: 1 on 12/10/2018 by Wu Hernandez MD at [facility] Implant [employer] [id number] / / Description:[id number] Lead Nrstm 40cm Actv Dbs - [id number] Implanted:Qty: 1 on 01/28/2015 at [facility] Lead Left: Head - Cerebrum [employer] 10/06/2018 [id number] / / [id number] Description:Stimloc [place] Hol e cover Lot#[id number]; Exp Kit Activa Dbs Stimloc Straight Cylinder Tungsten 40cm 1.5mm - [id number] Implanted:Qty: 1 on 06/09/2015 at [facility] Lead Right: Head - Cranial [employer] 02/24/2018 [id number] / / [id number] Description:Medtronic Stimlo c [place] Hole Cover: Lot#[id number] Exp 02-24-2018 Neurostimulator Activa Rc 10.5-V 2-250hz 2.2inx2.2in .4in Implantable 2 - [id number] Implanted:Qty: 1 on 12/10/2018 by Wu Hernandez MD at [facility] Lead Left: Chest [employer] 12/16/2018 [id number] / [id number] [id number] / Ipg Activa Sc Dbs Coil Extn - [id number] Implanted:Qty: 1 on 02/04/2015 at [facility] Neurostimulator [employer] 06/18/2016 [id number] / [id number] 7H / Neurostimulator Activa Sc 0-10.5v 2-250hz 0-25.5ma 2.4inx2.2in .4in - [id number] Implanted:Qty: 1 on 06/17/2015 at [facility] Neurostimulator Right: Chest Wall [employer] 10/02/2016 [id number] / [id number] 5H / Neurostimulator Activa Rc 10.5-V 2-250hz 2.2inx2.2in .4in Implantable 2 - [id number] Implanted:Qty: 1 on 04/16/2021 at [facility] Neurostimulator Right: Chest [employer] 12/02/2021 [id number] / [id number] 1H / Kit Restore Neurostimulator Closed Extension Boot Octapolar In Line Plug - [id number] Implanted:Qty: 1 on 04/16/2021 at [facility] Neurostimulator Right: Chest [employer] 10/06/2024 [id number] / / [id number] Procedures Procedure Name Priority Date/Time Associated Diagnosis Comments BASIC METABOLIC PANEL Routine 04/12/2021 1:55 PM EST Essential tremor from Last 3 Months or Most Recently Relevant to Health Maintenance Results * BASIC METABOLIC PNL (04/12/2021 1:55 PM EST) [facility] Glucose 98 74 - 99 mg/dL 04/12/2021 11:17 PM EST [facility] Comment: The [place] Diabetes Association (ADA) provides guidance for cutoff values for fasting glucose and random glucose. The ADA defines fasting as no caloric intake for at least 8 hours. Fasting plasma glucose results between 100 to 125 mg/dL indicate increased risk for diabetes (prediabetes). Fasting plasma glucose results greater than or equal to 126 mg/dL meet the criteria for diagnosis of diabetes. In the absence of unequivocal hyperglycemia, results should be confirmed by repeat testing. In a patient with classic symptoms of hyperglycemia or hyperglycemic crisis, random plasma glucose results greater than or equal to 200 mg/dL meet the criteria for diagnosis of diabetes. Reference: Standards of Medical Care in Diabetes 2016, [place] Diabetes Association. Diabetes Care. 2016.39(Suppl 1). BUN 14 9 - 24 mg/dL 04/12/2021 11:17 PM [facility] Creatinine 0.93 0.73 - 1.22 mg/dL 04/12/2021 11:17 PM [facility] Sodium 137 136 - 144 mmol/L 04/12/2021 11:17 PM [facility] Potassium 4.3 3.7 - 5.1 mmol/L 04/12/2021 11:17 PM [facility] Chloride 100 97 - 105 mmol/L 04/12/2021 11:17 PM [facility] CO2 26 22 - 30 mmol/L 04/12/2021 11:17 PM [facility] Anion Gap 11 9 - 18 mmol/L 04/12/2021 11:17 PM [facility] Calcium 9.9 8.5 - 10.2 mg/dL 04/12/2021 11:17 PM [facility] eGFR- >60 04/12/2021 11:17 PM [facility] Comment: Note: On 07/17/2021, the eGFR calculation will be updated to the NKF-ASN Task Force recommended 2020 CKD-EPI creatinine equation which does not include a race variable. For more information or to access a 2020 CKD-EPI calculator, visit the National Kidney Foundation website at kidney.org/professionals/kdoqi/gfr_calculator. eGFR-All Other Races >60 . 04/12/2021 11:17 PM [facility] Comment: eGFR (Estimated GFR) Units of measure: mL/min/1.73 meters squared eGFR is derived from the reexpressed MDRD Study equation using the following parameters: serum creatinine, age, gender and race. The creatinine assay has been calibrated to be traceable to IDMS. An eGFR <60 mL/min/1.73m2 for >3 months is consistent with chronic kidney disease. Refer to KDOQI guidelines for clinical interpretation. In patients with unstable renal function, e.g. those with acute kidney injury, the eGFR may not accurately reflect actual GFR. Note: On 07/17/2021, the eGFR calculation will be updated to the NKF-ASN Task Force recommended 2020 CKD-EPI creatinine equation which does not include a race variable. For more information or to access a 2020 CKD-EPI calculator, visit the National Kidney Foundation website at kidney.org/professionals/kdoqi/gfr_calculator. Blood OTHER / Unknown 04/12/2021 1 :55 PM EST 04/12/2021 1:57 PM EST us Nathaniel Cain PA-C LABORATORY Final Result [facility] [address] [place] [address] [facility] [address] [place] [address] from Last 3 Months or Most Recently Relevant to Health Maintenance Insurance [facility] [employer] MEDICARE ADVANTAGE PPO Care Teams Polymerization Oven Tender Relationship Specialty Start Date End Date Neel Monsivais MD [address] [place] [address] [place] [id number] PCP - General Internal Medicine 03/23/21
--- OUTSIDE RECORDS SUMMARY | 2024-11-27 19:38 | XMS_ITS | Encounter Summary ---
Author Organization [facility] Address [address] [place] [address] Care Team Providers Care Non Profit Job Titles Name Role Phone Tino Rice MD Primary Care Provider [phone] Neel Monsivais MD Primary Care Provider [phone] Source Comments In the event this information is protected by the Federal Confidentiality of Alcohol and Drug AbusePatient Records regulations: The Federal rules restrict any use of the information to criminally investigate or prosecute any alcohol or drug abuse patient.[facility] Encounter Details Date Type Department Care Team (Late st Contact Info) Description 12/10/2018 [id number] [address] [place] [address] Wu Hernandez MD [address] [place] [address] Social History Tobacco Use Types Packs/Day Years [...] on filedocumented in this encounter Care Teams Non Profit Job Titles Relationship Specialty Start Date End Date Tino Rice MD PCP - General 01/15/15 03/22/21 Neel Monsivais MD [address] [place] [address] [place] [address] PCP - General Internal Medicine 03/23/21 documented as of this encounter
--- OUTSIDE RECORDS SUMMARY | 2024-11-27 19:38 | XMS_ITS | Clinical Summary ---
Author Organization [facility] Address [address] [facility] [place] [address] Care Team Providers Care Residential Glazier Name Role Phone Unavailable Primary Care Provider Unavailabl e Social History Tobacco Use Types Packs/Day Years Used Date Smoking Tobacco: Never Assessed Sex and Gender Information Value Date Recorded Sex Assigned at Not on file Legal Sex Male 7:11 PM EDT Gender Identity Not on file Sexual Orientation Not on file Plan of Treatment Not on file
--- OUTSIDE RECORDS SUMMARY | 2024-11-27 19:38 | XMS_ITS | Encounter Summary ---
Author Organization [facility] Address [address] [place] [address] Care Team Providers Care Integrated Logistics Support Manager Name Role Phone Tino Rice MD Primary Care Provider [phone] Encounter Details Date Type Department Care Team (Late st Contact Info) Description 01/16/2023 Orders Only [facility] Part of [address] [place] [phone] Provider, MD Beatriz Social History Tobacco Use Types Packs/Day Years Used Date Smoking Tobacco: Former Cigarettes 0.3 48 1 967 - 2014 Smokeless Tobacco: Current Chew Alcohol Use Standard Drinks/Week Comments No 0 (1 standard drink = 0.6 oz pure alcohol) drank from ages [age], recovered alcoholic Overall Financial Resource Strain (CARDIA) Answe r [...] have money to get more. 1 04/29/2022 Sex and Gender Information Value Date Recorded Sex Assigned at Not on file Legal Sex Male 8:45 PM EST Gender Identity Not on file Sexual Orientation Not on file documented as of this encounter Plan of Treatment Upcoming Encounters Date Type Department Care Team (Late st Contact Info) Description 08/06/2025 11:30 AM EDT Office Visit [facility] Part of [address] [place] [address] Loc Woo, PALeonardC [address] [place] [address] [address] [place] [address] 1Y KUB, PVR documented as of this encounter Procedures Procedure Name Priority Date/Time Associated Diagnosis Comments CT ABD AND PELVIS WO CONTRAST Routine 01/14/2023 URINALYSIS Routine 01/14/2023 CBC Routine 01/14/2023 BASIC METABOLIC PANEL Routine 01/14/2023 documented in this encounter Results * Basic Metabolic Panel (01/14/2023) BLOOD SPECIMEN / Unknown Historical Provider CHEMISTRY ORDERABLES Chrissy l Result * Urinalysis (01/14/2023) Historical Provider URINE ORDERABLES Final Re sult * CBC (01/14/2023) BLOOD SPECIMEN / Unknown Historical Provider HEMATOLOGY ORDERABLES Fin al Result * CT Abd and Pelvis WO Contrast (01/14/2023) Anatomical Region Laterality Modality Computed Tomogra phy us Historical Provider MD SANDOVAL CT ORDERABLES Final R esult documented in this encounter Visit Diagnoses Not on filedocumented in this encounter Additional Health Concerns Assessment Noted Time A fall risk assessment has been complete d for the patient 04/29/2022 12:54 PM EST A Body Mass Index follow-up plan has been documented for the patient 08/17/2022 9:30 AM EDT documented as of this encounter Care Teams Integrated Logistics Support Manager Relationship Specialty Start Date End Date Tino Rice MD [address] [place] [address] PCP - General Family Medicine 01/16/23 documented as of this encounter
--- OUTSIDE RECORDS SUMMARY | 2024-11-27 19:38 | XMS_ITS | Encounter Summary ---
Author Organization [facility] Address [address] [place] [address] Care Team Providers Care Station Chief Name Role Phone Tino Rice MD Primary Care Provider [phone] Encounter Details Date Type Department Care Team (Late st Contact Info) Description 01/17/2023 Orders Only [facility] Part of [address] [place] [phone] Provider, MD Beatriz Social History Tobacco Use [...] Description 08/06/2025 11:30 AM EDT Office Visit [facility] Part of [address] [place] [address] Loc Woo, PALeonardC [address] [place] [address] [address] [place] [address] 1Y KUB, PVR documented as of this encounter Procedures Procedure Name Priority Date/Time Associated Diagnosis Comments CT ABDOMEN PELVIS WO CONTRAST Routine 01/14/2023 documented in this encounter Results * CT ABDOMEN PELVIS WO CONTRAST (01/14/2023) Anatomical Region Laterality Modality Abdomen, Pelvis, Hip Computed To mography Historical Provider MD SANDOVAL CT ORDERABLES Final [...] documented as of this encounter Care Teams Station Chief Relationship Specialty Start Date End Date Tino Rice MD [address] [place] [address] PCP - General Family Medicine 01/16/23 documented as of this encounter
--- OUTSIDE RECORDS SUMMARY | 2024-11-27 22:18 | XMS_ITS | CCD ---
Author Organization [facility] Care Team Providers Care Residential Program Manager Name Role Phone Karlene Rice Primary Care Provider [phone] KARLENE RICE Attending Unavailable KARLENE RICE Admitting Unavailable KARLENE RICE Attending Unavailable KARLENE RICE Admitting Unavailable KARLENE RICE Primary Care Unavailable KARLENE RICE Consulting Unavailable IVY BRITT V Consulting Unavailable Brenda ACCOUNTS ADJUSTABLE CLERK - BENCH ASSEMBLER OPERATOR, Pura Primary Care Provider Felicia Maria MD Primary Care Provider Felicia Maria Primary Care Provider Felicia Maria Primary Care Provider [phone] Karlene Rice Primary Care Physician Karlene Rice MD Primary Care Provider [phone] Fermin VAUGHAN Attending Unavailable Fermin VAUGHAN Attending Unavailable Fermin VAUGHAN Attending Unavailable eFlicia Maria MD Primary Care Provider [phone] FELICIA MARIA Primary Care Unavailable PORTIA HURD [...] to drug 5 Hives, Swelling, Weal (disorder) [place] (11 sources) Seasonal allergy Propensity to adverse reactions to substance 5 Itching [place], [place] (4 sources) Codeine; Translations: [codeine] Drug Allergy 6 [facility] Repository (2 sources) Penicillin Drug Allergy [facility] Repository (3 sources) Primidone; Translations: [PRIMIDONE] Drug Allergy 0 [facility] Repository (20 sources) Codeine; Translations: [codeine] Drug Allergy 6 Hives, GI Upset, Nausea (finding) [facility] Work Phone: (15 sources) Penicillins Drug Allergy 5 Hives, Swelling [facility] (17 sources) Primidone; Translations: [primidone] Drug Allergy 0 Unknown, Weal (disorder), Hives [facility] Work Phone: (11 sources) Seasonal allergy; Translations: [SEASONAL ALLERGIES] Allergy to substance 5 Other: See Comments [facility] (1 source) Primidone; Translations: [Mysoline] Drug Allergy [facility] Repository Medications Current Medications Medication Drug Class(es) [...] Comment on above: Take 1,000 mcg by [facility] once daily. lisinopril 40 mg oral tablet [...] Refill(s) 0 Start Date: 01/04/23 Status: Ordered Icbripcbbogxn-Qpjwacxo-J utein (MULTIVITAMIN 50 PLUS) tab (5 sources) [...] Comment on above: Take 1,000 mcg by [facility] once daily. Completed/Discontinued Medications Medication Drug Class(es) [...] on above: Take 2 tablets by mo azh every 6 hours as needed for pain. [...] Jagdish Miles MD 08/07/24 Final result Normal [facility] XR Abdomen Single viewon 1. Nonobstructive bowel gas pattern. 2. Punctate left renal calculi. [facility] CONSOLIDATED EXAMINATION: ONE SUPINE XRAY VIEW(S) OF THE ABDOMEN 08/05/2024 11:02 am COMPARISON: 08/03/2023. HISTORY: ORDERING SYSTEM PROVIDED HISTORY: Kidney stones FINDINGS: The bowel gas pattern is nonspecific and nonobstructive. No abnormally dilated loops of bowel are seen. There are punctate calcifications involving the left kidney measuring up 2 mm and not significantly changed. [facility] Jagdish Miles MD - 08/07/2024 EXAMINATION: [...] gas pattern. 2. Punctate left renal calculi. [employer] [facility] XR Abdomen Single viewOrdere d By: Jagdish Miles on 08-07-2024 [facility] Work Phone: XR Abdomen Single viewon Radiology Study observation (narrative) [facility] CNOVon 06-04-2024 CNOV Office Visit (NRMDN) SEPIDEH CASEY ([id number]) 1955 M Date Time Provider Department 06/04/24 1:00 PM PORTIA HURD NRMDN During your visit today, we recorded the following information about you: Pulse Blood pressure Weight Height 87/minute 145/74 96.1 kg 1.803 m Portia Hurd, ACCOUNTS ADJUSTABLE CLERK.BENCH ASSEMBLER OPERATOR 06/04/2024 1:47 PM Signed [facility] - FOLLOW UP EVALUATION Felicia Maria MD, [address] [place] [address] [place] [address] Dear Felicia Maria MD, MD: I had [...] normal development, well-kept Movement Disorders Scales Performed: Kucs-Crvywb-Tgrak Tremor Scale Medication OFF/ON Time of Assessment [...] tremulous. May (more content not included)... Normal [facility] XR FINGER LEFT (MIN 2 VIEWS) on [...] Chavo Winters MD 02/28/24 Final result Normal [facility] XR Finger - left 2 Viewson 1 Interval removal of nail from the thumb. No evidence of bony injury. [facility] RIS CONSOLIDATED EXAMINATION: THREE XRAY VIEWS OF THE LEFT 1st FINGERS 02/28/2024 12:06 pm COMPARISON: 02/28/2024, 11:24 a.m. HISTORY: ORDERING SYSTEM PROVIDED HISTORY: nail removal TECHNOLOGIST PROVIDED HISTORY: Post nail removal nail removal Specify which digit to image->First (Thumb/Great Toe) FINDINGS: Previously noted nail has been removed from the thumb. There is no evidence of any bony injury or fractures. [facility] CON[facility] Chavo Winters MD - 02/28/2024 [...] the thumb. No evidence of bony injury. [facility] Radiology Study observation (narrative) [facility] XR Finger - left 2 ViewsOrde red By: Chavo Winters on 02-28-2024 [facility] [employer] [facility] [employer] Work Phone: XR HAND LEFT (MIN 3 [...] Judith Duval MD 02/28/24 Final result Normal [facility] XR Hand - left 3 Viewson Nail through the 1st digit overlapping the distal aspect of the 1st proximal phalanx. [facility] CONSOLIDATED EXAMINATION: THREE XRAY VIEWS OF THE LEFT HAND 02/28/2024 11:29 am COMPARISON: None. HISTORY: ORDERING SYSTEM PROVIDED HISTORY: pain TECHNOLOGIST PROVIDED HISTORY: pain FINDINGS: There is a nail through the 1st digit overlapping the distal aspect of the proximal phalanx. The remaining osseous structures are unremarkable. There is diffuse degenerative joint disease. There is soft tissue swelling. [facility] CON[facility] Judith Duval MD - 02/28/2024 [...] distal aspect of the 1st proximal phalanx. [facility] Radiology Study observation (narrative) [facility] XR Hand - left 3 ViewsOrdere d By: Judith Duval on 02-28-2024 [facility] Work Phone: MARSHALLOVon 11-28-2023 CNOV Office Visit (NRMDN) SEPIDEH CASEY ([id number]) 1955 M Date Time Provider Department 11/28/23 1:00 PM PORTIA HURD NRMDN During your visit today, we recorded the following information about you: Pulse Blood pressure Weight Height 72/minute 109/60 93.1 kg 1.803 m Portia Hurd, ACCOUNTS ADJUSTABLE CLERK.[facility] 12/01/2023 11:45 AM Signed [facility] - FOLLOW UP EVALUATION Felicia Maria MD, [address] [place] [address] [address] [facility] [id number] Dear Felicia Maria MD, MD: I had [...] Examination: Neurological Exam Movement Disorders Scales Performed: Anuo-Ybkkuo-Qliqi Tremor Scale Medication OFF/ON ON Time of [...] tremulous. M (more content not included)... Normal [facility] XR Abdomen Single viewon EXAMINATION: ONE SUPINE [...] joints. IMPRESSION 1. Punctate left renal calculi. [facility] Radiology Study observation (narrative) [facility] XR Abdomen Single viewOrdere d By: Orville Todd on 08-03-2023 [facility] Ambulatory Visit Summaryon 0 02-07-2023 Ambulatory [...] Right inguinal hernia Seasonal allergic rhinitis Lis [facility] General Surgery Office/Clini c Noteon 02-07-2023 General [...] (COVID-19) mRNA BNT-162b2 vax 07/12/2020 Recorded Normal [facility] Comment on above: Result Comment: Elec tronically Signed By: ALEXUS CRESPO, Fermin Bergeron\.br\Date and Time Signed: 02/07/23 14:09 EDT Pathology Noteon 02-01-2023 Pathology Note [id number] 0CD:127 Normal [facility] Ambulatory Visit Summaryon 0 01-24-2023 Ambulatory Visit [...] Signed: 01/24/23 14:27 EDT Facesheeton 01-12-2023 Facesheet [id number] 0CD:127 Normal [facility] Ambulatory Visit Summaryon 0 01-11-2023 Ambulatory Visit [...] Bergeron Where: General Surgery Alexus/Brian Rob Normal [facility] Physician Referralon 023 Physician Referral [id number] 0CD:127 Normal [facility] Physician Referralon 023 Physician Referral [id number] 0CD:127 [facility] EKG 12 LeadOrdered By: Shelli Hui on 01-22-2021 Atrial Rate 71 BPM [employer] Phone: P Argillite 39 degrees [employer] Phone: P-R Interval 192 ms [employer] Phone: Q-T Interval 432 ms [employer] Phone: QRS Duration 92 ms [employer] Phone: QTc Calculation (Bazett) 469 ms [employer] Phone: R Argillite 33 degrees [employer] Phone: T Argillite 30 degrees [employer] Phone: Ventricular Rate 71 BPM [employer] Work Phone: Normal sinus rhythm Normal ECG When compared with ECG of 25-JUN-2018 07:09, No significant change was found Confirmed by Alee Rosen MD ([id number]) on 01/22/2021 7:20:39 PM [employer] Phone: U[employer]do, [employer] Incoming E kg Results From [employer] - 01/22/2021 7:20 PM EDT Normal sinus rhythm Normal ECG When compared with ECG of 25-JUN-2018 07:09, No significant change was found Confirmed by Alee Rosen MD ([id number]) on 01/22/2021 7:20:39 PM [employer] Phone: [employer] Phone: CT ABDOMEN PELVIS WO CONTRAS T Additional Contrast? OralOrdered By: Felicia Maria on 01-12-2021 1. No acute intra-abdominal abnormality. 2. Severe diverticulosis. 3. Small fat containing right inguinal hernia. Finding is unchanged since April 2018. 4. Severe atherosclerosis. 5. Nonobstructing nephrolithiasis. [employer] Phone: EXAMINATION: [facility] OF [facility] ABDOMEN AND PELVIS WITHOUT CONTRAST 01/12/2021 [...] present. Compression deformity of L2 is unchanged. [employer] Phone: Ubaldo, [facility] Incoming Radiant Results From [employer] - 01/12/2021 9:39 PM EDT EXAMINATION: CT [...] 2018. 4. Severe atherosclerosis. 5. Nonobstructing nephrolithiasis. [employer] Work Phone: [employer] Work Phone: XR CHEST 2 Von 04-22-2020 [...] IVY BRITT Date: 2020-04-22 11:38 Normal [facility] CT SHOULDER LEFT W CONTRASTo n 02-13-2020 Small full-thickness tear of the distal supraspinatus tendon. Mild partial-thickness tearing of the infraspinatus tendon at the insertion. [employer]- [place], [place] EXAMINATION: CT OF T HE [...] grossly intact. Biceps tendon is grossly intact. [facility] [employer] Incoming Radiant Results From [employer] - 02/13/2020 10:47 AM EDT EXAMINATION: CT [...] of the infraspinatus tendon at the insertion. [facility] [place] [facility]TH[facility] LEFT S&Ion 02-13-2020 Successful fluoroscopic-guided injection of contrast into the left glenohumeral joint for CT arthrogram to follow. [place], [place] EXAMINATION: FLUOROSCOPIC GUIDED LEFT SHOULDER ARTHROGRAM, 02/13/2020 9:47 am COMPARISON: None. HISTORY: ORDERING SYSTEM PROVIDED HISTORY: Pain FLUOROSCOPY DOSE AND TYPE OR TIME AND EXPOSURES: 1.1 minute. No exposures. PROCEDURE: PERINATOLOGY PHYSICIAN: Lele Mckeon Informed consent was obtained and [...] obtained and a sterile bandage was placed. [place], [place] [facility]do, [facility] Incoming Radiant Results From [employer] - 02/13/2020 10:32 AM EDT EXAMINATION: FLUOROSCOPIC GUIDED LEFT SHOULDER ARTHROGRAM, 02/13/2020 9:47 am COMPARISON: None. HISTORY: ORDERING SYSTEM PROVIDED HISTORY: Pain FLUOROSCOPY DOSE AND TYPE OR TIME AND EXPOSURES: 1.1 minute. No exposures. PROCEDURE: PERINATOLOGY PHYSICIAN: Lele Mckeon Informed consent was obtained and [...] glenohumeral joint for CT arthrogram to follow. [place] XR SHOULDER LEFT (MIN 2 VIEW S)on 01-31-2020 No fracture, left AC joint separation or left glenohumeral dislocation. No bony impingement at the left AC joint. [place] EXAMINATION: TWO XRA Y VIEWS OF [...] device is superimposed over the left hemithorax. [place] [employer], [employer] Incoming Radiant Results From [employer] - 01/31/2020 11:20 PM EDT EXAMINATION: TWO [...] bony impingement at the left AC joint. [place] Vital Signs Date Time Vital Sign Value Performing Clinician Facility 06-04-2024 12:45-0500 Body height 180.3 cm Portia Hurd APRN.[facility] Work Phone: [facility] 06-04-2024 12:45-0500 Body mass index (BMI) [Ratio] 29.55 kg/m2 Portia Hurd APRN.[facility] Work Phone: [facility] 06-04-2024 12:45-0500 Body weight 96.1 kg Portia Hurd APRN.[facility] Work Phone: [facility] 06-04-2024 12:45-0500 Diastolic blood pressure 74 mm[Hg] Portia Hurd APRN.BENCH ASSEMBLER OPERATOR Work Phone: [facility] 06-04-2024 12:45-0500 Heart rate 87 /min Portia Hurd APRN.[facility] Work Phone: [facility] 06-04-2024 12:45-0500 SaO2% (BldA) [Mass fraction] 98 % Portia Hurd APRN.[facility] Work Phone: [facility] 06-04-2024 12:45-0500 Systolic blood pressure 145 mm[Hg] Portia Hurd APRN.BENCH ASSEMBLER OPERATOR Work Phone: [facility] 02-28-2024 11:21-0400 Diastolic blood pressure 84 mm[Hg] Royce [facility]ix [facility] 02-28-2024 11:21-0400 Heart rate 84 /min Royce Nix MD Work Phone: [facility] [employer] 02-28-2024 11:21-0400 Respiratory rate 16 /min Royce Nix MD Work [facility]: [facility] [employer] 02-28-2024 11:21-0400 SaO2% (BldA) [Mass fraction] 97 % Royce Nix MD Work Phone: [facility] 02-28-2024 11:21-0400 Systolic blood pressure 115 mm[Hg] Royce Nix MD Work Phone: [facility] [employer] 02-28-2024 11:20-0400 Body temperature 98.4 [degF] Royce Nix MD Work Phone: [facility] [employer] 11-28-2023 12:46-0400 Body height 180.3 cm Portia Hurd APRN.BENCH ASSEMBLER OPERATOR Work Phone: [facility] 11-28-2023 12:46-0400 Body mass index (BMI) [Ratio] 28.63 kg/m2 Portia Hurd APRN.BENCH ASSEMBLER OPERATOR Work Phone: [facility] 11-28-2023 12:46-0400 Body weight 93.1 kg Portia Hurd APRN.BENCH ASSEMBLER OPERATOR Work Phone: [facility] 11-28-2023 12:46-0400 Diastolic blood pressure 60 mm[Hg] Portia Hurd APRN.BENCH ASSEMBLER OPERATOR Work Phone: [facility] 11-28-2023 12:46-0400 Heart rate 72 /min Portia Hurd APRN.BENCH ASSEMBLER OPERATOR Work Phone: [facility] 11-28-2023 12:46-0400 SaO2% (BldA) [Mass fraction] 97 % Portia Hurd APRN.BENCH ASSEMBLER OPERATOR Work Phone: [facility] 11-28-2023 12:46-0400 Systolic blood pressure 109 mm[Hg] Portia Hurd APRN.BENCH ASSEMBLER OPERATOR Work Phone: [facility] 02-01-2023 17:59-0400 Diastolic blood pressure 90 mm[Hg] Christina Soto DO Work Phone: [employer] 02-01-2023 17:59-0400 Systolic blood pressure 149 mm[Hg] Christina Soto DO Work Phone: [employer] 02-01-2023 17:58-0400 Body mass index (BMI) [Ratio] 25.63 kg/m2 Christina Soto DO Work Phone: [employer] 02-01-2023 17:58-0400 Body weight 85.73 kg Christina Soto DO Work Phone: [employer] 02-01-2023 17:57-0400 Body temperature 97.59 [degF] Christina Soto DO Work Phone: [employer] 02-01-2023 17:57-0400 Heart rate 85 /min Christina Soto DO Work Phone: [employer] 02-01-2023 17:57-0400 Respiratory rate 18 /min Christina Soto DO Work Phone: [employer] 02-01-2023 17:57-0400 SaO2% (BldA) [Mass fraction] 100 % Christina Soto DO Work Phone: [employer] 01-11-2023 14:59-0400 Blood Pressure Location Fermin VAUGHAN [facility] 01-11-2023 14:59-0400 Diastolic blood pressure 74 mm[Hg] Fermin VAUGHAN [facility] [place] 01-11-2023 14:59-0400 Heart rate 74 /min Fermin VAUGHAN [facility] 01-11-2023 14:59-0400 Respiratory rate 16 /min Fermin VAUGHAN [facility] 01-11-2023 14:59-0400 Systolic blood pressure 120 mm[Hg] Fermin VAUGHAN [facility] 12-20-2022 13:51-0400 Body height 182.9 cm Portia Hurd ACCOUNTS ADJUSTABLE CLERK.BENCH ASSEMBLER OPERATOR Work Phone: [facility] 12-20-2022 13:51-0400 Body weight 90.31 kg Portia Hurd ACCOUNTS ADJUSTABLE CLERK.BENCH ASSEMBLER OPERATOR Work Phone: [facility] 12-20-2022 13:51-0400 Diastolic blood pressure 62 mm[Hg] Portia Hurd ACCOUNTS ADJUSTABLE CLERK.BENCH ASSEMBLER OPERATOR Work Phone: [facility] 12-20-2022 13:51-0400 Heart rate 89 /min Portia Hurd ACCOUNTS ADJUSTABLE CLERK.BENCH ASSEMBLER OPERATOR Work Phone: [facility] 12-20-2022 13:51-0400 SaO2% (BldA) [Mass fraction] 97 % Portia Hurd ACCOUNTS ADJUSTABLE CLERK.BENCH ASSEMBLER OPERATOR Work Phone: [facility] 12-20-2022 13:51-0400 Systolic blood pressure 122 mm[Hg] Portia Hurd ACCOUNTS ADJUSTABLE CLERK.BENCH ASSEMBLER OPERATOR Work Phone: [facility] 09-22-2022 08:47-0400 Body height 182.9 cm Adam Bhandari MD Work Phone: [facility] 09-22-2022 08:47-0400 Body weight 93.44 kg Adam Bhandari MD Work Phone: [facility] 09-22-2022 08:47-0400 Diastolic blood pressure 71 mm[Hg] Adam Bhandari MD Work Phone: [facility] 09-22-2022 08:47-0400 Heart rate 82 /min Adam Bhandari MD Work Phone: [facility] 09-22-2022 08:47-0400 SaO2% (BldA) [Mass fraction] 97 % Adam Bhnadari MD Work Phone: [facility] 09-22-2022 08:47-0400 Systolic blood pressure 111 mm[Hg] Adam Bhandari MD Work Phone: [facility] 08-02-2022 10:02-0400 Body height 182.9 cm Portia Hurd ACCOUNTS ADJUSTABLE CLERK.BENCH ASSEMBLER OPERATOR Work Phone: [facility] 08-02-2022 10:02-0400 Body weight 96.66 kg Portia Hurd ACCOUNTS ADJUSTABLE CLERK.BENCH ASSEMBLER OPERATOR Work Phone: [facility] 08-02-2022 10:02-0400 Diastolic blood pressure 77 mm[Hg] Portia Hurd ACCOUNTS ADJUSTABLE CLERK.BENCH ASSEMBLER OPERATOR Work Phone: [facility] 08-02-2022 10:02-0400 Heart rate 78 /min Portia Hurd ACCOUNTS ADJUSTABLE CLERK.BENCH ASSEMBLER OPERATOR Work Phone: [facility] 08-02-2022 10:02-0400 SaO2% (BldA) [Mass fraction] 98 % Portia Hurd ACCOUNTS ADJUSTABLE CLERK.BENCH ASSEMBLER OPERATOR Work Phone: [facility] 08-02-2022 10:02-0400 Systolic blood pressure 127 mm[Hg] Portia Hurd ACCOUNTS ADJUSTABLE CLERK.BENCH ASSEMBLER OPERATOR Work Phone: [facility] 06-21-2022 10:07-0500 Body height 182.9 cm Portia Hurd ACCOUNTS ADJUSTABLE CLERK.BENCH ASSEMBLER OPERATOR Work Phone: [facility] 06-21-2022 10:07-0500 Body weight 101.02 kg Portia Hurd ACCOUNTS ADJUSTABLE CLERK.BENCH ASSEMBLER OPERATOR Work Phone: [facility] 06-21-2022 10:07-0500 Diastolic blood pressure 71 mm[Hg] Portia Martinezffer ACCOUNTS ADJUSTABLE CLERK.BENCH ASSEMBLER OPERATOR Work Phone: [facility] 06-21-2022 10:07-0500 Heart rate 87 /min Portia Hurd ACCOUNTS ADJUSTABLE CLERK.BENCH ASSEMBLER OPERATOR Work Phone: [facility] 06-21-2022 10:07-0500 SaO2% (BldA) [Mass fraction] 97 % Portia Hurd ACCOUNTS ADJUSTABLE CLERK.BENCH ASSEMBLER OPERATOR Work Phone: [facility] 06-21-2022 10:07-0500 Systolic blood pressure 115 mm[Hg] Portia Hurd ACCOUNTS ADJUSTABLE CLERK.BENCH ASSEMBLER OPERATOR Work Phone: [facility] 12-14-2021 12:52-0400 Body height 182.9 cm Portia Hurd APRN.BENCH ASSEMBLER OPERATOR Work Phone: [facility] 12-14-2021 12:52-0400 Body weight 96.48 kg Portia Hurd ACCOUNTS ADJUSTABLE CLERK.BENCH ASSEMBLER OPERATOR Work Phone: [facility] 12-14-2021 12:52-0400 Diastolic blood pressure 84 mm[Hg] Portia Hurd ACCOUNTS ADJUSTABLE CLERK.BENCH ASSEMBLER OPERATOR Work Phone: [facility] 12-14-2021 12:52-0400 Heart rate 74 /min Portia Hurd APRN.BENCH ASSEMBLER OPERATOR Work Phone: [facility] 12-14-2021 12:52-0400 SaO2% (BldA) [Mass fraction] 98 % Portia Hurd APRN.BENCH ASSEMBLER OPERATOR Work Phone: [facility] 12-14-2021 12:52-0400 Systolic blood pressure 138 mm[Hg] Portia Hurd APRN.BENCH ASSEMBLER OPERATOR Work Phone: [facility] 02-11-2021 14:00-0400 Diastolic blood pressure 81 mm[Hg] Clau Nazemi DO Work Phone: [employer] Work Phone: 02-11-2021 14:00-0400 Heart rate 87 /min Clau Nazemi DO Work Phone: [employer] Work Phone: 02-11-2021 14:00-0400 Respiratory rate 16 /min Clau Nazemi DO Work Phone: [employer] Work Phone: 02-11-2021 14:00-0400 SaO2% (BldA) [Mass fraction] 97 % Clau Nazemi DO Work Phone: [employer] Work Phone: 02-11-2021 14:00-0400 Systolic blood pressure 131 mm[Hg] Clau Montelongomi DO Work Phone: [employer] Phone: 02-11-2021 11:33-0400 Body temperature 97.59 [degF] Clau Montelongomi DO Work Phone: [employer] Phone: 02-11-2021 07:30-0400 Body height 185.4 cm Clau Nazemi DO Work Phone: [employer] Phone: 02-11-2021 07:30-0400 Body mass index (BMI) [Ratio] 27.44 kg/m2 Clau Montelongomi DO Work Phone: [employer] Phone: 02-11-2021 07:30-0400 Body weight 94.35 kg Clau Montelongomi DO Work Phone: [employer] Phone: 01-31-2020 22:43-0400 BP Diastolic 98 mm[Hg] Mukesh [employer] , [place] 01-31-2020 22:43-0400 BP Systolic 181 mm[Hg] Mukesh [employer] , [place] 01-31-2020 22:38-0400 Body Temperature 96.91 [degF] Mukesh [employer], CT 01-31-2020 22:38-0400 Pulse (Heart Rate) 77 /min [employer], CT 01-31-2020 22:38-0400 Pulse Oximetry 96 % Mukesh [employer] , [place] 01-31-2020 22:38-0400 Respiratory Rate 16 /min Mukesh [employer] [facility] H, CT Encounters Encounter Date Encounter Type Care Provider Facility Start: 08-05-2024 End: 08-07-2024 ambulatory HILLARY WILSON [facility] Start: 08-05-2024 End: 08-07-2024 Subsequent hospital visit by physician Lia Espinoza Dr Room 4 [facility] Radiology Comment on above: Kidney stones Start: 06-04-2024 End: 06-04-2024 ambulatory FELICIA MARIA Facility:[facility] Start: 06-04-2024 End: 06-04-2024 Office outpatient visit 40 minutes Portia Hurd ACCOUNTS ADJUSTABLE CLERK.BENCH ASSEMBLER OPERATOR Work Phone: Neurology Comment on above: Essential tremor Start: 02-28-2024 End: 02-28-2024 Emergency department patient visit Royce Nix MD Work Phone: [facility] ED Comment on above: Puncture wound of le ft thumb, initial encounter (Primary Dx); Foreign body of skin of left thumb Start: 11-28-2023 End: 11-28-2023 ambulatory PORTIA HURD Facility:[facility] Start: 11-28-2023 End: 11-28-2023 Office outpatient visit 15 minutes Portia Hurd ACCOUNTS ADJUSTABLE CLERK.BENCH ASSEMBLER OPERATOR Work Phone: Neurology Comment on above: Essential tremor (Pr imary Dx) Start: 08-03-2023 End: 08-05-2023 Subsequent hospital visit by physician Lia Espinoza Dr Room 2 [facility] Radiology Comment on above: Kidney stones Start: 02-07-2023 End: 02-08-2023 ambulatory Fermin R NILL Facility: [facility] Start: 02-07-2023 End: 02-07-2023 Patient encounter procedure Fermin VAUGHAN General Surgery Nill/Said [place] Start: 02-01-2023 End: 02-01-2023 Emergency department patient visit Christina Soto DO Work Phone: [facility] Comment on above: Bee sting reaction, accidental or unintentional, initial encounter (Primary Dx) Start: 01-24-2023 End: 01-25-2023 ambulatory Fermin R NILL Facility: [facility] Start: 01-24-2023 End: 01-24-2023 Patient encounter procedure Fermin R NILL General Surgery Nill/Said [place] Start: 01-11-2023 End: 01-12-2023 ambulatory Fermin VAUGHAN Facility:[facility] Start: 01-11-2023 End: 01-11-2023 Patient encounter procedure Fermin VAUGHAN General Surgery Nill/Brian Rob Start: 12-20-2022 End: 12-20-2022 Office outpatient visit 40 minutes Portia Hurd APRN.BENCH ASSEMBLER OPERATOR Work Phone: Neurology Comment on above: Essential tremor (Pr imary Dx) Start: 12-20-2022 ambulatory Fermin VAUGHAN Facility:[facility] Start: 09-22-2022 End: 09-22-2022 Office outpatient visit 25 minutes Adam Bhandari MD Work Phone: Neurology Comment on above: Essential tremor (Pr imary Dx) Start: 08-02-2022 End: 08-02-2022 Patient encounter procedure Portia Hurd APRN.BENCH ASSEMBLER OPERATOR Work Phone: Neurology Comment on above: Essential tremor Start: 08-01-2022 Telephone encounter Portia Hurd APRN.BENCH ASSEMBLER OPERATOR Work Phone: Neurology Comment on above: Appointment Start: 06-21-2022 End: 06-21-2022 Patient encounter procedure Portia Hurd APRN.BENCH ASSEMBLER OPERATOR Work Phone: Neurology Comment on above: Essential tremor (Pr imary Dx) Start: 12-15-2021 Telephone encounter Portia Hurd APRN.BENCH ASSEMBLER OPERATOR Work Phone: Neurological [place] Comment on above: Release Of Medical R ecords ([place]) Start: 12-14-2021 End: 12-14-2021 Patient encounter procedure Portia Hurd APRN.BENCH ASSEMBLER OPERATOR Work Phone: Neurology Comment on above: Essential tremor Start: 12-02-2021 Telephone encounter Portia Hurd APRN.BENCH ASSEMBLER OPERATOR Work Phone: Neurological [place] Comment on above: Release Of Medical R ecords ([facility]) Start: 02-11-2021 End: 02-11-2021 Subsequent hospital visit by physician Clau Hui DO Work Phone: [facility] OR Comment on above: Acute postoperative pain (Primary Dx) Start: 01-22-2021 End: 01-22-2021 Subsequent hospital visit by physician Felicia Maria MD Work Phone: [facility] Laboratory Start: 01-12-2021 End: 01-14-2021 Subsequent hospital visit by physician Lia Cat Scan Room [facility] CT Scan Comment on above: Right inguinal herni a; Umbilical hernia without obstruction and without gangrene Start: 04-22-2020 End: 04-23-2020 Patient encounter procedure KARLENE AMBREEN Facility:[facility] Start: 02-13-2020 End: 02-15-2020 Subsequent hospital visit by physician Lia Gen Radiologist [facility] Radiology Comment on above: Pain Strain of tendon of left rotator cuff, initial encounter Start: 01-31-2020 End: 01-31-2020 Emergency department patient visit Mukesh Marcelo Work Phone: [facility] Comment on above: Rotator cuff dysfunc tion, left (Primary Dx) Start: 01-04-2020 Patient encounter procedure KARLENE Mushtaq Facility:[facility] Procedures Date Procedure Procedure Detail Performing Clinician Start: 08-05-2024 Radiologic exam abdo men 1 view Hillary Wilson ACCOUNTS ADJUSTABLE CLERK - BENCH ASSEMBLER OPERATOR Work Phone: Start: 02-28-2024 End: 02-28-2024 Radex hand minimum 3 views Natalia guerra ACCOUNTS ADJUSTABLE CLERK - BENCH ASSEMBLER OPERATOR Work Phone: Start: 08-03-2023 Radiologic exam abdo men 1 view Judith Woo PA-C Work Phone: Start: 01-24-2023 Excision of cyst Michae l NILAnn Comment on above: mid back Start: 12-14-2021 Adult depression scr eening assessment Portia Hurd ACCOUNTS ADJUSTABLE CLERK.BENCH ASSEMBLER OPERATOR Work Phone: Start: 05-25-2021 Adult depression scr eening assessment Portia Hurd ACCOUNTS ADJUSTABLE CLERK.BENCH ASSEMBLER OPERATOR Work Phone: Start: 01-22-2021 Ecg routine ecg [...] S/P deep brain stimulator placement Portia Hurd APRN.BENCH ASSEMBLER OPERATOR Work Phone: Arthroscopy of knee Fermin GUILLENL [...] DTaP/Tdap/Td vaccine (2 - Td or Tdap) [facility] Start: 02-27-2034 DTaP/Tdap/Td vaccine (3 - Td or Tdap) DTaP/Tdap/Td vaccine (3 - Td or Tdap) [facility] Start: 02-27-2034 Urine microalbumin profile DTaP,Tdap,Td Vaccine (3 - Td or Tdap) [facility] Start: 10-13-2030 Urine microalbumin profile DTaP,Tdap,Td Vaccine (2 - Td or Tdap) [facility] Start: 2029 Respiratory Syncytia l Virus (RSV) or age 60 yrs+ (1 - 1-dose 75+ series) Respiratory Syncytial Virus (RSV) or age 60 yrs+ (1 - 1-dose 75+ series) [facility] Start: 2029 RSV Vaccine (1 - 1-d ose 75+ series) RSV Vaccine (1 - 1-dose 75+ series) [facility] Start: 06-13-2028 Screening for malign ant neoplasm of colon [facility] Start: 04-29-2027 Pneumococcal Vaccine : 50+ (3 of 3 - PCV20 or PCV21) Pneumococcal Vaccine: 50+ (3 of 3 - PCV20 or PCV21) [facility] Start: 04-29-2027 Pneumococcal Vaccine : 65+ (3 of 3 - PPSV23 or PCV20) Pneumococcal Vaccine: 65+ (3 of 3 - PPSV23 or PCV20) [facility] Start: 10-13-2025 Lipid panel [facility] Start: 08-06-2025 End: 08-06-2025 Patient encounter procedure 08/06/2025 11:30 AM EDT Office Visit [facility] Part [address] [place] [id number] Judith Woo, PA-C [address] [place] [address] [address] [place] [address] 1Y KUB, PVR [facility] Part [facility] Comment on above: 1Y KUB, PVR Start: 12-03-2024 End: 12-03-2024 Patient encounter procedure 12/03/2024 3:00 PM EDT Office Visit Neurology [address] [address] Portia Hurd, ACCOUNTS ADJUSTABLE CLERK.BENCH ASSEMBLER OPERATOR [address] [place] [address] Neurology Start: 12-02-2024 CNR DBS ADJUSTMENT CNR DBS ADJ USTMENT Procedures Routine Essential tremor Expected: 12/02/2024 [facility] Work Phone: Comment on above: Expected: 12/02/2024 Start: 08-05-2024 End: 08-05-2024 Patient encounter procedure [facility] Comment on above: 1yr KUB PVR Start: 06-04-2024 End: 06-04-2024 Patient encounter procedure 06/04/2024 1:00 PM EST Office Visit Neurology [address] [address] Portia Hurd, ACCOUNTS ADJUSTABLE CLERK.BENCH ASSEMBLER OPERATOR [address] [place] [address] Neurology Start: 05-22-2024 Advance Directive Discussion Advance Directive Discussion [facility] Start: 05-22-2024 Annual Wellness Visi t (Medicare Advantage) Annual Wellness Visit (Medicare Advantage) [facility] Start: 04-12-2024 DIABETES SCREEN DIABETES SCREEN [facility] Start: 04-12-2024 Diabetes Screening Diabetes Screenin g [facility] Start: 01-21-2024 COVID-19 Vaccine ( season) COVID-19 Vaccine ( season) [facility] Start: 01-21-2024 Covid-19 Vaccine ( season) Covid-19 Vaccine ( season) [facility] Start: 01-21-2024 Influenza vaccination Influenza Vacc ine (#1) [facility] Start: 12-21-2023 Influenza vaccination Flu vaccine (# 1) [facility] Start: 05-22-2023 Advance Directive Discussion Advance Directive Discussion [facility] Start: 05-22-2023 Annual Wellness Visi t (Medicare Advantage) Annual Wellness Visit (Medicare Advantage) [facility] Start: 05-18-2023 End: 05-18-2023 Patient encounter procedure 05/18/2023 10:00 AM EST Office Visit [facility] [address] [place] [address] Hillary Wilson, ACCOUNTS ADJUSTABLE CLERK - BENCH ASSEMBLER OPERATOR [address] [place] [id number] 1 year KUB prior [facility] Comment on above: 1 year KUB prior Start: 04-30-2023 Annual Wellness Visi t (AWV) Annual Wellness Visit (AWV) [facility] Start: 04-29-2023 Depression Screen Depression Screen [facility] Start: 04-29-2023 DTaP/Tdap/Td vaccine (1 - Tdap) DTaP/Tdap/Td vaccine (1 - Tdap) [facility] Comment on above: Postponed from 04/04 (Insurance / Financial) Start: 04-29-2023 Pneumococcal 50+ yea rs Vaccine (2 of 2 - PPSV23) Pneumococcal 50+ years Vaccine (2 of 2 - PPSV23) [facility] Start: 04-29-2023 Pneumococcal 65+ yea rs Vaccine (2 - PPSV23 or PCV20) Pneumococcal 65+ years Vaccine (2 - PPSV23 or PCV20) [facility] Start: 04-29-2023 Pneumococcal 65+ yea rs Vaccine (2 of 2 - PPSV23 or PCV20) Pneumococcal 65+ years Vaccine (2 of 2 - PPSV23 or PCV20) [facility] Start: 03-07-2023 End: 03-07-2023 Patient encounter procedure 03/07/2023 9:15 AM EDT Office Visit [facility] [place] [address] 6 week f/u, KUB prior (discuss procedure on left) [facility] Comment on above: 6 week f/u, KUB prio r (discuss procedure on left) Start: 01-20-2023 COVID-19 Vaccine ( season) COVID-19 Vaccine ( season) [facility] Start: 01-20-2023 [facility] Start: 12-20-2022 Influenza vaccination Flu vaccine (# 1) [facility] Start: 12-14-2022 Adult depression screening assessment DEPRESSION SCREENING [facility] Start: 05-25-2022 Adult depression screening assessment DEPRESSION SCREENING [facility] Start: 05-22-2022 ADVANCE DIRECTIVE DISCUSSION ADVANCE DIRECTIVE DISCUSSION [facility] Start: 05-22-2022 DEPRESSION ASSESSMENT DEPRESSION ASS ESSMENT [facility] Start: 01-20-2022 Influenza vaccination INFLUENZA (#1) [facility] Start: 01-01-2022 Shingles Vaccine (1 of 2) Shingles Vaccine (1 of 2) [facility] Phone: Comment on above: Postponed from 04/04 (Unavailable) Start: 08-18-2021 COVID-19 VACCINE (4 - Booster for Pfizer series) COVID-19 VACCINE (4 - Booster for Pfizer series) [facility] Start: 06-15-2021 COVID-19 VACCINE (4 - Booster for Pfizer series) COVID-19 VACCINE (4 - Booster for Pfizer series) [facility] Start: 06-15-2021 COVID-19 VACCINE (4 - Pfizer series) COVID-19 VACCINE (4 - Pfizer series) [facility] Start: 05-22-2021 ADVANCE DIRECTIVE DISCUSSION ADVANCE DIRECTIVE DISCUSSION [facility] Start: 05-22-2021 DEPRESSION ASSESSMENT DEPRESSION ASS ESSMENT [facility] Start: 05-14-2021 Pneumococcal 65+ yea rs Vaccine (1 of 1 - PPSV23) Pneumococcal 65+ years Vaccine (1 of 1 - PPSV23) [facility] Phone: Comment on above: Postponed from 04/04 (Patient Refused) Start: 04-12-2021 End: 04-12-2021 Patient encounter procedure 04/12/2021 Office Visit Internal Medicine Pura Gutierrez, ACCOUNTS ADJUSTABLE CLERK - BENCH ASSEMBLER OPERATOR [address] [place] [address] Jose Cruz Rojas Start: 02-17-2021 End: 02-17-2021 Patient encounter procedure 02/17/2021 Office Visit General Surgery Clau Hui I, DO [address] [facility] [address] [place] [phone] [facility] [employer] [facility] Start: 02-11-2021 End: 02-11-2021 Admission to same day surgery center 02/11/2021 Surgery IP Unit Clau Hui I, DO [address] [facility] [address] [place] [address] HERNIA INGUINAL REPAIR LAPAROSCOPIC ROBOTIC-WITH MESH [facility] Comment on above: HERNIA INGUINAL REPA IR LAPAROSCOPIC ROBOTIC-WITH MESH Start: 02-11-2021 Subsequent hospital visit by physician 02/11/2021 Hospital Encounter IP Unit Clau Hui I, DO [address] [facility] [address] [place] [address] [facility] Start: 02-04-2021 Annual Wellness Visi t (AWV) Annual Wellness Visit (AWV) [employer] Phone: Start: 01-22-2021 DTaP/Tdap/Td vaccine (1 - Tdap) DTaP/Tdap/Td vaccine (1 - Tdap) [employer] Phone: Comment on above: Postponed from 04/04 (Not Indicated) Start: 01-20-2021 Influenza vaccination Flu vaccine (# 1) [facility] Phone: Start: 01-05-2021 COVID-19 VACCINE (3 - Booster for Pfizer series) COVID-19 VACCINE (3 - Booster for Pfizer series) [facility] Start: 09-30-2020 COVID-19 Vaccine (4 - Pfizer series) COVID-19 Vaccine (4 - Pfizer series) [facility] Start: 01-21-2020 Influenza vaccination Flu vaccine (# 1) [place], [place] Start: 06-25-2019 Creatinine measurement Creatinine mo nitoring [place], [place] Start: 06-25-2019 Potassium monitoring Potassium monit oring [place] Start: 2019 Pneumococcal 65+ yea rs Vaccine (1 of 1 - PPSV23) Pneumococcal 65+ years Vaccine (1 of 1 - PPSV23) [place] Start: 2019 PNEUMOCOCCAL: 65+ (1 - PCV) PNEUMOCOCCAL: 65+ (1 - PCV) [facility] Start: 2014 Respiratory Syncytia l Virus (RSV) or age 60 yrs+ (1 - 1-dose 60+ series) Respiratory Syncytial Virus (RSV) or age 60 yrs+ (1 - 1-dose 60+ series) [facility] Start: 2014 RSV Vaccine (1 - 1-d ose 60+ series) RSV Vaccine (1 - 1-dose 60+ series) [facility] Start: 2009 PROSTATE CANCER SCREENING DISCUSSION PROSTATE CANCER SCREENING DISCUSSION [facility] Start: 2004 Influenza vaccination LUNG CANCER SC REENING [facility] Start: 2004 Screening for malign ant neoplasm of colon Colon cancer screen colonoscopy [place], [place] Start: 2004 Screening for malign ant neoplasm of lung Lung Cancer Screening [facility] Start: 2004 Shingles Vaccine (1 of 2) Shingles Vaccine (1 of 2) [facility] Start: 2004 SHINGRIX VACCINE (1 of 2) SHINGRIX VACCINE (1 of 2) [facility] Start: 1999 COLOGUARD (FIT-DNA) COLOGUARD (FIT-D NA) [facility] Start: 1999 Colonoscopy COLONOSCOPY [facility] Start: 1999 COLORECTAL CANCER SCREENING COLORECTAL CANCER SCREENING [facility] Start: [address] COLONOGRAPHY [facility] Start: 1999 FECAL OCCULT BLOOD FECAL OCCULT BLOO D [facility] Start: 1999 Screening for malign ant neoplasm of colon [facility] Start: 1999 SIGMOIDOSCOPY SIGMOIDOSCOPY [facility] Start: 1994 Diabetes screen Diabetes screen [facility] [employer] Phone: Start: 1994 Lipid panel Lipid screen [place], [place] Start: 1989 Diabetes screen Diabetes screen [facility] Start: 1989 Lipid panel Lipid Screening [facility] Start: 1989 LIPID SCREEN LIPID SCREEN [facility] Start: 1973 DTaP/Tdap/Td vaccine (1 - Tdap) DTaP/Tdap/Td vaccine (1 - Tdap) [facility] Start: 1973 Urine microalbumin profile DTAP,TDAP,TD (1 - Tdap) [facility] Start: 1972 Anxiety Screening Anxiety Screening [facility] Start: 1972 Depression Screening Depression Scre ening [facility] Start: 1972 HEPATITIS C SCREENING HEPATITIS C SC [facility] Start: 1972 Hepatitis C screening B [facility] Start: 1969 HIV screening HIV screen [facility] [place] Start: 1966 Depression Screen Depression Screen [facility] Start: 1954 ABDOMINAL AORTIC ANEURYSM SCREENING ABDOMINAL AORTIC ANEURYSM SCREENING [facility] Start: 1954 Abdominal aortic aneurysm screening Abdominal Aortic Aneurysm Screening [facility] Start: 1954 Hepatitis C screening Hepatitis C [facility] [place] Oxygen therapy [[facility] Data Set] Initiate Oxygen Therapy Protocol Respiratory Care Routine Daily until discontinued starting 02/11/2021 [employer] Phone: Comment on above: Daily until disconti nued starting 02/11/2021 Phase I & II - meter ed glucose Phase I & II - metered glucose Point of Care Testing Routine As Needed until discontinued starting 02/11/2021 [facility] Phone: Comment on above: As Needed until disc ontinued starting 02/11/2021 Surgical Pathology Surgical Path ology Lab Routine Release Upon Ordering for 1 Occurrences starting 02/11/2021 [employer] Phone: Comment on above: Release Upon Orderin g for 1 Occurrences starting 02/11/2021 [facility] Immunizations Immunization Date Immunization Notes Care Provider Zeb gant 02-28-2024 tetanus toxoid, redu tico diphtheria toxoid, and acellular pertussis vaccine, adsorbed Royce Nix MD Work Phone: [facility] 12-09-2022 pneumococcal conjuga te vaccine, 13 valent Christina Guillermobal DO Work Phone: [facility] 08-05-2020 COVID-19, Pfizer, PF , 30mcg/0.3mL Mth Room [facility] 07-14-2020 COVID-19 vaccine, ag e 12+ yr (PFIZER-BIONTECH - PURPLE TOP) Portia Hurd ACCOUNTS ADJUSTABLE CLERK.BENCH ASSEMBLER OPERATOR Work Phone: [facility] 07-12-2020 COVID-19, Pfizer, PF , 30mcg/0.3mL Mth Room [facility] Surgery [place] 03-14-2017 influenza virus vaccine, unspecified formulation Portia Hurd ACCOUNTS ADJUSTABLE CLERK.BENCH ASSEMBLER OPERATOR Work Phone: [facility] Payers Date Payer Category Payer Unknown ANTHEM [facility] AND BLUE [facility] ANTHEM MEDIBLUE ACCESS [id number] 2021-Present [phone] [address] [phone] PPO [id number] 2021 Unknown [id number] 2021 Medicare [id number] 2021 Medicare AETNA MEDICARE A ETNA MEDICARE PPO [id number] 2021-Present [phone] [address] [place] [address] PPO [id number] 2020 Unknown VACCN [place] CCN OPT [place] [id number] 2020-Present [address] [place] [id number] 2020 Medicare AETNA MEDICARE A ETNA MEDICARE-ADVANTAGE PPO [id number] 2020-Present [address] [place] [address] Medicare [id number] 2019 Medicare MEDICARE MEDICAR E PART A [id number] 2019-Present [phone] [place] [address] [id number] 2009 Private Health Insurance [facility] CCN OPTUM [id number] 2009-Present [phone] [address] [place] [address] PPO [id number] 2009 Private Health Insurance [facility] CCN OPTUM [id number] 2009-Present [phone] [address] [place] [address] PPO [id number] 1959 Self-pay [id number] 1959 Unknown [id number] 1954 Unknown [id number] 1954 Unknown [id number] 1954 Unknown [id number] 1954 Unknown [id number] 1954 Unknown [id number] 1954 Unknown [id number] 1954 Unknown [id number] 1954 Unknown [id number] Social History Date Type Detail Facility Start: 01-31-2020 End: 06-21-2023 Tobacco smoking status NHIS Former smoker [facility] Start: 01-31-2020 End: 06-21-2023 Tobacco use and exposure Current user [facility] [place] History of tobacco use Chews Tobacco [facility] [place] Start: 01-31-2020 End: 02-28-2024 Alcohol intake Current non-drinker of alcohol (finding) [place], [place] Start: 1955 Sex Assigned At Not on file [place] Start: 12-04-2021 End: 12-14-2021 Exposure to SARS-CoV-2 (event) Not sure [facility] [place] Start: 01-19-1965 End: 05-22-2014 History of tobacco use Current smoker [facility] [employer] Start: 01-01-2021 End: 06-15-2023 Cigarettes smoked current (pack per day) - Reported [facility] Start: 10-07-2020 History SDOH Financial 5 [employer] Phone: Start: 10-07-2020 History SDOH Food Worry 1 [employer] Phone: Start: 10-07-2020 Alcohol 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 [facility] Start: 01-19-1965 End: 05-22-2014 History of tobacco use Cigarette Smoker [facility] Work Phone: Start: 12-20-2022 End: 06-15-2023 Tobacco use panel [facility] Adult Depression Screening Assessment 0 [facility] (I/We) worried byronpretty er (my/our) food would run out before (I/we) got money to buy more. Never true [employer] How often to you hav e a drink containing alcohol? Never [facility] [employer] Start: 07-01-2012 Sex Male (finding) [facility] [employer] Medical Equipment Procedure Code Equipment Code Equipment Origin al Text Equipment Identifier Dates Mesh Chadwick L [id number] R Inguinal Wht Polypr [id number] Start: 02-11-2021 Stretch-Coil Dbs Extension 60 - [id number] Start: 02-04-2015 Extension Dbs 3.8-1.3mm 1.5mm Standard 60cm Neurostimulator Quadripolar - [id number] Start: 06-17-2015 Kit Adapter 2x4 Pocket New Replacement Neurostimulator Sterile - [id number] Start: 12-10-2018 Comment on above: Description: [id number] Lead Nrstm 40cm Actv Dbs - [id number] Start: 01-28-2015 Comment on above: Description: Stimloc Alfredo Hole cover Lot#[id number]; Exp Kit Activa Dbs S timloc Straight Cylinder Tungsten 40cm 1.5mm - [id number] Start: 06-09-2015 Comment on above: Description: Medtron ic Stimloc Alfredo Hole Cover: Lot#[id number] Exp 02-24-2018 Neurostimulator Activa Rc 10.5-V 2-250hz 2.2inx2.2in .4in Implantable 2 - [id number] Start: 12-10-2018 Ipg Activa Sc Db s Coil Extn - [id number] Start: 02-04-2015 Neurostimulator Activa Sc 0-10.5v 2-250hz 0-25.5ma 2.4inx2.2in .4in - [id number] Start: 06-17-2015 Neurostimulator Activa Rc 10.5-V 2-250hz 2.2inx2.2in .4in Implantable 2 - [id number] Start: 04-16-2021 Kit Restore Neurostimulator Closed Extension Boot Octapolar In Line Plug - [id number] Start: 04-16-2021 Stent Uret 6fr L 28cm Hydr+ Pgtl Tapr Tip Grad Bldr Mrk Lo - [id number] Start: 01-19-2023 Stent Uret 6fr L 28cm Hydr+ Pgtl Tapr Tip Grad Bldr Mrk Lo - [id number] Start: 06-15-2023 Comment on above: Description: String remains intact and secured to penis with steri strips and mastisol Functional Status Date Assessment Result Facility 01-11-2023 Functional Status N/A General [facility] Rob Clinical Notes 02-11-2021 to 06-04-2024 Patient InstructionsPortia Hurd APRN.PATRICK - 06/04/2024 12:16 PM Portia Todd APRN.BENCH ASSEMBLER OPERATOR - 06/04/2024 12:16 PM Portia Todd APRN.PATRICK - 06/04/2024 12:16 PM ESTAttachments Note Date & Type Note Facility 06-04-2024 Instructions Portia Hurd APRN.BENCH ASSEMBLER OPERATOR - 06/04/2024 1:29 PM EST No changes today for tremor, you are continuing to do well on these settings. I did increase your left arm a little bit. Look into the EZ OUT door handle assist for your card door. Or just google, door handle assistance device documented in this encounter [facility] 06-04-2024 Note HNO ID: [id number] Author: PORTIA HURD APRN.PATRICK Service: ? Author Type: Nurse Practitioner Type: Procedures Filed: 06/04/2024 13:47 Note Text: DBS PROGRAMMING PROCEDURE NOTE: DBS Surgery information: DBS Surgery Information Target: Bilateral Vim for: Essential tremor Print Room Worker: Swoopotronic IPG: Activa RC IPG Laterality: bilateral # [...] Beg/Fi L/R Pr# Site TI Portia Hurd, JANELL.BENCH ASSEMBLER OPERATOR Todays Programming: No changes Imaging was reviewed [...] 1-C+, 1.2 V, 90 micS, [address] [facility] 06-04-2024 Procedure note Images from the original note were not included. DBS PROGRAMMING PROCEDURE NOTE: DBS Surgery information: DBS Surgery Information Target: Bilateral Vim for: Essential tremor Print Room Worker: [employer]Luxe IPG: Activa RC IPG Laterality: bilateral # [...] Beg/Fi L/R Pr# Site TI Portia Hurd APRN.BENCH ASSEMBLER OPERATOR Todays Programming: No changes Imaging was reviewed [...] 1-C+, 1.2 V, 90 micS, 125 Hz. [facility] 06-04-2024 History of Presen t illness Narrative [facility] - FOLLOW UP EVALUATION Felicia Maria MD, [address] [place] [address] [place] [address] Dear Felicia Maria MD, MD: I had [...] Primidone Unknown Current Outpatient Medications Medication Sig Sfpimxghralxa-Kmfsljuc-Vvauug (MULTIVITAMIN 50 PLUS) tab Take 1 tablet [...] normal development, well-kept Movement Disorders Scales Performed: Mqns-Wqrcga-Yebok Tremor Scale Medication OFF/ON Time of Assessment [...] Portia Hurd APRN.PATRICK documented in this encounter [facility] 06-04-2024 Note HNO ID: [id number] Author: PORTIA HURD APRN.CNP Service: ? Author Type: Nurse Practitioner Type: Progress Notes Filed: 06/04/2024 13:47 Note Text: [facility] - FOLLOW UP EVALUATION Felicia Maria MD, [address] [place] [address] [place] [address] Dear Felicia Maria MD, MD: I had [...] Primidone Unknown Current Outpatient Medications Medication Sig Phhnuwkbirovz-Iuiaalsw-Pylwja (MULTIVITAMIN 50 PLUS) tab Take 1 tablet [...] normal development, well-kept Movement Disorders Scales Performed: Sbpi-Fxsumc-Vbesp Tremor Scale Medication OFF/ON Time of Assessment [...] status post bilatera (more content not included)... [facility] 06-04-2024 Procedure note Images from the original note were not included. DBS PROGRAMMING PROCEDURE NOTE: DBS Surgery information: DBS Surgery Information Target: Bilateral Vim for: Essential tremor Print Room Worker: [employer] IPG: Activa RC IPG Laterality: bilateral # [...] Beg/Fi L/R Pr# Site TI Portia Hurd APRN.BENCH ASSEMBLER OPERATOR Todays Programming: No changes Imaging was reviewed [...] micS, 125 Hz. documented in this encounter [facility] 02-28-2024 Hospital Discharg e Natalia Samuels APRN - PATRICK - 02/28/2024 11:58 AM EDT Wash area 3 times daily with soap and water. Dry well. Apply antibiotic ointment and bandage continue for 7 to 10 days or until wound Bactrim DS 1 by mouth twice daily for 10 days. If rash develops discontinue this medication take ykad-nes-alwwwnu loratadine and let Dr. Kim know regarding reaction. Tylenol ibuprofen as needed for comfort. Do not submerge hand in water for 7 days. The following attachments cannot be sent through Care Everywhere.Puncture Wounds (Mexican)documented in this encounter [facility] 11-28-2023 Note HNO ID: [id number] Author: PORTIA HURD APRN.PATRICK Service: ? Author Type: Nurse Practitioner Type: Procedures Filed: 12/01/2023 11:45 Note Text: DBS PROGRAMMING PROCEDURE NOTE: DBS Surgery information: DBS Surgery Information Target: Bilateral Vim for: Essential tremor Print Room Worker: [employer] IPG: Activa RC IPG Laterality: bilateral # [...] B B VIM VIM VIM VIM 745 [phone] Portia Hurd, ACCOUNTS ADJUSTABLE CLERK.BENCH ASSEMBLER OPERATOR Todays Programming: No changes Imaging was reviewed [...] 1-C+, 1.2 V, 90 micS, [address] [facility] 11-28-2023 Procedure note Images from the original note were not included. DBS PROGRAMMING PROCEDURE NOTE: DBS Surgery information: DBS Surgery Information Target: Bilateral Vim for: Essential tremor Print Room Worker: S[employer] IPG: Activa RC IPG Laterality: bilateral # [...] B B VIM VIM VIM VIM [phone] Portia Hurd, ACCOUNTS ADJUSTABLE CLERK.BENCH ASSEMBLER OPERATOR Todays Programming: No changes Imaging was reviewed [...] 1-C+, 1.2 V, 90 micS, 125 Hz. [facility] 11-28-2023 Note HNO ID: [id number] Author: PORTIA HURD APRN.BENCH ASSEMBLER OPERATOR Service: ? Author Type: Nurse Practitioner Type: Progress Notes Filed: 12/01/2023 11:45 Note Text: [facility] - FOLLOW UP EVALUATION Felicia Maria MD, [place] [address] Dear Felicia Maria MD, : I had [...] Primidone Unknown Current Outpatient Medications Medication Sig Quupbaexdxdme-Eswuyqjy-Umxnzj (MULTIVITAMIN 50 PLUS) tab Take 1 tablet [...] Examination: Neurological Exam Movement Disorders Scales Performed: Gwtt-Kpjdtm-Dcxgr Tremor Scale Medication OFF/ON ON Time of [...] have remained stable (more content not included)... [facility] 11-28-2023 History of Presen t illness Narrative [facility] - FOLLOW UP EVALUATION Felicia Maria MD, [address] [address] Dear Felicia Maria MD, MD: I had [...] Primidone Unknown Current Outpatient Medications Medication Sig Csvgavpxafqez-Gtnqedfg-Jukhbr (MULTIVITAMIN 50 PLUS) tab Take 1 tablet [...] Examination: Neurological Exam Movement Disorders Scales Performed: Srrl-Wqsgoo-Xwjub Tremor Scale Medication OFF/ON ON Time of [...] call with any questions. Sincerely, Portia Hurd APRN.BENCH ASSEMBLER OPERATOR documented in this encounter [facility] 11-28-2023 Procedure note Images from the original note were not included. DBS PROGRAMMING PROCEDURE NOTE: DBS Surgery information: DBS Surgery Information Target: Bilateral Vim for: Essential tremor Print Room Worker: Med[employer] IPG: Activa RC IPG Laterality: bilateral [...] B B VIM VIM VIM VIM 745 [phone] Portia Hurd, ACCOUNTS ADJUSTABLE CLERK.BENCH ASSEMBLER OPERATOR Todays Programming: No changes Imaging was reviewed on brainAegis Lightwave. Lead is lateral with 1 and 2 [...] micS, 125 Hz. documented in this encounter [facility] 02-01-2023 Hospital Discharg e instructions Christina Soto DO - 02/01/2023 6:54 PM EDT Recommend warm compresses and or ice pack to help with the swelling of the left arm. If you develop any difficulty breathing or if the swelling or the redness gets worse return to the emergency department. The following attachments cannot be sent through Care Everywhere.Insect Stings and Bites (Mexican)documented in this encounter [facility] 01-11-2023 Note Chief Complaint consultation for [...] BNT-162b2 vax 07/12/2020 (more content not included)... [facility] Comment on above: Result Comment: Elec tronically Signed By: ALEXUS CRESPO, Fermin Suero\Date and Time Signed: 01/11/23 15:47 EDT 12-20-2022 History of Presen t illness Narrative [facility] [place] [address] Dear Felicia Maria: I had the pleasure [...] Primidone Unknown Current Outpatient Medications Medication Sig Ketuskgxfxdpr-Lsdtrklf-Cddvrg (MULTIVITAMIN 50 PLUS) tab Take 1 tablet [...] normal development, well-kept Movement Disorders Scales Performed: Fwmx-Vphhpo-Kmdpv Tremor Scale Face Tremor At Rest: 0 [...] call with any questions. Sincerely, Portia Hurd APRN.BENCH ASSEMBLER OPERATOR documented in this encounter [facility] 12-20-2022 Procedure note Images from the original [...] ranges. Todays Programming: Imaging was reviewed on brainAegis Lightwave. Lead is lateral with 1 and 2 [...] time: 45 min documented in this encounter [facility] 09-22-2022 Instructions Adam Bhandari MD - 09/22/2022 [...] or you can send a message through [employer]. You can also now schedule and select appointments through [employer]. Adam Bhandari MD documented in this encounter [facility] 09-22-2022 History of Presen t illness Narrative Images from the original note were not included. [facility] - NEW PATIENT EVALUATION Referring Provider: Protia Hurd [address] [facility] [address] Primary Care Provider: Felicia Maria MD [address] [place] [address] [place] [address] Dear Portia Hurd: Thank you for referring [...] Primidone Unknown Current Outpatient Medications Medication Sig Znltpxaknrwop-Rfdwzfri-Rwglrc (MULTIVITAMIN 50 PLUS) tab Take 1 tablet [...] medical history of Atrial fibrillation ([facility]), Cancer ([facility]), Chronic obstructive pulmonary disease (COPD) ([facility]), Chronic renal insufficiency, Congestive heart failure ([facility]), Coronary artery disease, Depression, Diabetes ([facility]), Epilepsy ([facility]), Hypertension, Hypothyroidism, Steroid long-term use, [...] Adam Bhandari MD documented in this encounter [facility] 09-22-2022 Procedure note Images from the original [...] ranges. Todays Programming: Imaging was reviewed on brainAegis Lightwave. Lead is lateral with 1 and 2 [...] time: 45 min documented in this encounter [facility] 08-02-2022 Instructions Portia Hurd APRN.PATRICK - 08/02/2022 11:26 AM EDT Schedule a new patient appointment with Dr. Bhandari. You are on your best settings from our testing today. You have a small range you can try and work with if needed. documented in this encounter [facility] 08-02-2022 Procedure note DBS Analysis/programming: INITIAL and [...] Did not work documented in this encounter [facility] 08-02-2022 History of Presen t illness Narrative [facility] - FOLLOW UP EVALUATION Felicia Maria MD [address] [place] [address] [place] [address] Dear Felicia Maria MD: I had the [...] Primidone Unknown Current Outpatient Medications Medication Sig Tcyvwlgdbejch-Atlybubj-Ywskau (MULTIVITAMIN 50 PLUS) tab Take 1 tablet [...] normal development, well-kept Movement Disorders Scales Performed: Ebvy-Wexaag-Wcmjq Tremor Scale Face Tremor At Rest: 0 [...] Medication Schedule: Medications Level of service : 00388 + 3 units 55291 ( > 55 min, [id number] for each 15 min > 40). Time spent 90 min on the day of service, which included preparing to see the patient, rcvp-sv-nvkp patient care, completing clinical documentation, obtaining and/or [...] Portia Hurd APRN.PATRICK documented in this encounter [facility] 08-01-2022 Miscellaneous Notes LM for pt to callback regarding pre-check in. Please transfer to Nadia Mckeon documented in this encounter [facility] 06-21-2022 Instructions Portia Hurd APRN.CNP - 06/21/2022 [...] 29 at 3pm documented in this encounter [facility] 06-21-2022 Procedure note DBS Analysis/programming: INITIAL and [...] groups if needed. documented in this encounter [facility] 06-21-2022 History of Presen t illness Narrative [facility] - FOLLOW UP EVALUATION Felicia Maria MD [address] [place] [address] [facility] [address] Dear Felicia Maria MD: I had the [...] normal development, well-kept Movement Disorders Scales Performed: Dval-Yimgpw-Osrjq Tremor Scale Face Tremor At Rest: 0 [...] or around: 12/19/22 Level of service : 58475 (40-54 min). Time spent 40 min on the day of service, which included preparing to see the patient, fvfx-yi-tkbe patient care, completing clinical documentation, obtaining and/or [...] Portia Hurd APRN.CNP documented in this encounter [facility] 12-16-2021 Miscellaneous Notes Done! thanks [facility]. Once closed please route back to me to fax. [place] (f) [phone] documented in this encounter [facility] 12-14-2021 Instructions Portia Hurd APRN.CNP - 12/14/2021 1:45 PM EDT 1. You are leaving on the same settings you came in on but now have a range on both sides. You can go up and down on both sides. 2. Follow up in six months for a device check. documented in this encounter [facility] 12-14-2021 Procedure note DBS Analysis/programmin mins INITIAL [...] settings caused nausea. documented in this encounter [facility] 12-14-2021 History of Presen t illness Narrative [facility] - FOLLOW UP EVALUATION Felicia Maria MD [address] [place] [address] [place] [address] I had the pleasure of seeing Mr. [...] normal development, well-kept Movement Disorders Scales Performed: Asum-Tbaxds-Vjflq Tremor Scale Face Tremor At Rest: 0 [...] call with any questions. Sincerely, Portia Hurd APRN.BENCH ASSEMBLER OPERATOR documented in this encounter [facility] 12-02-2021 Miscellaneous Notes [facility] faxed record request for 2021 records. Faxed to (f) [phone] Request available to view in scanned documents. documented in this encounter [facility] 02-11-2021 History of Presen t illness Narrative [...] with the patient. documented in this encounter [employer] Phone: 02-11-2021 Hospital Discharg e instructions Jeffery [...] regarding your surgery. documented in this encounter [employer] Phone: Evaluation + Plan note Future Appointments Appointment Date:01/24/2023 01:40:00 PM Scheduled Provider:Fermin VAUGHAN MD Location:[facility] Appointment Type: Procedure 30 General Surgery [place] Evaluation + Plan note Future Appointments Appointment Date:02/07/2023 02:00:00 PM Scheduled Provider:Fermin VAUGHAN MD Location:[facility] Appointment Type: Established 15 General Surgery [place] Evaluation note Diagnosis Right inguinal hernia Inguinal hernia without mention of obstruction or gangrene, unilateral or unspecified, (not specified as recurrent) Umbilical hernia without obstruction and without gangrene documented in this encounter [employer] Phone: evaluation note* Diagnosis Right inguinal hernia- Primary Inguinal hernia without mention of obstruction or gangrene, unilateral or unspecified, (not specified as recurrent) Acute postoperative pain Other acute postoperative pain Umbilical hernia without obstruction and without gangrene documented in this encounter [employer] Phone: evaluation note* Diagnosis Essential tremor Essential and other specified forms of tremor documented in this encounter [facility] note* Diagnosis Essential tremor- Primary Essential and other specified forms of tremor documented in this encounter [facility] note* Diagnosis Essential tremor Essential and other specified forms of tremor documented in this encounter [facility] note* Diagnosis Essential tremor- Primary Essential and other specified forms of tremor documented in this encounter [facility] note* Diagnosis Essential tremor- Primary Essential and other specified forms of tremor documented in this encounter [facility] note* Diagnosis Bee sting reaction, accidental or unintentional, initial encounter- Primary documented in this encounter [facility] note* Diagnosis Kidney stones Calculus of kidney documented in this encounter [facility] note* Diagnosis Essential tremor- Primary Essential and other specified forms of tremor documented in this encounter [facility] note* Diagnosis Renal calculus- Primary Calculus of kidney Puncture wound of left thumb, initial encounter- Primary Foreign body of skin of left thumb documented in this encounter [facility] note* Diagnosis Pre-op evaluation- Primary Preoperative examination, [...] forms of tremor documented in this encounter [facility] note* Diagnosis Renal calculus- Primary Calculus of kidney Kidney stones Calculus of kidney documented in this encounter [facility] course Narrative No data available for this section [facility] Discharge instructions No data available for this section General Surgery [facility] note No data available for this [...] FoundDocuments on File Type Date Recorded Patient Dairy Clerk Expl anation ACP-Advance Directive ACP-Power of Soap Boiler Documents on File Type Date Recorded Patient Dairy Clerk Expl anation ACP-Advance Directive ACP-Power of Soap Boiler Documents on File Type Date Recorded Patient Dairy Clerk Expl anation Advance Directive(s) 03/23/2021 5:46 PM Advance Directive(s) 12/03/2018 12:53 PM Documents on File Type Date Recorded Patient Dairy Clerk Expl anation Advance Directive(s) 03/23/2021 5:46 PM [...] Herrera MD [address] [place] [address] Status Reason Specialty Diagnoses / Procedures Referre d By Contact Referred To Contact Closed Radiology Diagnoses Right inguinal hernia Umbilical hernia without obstruction and without gangrene Procedures CT ABDOMEN PELVIS WO CONTRAST Additional Contrast? Oral Felicia Maria MD [address] [place] [address] Specialty Diagnoses / Procedures Referred By Contac t Referred To Contact Diagnoses Essential tremor Procedures PROVIDER ORDERED FOLLOW UP OFFICE/OUTPATIENT NEW HIGH MDM 60-74 MINUTES Portia Hurd, ACCOUNTS ADJUSTABLE CLERK.BENCH ASSEMBLER OPERATOR [address] [place] [address] Referral ID Status Reason Start Date Expiration Date Visits Requested Visits Authorized [id number] Pending Review PCP Requested Referral 12/14/2021 12/14/2022 1 1 Specialty Diagnoses / Procedures Referred By Contac t Referred To Contact Diagnoses Essential tremor Procedures PROVIDER ORDERED FOLLOW UP OFFICE/OUTPATIENT NEW HIGH MDM 60-74 MINUTES Portia Hurd, ACCOUNTS ADJUSTABLE CLERK.BENCH ASSEMBLER OPERATOR [address] [place] [address] Referral ID Status Reason Start Date Expiration Date Visits Requested Visits Authorized [id number] Pending Review PCP Requested Referral 12/19/2022 06/21/2023 1 1 Referral ID Status Reason Start Date Expiration Date Visits Requested Visits Authorized [id number] Pending Review PCP Requested Referral 06/22/2023 12/20/2023 1 1 Specialty Diagnoses / Procedures Referred By Contac t Referred To Contact Diagnoses Essential tremor Procedures PROVIDER ORDERED FOLLOW UP OFFICE/OUTPATIENT NEW HIGH MDM 60 MINUTES Portia Hurd, ACCOUNTS ADJUSTABLE CLERK.BENCH ASSEMBLER OPERATOR [address] [place] [address] Referral ID Status Reason Start Date Expiration Date Visits Requested Visits Authorized [id number] Authorized PCP Requested Referral 05/30/2024 11/27/2024 1 [...] Procedures PROVIDER ORDERED FOLLOW UP OFFICE/OUTPATIENT [facility] MDM 60-74 MINUTES Portia Hurd, ACCOUNTS ADJUSTABLE CLERK.BENCH ASSEMBLER OPERATOR [address] [place] [address] Referral ID Status Reason Start Date Expiration Date V isits Requested Visits Authorized [id number] Closed PCP Requested Referral 11/21/2023 05/22/2024 1 [...] Herrera MD [address] [place] [id number] [facility] [address] [place] [address] Status Reason Specialty Diagnoses / Procedures Referre d By Contact Referred To Contact Closed Radiology Diagnoses Strain of muscle(s) and tendon(s) of the rotator cuff of left shoulder, initial encounter Procedures HC CT SHOULDER RIGHT W CONTRAST Cal Herrera MD [address] [place] [id number] [facility] [address] Scan [address] [place] [address] Status Reason Specialty Diagnoses / Procedures Referre d By Contact Referred To Contact Closed Radiology Diagnoses Right inguinal hernia Umbilical hernia without obstruction and without gangrene Procedures CT ABDOMEN PELVIS WO CONTRAST Additional Contrast? Oral Felicia Maria MD [address] [place] [address] Status Reason Specialty Diagnoses / Procedures Referre d By Contact Referred To Contact Diagnoses Bilateral inguinal hernia, without obstruction or gangrene, not specified as recurrent Umbilical hernia without obstruction or gangrene BILATERAL UMBILICAL HERNIA AND UMBILICAL HERNIA Procedures TN LAP,INGUINAL HERNIA REPR,INITIAL REPAIR UMBILICAL [place],5+Y/O,REDUC HERNIA INGUINAL REPAIR LAPAROSCOPIC ROBOTIC-WITH MESH HERNIA UMBILICAL REPAIR-OPEN Clau Hui I, DO [address] [facility] [address] [place] [address] [facility] Reason Comments [facility] ber[facility] Reason Comments [facility] Of [facility] Reason Comments Appointment Reason Comments Essential tremor Specialty Diagnoses / Procedures Referred By Contact Referred To Contact NEUROLOGICAL BAPTISM Diagnoses Essential tremor Procedures PROVIDER ORDERED FOLLOW UP OFFICE/OUTPATIENT NEW HIGH MDM 60-74 MINUTES Portia Hurd, ACCOUNTS ADJUSTABLE CLERK.BENCH ASSEMBLER OPERATOR [address] [place] [address] [facility] [address] [place] [address] Referral ID Status Reason Start Date Expiration Date V isits Requested Visits Authorized [id number] Closed PCP Requested Referral 05/02/2022 12/18/2022 1 1 Reason Comments New Patient Evaluation Essential tremor Specialty Diagnoses / Procedures Referred By Contact Referred To Contact Neurology / NEUROLOGICAL BAPTISM Diagnoses Counseling, unspecified Dr. Bhandari new patient visit next available. per Portia Hurd APRN.BENCH ASSEMBLER OPERATOR Procedures OFFICE/OUTPATIENT NEW MDM 15-29 MINUTES OFFICE/OUTPATIENT NEW HIGH MDM 60-74 MINUTES [facility] Portia Hurd, ACCOUNTS ADJUSTABLE CLERK.BENCH ASSEMBLER OPERATOR [address] [place] [address] Adam Bhandari MD [address] [place] [address] Referral ID Status Reason Start Date Expiration Date V isits Requested Visits Authorized [id number] Authorized 05/02/2022 12/18/2022 99 99 Specialty Diagnoses / Procedures Referred By Contact Referred To Contact NEUROLOGICAL BAPTISM Diagnoses Essential tremor Procedures PROVIDER ORDERED FOLLOW UP OFFICE/OUTPATIENT [facility] 60-74 MINUTES Portia Hurd, ACCOUNTS ADJUSTABLE CLERK.BENCH ASSEMBLER OPERATOR [address] [place] [address] [facility] [employer] [address] [address] Referral ID Status Reason Start Date Expiration Date V isits Requested Visits Authorized [id number] Closed PCP Requested Referral Patient Cleared - Admin/Wire Technician /Director advise to proceed or did not respond 12/19/2022 06/21/2023 1 1 Reason Comments Insect Bite Pt reports gets bloo d poisoning from bee stings. Stung today 1 1/2 hrs ago. Airway maintained, 98% ra. Reason Comments Foreign Body in Skin Nail went through b oard while using nail gun. Had 2 nails to left hand. 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 Tetanus not up to date. Specialty Diagnoses / Procedures Referred By Contac t Referred To Contact Diagnoses Essential tremor Procedures PROVIDER ORDERED FOLLOW UP OFFICE/OUTPATIENT [facility] MDM 60 MINUTES Portia Hurd, ACCOUNTS ADJUSTABLE CLERK.BENCH ASSEMBLER OPERATOR [address] [place] [address] Referral ID Status Reason Start Date Expiration Date V isits Requested Visits Authorized [id number] Closed PCP Requested Referral 05/30/2024 11/27/2024 1 1 (unrecognized sect ion and content) No Status Records FoundNo Status Records FoundNo Status Records FoundNo Status Records Found INFORMATION SOURCE (unrecogn ized section and content) DATE CREATED AUTHOR 04/26/2020 [facility] DATE CREATED AUTHOR AUTHOR'S ORGANIZ ATION 02/08/2023 [facility] DATE CREATED AUTHOR AUTHOR'S ORGANIZ ATION 06/07/2024 [facility] DATE CREATED AUTHOR AUTHOR'S ORGANIZ ATION 08/09/2024 [...] or prosecute any alcohol or drug abuse patient.[facility] the event this information is protected by the Federal Confidentiality of Alcohol and Drug Abuse Patient Records regulations: The Federal rules restrict any use of the information to criminally investigate or prosecute any alcohol or drug abuse patient.[facility] Center[facility] the event this information is protected by the Federal Confidentiality of Alcohol and Drug Abuse Patient Records regulations: The Federal rules restrict any use of the information to criminally investigate or prosecute any alcohol or drug abuse patient.[facility] Center[facility] the event this information is protected by the Federal Confidentiality of Alcohol and Drug Abuse Patient Records regulations: The Federal rules restrict any use of the information to criminally investigate or prosecute any alcohol or drug abuse patient.[facility] Center[facility] the event this information is protected by the Federal Confidentiality of Alcohol and Drug Abuse Patient Records regulations: The Federal rules restrict any use of the information to criminally investigate or prosecute any alcohol or drug abuse patient.[facility] CenterIn the event this information is protected by the Federal Confidentiality of Alcohol and Drug Abuse Patient Records regulations: The Federal rules restrict any use of the information to criminally investigate or prosecute any alcohol or drug abuse patient.[facility] CenterIn the event this information is protected by the Federal Confidentiality of Alcohol and Drug Abuse Patient Records regulations: The Federal rules restrict any use of the information to criminally investigate or prosecute any alcohol or drug abuse patient.[facility] CenterIn the event this information is protected by the Federal Confidentiality of Alcohol and Drug Abuse Patient Records regulations: The Federal rules restrict any use of the information to criminally investigate or prosecute any alcohol or drug abuse patient.[facility] CenterIn the event this information is protected by the Federal Confidentiality of Alcohol and Drug Abuse Patient Records regulations: The Federal rules restrict any use of the information to criminally investigate or prosecute any alcohol or drug abuse patient.[facility] CenterIn the event this information is protected by the Federal Confidentiality of Alcohol and Drug Abuse Patient Records regulations: The Federal rules restrict any use of the information to criminally investigate or prosecute any alcohol or drug abuse patient.[facility] Care Teams (unrecognized sec tion and content) Residential Program Manager Relationship Specialty Start Date End Date Felicia Maria [address] [place] [address] PCP - General Internal Medicine 03/23/21 Residential Program Manager Relationship Specialty Start Date End Date Felicia Maria [address] [place] [address] PCP - General Internal Medicine 03/23/21 Residential Program Manager Relationship Specialty Start Date End Date Felicia Maria [address] [place] [address] PCP - General Internal Medicine 03/23/21 Residential Program Manager Relationship Specialty Start Date End Date Felicia Maria [address] [place] [address] PCP - General Internal Medicine 03/23/21 Residential Program Manager Relationship Specialty Start Date End Date Felicia Maria [address] [place] [address] PCP - General Internal Medicine 03/23/21 Residential Program Manager Relationship Specialty Start Date End Date Felicia Maria [address] [place] [address] PCP - General Internal Medicine 03/23/21 Residential Program Manager Relationship Specialty Start Date End Date Felicia Maria [address] [place] [address] PCP - General Internal Medicine 03/23/21 Residential Program Manager Relationship Specialty Start Date End Date Karlene Rice MD [address] [place] [address] PCP - General Family Medicine 01/16/23 Residential Program Manager Relationship Specialty Start Date End Date Karlene Rice MD [address] [place] [address] PCP - General Family Medicine 01/16/23 Residential Program Manager Relationship Specialty Start Date End Date Felicia Maria MD [address] [place] [address] [place] [id number] PCP - General Internal Medicine 03/23/21 Residential Program Manager Relationship Specialty Start Date End Date Karlene Rice MD [address] [place] [address] PCP - General Family Medicine 01/16/23 Residential Program Manager Relationship Specialty Start Date End Date Felicia Maria MD [address] [place] [phone] PCP - General Internal Medicine 03/23/21 Residential Program Manager Relationship Specialty Start [place] [address] [place], [place] [id number] PCP - General Family Medicine 01/16/23 Residential Program Manager Relationship Specialty [place] [address] [place] [id number] PCP - General Family Medicine 01/16/23 FOR [...] BE BASED ON THE PRIMARY CLINICAL RECORDS. [employer] [facility]. provides no warranty or guarantee of the accuracy or completeness of information in this document.
== END 2024-11-27 19:36 | disposition home or self-care (01) ==
LOC: SLEEP 19:35
PROVIDERS: PCP Family Medicine; Visit Provider Family Medicine
DX: G47.33 Obstructive sleep apnea (adult) (pediatric) (principal)
CPT/HCPCS: 95811